=== PATIENT | female | born 1950 | race African-American/Black ===

== ENCOUNTER → 2016-09-18 | Outpatient (CLI) | payer MEDICARE ==
--- NOTE | 2016-09-18 13:01 | WOMENS IMAGING REPORT ---
EXAM DESCRIPTION: BILAT SCREENING MAMMO W/CAD COMPLETED DATE/TIME: 09/18/2016 8:27 am REASON FOR STUDY: ROUTINE SCREENING; Z12.31 Z12.31 ENCNTR SCREEN MAMMOGRAM FOR MALIGNANT NEOPLASM O F MORIS COMPARISON: Multiple since 2008 TECHNIQUE: Standard craniocaudal and mediolateral oblique views of each breast recorded using [employer] acquisition. LIMITATIONS: None. FINDINGS: Findings present which are benign by mammographic criteria. No suspicious masses, calcifi cations or architectural distortion. Pertinent benign findings: Stable bilateral breast parenchymal calcifications Read with the assistance of CAD. .[facility] - R2 Cenova Version 1.3 .[facility] - R2 Cenova Version 1.3 .[facility] - R2 Cenova Version 2.4 .[facility] [place] - R2 Cenova Version 2.4 .[facility] - R2 [employer] Version 9.2 Benign mammographic findings may include one or more of the following: Smooth masses, popcorn/rim/co arse calcifications, asymmetries, post-procedure changes, and lesions with long-standing stability. IMPRESSION: BENIGN MAMMOGRAPHIC FINDINGS. BIRADS 2 BREAST DENSITY: b. There are scattered areas of fibroglandular density. BIRAD: 2 BENIGN FINDING(S) RECOMMENDATION: ROUTINE SCREENING COMMENT: The patient has been notified of the results by letter per SA requirements. Additional no tification policies are in place for contacting patient with suspicious or incomplete findings. Quality ID #[id number]: The [employer] recommends an annual screening mammogram for women aged 40 years or over. This facility utilizes a reminder system to ensure that all patients receive reminder letters, and/or direct phone calls for appointments. This includes reminders for routine scr eening mammograms, diagnostic mammograms, or other Breast Imaging Interventions when appropriate. Th is patient will be placed in the appropriate reminder system. The [employer] (ACR) has developed recommendations for screening MRI of the breast s in certain patient populations, to be used in conjunction with mammography. Breast MRI surveillanc e may be appropriate for women with more than 20% lifetime risk of developing breast cancer as deter mined by genetic testing, significant family history of the disease, or history of mantle radiation f or Hodgkins Disease. ACR Practice Guidelines 2008. TECHNICAL DOCUMENTATION: FINDING NUMBER: (1) ASSESSMENT: (1) JOB ID: [id number] [employer]- All Rights Reserved
== END ==
LOC: WI 09:13
PROVIDERS: ATTEND Internal Medicine
DX: Z12.31 Encounter for screening mammogram for malignant neoplasm of breast (principal)
CPT/HCPCS: 77067; G0202

== ENCOUNTER → 2017-06-10 | Outpatient (CLI) | payer MEDICARE ==
--- NOTE | 2017-06-10 13:56 | RADIOLOGY REPORT (SQ) ---
EXAM DESCRIPTION: HIP LEFT AP/LATERAL COMPLETED DATE/TIME: 06/10/2017 12:19 pm REASON FOR STUDY: HIP PAIN, ACUTE, LEFT M25.552 PAIN IN LEFT HIP COMPARISON: None. NUMBER OF VIEWS: Two views. TECHNIQUE: AP pelvis and additional frog-leg view of the left hip. LIMITATIONS: None. FINDINGS: MINERALIZATION: Normal. LEFT HIP: No fracture or dislocation. No worrisome bone lesions. No significant joint space narrowi ng or bony spurring. RIGHT HIP: No fracture or dislocation. No worrisome bone lesions. No significant joint space narrow ing or bony spurring. PUBIS AND ISCHIUM: No fracture. PELVIS: No acute fracture. Prominent osteophytes along the right anterior superior iliac spine. SACRUM: No fracture or dislocation. No worrisome bone lesions. LOWER LUMBAR SPINE: Advanced bilateral facet arthropathy at L4-5 and L5-S1 SOFT TISSUES: Pessary in the vagina OTHER: No other significant finding. IMPRESSION: No acute fracture or malalignment. No high-grade joint space narrowing or bulky bony sp urring. TECHNICAL DOCUMENTATION: JOB ID: [id number] [employer]- All Rights Reserved Reading location - IP/workstation name: [email or web address]
== END ==
LOC: RAD 11:59
PROVIDERS: ATTEND Nurse Practitioner
DX: M25.552 Pain in left hip (principal)

== ENCOUNTER 2018-03-06 08:06 | Emergency (ER) | payer MEDICARE ==
--- NOTE | 2018-03-06 08:19 | ER Document Report ---
ED General - General Mode of Arrival: Ambulatory Information source: Patient, Relative TRAVEL OUTSIDE OF THE [place] 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 Patient is seen every Wednesday at wound care for this wound and was seen there today instead due to the holiday. Patient states that she woke up this morning she noticed that she had been bleeding overnight as her gown and bed were covered in blood. There is no active bleeding now. (LOLIS SCHWARZ) - Related Data Allergies/Adverse Reactions: clindamycin [Clindamycin] Allergy (Verified 03/06/18 08:08) Penicillins Allergy (Verified 03/06/18 08:08) Past Medical History - General Information source: Patient, [facility] Records - Social History Smoking Status: Never Smoker Cigarette use (# per day): No Frequency of alcohol use: None Drug Abuse: None Lives with: Family Family History: Reviewed & Not Pertinent - Past Medical History Cardiac Medical History: Reports: Hx Hypertension Endocrine Medical History: Reports: Hx Diabetes Mellitus Type 2 Malignancy Medical History: Reports: Hx Renal (Kidney) Cancer - Right. With metastasis to the lung and left axilla Past Surgical History: Reports: Hx Kidney (Renal Surgery) - right nephrectomy 01/10/14 - Immunizations Hx Diphtheria, Pertussis, Tetanus Vaccination: Yes <LOLIS SCHWARZ - Last Filed: 03/06/18 09:12> Review of Systems - Review of Systems Constitutional: No symptoms reported EENT: No symptoms reported Cardiovascular: No symptoms reported Respiratory: No symptoms reported Gastrointestinal: No symptoms reported Genitourinary: No symptoms reported Female Genitourinary: No symptoms reported Musculoskeletal: No symptoms reported Skin: See HPI, Other - tumor in left axilla bleeding Hematologic/Lymphatic: No symptoms reported Neurological/Psychological: No symptoms reported -: Yes All other systems reviewed and negative <LOLIS SCHWARZ - Last Filed: 03/06/18 09:12> Physical Exam <LOLIS SCHWARZ - Last Filed: 03/06/18 09:12> - Vital signs Vitals: Temp Pulse Resp BP Pulse Ox 98.5 F 101 H 18 148/75 H 96 03/06/18 08:10 03/06/18 08:10 03/06/18 08:10 03/06/18 08:10 03/06/18 08:10 - Notes Notes: Physical Exam: General: Alert, appears well. HEENT: Normocephalic. Atraumatic. PERRL. Extraocular movements intact. Oropharynx clear. Neck: Supple. Non-tender. Respiratory: No respiratory distress. Clear and equal breath sounds bilaterally. Cardiovascular: Regular rate and rhythm. Abdominal: Normal Inspection. Non-tender. No distension. Normal Bowel Sounds. Back: Non-tender. No deformity or step off. Extremities: Moves all four extremities. Upper extremities: Normal inspection. Normal ROM. Lower extremities: Normal inspection. No edema. Normal ROM. Neurological: Normal cognition. AAOx4. Normal speech. Psychological: Normal affect. Normal Mood. Skin: Fungated mass in the left axilla with foul-smelling odor. (LOLIS SCHWARZ) Course - Laboratory Result Diagrams: 03/06/18 08:45 03/06/18 08:45 <LOLIS SCHWARZ - Last Filed: 03/06/18 09:12> - Laboratory Result Diagrams: 03/06/18 08:45 03/06/18 08:45 <LYNNE SANTOS - Last Filed: 03/06/18 10:01> - Vital Signs Vital signs: Temp Pulse Resp BP Pulse Ox 98.5 F 101 H 18 148/75 H 96 03/06/18 08:10 03/06/18 08:10 03/06/18 08:10 03/06/18 08:10 03/06/18 08:10 - Laboratory Laboratory results interpreted by me: 03/06/18 03/06/18 08:45 08:45 Hgb 10.1 L Hct 32.2 L MCH 25.0 L MCHC 31.2 L RDW 22.5 H Est GFR (Non-Af Amer) 56 L Glucose 125 H Discharge <LOLIS SCHWARZ - Last Filed: 03/06/18 09:12> <LYNNE SANTOS - Last Filed: 03/06/18 10:01> - Discharge Clinical Impression: Bleeding left axillary cutaneous metastasis Anemia Qualifiers: Anemia type: iron deficiency Iron deficiency anemia type: unspecified iron d eficiency Qualified Code(s): D50.9 - Iron deficiency anemia, unspecified Condition: Stable Disposition: HOME, SELF-CARE Additional Instructions: Use 4 x 4 gauze to pack the wound and apply pressure with the Jeff wraps if the area starts to bleed again. Return to the emergency room if you have bleeding that you are unable to control at home. Follow-up with Dr. Stiles at the wound care clinic as scheduled. RETURN TO THE EMERGENCY ROOM IF ANY NEW OR WORSENING SYMPTOMS. Referrals: PRANEETH MAYERS CNA PCT [Primary Care Provider] - Follow up as needed Scribe Attestation: 03/06/18 08:47 I personally performed the services described in the documentation, reviewed and edited the documentation which was dictated to the scribe in my presence, and it accurately records my words and actions. (LYNNE SANTOS) Scribe Documentation - Scribe Written by Daniel:: Daniel Rodríguez, 03/06/2018 0838 acting as scribe for :: Nazia <LOLIS SCHWARZ - Last Filed: 03/06/18 09:12>
[2018-03-06 09:06] LABS: ABSOLUTE BASOPHILS # (AUTO) 0.1 10^3/uL (0.0-0.2); ABSOLUTE EOSINOPHILS # (AUTO) 0.2 10^3/uL (0.0-0.6); ABSOLUTE LYMPHOCYTES (AUTO) 1.3 10^3/uL (0.5-4.7); ABSOLUTE MONOCYTES (AUTO) 0.8 10^3/uL (0.1-1.4); ABSOLUTE NEUT (AUTO) 4.8 10^3/uL (1.7-8.2); BASOPHILS % (AUTO) 0.9 % (0-2); EOSINOPHILS % (AUTO) 2.1 % (0-6); HEMATOCRIT 32.2 % (36.0-47.0); HEMOGLOBIN 10.1 g/dL (12.0-15.5); LYMPHOCYTES % (AUTO) 18.1 % (13-45); MEAN CORPUSCULAR HGB CONC 31.2 g/dL (32.0-36.0); MEAN CORPUSCULAR VOLUME 80 fl (80-97); MONOCYTES % (AUTO) 11.6 % (3-13); PLATELET COUNT 275 10^3/uL (150-450); RED BLOOD COUNT 4.03 10^6/uL (3.72-5.28); RED CELL DISTRIBUTION WIDTH 22.5 % (11.5-14.0); SEGMENTED NEUTROPHILS % (AUTO) 67.3 % (42-78); TOTAL CELLS COUNTED % (AUTO) 100 %; WHITE BLOOD COUNT 7.2 10^3/uL (4.0-10.5)
[2018-03-06 09:27] LABS: ALANINE AMINOTRANSFERASE 15 U/L (9-52); ALBUMIN 3.7 g/dL (3.5-5.0); ALKALINE PHOSPHATASE 106 U/L (38-126); ANION GAP 9 (5-19); ASPARTATE AMINO TRANSFERASE 19 U/L (14-36); BILIRUBIN,DIRECT 0.3 mg/dL (0.0-0.4); BILIRUBIN,TOTAL 0.6 mg/dL (0.2-1.3); BLOOD UREA NITROGEN 18 mg/dL (7-20); CALCIUM 9.5 mg/dL (8.4-10.2); CARBON DIOXIDE 26 mmol/L (22-30); CHLORIDE 107 mmol/L (98-107); GLUCOSE 125 mg/dL (75-110); POTASSIUM 4.4 mmol/L (3.6-5.0); SODIUM 142.1 mmol/L (137-145); TOTAL PROTEIN 7.9 g/dL (6.3-8.2)
[2018-03-06 10:12] VITALS: BP 116/75
== END 2018-03-06 10:12 | disposition home or self-care (01) ==
LOC: ER 08:06
DX: C79.2 Secondary malignant neoplasm of skin (principal); D50.9 Iron deficiency anemia, unspecified; C78.00 Secondary malignant neoplasm of unspecified lung; I10 Essential (primary) hypertension; E11.9 Type 2 diabetes mellitus without complications; Z90.5 Acquired absence of kidney; Z88.3 Allergy status to other anti-infective agents; Z88.0 Allergy status to penicillin
CPT/HCPCS: 36415; 80053; 85025; 99283

== ENCOUNTER 2018-03-06 18:55 | Emergency (ER) | payer MEDICARE ==
[2018-03-06 19:34] LABS: HEMATOCRIT 30.8 % (36.0-47.0); HEMOGLOBIN 9.6 g/dL (12.0-15.5); MEAN CORPUSCULAR HGB CONC 31.3 g/dL (32.0-36.0); MEAN CORPUSCULAR VOLUME 80 fl (80-97); PLATELET COUNT 256 10^3/uL (150-450); RED BLOOD COUNT 3.85 10^6/uL (3.72-5.28); RED CELL DISTRIBUTION WIDTH 22.1 % (11.5-14.0); WHITE BLOOD COUNT 6.5 10^3/uL (4.0-10.5)
--- NOTE | 2018-03-06 19:38 | ER Document Report ---
ED General - General Chief Complaint: Other Stated Complaint: MASS UNDER LEFT ARM/BLEEDING Time Seen by Provider: 03/06/18 19:15 Notes: Patient is a 67-year-old female with a past medical history of metastatic kidney cancer with a known large mass in the left axilla who presents with some bleeding from the axilla that started just prior to arrival but has now stopped. The patient was seen in the emergency department earlier today, bleeding had been stopped at that time as well and she was advised to apply a ABD pad with an Jeff wrapping if the bleeding recurred which she did do today when the bleeding started again which was apparently successful in terminating the bleeding. She denies any pain to the area. No obvious trigger for the bleeding although the daughter at the bedside believes it is secondary to movement. Patient denies any lightheadedness or syncope. No fever or constitutional symptoms. She has not contacted her general physician regarding today's concerns. TRAVEL OUTSIDE OF THE [place] IN LAST 30 DAYS: No - Related Data Allergies/Adverse Reactions: clindamycin [Clindamycin] Allergy (Verified 03/06/18 08:08) Penicillins Allergy (Verified 03/06/18 08:08) Past Medical History - General Information source: Patient, Relative - Social History Smoking Status: Never Smoker Frequency of alcohol use: None Drug Abuse: None Lives with: Family Family History: Reviewed & Not Pertinent - Past Medical History Cardiac Medical History: Reports: Hx Hypertension Endocrine Medical History: Reports: Hx Diabetes Mellitus Type 2 Renal/ Medical History: Denies: Hx Peritoneal Dialysis Malignancy Medical History: Reports: Hx Lung Cancer, Hx Renal (Kidney) Cancer - Right. With metastasis to the lung and left axilla Past Surgical History: Reports: Hx Kidney (Renal Surgery) - right nephrectomy 01/10/14 - Immunizations Hx Diphtheria, Pertussis, Tetanus Vaccination: Yes Review of Systems - Review of Systems Notes: Constitutional: Negative for fever. HENT: Negative for sore throat. Eyes: Negative for visual changes. Cardiovascular: Negative for chest pain. Respiratory: Negative for shortness of breath. Gastrointestinal: Negative for abdominal pain, vomiting or diarrhea. Genitourinary: Negative for dysuria. Musculoskeletal: Negative for back pain. Skin: Positive for bleeding mass in the left axilla Neurological: Negative for headaches, weakness or numbness. 10 point ROS negative except as marked above and in HPI. Physical Exam - Vital signs Vitals: Temp Pulse Resp BP Pulse Ox 99.0 F 99 16 106/82 97 03/06/18 18:59 03/06/18 18:59 03/06/18 18:59 03/06/18 18:59 03/06/18 18:59 Interpretation: Normal Notes: PHYSICAL EXAMINATION: GENERAL: Well-appearing, well-nourished and in no acute distress. HEAD: Atraumatic, normocephalic. EYES: Pupils equal round and reactive to light, extraocular movements intact, sclera anicteric, conjunctiva are normal. ENT: nares patent, oropharynx clear without exudates. Moist mucous membranes. NECK: Normal range of motion, supple without lymphadenopathy LUNGS: Breath sounds clear to auscultation bilaterally and equal. No wheezes rales or rhonchi. HEART: Regular rate and rhythm without murmurs ABDOMEN: Soft, nontender, normoactive bowel sounds. No guarding, no rebound. No masses appreciated. EXTREMITIES: Normal range of motion, no pitting or edema. No cyanosis. NEUROLOGICAL: No focal neurological deficits. Moves all extremities spontaneously and on command. PSYCH: Normal mood, normal affect. SKIN: Warm, Dry, normal turgor, there is a very large mass in the left axilla with an open wound approximately 2 cm in length without any active bleeding Course - Re-evaluation Re-evalutation: 03/06/18 19:36 Patient presents with bleeding from a mass under her left axilla that started again prior to arrival. Family did apply an Jeff bandage and the bleeding has stopped. There is minimal to no bleeding on the ABD pad that is applied directly to the open wound of the tumor. There is no active bleeding at the time of my assessment. Repeat CBC without any significant change. I have expressed the family to understand her frustration regarding the ongoing recurrent bleeding to the mass although at this point there is not any additional therapies that I can think of to offer given the absence of ongoing bleeding and the minimal bleeding that did occur from the wound itself. I have advised him that tumors are very vascular structures, are very prone to rebleeding and that this may again recur. I have also given them topical thrombin gauze to take home and have advised that they keep the Jeff bandage with the pads on at all times hoping that direct pressure will prevent recurrent bleeding. At this time will discharge with return precautions and follow-up recommendations. Verbal discharge instructions given a the bedside and opportunity for questions given. Medication warnings reviewed. Patient is in agreement with this plan and has verbalized understanding of return precautions and the need for primary care follow-up in the next 24-72 hours. - Vital Signs Vital signs: Temp Pulse Resp BP Pulse Ox 99.0 F 99 21 H 107/77 97 03/06/18 18:59 03/06/18 18:59 03/06/18 20:01 03/06/18 20:01 03/06/18 20:01 - Laboratory Result Diagrams: 03/06/18 19:25 Laboratory results interpreted by me: 03/06/18 19:25 Hgb 9.6 L Hct 30.8 L MCH 25.0 L MCHC 31.3 L RDW 22.1 H Discharge - Discharge Clinical Impression: Mass of left axilla, Bleeding from wound Condition: Stable Disposition: HOME, SELF-CARE Additional Instructions: If the bleeding recurs, please apply direct pressure with the topical thrombin gauze with which you have been sent home for at least 15 minutes. If the bleeding does persist please return to the emergency department immediately. Your blood counts have not changed significantly from earlier today. Please return if you have any additional concerns including increased bleeding, fever of greater than 100.4F, pain to the area, or any other symptoms that are worrisome to you. Referrals: PRANEETH MAYERS NP [Primary Care Provider] - Follow up as needed
[2018-03-06 20:11] VITALS: BP 107/77
== END 2018-03-06 20:05 | disposition home or self-care (01) ==
LOC: ER 18:55
DX: R22.9 Localized swelling, mass and lump, unspecified (principal); R58 Hemorrhage, not elsewhere classified; I10 Essential (primary) hypertension; E11.9 Type 2 diabetes mellitus without complications; Z85.528 Personal history of other malignant neoplasm of kidney; Z85.118 Personal history of other malignant neoplasm of bronchus and lung; Z88.3 Allergy status to other anti-infective agents; Z88.0 Allergy status to penicillin
CPT/HCPCS: 36415; 85027; 99283

== ENCOUNTER 2018-03-12 06:13 | Emergency (ER) | payer MEDICARE ==
--- NOTE | 2018-03-12 07:51 | ER Document Report ---
ED General - General Chief Complaint: Skin Problem Stated Complaint: LEFT ARMPIT BLEEDING Time Seen by Provider: 03/12/18 06:40 Notes: 67-year-old female with a history of metastatic renal cell presents to the ER complaining of left armpit bleeding. Patient was seen here last week for the same. She has metastatic disease to the lymph nodes in her left axilla. It is open to the skin. Bleeding was stopped at that point and was good until this morning when the patient woke up and had soaked her gauze. The patient claims no chest pain or shortness of breath no headache lightheadedness or dizziness. No numbness no tingling. With the amount of blood on the gauze in the bed they brought the patient in for evaluation the patient is not actively bleeding at this time. The patient is being cared for by [facility] for radiation. TRAVEL OUTSIDE OF THE [place] IN LAST 30 DAYS: No - Related Data Allergies/Adverse Reactions: clindamycin [Clindamycin] Allergy (Verified 03/06/18 08:08) Penicillins Allergy (Verified 03/06/18 08:08) Past Medical History - Social History Smoking Status: Never Smoker Chew tobacco use (# tins/day): No Frequency of alcohol use: None Drug Abuse: None Family History: Reviewed & Not Pertinent Patient has suicidal ideation: No Patient has homicidal ideation: No - Past Medical History Cardiac Medical History: Reports: Hx Hypertension Endocrine Medical History: Reports: Hx Diabetes Mellitus Type 2 Renal/ Medical History: Denies: Hx Peritoneal Dialysis Malignancy Medical History: Reports: Hx Lung Cancer, Hx Renal (Kidney) Cancer - Right. With metastasis to the lung and left axilla Past Surgical History: Reports: Hx Kidney (Renal Surgery) - right nephrectomy 01/10/14 - Immunizations Hx Diphtheria, Pertussis, Tetanus Vaccination: Yes Review of Systems - Review of Systems Constitutional: denies: Chills, Fever Cardiovascular: denies: Chest pain Respiratory: denies: Short of breath Gastrointestinal: denies: Nausea, Vomiting Hematologic/Lymphatic: Blood clots, Enlarged lymph nodes Neurological/Psychological: denies: Weakness, Headaches -: Yes All other systems reviewed and negative Physical Exam - Vital signs Vitals: Temp Pulse Resp BP Pulse Ox 98.7 F 100 16 120/74 98 03/12/18 06:16 03/12/18 06:16 03/12/18 06:16 03/12/18 06:16 03/12/18 06:16 - Notes Notes: GENERAL_APPEARANCE: well_nourished, alert, cooperative, no_acute_distress, no_obvious_discomfort. VITALS: reviewed, see vital signs table. HEAD: no_swelling\tenderness on the head. EYES: conjunctiva_clear. NOSE: no_nasal_discharge. MOUTH: (-)decreased moisture. THROAT: no_throat_inflammation, no_airway_obstruction. no_lymphadenopathy NECK: supple, no_neck_tenderness, (-)thyromegaly. BACK: no_back_tenderness. CHEST_WALL: no_chest_tenderness. Port noted LUNGS: no_wheezing, no_rales, no_rhonchi, (-)accessory muscle use, good air exchange bilateral. HEART: normal_rate, normal_rhythm, normal_S1, normal_S2, (-)S3, (-)S4, no_murmur, no_rub. ABDOMEN: soft, no_abd_tenderness, (-)guarding, (-)rebound, no_organomegaly, no_abd_masses. EXTREMITIES: The left axilla has a lot of enlarged nodes and masses. 1 of the masses has a golf ball size hole that has a blood clot and that is not actively bleeding. SKIN: warm, dry, good_color, no_rash. MENTAL_STATUS: speech_clear, oriented_X_3, normal_affect, responds_appro priately to questions. Course - Re-evaluation Re-evalutation: 03/12/18 07:50 67-year-old female with history of metastatic cancer presents with a bleeding wound due to metastatic spread of renal cell cancer to the left axilla. This open wound is not new. It has stopped bleeding here and not actively bleeding. She is currently getting radiation therapy. We will recheck the patient's hemoglobin and monitor her. She usually has an Jeff wrap on this. This has bled before. 03/12/18 12:30 The patient is getting blood. Her hemoglobin came back at 8.2 that is 1.5 g compared to last visit. Likely this will equilibrate rule lower. Since this was due to active bleeding I will transfuse the patient. We have redressed the wound there is no longer any active bleeding. The patient will need to speak with her oncologist for further care. Since this is metastatic disease to the lymph nodes I do not know if any surgical debulking procedure would have any benefit. This may likely leave worse open wounds with bleeding potential. We will continue with the dressing and have them follow-up with her oncologist. - Vital Signs Vital signs: Temp Pulse Resp BP Pulse Ox 98.4 F 79 23 H 109/76 98 03/12/18 11:58 03/12/18 11:58 03/12/18 11:58 03/12/18 11:58 03/12/18 11:58 - Laboratory Result Diagrams: 03/12/18 07:38 03/12/18 07:38 Laboratory results interpreted by me: 03/12/18 03/12/18 03/12/18 07:38 07:38 07:38 RBC 3.28 L Hgb 8.2 L Hct 26.2 L MCH 25.1 L MCHC 31.4 L RDW 22.1 H PT 15.6 H Chloride 109 H Crossmatch 03/12/18 07:38 RBC Hgb Hct MCH MCHC RDW PT Chloride Crossmatch See Detail Discharge - Discharge Clinical Impression: Hemorrhage Anemia Qualifiers: Anemia type: other cause Condition: Good Disposition: HOME, SELF-CARE Instructions: Dressing Instructions for Open Wounds ([facility]) Additional Instructions: If any additional bleeding placed direct pressure and return to the ER. Otherwise follow-up with your oncologist to come up with a long-term plan to deal with this chronic bleeding Referrals: PRANEETH MAYERS NP [Primary Care Provider] - Follow up as needed
[2018-03-12 08:08] LABS: ABSOLUTE EOSINOPHILS # (AUTO) 0.1 10^3/uL (0.0-0.6); ABSOLUTE LYMPHOCYTES (AUTO) 1.2 10^3/uL (0.5-4.7); ABSOLUTE MONOCYTES (AUTO) 0.8 10^3/uL (0.1-1.4); ABSOLUTE NEUT (AUTO) 4.7 10^3/uL (1.7-8.2); BASOPHILS % (AUTO) 0.7 % (0-2); HEMATOCRIT 26.2 % (36.0-47.0); HEMOGLOBIN 8.2 g/dL (12.0-15.5); MEAN CORPUSCULAR HEMOGLOBIN 25.1 pg (27.0-33.4); MEAN CORPUSCULAR HGB CONC 31.4 g/dL (32.0-36.0); MEAN CORPUSCULAR VOLUME 80 fl (80-97); MONOCYTES % (AUTO) 11.7 % (3-13); PLATELET COUNT 236 10^3/uL (150-450); RED BLOOD COUNT 3.28 10^6/uL (3.72-5.28); RED CELL DISTRIBUTION WIDTH 22.1 % (11.5-14.0); SEGMENTED NEUTROPHILS % (AUTO) 68.6 % (42-78); TOTAL CELLS COUNTED % (AUTO) 100 %; WHITE BLOOD COUNT 6.8 10^3/uL (4.0-10.5)
[2018-03-12 08:10] LABS: INTERNATIONAL RATION (INR) 1.18; PROTHROMBIN TIME 15.6 SEC (11.4-15.4)
[2018-03-12 08:19] LABS: ANION GAP 8 (5-19); BLOOD UREA NITROGEN 14 mg/dL (7-20); CALCIUM 8.9 mg/dL (8.4-10.2); CARBON DIOXIDE 25 mmol/L (22-30); CHLORIDE 109 mmol/L (98-107); GLUCOSE 109 mg/dL (75-110); POTASSIUM 4.2 mmol/L (3.6-5.0)
[2018-03-12] MEDS ORDERED: NORMAL SALINE 250 ML IV PRN (09:04)
[2018-03-12 18:10] VITALS: BP 133/83
== END 2018-03-12 18:38 | disposition home or self-care (01) ==
LOC: ER 06:13
DX: R58 Hemorrhage, not elsewhere classified (principal); D64.9 Anemia, unspecified; C64.9 Malignant neoplasm of unspecified kidney, except renal pelvis; C77.3 Secondary and unspecified malignant neoplasm of axilla and upper limb lymph nodes; I10 Essential (primary) hypertension; E11.9 Type 2 diabetes mellitus without complications
CPT/HCPCS: 36591; 99284; 86900; 86901; 36415; 36430; 86850; 85025; 85610; 80048; 86920; P9016

== ENCOUNTER 2019-12-06 05:22 | Inpatient (IN) | payer MEDICARE ==
[2019-12-06] MEDS ORDERED: RINGERS LACTATED IV ONE (06:46)
[2019-12-06] MEDS ORDERED: LEVOFLOXACIN 750 MG/D5W RTU 750 MG/150 ML RTUPB IV ONE (06:46)
[2019-12-06 07:02] LABS: ABSOLUTE LYMPHOCYTES (AUTO) 0.9 10^3/uL (0.5-4.7); ABSOLUTE MONOCYTES (AUTO) 0.2 10^3/uL (0.1-1.4); ABSOLUTE NEUT (AUTO) 4.4 10^3/uL (1.7-8.2); BASOPHILS % (AUTO) 0.4 % (0-2); HEMATOCRIT 33.7 % (36.0-47.0); HEMOGLOBIN 11.4 g/dL (12.0-15.5); LYMPHOCYTES % (AUTO) 16.3 % (13-45); MEAN CORPUSCULAR HEMOGLOBIN 31.5 pg (27.0-33.4); MEAN CORPUSCULAR HGB CONC 33.7 g/dL (32.0-36.0); MEAN CORPUSCULAR VOLUME 93 fl (80-97); MONOCYTES % (AUTO) 2.9 % (3-13); PLATELET COUNT 107 10^3/uL (150-450); RED BLOOD COUNT 3.61 10^6/uL (3.72-5.28); SEGMENTED NEUTROPHILS % (AUTO) 80.4 % (42-78); TOTAL CELLS COUNTED % (AUTO) 100 %; WHITE BLOOD COUNT 5.4 10^3/uL (4.0-10.5)
[2019-12-06 07:09] LABS: ALBUMIN 3.4 g/dL (3.5-5.0); ALKALINE PHOSPHATASE 92 U/L (38-126); ANION GAP 5 (5-19); ASPARTATE AMINO TRANSFERASE 44 U/L (14-36); BILIRUBIN,DIRECT 0.4 mg/dL (0.0-0.4); BILIRUBIN,TOTAL 0.7 mg/dL (0.2-1.3); BLOOD UREA NITROGEN 16 mg/dL (7-20); CARBON DIOXIDE 30 mmol/L (22-30); CHLORIDE 107 mmol/L (98-107); GLUCOSE 130 mg/dL (75-110); POTASSIUM 4.3 mmol/L (3.6-5.0); TOTAL PROTEIN 6.4 g/dL (6.3-8.2)
[2019-12-06 07:16] LABS: INTERNATIONAL RATION (INR) 1.05; PROTHROMBIN TIME 13.9 SEC (11.4-15.4)
[2019-12-06 07:18] LABS: APPEARANCE,URINE SLIGHTLY-CLOUDY; BILIRUBIN,URINE NEGATIVE (NEGATIVE); COLOR,URINE YELLOW; GLUCOSE, URINE NEGATIVE (NEGATIVE); KETONES,URINE NEGATIVE (NEGATIVE); PROTEIN,URINE NEGATIVE (NEGATIVE); URINE SPECIFIC GRAVITY 1.017
--- NOTE | 2019-12-06 07:33 | RADIOLOGY REPORT (SQ) ---
CHEST X-RAY 1 VIEW on 12/06/2019 at 7:14 AM CLINICAL INDICATION: Positive COVID 19, fever, shortness of breath COMPARISON: None FINDINGS: Right IJ Port-A-Cath tip is in the right atrium. There is mild elevation of the right hemidiaphragm. There are left greater than right lower lung opacities consistent with atelectasis and/or pneumonia and based upon the patient's history may represent COVID 19 pneumonia. Lungs are otherwise clear. Borderline cardiomegaly is noted. IMPRESSION: Bilateral lower lung opacities consistent with atelectasis and/or pneumonia and may represent a COVID 19 pneumonia.
--- NOTE | 2019-12-06 07:43 | ER Document Report ---
ED General - General Chief Complaint: Shortness Of Breath Stated Complaint: RESPIRATORY DISTRESS Time Seen by Provider: 12/06/19 06:12 Primary Care Provider: PRANEETH MAYERS NP [Primary Care Provider] - Follow up as needed Information source: Patient TRAVEL OUTSIDE OF THE [place] IN LAST 30 DAYS: No - HPI Notes: Patient complains of fever and shortness of breath. She states she had a positive COVID test 1 week ago. She states that her had a positive Covid test approximately 2 weeks ago. Patient states she does have a diagnosis of kidney cancer and is currently on immunotherapy. She denies any chemotherapy or radiation. She states she does have some heaviness of the her chest. It is mild to moderate. It is worse with exertion and better with rest. No significant radiation of this heaviness. She is also had a dry cough. She has had some generalized body aches and weakness. No diarrhea or vomiting. No rashes. - Related Data Allergies/Adverse Reactions: clindamycin [Clindamycin] Allergy (Verified 03/06/18 08:08) Penicillins Allergy (Verified 03/06/18 08:08) Past Medical History - General Information source: Patient - Social History Smoking Status: Never Smoker Frequency of alcohol use: None Drug Abuse: None Family History: Reviewed & Not Pertinent Patient has homicidal ideation: No - Past Medical History Cardiac Medical History: Reports: Hx Hypertension Endocrine Medical History: Reports: Hx Diabetes Mellitus Type 2 Renal/ Medical History: Denies: Hx Peritoneal Dialysis Malignancy Medical History: Reports: Hx Lung Cancer, Hx Renal (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 denies: Palpitations Respiratory: Cough, Short of breath -: Yes All other systems reviewed and negative Physical Exam - Vital signs Vitals: Resp BP Pulse Ox 20 127/78 H 100 12/06/19 05:35 12/06/19 05:35 12/06/19 05:35 Interpretation: Tachycardic, Febrile - General General appearance: Appears well, Alert In distress: None - HEENT Head: Normocephalic, Atraumatic Eyes: Normal Nasal: Normal Mouth/Lips: Normal - Respiratory Respiratory status: No respiratory distress Breath sounds: Decreased air movement - Cardiovascular Rhythm: Tachycardia Notes: no JVD - Abdominal Inspection: Normal Distension: No distension - Back Back: Normal. No: Deformity/step-off - Extremities General upper extremity: Normal inspection, Normal color, Normal ROM General lower extremity: Normal inspection, Normal color, Normal ROM - Neurological Neuro grossly intact: Yes Cognition: Normal Orientation: AAOx4 [place] Coma Scale Eye Opening: Spontaneous [place] Coma Scale Verbal: Oriented [place] Coma Scale Motor: Obeys Commands Daniel Coma Scale Total: 15 Speech: Normal Motor strength normal: LUE, RUE, LLE, RLE - Psychological Associated symptoms: Normal affect, Normal mood - Skin Skin Moisture: Dry Skin Color: Normal Course - Re-evaluation Re-evalutation: 12/06/19 07:42 Patient presents with fever and some shortness of breath. Oxygen saturation is 92% on room air. She has a known positive diagnosis of COVID disease. X-ray is consistent with a [place] pneumonia. Due to patient's history of cancer I have covered her with Levaquin until her clinical course can be further delineated. Patient's vital signs at this time are stable although mildly tachycardic. Fluid bolus has been ordered. The patient was evaluated during a global COVID-19 pandemic and that diagnosis was suspected/considered upon their initial presentation. Their evaluation, lidia atment and testing was consistent with current guidelines for patients who present with complaints or symptoms and may be related to COVID-19. 12/06/19 07:43 - Vital Signs Vital signs: Temp Pulse Resp BP Pulse Ox 102.1 F H 20 117/61 100 12/06/19 06:05 12/06/19 07:00 12/06/19 06:01 12/06/19 07:00 - Laboratory Result Diagrams: 12/06/19 06:48 12/06/19 06:48 Laboratory results interpreted by me: 12/06/19 12/06/19 12/06/19 05:47 06:48 06:48 RBC 3.61 L Hgb 11.4 L Hct 33.7 L RDW 15.0 H Plt Count 107 L [place] % (Auto) 2.9 L Seg Neutrophils % 80.4 H Est GFR (MDRD) Non-Af 55 L Glucose 130 H Calcium 8.0 L AST 44 H Albumin 3.4 L Urine Urobilinogen 4.0 H - Diagnostic Test Radiology reviewed: Image reviewed, Reports reviewed - EKG Interpretation by Me EKG shows normal: Sinus rhythm Rate: Normal - 95 Rhythm: NSR [place]/QRS: Left axis deviation Discharge - Discharge Clinical Impression: Pneumonia due to COVID-19 virus Condition: Serious Disposition: ADMITTED INPATIENT Admitting Provider: Juliana (Hospitalist) Unit Admitted: [facility] Referrals: PRANEETH MAYERS NP [Primary Care Provider] - Follow up as needed
[2019-12-06] MEDS ORDERED: ONDANSETRON HCL INJ/PF 4 MG/2 ML SDV IV PRN (08:31)
[2019-12-06 08:47] LABS: VENOUS BLOOD BASE EXCESS 2.1 mmol/L; VENOUS BLOOD PCO2 43.2 mmHg (35-63); VENOUS BLOOD PH 7.41 (7.30-7.42)
--- NOTE | 2019-12-06 08:49 | PDOC H&P ---
History of Present Illness Admission Date/PCP: 12/06/19 07:57 PRANEETH MAYERS NP Patient complains of: Came in with complaints of fever and shortness of breath for the last couple of days. History of Present Illness: CUCO CASIANO is a 69 year old female with history of hypertension, diabetes mellitus, lung cancer, right kidney cancer with right nephrectomy on i mmunosuppression, recently positive for COVID-19 at PCPs office 1 week ago came to the emergency room with complaints of fever and shortness of breath the last couple of days. Chest x-ray indicated of left lower lobe pneumonia. WBC count within normal limits pulse ox is on room air is 92% with 2 L of oxygen is 100%. Patient wants to be a DNR/DNI. Agreed to stay in the hospital for further zuri gemantwan. Past Medical History Cardiac Medical History: Reports: Hypertension Endocrine Medical History: Reports: Diabetes Mellitus Type 2 Malignancy Medical History: Reports: Lung Cancer, Renal (Kidney) Cancer - Right. With metastasis to the lung and left axilla Traumatic Medical History: Reports: None Hematology: Reports: None Infectious Medical History: Reports: None Past Surgical History Past Surgical History: Reports: Other - Right kidney removal Social History Smoking Status: Never Smoker Electronic Cigarette use?: No Hx Recreational Drug Use: No Hx Prescription Drug Abuse: No - Advance Directive Resuscitation Status: Do Not Resuscitate Family History Family History: Reviewed & Not Pertinent Parental Family History Reviewed: Yes - Family history of diabetes mellitus. Children Family History Reviewed: Yes Sibling(s) Family History Reviewed.: Yes Medication/Allergy Home Medications: Acetaminophen [Tylenol Extra Strength] 500 mg PO Q6H PRN 04/01/15 Amlodipine Besylate [Norvasc 5 mg Tablet] 5 mg PO DAILY 04/01/15 Atenolol [Tenormin 50 mg Tablet] 25 mg PO BID 04/01/15 Levothyroxine Sodium [Synthroid 0.088 mg Tablet] 1 tab PO DAILY 04/01/15 Metformin HCl [Glucophage 500 mg Tablet] 500 mg PO DAILY 04/01/15 Ondansetron [Zofran Odt 4 mg Tablet] 4 mg SL Q8H PRN 04/01/15 Pazopanib HCl [Votrient] 400 mg PO DAILY 04/01/15 Tramadol HCl 1 tab PO Q6H PRN 04/01/15 Tramadol HCl [Ultram 50 mg Tablet] 50 mg PO Q6HP PRN #20 tablet 04/01/15 Allergies/Adverse Reactions: clindamycin [Clindamycin] Allergy (Verified 03/06/18 08:08) Penicillins Allergy (Verified 03/06/18 08:08) Review of Systems Constitutional: PRESENT: fatigue, fever(s), weakness. ABSENT: headache(s), night sweats Eyes: ABSENT: visual disturbances Ears: ABSENT: hearing changes Nose, Mouth, and Throat: ABSENT: sore throat Respiratory: PRESENT: dyspnea. ABSENT: cough, hemoptysis Gastrointestinal: ABSENT: coffee ground emesis, constipation, diarrhea, dysphagia, heartburn Genitourinary: ABSENT: dysuria, hematuria Integumentary: ABSENT: rash, wounds Neurological: ABSENT: abnormal gait, abnormal speech, confusion, dizziness, focal weakness, syncope Psychiatric: ABSENT: anxiety, depression, homidical ideation, suicidal ideation Endocrine: ABSENT: cold intolerance, heat intolerance, polydipsia, polyuria Physical Exam Vital Signs: Temp Pulse Resp BP Pulse Ox 102.1 F H 25 H 113/81 100 12/06/19 06:05 12/06/19 08:01 12/06/19 08:01 12/06/19 08:01 Intake & Output 12/05/19 12/06/19 12/07/19 06:59 06:59 06:59 Intake Total 150 Balance 150 Weight 88.1 kg General appearance: PRESENT: no acute distress, well-developed Head exam: PRESENT: atraumatic Eye exam: PRESENT: PERRLA Ear exam: PRESENT: normal external ear exam Neck exam: ABSENT: carotid bruit, JVD, lymphadenopathy, thyromegaly Respiratory exam: PRESENT: decreased breath sounds Cardiovascular exam: PRESENT: RRR. ABSENT: diastolic murmur, rubs, systolic murmur Pulses: PRESENT: normal dorsalis pedis pul GI/Abdominal exam: PRESENT: normal bowel sounds, soft. ABSENT: distended, guarding, mass, organolmegaly, rebound, tenderness Rectal exam: PRESENT: deferred Extremities exam: PRESENT: full ROM. ABSENT: calf tenderness, clubbing, pedal edema Neurological exam: PRESENT: alert, awake, oriented to person, oriented to place, oriented to time, oriented to situation, CN II-XII grossly intact. ABSENT: motor sensory deficit Psychiatric exam: PRESENT: appropriate affect, normal mood. ABSENT: homicidal ideation, suicidal ideation Results Laboratory Results: 12/06/19 06:48 12/06/19 06:48 12/06/19 12/06/19 12/06/19 05:47 06:48 06:48 WBC 5.4 RBC 3.61 L Hgb 11.4 L Hct 33.7 L MCV 93 MCH 31.5 MCHC 33.7 RDW 15.0 H Plt Count 107 L Seg Neutrophils % 80.4 H Sodium 142.3 Potassium 4.3 Chloride 107 Carbon Dioxide 30 Anion Gap 5 BUN 16 Creatinine 1.00 Est GFR ( Amer) > 60 Glucose 130 H Lactic Acid Calcium 8.0 L Total Bilirubin 0.7 AST 44 H Alkaline Phosphatase 92 Total Protein 6.4 Albumin 3.4 L Urine Color YELLOW Urine Appearance SLIGHTLY-CLOUDY Urine pH 5.0 Ur Specific [place] 1.017 Urine Protein NEGATIVE Urine Glucose (UA) NEGATIVE Urine Ketones NEGATIVE Urine Blood NEGATIVE Urine RBC (Auto) 0 12/06/19 06:48 WBC RBC Hgb Hct MCV MCH MCHC RDW Plt Count Seg Neutrophils % Sodium Potassium Chloride Carbon Dioxide Anion Gap BUN Creatinine Est GFR ( Amer) Glucose Lactic Acid 0.9 Calcium Total Bilirubin AST Alkaline Phosphatase Total Protein Albumin Urine Color Urine Appearance Urine pH Ur Specific [place] Urine Protein Urine Glucose (UA) Urine Ketones Urine Blood Urine RBC (Auto) 12/06/19 06:48 Troponin I < 0.012 Impressions: Chest X-Ray 12/06/19 06:46 IMPRESSION: Bilateral lower lung opacities consistent with atelectasis and/or pneumonia and may represent a COVID 19 pneumonia. Assessment and Plan - Diagnosis (1) Pneumonia due to COVID-19 virus Is this a current diagnosis for this admission?: Yes Plan: 12/06/2019-patient is going to be admitted to [facility] in the COVID unit as inpatient. To continue to provide oxygen supplementations. Started on Zithromax 5 mg IV daily, dexamethasone 4 mg p.o. every 8 hours. CRP, ESR, d-dimer, LDH is requested. Ferritin levels are requested. GI prophylaxis DVT prophylaxis initiated. Patient was positive for COVID-19 1 week ago at PCPs office. (2) HTN (hypertension) Is this a current diagnosis for this admission?: No Plan: 12/06/2019-blood pressure today's 117/61. Patient has history of chronic essential hypertension to continue home medications at this time. (3) Diabetes Qualifiers: Diabetes mellitus type: type 2 Is this a current diagnosis for this admission?: No Plan: 12/06/2019-patient has history of type 2 diabetes mellitus on metformin at home. Plan is to hold metformin at this time started on insulin sliding scale before meals and at bedtime to check hemoglobin A1c. Diet exercise weight loss lifestyle modifications will be discussed with the patient. (4) Kidney carcinoma Qualifiers: Laterality: right Qualified Code(s): C64.1 - Malignant neoplasm of right kidney, except renal pelvis Is this a current diagnosis for this admission?: No Plan: 12/06/2019-patient has history of right-sided kidney cancer status post nephrectomy. On immunosuppression. (5) Obesity (BMI 30.0-34.9) Is this a current diagnosis for this admission?: No Plan: 12/06/2019-patient BMI is more than 34. Diet exercise weight loss lifestyle modifications discussed with the patient. - Time Anticipated Discharge Disposition: Home, Self Care Anticipated Discharge Timeframe: within 72 hours
[2019-12-06] MEDS ORDERED: DEXTROSE 50%-WATER 25 GM/50 ML DISP.SYRIN IV PRN ×2 (08:57)
[2019-12-06] MEDS ORDERED: DEXTROSE 40% GEL 15 GM TUBE PO PRN ×2 (08:57)
[2019-12-06] MEDS ORDERED: GLUCAGON,HUMAN RECOMB 1 MG INJ IM PRN (08:57)
[2019-12-06 09:05] LABS: C-REACTIVE PROTEIN 69.6 mg/L (<10.0); URIC ACID 5.1 mg/dL (2.5-7.5)
[2019-12-06] MEDS ORDERED: AZITHROMYCIN INJ 500 MG VIAL IV SCH (10:00)
[2019-12-06] MEDS: DOCUSATE SODIUM 100 MG/10 ML UDC PO SCH ×2 (10:40→17:21)
[2019-12-06] MEDS: LEVOFLOXACIN 500 MG/D5W RTU 500 MG/100 ML RTUPB IV SCH (10:43)
[2019-12-06] MEDS: ENOXAPARIN SODIUM INJ 40 MG/0.4 ML DISP.SYRIN SUBCUT SCH (10:44)
[2019-12-06] MEDS ORDERED: REMDESIVIR (EUA) 200 MG in NORMAL SALINE 250 ML IV ONE (11:00)
[2019-12-06] MEDS ORDERED: (PENDING PHARMACY ID) (Oxycodone Hcl/Acetaminophen [Percocet 10-325 Mg Tablet] 1 EACH) PO PRN (12:11)
[2019-12-06] MEDS: INSULIN REG, HUMAN 100 UNIT/ML 3 ML VIAL (PYX) SUBCUT SCH ×3 (12:13→21:52)
[2019-12-06] MEDS: ZINC SULFATE 220 MG CAPSULE PO SCH (12:13)
[2019-12-06] MEDS ORDERED: OXYCODONE-ACETAMINOPHEN 5-325 MG TABLET PO PRN (12:44)
[2019-12-06] MEDS ORDERED: OXYCODONE HCL IR 5 MG TABLET PO PRN (12:45)
--- NOTE | 2019-12-06 14:43 | EKG REPORT ---
SEVERITY:- BORDERLINE ECG - SINUS RHYTHM BORDERLINE LEFT AXIS DEVIATION BORDERLINE T WAVE ABNORMALITIES : Confirmed by: Julia Vega MD 06-Dec-2019 14:42:34
[2019-12-06] MEDS: FENTANYL 25 MCG/HR PATCH.TD72 TD SCH (15:57)
[2019-12-06] MEDS: DEXAMETHASONE 4 MG TABLET PO SCH ×2 (15:57→21:04)
[2019-12-06] MEDS: PANTOPRAZOLE SODIUM 40 MG TABLET.DR PO SCH (17:21)
[2019-12-06] MEDS: NORMAL SALINE 1000 ML 1,000 ML IV PRN (20:23)
[2019-12-06] MEDS: LORAZEPAM INJ 2 MG/1 ML VIAL IV PRN (21:04)
[2019-12-06] MEDS: ACETAMINOPHEN 325 MG TABLET PO PRN (21:04)
[2019-12-07] MEDS: PANTOPRAZOLE SODIUM 40 MG TABLET.DR PO SCH ×2 (05:21→17:17)
[2019-12-07] MEDS: DEXAMETHASONE 4 MG TABLET PO SCH ×3 (05:21→22:19)
[2019-12-07 05:50] LABS: ABSOLUTE MONOCYTES (AUTO) 0.3 10^3/uL (0.1-1.4); ABSOLUTE NEUT (AUTO) 3.5 10^3/uL (1.7-8.2); BASOPHILS % (AUTO) 0.3 % (0-2); HEMATOCRIT 34.5 % (36.0-47.0); HEMOGLOBIN 11.5 g/dL (12.0-15.5); LYMPHOCYTES % (AUTO) 21.1 % (13-45); MEAN CORPUSCULAR HEMOGLOBIN 31.2 pg (27.0-33.4); MEAN CORPUSCULAR HGB CONC 33.4 g/dL (32.0-36.0); MEAN CORPUSCULAR VOLUME 94 fl (80-97); MONOCYTES % (AUTO) 5.4 % (3-13); PLATELET COUNT 128 10^3/uL (150-450); RED BLOOD COUNT 3.68 10^6/uL (3.72-5.28); RED CELL DISTRIBUTION WIDTH 15.3 % (11.5-14.0); SEGMENTED NEUTROPHILS % (AUTO) 73.2 % (42-78); TOTAL CELLS COUNTED % (AUTO) 100 %; WHITE BLOOD COUNT 4.8 10^3/uL (4.0-10.5)
[2019-12-07 06:12] LABS: ALBUMIN 3.4 g/dL (3.5-5.0); ALKALINE PHOSPHATASE 82 U/L (38-126); ANION GAP 9 (5-19); ASPARTATE AMINO TRANSFERASE 50 U/L (14-36); BILIRUBIN,DIRECT 0.4 mg/dL (0.0-0.4); BILIRUBIN,TOTAL 0.9 mg/dL (0.2-1.3); BLOOD UREA NITROGEN 16 mg/dL (7-20); CALCIUM 8.5 mg/dL (8.4-10.2); CARBON DIOXIDE 27 mmol/L (22-30); CHLORIDE 108 mmol/L (98-107); CHOLESTEROL 128.08 mg/dL (0-200); GLUCOSE 178 mg/dL (75-110); POTASSIUM 4.2 mmol/L (3.6-5.0); TOTAL PROTEIN 6.3 g/dL (6.3-8.2); TRIGLYCERIDES 66 mg/dL (<150)
[2019-12-07 06:28] LABS: DIRECT LDL 47 mg/dL (<100)
[2019-12-07] MEDS: DOCUSATE SODIUM 100 MG CAPSULE PO SCH ×2 (09:06→17:17)
[2019-12-07] MEDS: ZINC SULFATE 220 MG CAPSULE PO SCH (09:06)
[2019-12-07] MEDS: SERTRALINE HCL 50 MG TABLET PO SCH (09:06)
[2019-12-07] MEDS: LEVOTHYROXINE SODIUM 0.088 MG TABLET PO SCH (09:06)
[2019-12-07] MEDS: INSULIN REG, HUMAN 100 UNIT/ML 3 ML VIAL (PYX) SUBCUT SCH ×4 (09:06→22:18)
[2019-12-07] MEDS: LEVOFLOXACIN 500 MG/D5W RTU 500 MG/100 ML RTUPB IV SCH (09:07)
[2019-12-07] MEDS: ENOXAPARIN SODIUM INJ 40 MG/0.4 ML DISP.SYRIN SUBCUT SCH (09:16)
--- NOTE | 2019-12-07 10:32 | PDOC PROGRESS REPORT ---
Subjective Progress Note for:: 12/07/19 Subjective:: 69 year old female with history of hypertension, diabetes mellitus, lung cancer, right kidney cancer with right nephrectomy on immunosuppression, recently positive for COVID-19 at PCPs office 1 week ago came to the emergency room with complaints of fever and shortness of breath the last couple of days. Chest x- ray indicated of left lower lobe pneumonia. WBC count within normal limits pulse ox is on room air is 92% with 2 L of oxygen is 100%. Patient wants to be a DNR/DNI. Agreed to stay in the hospital for further management. 12/07/2019-patient is doing much better. No acute events the last 24. COVID-19 test was done this morning. Alert awake communicating well. Not in distress. Reason For Visit: PNEUMONIA DUE TO COVID19 VIRUS Physical Exam Vital Signs: Temp Pulse Resp BP Pulse Ox 98.3 F 80 18 135/80 H 97 12/07/19 08:36 12/07/19 08:21 12/07/19 08:21 12/07/19 08:21 12/07/19 08:21 Intake & Output 12/06/19 12/07/19 12/08/19 06:59 06:59 06:59 Intake Total 1965 Balance 1965 Weight 88.1 kg 84.2 kg General appearance: PRESENT: no acute distress, well-developed Head exam: PRESENT: atraumatic Eye exam: PRESENT: PERRLA Mouth exam: PRESENT: moist, tongue midline Teeth exam: PRESENT: poor dentation Neck exam: ABSENT: carotid bruit, JVD, lymphadenopathy, thyromegaly Respiratory exam: PRESENT: decreased breath sounds Cardiovascular exam: PRESENT: RRR. ABSENT: diastolic murmur, rubs, systolic murmur GI/Abdominal exam: PRESENT: normal bowel sounds, soft. ABSENT: distended, guarding, mass, organolmegaly, rebound, tenderness Rectal exam: PRESENT: deferred Extremities exam: PRESENT: full ROM. ABSENT: calf tenderness, clubbing, pedal edema Neurological exam: PRESENT: alert, awake, oriented to person, oriented to place, oriented to time, oriented to situation, CN II-XII grossly intact. ABSENT: motor sensory deficit Psychiatric exam: PRESENT: appropriate affect, normal mood. ABSENT: homicidal ideation, suicidal ideation Results Laboratory Results: 12/07/19 05:25 12/07/19 05:25 12/06/19 12/06/19 12/07/19 11:45 16:12 05:25 WBC 4.8 RBC 3.68 L Hgb 11.5 L Hct 34.5 L MCV 94 MCH 31.2 MCHC 33.4 RDW 15.3 H Plt Count 128 L Seg Neutrophils % 73.2 Sodium Potassium Chloride Carbon Dioxide Anion Gap BUN Creatinine Est GFR ( Amer) Glucose Lactic Acid 0.7 0.8 Calcium Magnesium Total Bilirubin AST Alkaline Phosphatase Total Protein Albumin Triglycerides Cholesterol LDL Cholesterol Direct VLDL Cholesterol HDL Cholesterol TSH 12/07/19 12/07/19 05:25 05:25 WBC RBC Hgb Hct MCV MCH MCHC RDW Plt Count Seg Neutrophils % Sodium 143.5 Potassium 4.2 Chloride 108 H Carbon Dioxide 27 Anion Gap 9 BUN 16 Creatinine 0.92 Est GFR ( Amer) > 60 Glucose 178 H Lactic Acid Calcium 8.5 Magnesium 1.9 Total Bilirubin 0.9 AST 50 H Alkaline Phosphatase 82 Total Protein 6.3 Albumin 3.4 L Triglycerides 66 Cholesterol 128.08 LDL Cholesterol Direct 47 VLDL Cholesterol 13.0 HDL Cholesterol 63 TSH 0.18 L 12/06/19 12/06/19 12/06/19 06:48 06:48 16:12 Creatine Kinase 199 H 194 H Troponin I < 0.012 NT-Pro-B Natriuret Pep 12/06/19 12/07/19 20:20 05:25 Creatine Kinase 168 H Troponin I NT-Pro-B Natriuret Pep 253 H Impressions: Chest X-Ray 12/06/19 06:46 IMPRESSION: Bilateral lower lung opacities consistent with atelectasis and/or pneumonia and may represent a COVID 19 pneumonia. Assessment and Plan - Diagnosis (1) Pneumonia due to COVID-19 virus Is this a current diagnosis for this admission?: Yes Plan: 12/06/2019-patient is going to be admitted to [facility] in the COVID unit as inpatient. To continue to provide oxygen supplementations. Started on Zithromax 5 mg IV daily, dexamethasone 4 mg p.o. every 8 hours. CRP, ESR, d- dimer, LDH is requested. Ferritin levels are requested. GI prophylaxis DVT prophylaxis initiated. Patient was positive for COVID-19 1 week ago at PCPs office. 12/07/2019-patient is presently on levofloxacin, azithromycin. Recently positive for COVID-19. Receiving remedies severe. ESR slightly elevated, d-dimer is slightly elevated, elevated ferritin levels. Pulse ox is 97% on 2 L. Comfor table in the bed communicating well. In my opinion there is no need for convulsant plasma at this time. (2) HTN (hypertension) Is this a current diagnosis for this admission?: No Plan: 12/06/2019-blood pressure today's 117/61. Patient has history of chronic essential hypertension to continue home medications at this time. 12/07/2019-blood pressure today is 130/82. Stable. (3) Diabetes Qualifiers: Diabetes mellitus type: type 2 Is this a current diagnosis for this admission?: No Plan: 12/06/2019-patient has history of type 2 diabetes mellitus on metformin at home. Plan is to hold metformin at this time started on insulin sliding scale before meals and at bedtime to check hemoglobin A1c. Diet exercise weight loss lifestyle modifications will be discussed with the patient. (4) Kidney carcinoma Qualifiers: Laterality: right Qualified Code(s): C64.1 - Malignant neoplasm of right kidney, except renal pelvis Is this a current diagnosis for this admission?: No Plan: 12/06/2019-patient has history of right-sided kidney cancer status post nephrectomy. On immunosuppression. 12/07/19-immunosuppressants on hold at this time. (5) Obesity (BMI 30.0-34.9) Is this a current diagnosis for this admission?: No - Time Anticipated Discharge Disposition: Home, Self Care Anticipated Discharge Timeframe: within 48 hours
[2019-12-07] MEDS: AZITHROMYCIN 500 MG in DEXTROSE 5%-WATER 250 ML IV SCH (10:42)
[2019-12-07] MEDS: REMDESIVIR (EUA) 100 MG in NORMAL SALINE 250 ML IV SCH (11:46)
[2019-12-07] MEDS: NORMAL SALINE 1000 ML 1,000 ML IV PRN (20:00)
[2019-12-08] MEDS: LORAZEPAM INJ 2 MG/1 ML VIAL IV PRN ×2 (00:48→19:59)
[2019-12-08] MEDS: PANTOPRAZOLE SODIUM 40 MG TABLET.DR PO SCH ×2 (05:12→18:46)
[2019-12-08] MEDS: DEXAMETHASONE 4 MG TABLET PO SCH ×3 (05:12→22:56)
[2019-12-08] MEDS ORDERED: METOPROLOL TARTRATE PF/INJ 5 MG/5 ML SDV IV ONE (06:18)
[2019-12-08] MEDS ORDERED: METOPROLOL TARTRATE PF/INJ 5 MG/5 ML SDV IV PRN (09:01)
--- NOTE | 2019-12-08 09:01 | PDOC PROGRESS REPORT ---
Subjective Progress Note for:: 12/08/19 Subjective:: 69 year old female with history of hypertension, diabetes mellitus, lung cancer, right kidney cancer with right nephrectomy on immunosuppression, recently positive for COVID-19 at PCPs office 1 week ago came to the emergency room with complaints of fever and shortness of breath the last couple of days. Chest x- ray indicated of left lower lobe pneumonia. WBC count within normal limits pulse ox is on room air is 92% with 2 L of oxygen is 100%. Patient wants to be a DNR/DNI. Agreed to stay in the hospital for further management. 12/07/2019-patient is doing much better. No acute events the last 24. COVID-19 test was done this morning. Alert awake communicating well. Not in distress. 12/08/2019-no acute events in the last 24 hours. Afebrile. Patient was positive for COVID-19 as an outpatient repeat test is pending. Patient became tachycardic last night heart rate went up to 170. Patient was given IV metoprolol as needed. Heart rate at this time is 120. Patient is on remdesivir and dexamethasone. Urine culture is positive for group B streptococcus. Cultures are negative. And is to discontinue IV fluids from today. Reason For Visit: PNEUMONIA DUE TO COVID19 VIRUS Physical Exam Vital Signs: Temp Pulse Resp BP Pulse Ox 97.6 F 71 20 105/78 97 12/08/19 04:00 12/08/19 04:00 12/08/19 04:00 12/08/19 04:00 12/08/19 04:00 Intake & Output 12/07/19 12/08/19 12/09/19 06:59 06:59 06:59 Intake Total 1964 2369 Balance 1964 2369 Weight 84.2 kg 83.7 kg General appearance: PRESENT: no acute distress, obese Head exam: PRESENT: atraumatic Eye exam: PRESENT: PERRLA Ear exam: PRESENT: normal external ear exam Mouth exam: PRESENT: neck supple Teeth exam: PRESENT: poor dentation Neck exam: ABSENT: carotid bruit, JVD, lymphadenopathy, thyromegaly Respiratory exam: PRESENT: decreased breath sounds Cardiovascular exam: PRESENT: RRR. ABSENT: diastolic murmur, rubs, systolic murmur GI/Abdominal exam: PRESENT: normal bowel sounds, soft. ABSENT: distended, guard ing, mass, organolmegaly, rebound, tenderness Rectal exam: PRESENT: deferred Extremities exam: PRESENT: full ROM. ABSENT: calf tenderness, clubbing, pedal edema Neurological exam: PRESENT: alert, awake, oriented to person, oriented to place, oriented to time, oriented to situation, CN II-XII grossly intact. ABSENT: motor sensory deficit Psychiatric exam: PRESENT: appropriate affect, normal mood. ABSENT: homicidal ideation, suicidal ideation Results Laboratory Results: 12/07/19 05:25 12/07/19 05:25 12/06/19 12/06/19 12/06/19 06:48 06:48 16:12 Creatine Kinase 199 H 194 H Troponin I < 0.012 NT-Pro-B Natriuret Pep 12/06/19 12/07/19 20:20 05:25 Creatine Kinase 168 H Troponin I NT-Pro-B Natriuret Pep 253 H Impressions: Chest X-Ray 12/06/19 06:46 IMPRESSION: Bilateral lower lung opacities consistent with atelectasis and/or pneumonia and may represent a COVID 19 pneumonia. Assessment and Plan - Diagnosis (1) Pneumonia due to COVID-19 virus Is this a current diagnosis for this admission?: Yes Plan: 12/06/2019-patient is going to be admitted to [facility] in the COVID unit as inpatient. To continue to provide oxygen supplementations. Started on Zithromax 5 mg IV daily, dexamethasone 4 mg p.o. every 8 hours. CRP, ESR, d- dimer, LDH is requested. Ferritin levels are requested. GI prophylaxis DVT prophylaxis initiated. Patient was positive for COVID-19 1 week ago at PCPs office. 12/07/2019-patient is presently on levofloxacin, azithromycin. Recently positive for COVID-19. Receiving remedies severe. ESR slightly elevated, d-dimer is slightly elevated, elevated ferritin levels. Pulse ox is 97% on 2 L. Comfortable in the bed communicating well. In my opinion there is no need for convulsant plasma at this time. 12/08/2019-patient has history of COVID-19 positive recently. Admitted with pneumonia. Blood cultures are negative. Patient is on levofloxacin and azithromycin. Patient is also receiving dexamethasone, remdisivir (2) HTN (hypertension) Is this a current diagnosis for this admission?: No Plan: 12/06/2019-blood pressure today's 117/61. Patient has history of chronic esse ntial hypertension to continue home medications at this time. 12/07/2019-blood pressure today is 130/82. Stable. 12/08/2019-blood pressure today is 10/70. Patient is tachycardic. Started on Coreg 3.125 mg p.o. twice daily and to continue metoprolol 5 mg IV every 6 as needed for heart rate more than 120. (3) Diabetes Qualifiers: Diabetes mellitus type: type 2 Is this a current diagnosis for this admission?: No Plan: 12/06/2019-patient has history of type 2 diabetes mellitus on metformin at home. Plan is to hold metformin at this time started on insulin sliding scale before meals and at bedtime to check hemoglobin A1c. Diet exercise weight loss lifestyle modifications will be discussed with the patient. 12/08/2019-blood sugar this morning is 176. On dexamethasone. Plan is to continue blood sugar monitoring AC and at bedtime. Hemoglobin A1c 6.1. (4) Kidney carcinoma Qualifiers: Laterality: right Qualified Code(s): C64.1 - Malignant neoplasm of right kidney, except renal pelvis Is this a current diagnosis for this admission?: No Plan: 12/06/2019-patient has history of right-sided kidney cancer status post nephrectomy. On immunosuppression. 12/07/19-immunosuppressants on hold at this time. (5) Obesity (BMI 30.0-34.9) Is this a current diagnosis for this admission?: No Plan: 12/06/2019-patient BMI is more than 34. Diet exercise weight loss lifestyle modifications discussed with the patient. - Time Anticipated Discharge Disposition: Home, Self Care Anticipated Discharge Timeframe: within 48 hours
[2019-12-08] MEDS: INSULIN REG, HUMAN 100 UNIT/ML 3 ML VIAL (PYX) SUBCUT SCH ×4 (09:38→22:56)
[2019-12-08] MEDS ORDERED: CARVEDILOL 3.125 MG TABLET PO SCH ×2 (10:00→22:00)
[2019-12-08] MEDS: SERTRALINE HCL 50 MG TABLET PO SCH (10:08)
[2019-12-08] MEDS: ZINC SULFATE 220 MG CAPSULE PO SCH (10:08)
[2019-12-08] MEDS: LEVOTHYROXINE SODIUM 0.088 MG TABLET PO SCH (10:08)
[2019-12-08] MEDS: ENOXAPARIN SODIUM INJ 40 MG/0.4 ML DISP.SYRIN SUBCUT SCH (10:09)
[2019-12-08] MEDS: DOCUSATE SODIUM 100 MG CAPSULE PO SCH ×2 (10:09→18:46)
[2019-12-08] MEDS: LEVOFLOXACIN 500 MG/D5W RTU 500 MG/100 ML RTUPB IV SCH (10:09)
[2019-12-08 10:51] LABS: ALKALINE PHOSPHATASE 81 U/L (38-126); ANION GAP 8 (5-19); ASPARTATE AMINO TRANSFERASE 39 U/L (14-36); BILIRUBIN,DIRECT 0.4 mg/dL (0.0-0.4); BILIRUBIN,TOTAL 0.8 mg/dL (0.2-1.3); BLOOD UREA NITROGEN 20 mg/dL (7-20); CALCIUM 8.3 mg/dL (8.4-10.2); CARBON DIOXIDE 25 mmol/L (22-30); CHLORIDE 111 mmol/L (98-107); GLUCOSE 219 mg/dL (75-110); POTASSIUM 4.4 mmol/L (3.6-5.0); TOTAL PROTEIN 6.1 g/dL (6.3-8.2)
[2019-12-08 11:01] LABS: HEMATOCRIT 38.2 % (36.0-47.0); HEMOGLOBIN 12.5 g/dL (12.0-15.5); MEAN CORPUSCULAR HEMOGLOBIN 30.9 pg (27.0-33.4); MEAN CORPUSCULAR HGB CONC 32.8 g/dL (32.0-36.0); MEAN CORPUSCULAR VOLUME 94 fl (80-97); PLATELET COUNT 172 10^3/uL (150-450); RED BLOOD COUNT 4.06 10^6/uL (3.72-5.28); RED CELL DISTRIBUTION WIDTH 15.4 % (11.5-14.0); WHITE BLOOD COUNT 6.2 10^3/uL (4.0-10.5)
[2019-12-08 11:03] LABS: ABSOLUTE LYMPHOCYTES# (MANUAL) 0.9 10^3/uL (0.5-4.7); ABSOLUTE MONOCYTES # (MANUAL) 0.4 10^3/uL (0.1-1.4); BASOPHILS % (MANUAL) 0 % (0-2); EOSINOPHILS % (MANUAL) 0 % (0-6); LYMPHOCYTES % (MANUAL) 14 % (13-45); MONOCYTES % (MANUAL) 6 % (3-13); NUCLEATED RED BLOOD CELLS 1 /100 WBC (0); SEGMENTED NEUTROPHILS % (MAN) 80 % (42-78); TOTAL CELLS COUNTED 100
[2019-12-08 11:04] LABS: ANISOCYTOSIS SLIGHT; PLATELET COMMENT ADEQUATE; POIKILOCYTOSIS SLIGHT; SCHISTOCYTES SLIGHT
[2019-12-08] MEDS: AZITHROMYCIN 500 MG in DEXTROSE 5%-WATER 250 ML IV SCH (11:36)
--- NOTE | 2019-12-08 11:51 | RADIOLOGY REPORT (SQ) ---
EXAM DESCRIPTION: CHEST SINGLE VIEW IMAGES COMPLETED DATE/TIME: 12/08/2019 10:30 am REASON FOR STUDY: dyspnea COMPARISON: None. NUMBER OF VIEWS: One view. TECHNIQUE: Single frontal radiographic image of the chest acquired. LIMITATIONS: None. FINDINGS: LUNGS AND PLEURA: Improved aeration with residual airspace disease in the left lower lobe. MEDIASTINUM AND HEART: Stable heart size and mediastinal structures. SUPPORT DEVICES: Appropriate location without change. BONY STRUCTURES: No acute findings. HARDWARE: None. OTHER: No other significant finding. IMPRESSION: Improving pneumonia. Reading location - IP/workstation name: [email or web address]
[2019-12-08] MEDS: REMDESIVIR (EUA) 100 MG in NORMAL SALINE 250 ML IV SCH (12:52)
[2019-12-08] MEDS: ONDANSETRON HCL INJ/PF 4 MG/2 ML SDV IV PRN (12:52)
--- NOTE | 2019-12-08 21:27 | EKG REPORT ---
SEVERITY:- ABNORMAL ECG - ATRIAL FIBRILLATION, V-RATE 87-176 BORDERLINE LEFT AXIS DEVIATION BORDERLINE T ABNORMALITIES, DIFFUSE LEADS : Confirmed by: Julia Vega MD 08-Dec-2019 21:26:38
[2019-12-09] MEDS: PANTOPRAZOLE SODIUM 40 MG TABLET.DR PO SCH ×2 (05:17→16:58)
[2019-12-09] MEDS: DEXAMETHASONE 4 MG TABLET PO SCH ×3 (05:17→21:52)
[2019-12-09] MEDS: ACETAMINOPHEN 325 MG TABLET PO PRN (05:26)
[2019-12-09] MEDS ORDERED: DILTIAZEM HCL/D5W 125 MG/125 ML RTUINJ IV PRN (07:27)
[2019-12-09] MEDS: INSULIN REG, HUMAN 100 UNIT/ML 3 ML VIAL (PYX) SUBCUT SCH ×4 (08:09→21:52)
[2019-12-09] MEDS ORDERED: DIGOXIN INJ 0.5 MG/2 ML AMPULE IV ONE (08:39)
[2019-12-09] MEDS ORDERED: NORMAL SALINE 250 ML IV PRN ×2 (08:46)
--- NOTE | 2019-12-09 09:10 | PDOC PROGRESS REPORT ---
Subjective Progress Note for:: 12/09/19 Subjective:: 69 year old female with history of hypertension, diabetes mellitus, lung cancer, right kidney cancer with right nephrectomy on immunosuppression, recently positive for COVID-19 at PCPs office 1 week ago came to the emergency room with complaints of fever and shortness of breath the last couple of days. Chest x- ray indicated of left lower lobe pneumonia. WBC count within normal limits pulse ox is on room air is 92% with 2 L of oxygen is 100%. Patient wants to be a DNR/DNI. Agreed to stay in the hospital for further management. 12/07/2019-patient is doing much better. No acute events the last 24. COVID-19 test was done this morning. Alert awake communicating well. Not in distress. 12/08/2019-no acute events in the last 24 hours. Afebrile. Patient was positive for COVID-19 as an outpatient repeat test is pending. Patient became tachycardic last night heart rate went up to 170. Patient was given IV metoprolol as needed. Heart rate at this time is 120. Patient is on remdesivir and dexamethasone. Urine culture is positive for group B streptococcus. Cultures are negative. And is to discontinue IV fluids from today. 12/09/19-patient is in A. fib. Heart rate is around 150. Systolic blood pressure is 88. To give her 1 dose of digoxin and a started on IV fluids normal saline at 75 cc/h. Pulse ox is 91% on 5 L. To start her on convulsant plasma. Patient is receiving dexamethasone and remidisivir. Reason For Visit: PNEUMONIA DUE TO COVID19 VIRUS Physical Exam Vital Signs: Temp Pulse Resp BP Pulse Ox 98.1 F 106 H 18 90/71 L 90 L 12/09/19 08:06 12/09/19 08:06 12/09/19 08:06 12/09/19 08:06 12/09/19 08:06 Intake & Output 12/08/19 12/09/19 12/10/19 06:59 06:59 06:59 Intake Total 2370 1890 Balance 2370 1890 Weight 83.7 kg 82.2 kg General appearance: PRESENT: no acute distress, obese Head exam: PRESENT: atraumatic Eye exam: PRESENT: PERRLA Ear exam: PRESENT: normal external ear exam Mouth exam: PRESENT: neck supple Neck exam: ABSENT: carotid bruit, JVD, lymphadenopathy, thyromegaly Respiratory exam: PRESENT: decreased breath sounds Cardiovascular exam: PRESENT: tachycardia GI/Abdominal exam: PRESENT: normal bowel sounds, soft. ABSENT: distended, guarding, mass, organolmegaly, rebound, tenderness Rectal exam: PRESENT: deferred Extremities exam: PRESENT: full ROM. ABSENT: calf tenderness, clubbing, pedal edema Neurological exam: PRESENT: alert, awake, oriented to person, oriented to place, oriented to time, oriented to situation, CN II-XII grossly intact. ABSENT: motor sensory deficit Psychiatric exam: PRESENT: appropriate affect, normal mood. ABSENT: homicidal ideation, suicidal ideation Results Laboratory Results: 12/08/19 09:40 12/08/19 09:40 12/08/19 12/08/19 09:40 09:40 WBC 6.2 RBC 4.06 Hgb 12.5 Hct 38.2 MCV 94 MCH 30.9 MCHC 32.8 RDW 15.4 H Plt Count 172 Seg Neutrophils % Not Reportable Sodium 144.2 Potassium 4.4 Chloride 111 H Carbon Dioxide 25 Anion Gap 8 BUN 20 Creatinine 1.05 Est GFR ( Amer) > 60 Glucose 219 H Calcium 8.3 L Magnesium 2.1 Total Bilirubin 0.8 AST 39 H Alkaline Phosphatase 81 Total Protein 6.1 L Albumin 3.0 L 12/06/19 12/06/19 12/06/19 06:48 06:48 16:12 Creatine Kinase 199 H 194 H Troponin I < 0.012 NT-Pro-B Natriuret Pep 12/06/19 12/07/19 20:20 05:25 Creatine Kinase 168 H Troponin I NT-Pro-B Natriuret Pep 253 H Impressions: Chest X-Ray 12/08/19 00:00 IMPRESSION: Improving pneumonia. Assessment and Plan - Diagnosis (1) Pneumonia due to COVID-19 virus Is this a current diagnosis for this admission?: Yes Plan: 12/06/2019-patient is going to be admitted to [facility] [place] in the COVID unit as inpatient. To continue to provide oxygen supplementations. Started on Zithromax 5 mg IV daily, dexamethasone 4 mg p.o. every 8 hours. CRP, ESR, d- dimer, LDH is requested. Ferritin levels are requested. GI prophylaxis DVT prophylaxis initiated. Patient was positive for COVID-19 1 week ago at PCPs office. 12/07/2019-patient is presently on levofloxacin, azithromycin. Recently positive for COVID-19. Receiving remedies severe. ESR slightly elevated, d-dimer is slightly elevated, elevated ferritin levels. Pulse ox is 97% on 2 L. Comfortable in the bed communicating well. In my opinion there is no need for convulsant plasma at this time. 12/08/2019-patient has history of COVID-19 positive recently. Admitted with pneumonia. Blood cultures are negative. Patient is on levofloxacin and azithromycin. Patient is also receiving dexamethasone, remdisivir 12/08-h/o covid positive on remidisivir, dexa to start on convalsant plasma...blood cultures neg.. (2) HTN (hypertension) Is this a current diagnosis for this admission?: No Plan: 12/06/2019-blood pressure today's 117/61. Patient has history of chronic essential hypertension to continue home medications at this time. 12/07/2019-blood pressure today is 130/82. Stable. 12/08/2019-blood pressure today is 100/70. Patient is tachycardic. Started on Coreg 3.125 mg p.o. twice daily and to continue metoprolol 5 mg IV every 6 as needed for heart rate more than 120. 12/08- bp is 88/60 to start on ivf 75 c/hr to watch for fluid over load.. (3) Diabetes Qualifiers: Diabetes mellitus type: type 2 Is this a current diagnosis for this admission?: No Plan: 12/06/2019-patient has history of type 2 diabetes mellitus on metformin at home. Plan is to hold metformin at this time started on insulin sliding scale before meals and at bedtime to check hemoglobin A1c. Diet exercise weight loss lifestyle modifications will be discussed with the patient. 12/08/2019-blood sugar this morning is 176. On dexamethasone. Plan is to continue blood sugar monitoring AC and at bedtime. Hemoglobin A1c 6.1. 12/08-blood sugar is 136 today. Stable. Plan is to continue the present management at this time. (4) Kidney carcinoma Qualifiers: Laterality: right Qualified Code(s): C64.1 - Malignant neoplasm of right kidney, except renal pelvis Is this a current diagnosis for this admission?: No (5) Obesity (BMI 30.0-34.9) Is this a current diagnosis for this admission?: No - Time Anticipated Discharge Disposition: Home, Self Care Anticipated Discharge Timeframe: within 72 hours
[2019-12-09] MEDS: ZINC SULFATE 220 MG CAPSULE PO SCH (09:17)
[2019-12-09] MEDS: LEVOTHYROXINE SODIUM 0.088 MG TABLET PO SCH (09:17)
[2019-12-09] MEDS: ENOXAPARIN SODIUM INJ 80 MG/0.8 ML DISP.SYRIN SUBCUT SCH ×2 (09:17→21:52)
[2019-12-09] MEDS: DOCUSATE SODIUM 100 MG CAPSULE PO SCH ×2 (09:17→17:00)
[2019-12-09] MEDS: SERTRALINE HCL 50 MG TABLET PO SCH (09:17)
[2019-12-09] MEDS: NORMAL SALINE 1000 ML 1,000 ML IV PRN ×2 (09:18→21:52)
[2019-12-09] MEDS: LEVOFLOXACIN 500 MG/D5W RTU 500 MG/100 ML RTUPB IV SCH (09:18)
[2019-12-09] MEDS: REMDESIVIR (EUA) 100 MG in NORMAL SALINE 250 ML IV SCH (11:03)
[2019-12-09] MEDS: AZITHROMYCIN 500 MG in DEXTROSE 5%-WATER 250 ML IV SCH ×2 (12:15→12:16)
[2019-12-09] MEDS: FENTANYL 25 MCG/HR PATCH.TD72 TD SCH (12:17)
--- NOTE | 2019-12-09 21:48 | EKG REPORT ---
SEVERITY:- ABNORMAL ECG - SINUS RHYTHM LEFT AXIS DEVIATION NONSPECIFIC T ABNORMALITIES, ANT-LAT LEADS : Confirmed by: Julia Vega MD 09-Dec-2019 21:47:54
[2019-12-09] MEDS: LORAZEPAM INJ 2 MG/1 ML VIAL IV PRN (21:52)
[2019-12-10] MEDS: PANTOPRAZOLE SODIUM 40 MG TABLET.DR PO SCH ×2 (06:06→18:01)
[2019-12-10] MEDS: DEXAMETHASONE 4 MG TABLET PO SCH ×3 (06:06→21:25)
[2019-12-10] MEDS: INSULIN REG, HUMAN 100 UNIT/ML 3 ML VIAL (PYX) SUBCUT SCH ×4 (07:52→21:25)
[2019-12-10 08:09] LABS: HEMATOCRIT 34.7 % (36.0-47.0); HEMOGLOBIN 11.4 g/dL (12.0-15.5); MEAN CORPUSCULAR HEMOGLOBIN 30.7 pg (27.0-33.4); MEAN CORPUSCULAR VOLUME 93 fl (80-97); PLATELET COUNT 195 10^3/uL (150-450); RED BLOOD COUNT 3.73 10^6/uL (3.72-5.28); RED CELL DISTRIBUTION WIDTH 14.9 % (11.5-14.0); WHITE BLOOD COUNT 7.8 10^3/uL (4.0-10.5)
[2019-12-10 08:18] LABS: ALBUMIN 2.8 g/dL (3.5-5.0); ALKALINE PHOSPHATASE 80 U/L (38-126); ANION GAP 6 (5-19); ASPARTATE AMINO TRANSFERASE 32 U/L (14-36); BILIRUBIN,DIRECT 0.4 mg/dL (0.0-0.4); BILIRUBIN,TOTAL 0.7 mg/dL (0.2-1.3); BLOOD UREA NITROGEN 17 mg/dL (7-20); CARBON DIOXIDE 26 mmol/L (22-30); CHLORIDE 112 mmol/L (98-107); GLUCOSE 180 mg/dL (75-110); POTASSIUM 4.1 mmol/L (3.6-5.0); TOTAL PROTEIN 5.7 g/dL (6.3-8.2)
--- NOTE | 2019-12-10 08:31 | PDOC PROGRESS REPORT ---
Subjective Progress Note for:: 12/10/19 Subjective:: 69 year old female with history of hypertension, diabetes mellitus, lung cancer, right kidney cancer with right nephrectomy on immunosuppression, recently positive for COVID-19 at PCPs office 1 week ago came to the emergency room with complaints of fever and shortness of breath the last couple of days. Chest x- ray indicated of left lower lobe pneumonia. WBC count within normal limits pulse ox is on room air is 92% with 2 L of oxygen is 100%. Patient wants to be a DNR/DNI. Agreed to stay in the hospital for further management. 12/07/2019-patient is doing much better. No acute events the last 24. COVID-19 test was done this morning. Alert awake communicating well. Not in distress. 12/08/2019-no acute events in the last 24 hours. Afebrile. Patient was positive for COVID-19 as an outpatient repeat test is pending. Patient became tachycardic last night heart rate went up to 170. Patient was given IV metoprolol as needed. Heart rate at this time is 120. Patient is on remdesivir and dexamethasone. Urine culture is positive for group B streptococcus. Cultures are negative. And is to discontinue IV fluids from today. 12/09/19-patient is in A. fib. Heart rate is around 150. Systolic blood pressure is 88. To give her 1 dose of digoxin and a started on IV fluids normal saline at 75 cc/h. Pulse ox is 91% on 5 L. To start her on convulsant plasma. Patient is receiving dexamethasone and remidisivir. 12/10/2019-patient looks anxious and mildly tachypneic. On examination lower extremities slightly edematous. Blood pressures are stable. To hold IV fluids at this time and give Lasix 20 mg IV 1 dose and to repeat the chest x-ray. As for family member request patient was started on lorazepam 1 mg p.o. twice daily. Plan is to repeat the labs tomorrow. To continue dexamethasone, remedesvir, convulsant plasma at this time. Reason For Visit: PNEUMONIA DUE TO COVID19 VIRUS Physical Exam Vital Signs: Temp Pulse Resp BP Pulse Ox 97.3 F 68 20 132/85 H 90 L 12/09/19 23:25 12/10/19 02:00 12/09/19 23:25 12/09/19 23:25 12/09/19 23:25 Intake & Output 12/09/19 12/10/19 12/11/19 06:59 06:59 06:59 Intake Total 1889 1874 788 Balance 1889 1874 788 Weight 82.2 kg 82.2 kg General appearance: PRESENT: no acute distress, obese Head exam: PRESENT: atraumatic Eye exam: PRESENT: PERRLA Mouth exam: PRESENT: moist, tongue midline Teeth exam: PRESENT: poor dentation Neck exam: ABSENT: carotid bruit, JVD, lymphadenopathy, thyromegaly Respiratory exam: PRESENT: decreased breath sounds, tachypnea Pulses: PRESENT: normal dorsalis pedis pul GI/Abdominal exam: PRESENT: normal bowel sounds, soft. ABSENT: distended, guarding, mass, organolmegaly, rebound, tenderness Rectal exam: PRESENT: deferred Extremities exam: PRESENT: full ROM. ABSENT: calf tenderness, clubbing, pedal edema Neurological exam: PRESENT: alert, awake, oriented to person, oriented to place, oriented to time, oriented to situation, CN II-XII grossly intact. ABSENT: motor sensory deficit Psychiatric exam: PRESENT: anxious Results Laboratory Results: 12/10/19 07:30 12/09/19 12/10/19 12/10/19 10:40 07:30 07:30 Seg Neutrophils % Not Reportable Sodium 144.4 Potassium 4.1 Chloride 112 H Carbon Dioxide 26 Anion Gap 6 BUN 17 Creatinine 0.88 Est GFR ( Amer) > 60 Glucose 180 H Calcium 8.0 L Magnesium 2.0 Total Bilirubin 0.7 AST 32 Alkaline Phosphatase 80 Total Protein 5.7 L Albumin 2.8 L Blood Type A POSITIVE 12/06/19 12/06/19 12/06/19 06:48 06:48 16:12 Creatine Kinase 199 H 194 H Troponin I < 0.012 NT-Pro-B Natriuret Pep 12/06/19 12/07/19 20:20 05:25 Creatine Kinase 168 H Troponin I NT-Pro-B Natriuret Pep 253 H Impressions: Chest X-Ray 12/08/19 00:00 IMPRESSION: Improving pneumonia. Assessment and Plan - Diagnosis (1) Pneumonia due to COVID-19 virus Is this a current diagnosis for this admission?: Yes Plan: 12/06/2019-patient is going to be admitted to [facility] in the COVID unit as inpatient. To continue to provide oxygen supplementations. Started on Zithromax 5 mg IV daily, dexamethasone 4 mg p.o. every 8 hours. CRP, ESR, d- dimer, LDH is requested. Ferritin levels are requested. GI prophylaxis DVT prophylaxis initiated. Patient was positive for COVID-19 1 week ago at PCPs office. 12/07/2019-patient is presently on levofloxacin, azithromycin. Recently positive for COVID-19. Receiving remedies severe. ESR slightly elevated, d-dimer is slightly elevated, elevated ferritin levels. Pulse ox is 97% on 2 L. Comfortable in the bed communicating well. In my opinion there is no need for convulsant plasma at this time. 12/08/2019-patient has history of COVID-19 positive recently. Admitted with pneumonia. Blood cultures are negative. Patient is on levofloxacin and azithromycin. Patient is also receiving dexamethasone, remdisivir 12/08-h/o covid positive on remidisivir, dexa to start on convalsant plasma...blood cultures neg.. 12/10/2019-pulse ox is 92% on 6 L. Receiving dexamethasone, remdesvir, convulsant plasma. Blood cultures are negative. Repeat COVID-19 last week positive. (2) HTN (hypertension) Is this a current diagnosis for this admission?: No Plan: 12/06/2019-blood pressure today's 117/61. Patient has history of chronic essential hypertension to continue home medications at this time. 12/07/2019-blood pressure today is 130/82. Stable. 12/08/2019-blood pressure today is 100/70. Patient is tachycardic. Started on Coreg 3.125 mg p.o. twice daily and to continue metoprolol 5 mg IV every 6 as needed for heart rate more than 120. 12/08- bp is 88/60 to start on ivf 75 c/hr to watch for fluid over load.. 12/10/2019-blood pressure is 132/85. Plan is to stop the IV fluids give Lasix 20 mg IV 1 dose do the follow-up chest x-ray. (3) Diabetes Qualifiers: Diabetes mellitus type: type 2 Is this a current diagnosis for this admission?: No Plan: 12/06/2019-patient has history of type 2 diabetes mellitus on metformin at home. Plan is to hold metformin at this time started on insulin sliding scale before meals and at bedtime to check hemoglobin A1c. Diet exercise weight loss lifestyle modifications will be discussed with the patient. 12/08/2019-blood sugar this morning is 176. On dexamethasone. Plan is to continue blood sugar monitoring AC and at bedtime. Hemoglobin A1c 6.1. 12/08-blood sugar is 136 today. Stable. Plan is to continue the present management at this time. 12/10/2019-latest blood sugar is 176. Plan is to continue insulin sliding scale before meals and at bedtime. (4) Kidney carcinoma Qualifiers: Laterality: right Qualified Code(s): C64.1 - Malignant neoplasm of right kidney, except renal pelvis Is this a current diagnosis for this admission?: No Plan: 12/06/2019-patient has history of right-sided kidney cancer status post nephrectomy. On immunosuppression. 12/07/19-immunosuppressants on hold at this time. (5) Obesity (BMI 30.0-34.9) Is this a current diagnosis for this admission?: No Plan: 12/06/2019-patient BMI is more than 34. Diet exercise weight loss lifestyle modifications discussed with the patient. - Time Anticipated Discharge Disposition: Home, Self Care Anticipated Discharge Timeframe: within 48 hours
[2019-12-10 08:38] LABS: ABSOLUTE LYMPHOCYTES# (MANUAL) 0.6 10^3/uL (0.5-4.7); ABSOLUTE MONOCYTES # (MANUAL) 0.5 10^3/uL (0.1-1.4); BAND NEUTROPHILS % (MANUAL) 2 % (3-5); BASOPHILS % (MANUAL) 0 % (0-2); EOSINOPHILS % (MANUAL) 0 % (0-6); LYMPHOCYTES % (MANUAL) 8 % (13-45); METAMYELOCYTES % (MANUAL) 2 % (0-1); MONOCYTES % (MANUAL) 7 % (3-13); NUCLEATED RED BLOOD CELLS 1 /100 WBC (0); SEGMENTED NEUTROPHILS % (MAN) 81 % (42-78); TOTAL CELLS COUNTED 100
[2019-12-10 08:39] LABS: ANISOCYTOSIS SLIGHT; PLATELET COMMENT ADEQUATE; PLATELET GIANT PRESENT; PLATELET LARGE PRESENT; TOXIC VACUOLATION PRESENT
[2019-12-10] MEDS ORDERED: FUROSEMIDE ORAL SOLN 40 MG/5 ML UDCUP PO ONE (09:00)
[2019-12-10] MEDS ORDERED: FUROSEMIDE INJ/PF 20 MG/2 ML SDV IV ONE (09:00)
--- NOTE | 2019-12-10 09:15 | RADIOLOGY REPORT (SQ) ---
EXAM DESCRIPTION: CHEST SINGLE VIEW IMAGES COMPLETED DATE/TIME: 12/10/2019 9:07 am REASON FOR STUDY: dyspnea COMPARISON: Chest films 12/08/2019, 12/06/2019 EXAM PARAMETERS: NUMBER OF VIEWS: One view. TECHNIQUE: Single frontal radiographic view of the chest acquired. RADIATION DOSE: NA LIMITATIONS: None. FINDINGS: LUNGS AND PLEURA: Minimal stable left basilar scarring or atelectasis. No fluffy alveolar infiltrates worrisome for pulmonary edema or pneumonia. No pleural effusion. No pneumothorax. MEDIASTINUM AND HILAR STRUCTURES: No masses. Contour normal. HEART AND VASCULAR STRUCTURES: Stable mild cardiomegaly BONES: No acute findings. HARDWARE: Unchanged right-sided permanent central line tip superior vena cava OTHER: No other significant finding. IMPRESSION: Stable left basilar atelectasis or scarring. No acute findings. TECHNICAL DOCUMENTATION: JOB ID: [id number] 2010 [employer]- All Rights Reserved Reading location - IP/workstation name: [id number]
[2019-12-10] MEDS: SERTRALINE HCL 50 MG TABLET PO SCH (09:45)
[2019-12-10] MEDS: ALPRAZOLAM 0.5 MG TABLET PO SCH ×2 (09:45→21:25)
[2019-12-10] MEDS: LEVOTHYROXINE SODIUM 0.088 MG TABLET PO SCH (09:45)
[2019-12-10] MEDS: ZINC SULFATE 220 MG CAPSULE PO SCH (09:45)
[2019-12-10] MEDS: LEVOFLOXACIN 500 MG/D5W RTU 500 MG/100 ML RTUPB IV SCH (09:45)
[2019-12-10] MEDS: ENOXAPARIN SODIUM INJ 80 MG/0.8 ML DISP.SYRIN SUBCUT SCH ×2 (09:45→21:26)
[2019-12-10] MEDS: DOCUSATE SODIUM 100 MG CAPSULE PO SCH ×2 (09:45→18:01)
[2019-12-10] MEDS: REMDESIVIR (EUA) 100 MG in NORMAL SALINE 250 ML IV SCH (10:52)
[2019-12-10] MEDS: AZITHROMYCIN 500 MG in DEXTROSE 5%-WATER 250 ML IV SCH (13:40)
--- NOTE | 2019-12-10 18:11 | RADIOLOGY REPORT (SQ) ---
EXAM DESCRIPTION: CTA CHEST IMAGES COMPLETED DATE/TIME: 12/10/2019 5:35 pm REASON FOR STUDY: worsening shortness of breath COMPARISON: None. TECHNIQUE: CT scan of the chest performed using helical scanning technique with dynamic intravenous contrast injection. Images reviewed with lung, soft tissue and bone windows. Reconstructed coronal and sagittal MPR images reviewed. Additional 3 dimensional post-processing performed to develop Maximal Intensity Projection images (MN P). All images stored on PACS. All CT scanners at this facility use dose modulation, iterative reconstruction, and/or weight based d osing when appropriate to reduce radiation dose to as low as reasonably achievable (ALARA). [facility]: Dose Right [facility]: CareDose [facility]: Dose Right [facility]: Teradose 4D [facility]: Purveyour CONTRAST TYPE AND DOSE: contrast/concentration: Isovue 350.00 mmol/ml; Total Contrast Delivered: 61. 0 ml; Total Saline Delivered: 80.0 ml Contrast bolus adequate for pulmonary arteries and aorta. RENAL FUNCTION: BUN 17 creatinine 0.88. RADIATION DOSE: CT Rad equipment meets quality standard of care and radiation dose reduction techniq ues were employed. CTDIvol: 9.9 - 15.7 mGy. DLP: 480 mGy-cm. . LIMITATIONS: None. FINDINGS: LUNGS AND PLEURA: Diffuse ground-glass opacities throughout both lungs. Small pleural eff usions. AORTA AND GREAT VESSELS: No aneurysm. Contrast bolus not optimized for the aorta. HEART: Mild cardiomegaly. No pericardial effusion. No significant coronary artery calcifications. PULMONARY ARTERIES: No emboli visualized in the main pulmonary arteries or the segmental branches. HILAR AND MEDIASTINAL STRUCTURES: No identified masses or abnormal nodes. HARDWARE: None in the chest. UPPER ABDOMEN: Gallstones. Limited exam. THYROID AND OTHER SOFT TISSUES: No masses. No adenopathy. BONES: No acute or significant finding. 3D MIPS: Confirm above findings. OTHER: No other significant finding. IMPRESSION: 1. NORMAL CTA OF THE CHEST. NO PULMONARY EMBOLI. 2. MILD CARDIOMEGALY AND SMALL PLEURAL EFFUSIONS. DIFFUSE GROUND-GLASS OPACITIES THROUGHOUT BOTH MEJIA GS WHICH MAY BE DUE TO PULMONARY EDEMA, PNEUMONITIS, OR PNEUMONIA/ VIRAL INFECTION. COMMENT: Quality ID # [id number]: Final reports with documentation of one or more dose reduction techniques (e.g., Automated exposure control, adjustment of the mA and/or kV according to patient size, use of iterative reconstruction technique) TECHNICAL DOCUMENTATION: JOB ID: [id number] 2010 [employer]- All Rights Reserved Reading location - IP/workstation name: [email or web address]
[2019-12-11] MEDS: PANTOPRAZOLE SODIUM 40 MG TABLET.DR PO SCH ×2 (05:26→17:37)
[2019-12-11] MEDS: DEXAMETHASONE 4 MG TABLET PO SCH ×3 (05:26→21:50)
[2019-12-11 06:56] LABS: HEMATOCRIT 36.9 % (36.0-47.0); HEMOGLOBIN 12.4 g/dL (12.0-15.5); MEAN CORPUSCULAR HGB CONC 33.6 g/dL (32.0-36.0); MEAN CORPUSCULAR VOLUME 92 fl (80-97); PLATELET COUNT 210 10^3/uL (150-450); RED CELL DISTRIBUTION WIDTH 15.3 % (11.5-14.0); WHITE BLOOD COUNT 9.3 10^3/uL (4.0-10.5)
[2019-12-11 07:21] LABS: ALKALINE PHOSPHATASE 87 U/L (38-126); ANION GAP 9 (5-19); ASPARTATE AMINO TRANSFERASE 27 U/L (14-36); BILIRUBIN,DIRECT 0.3 mg/dL (0.0-0.4); BILIRUBIN,TOTAL 0.8 mg/dL (0.2-1.3); BLOOD UREA NITROGEN 20 mg/dL (7-20); CALCIUM 8.4 mg/dL (8.4-10.2); CARBON DIOXIDE 26 mmol/L (22-30); CHLORIDE 107 mmol/L (98-107); GLUCOSE 189 mg/dL (75-110); TOTAL PROTEIN 5.9 g/dL (6.3-8.2)
[2019-12-11 07:27] LABS: ABSOLUTE LYMPHOCYTES# (MANUAL) 0.6 10^3/uL (0.5-4.7); ABSOLUTE MONOCYTES # (MANUAL) 0.7 10^3/uL (0.1-1.4); BAND NEUTROPHILS % (MANUAL) 1 % (3-5); BASOPHILS % (MANUAL) 0 % (0-2); EOSINOPHILS % (MANUAL) 0 % (0-6); LYMPHOCYTES % (MANUAL) 6 % (13-45); MONOCYTES % (MANUAL) 8 % (3-13); NUCLEATED RED BLOOD CELLS 1 /100 WBC (0); SEGMENTED NEUTROPHILS % (MAN) 85 % (42-78); TOTAL CELLS COUNTED 100
[2019-12-11 07:28] LABS: ANISOCYTOSIS SLIGHT; BURR CELLS 2+; PLATELET COMMENT ADEQUATE; PLATELET LARGE PRESENT; POIKILOCYTOSIS 2+; TARGET CELLS SLIGHT
[2019-12-11] MEDS: INSULIN REG, HUMAN 100 UNIT/ML 3 ML VIAL (PYX) SUBCUT SCH ×4 (07:50→21:53)
[2019-12-11] MEDS: ZINC SULFATE 220 MG CAPSULE PO SCH (09:25)
[2019-12-11] MEDS: SERTRALINE HCL 50 MG TABLET PO SCH (09:25)
[2019-12-11] MEDS: ENOXAPARIN SODIUM INJ 80 MG/0.8 ML DISP.SYRIN SUBCUT SCH (09:25)
[2019-12-11] MEDS: DOCUSATE SODIUM 100 MG CAPSULE PO SCH ×2 (09:25→17:37)
[2019-12-11] MEDS: LEVOTHYROXINE SODIUM 0.088 MG TABLET PO SCH (09:25)
[2019-12-11] MEDS: ALPRAZOLAM 0.5 MG TABLET PO SCH ×2 (09:25→21:50)
[2019-12-11 12:02] LABS: APPEARANCE,URINE SLIGHTLY-CLOUDY; BILIRUBIN,URINE NEGATIVE (NEGATIVE); COLOR,URINE YELLOW; GLUCOSE, URINE NEGATIVE (NEGATIVE); KETONES,URINE NEGATIVE (NEGATIVE); LEUKOCYTE ESTERASE,URINE TRACE (NEGATIVE); NITRITE,URINE NEGATIVE (NEGATIVE); PROTEIN,URINE NEGATIVE (NEGATIVE); URINE SPECIFIC GRAVITY 1.023
[2019-12-11] MEDS ORDERED: FUROSEMIDE INJ/PF 40 MG/4 ML SDV IV ONE (13:15)
--- NOTE | 2019-12-11 13:17 | PDOC PROGRESS REPORT ---
Subjective Progress Note for:: 12/11/19 Subjective:: Patient had an episode earlier today when she became short of breath and hypoxic. She was initially on a Ventimask staying. However she got better and was able to be placed on Oxymizer. On my encounter she is mildly short of breath but denies any chest pains. She denies fever or chills. She states she has not been having much of any cough. States she feels comfortable. She was seen while she was on Oxymizer at 8 L. Reason For Visit: PNEUMONIA DUE TO COVID19 VIRUS Physical Exam Vital Signs: Temp Pulse Resp BP Pulse Ox 97.5 F 84 18 114/73 92 12/11/19 07:33 12/11/19 09:24 12/11/19 09:24 12/11/19 07:33 12/11/19 09:24 Intake & Output 12/10/19 12/11/19 12/12/19 06:59 06:59 06:59 Intake Total 1875 1844 Output Total 600 Balance 1875 1244 Weight 82.2 kg 78.4 kg General appearance: PRESENT: no acute distress, cooperative Neck exam: ABSENT: JVD Respiratory exam: PRESENT: rales, symmetrical, tachypnea, unlabored. ABSENT: accessory muscle use, retraction, stridor, wheezes Cardiovascular exam: PRESENT: RRR, +S1, +S2. ABSENT: tachycardia GI/Abdominal exam: PRESENT: soft. ABSENT: rebound, rigid, tenderness Neurological exam: PRESENT: alert, awake Psychiatric exam: ABSENT: agitated, anxious Focused psych exam: ABSENT: pressured speech Skin exam: ABSENT: jaundice Results Laboratory Results: 12/11/19 06:13 12/11/19 06:13 12/11/19 12/11/19 12/11/19 06:13 06:13 11:13 WBC 9.3 RBC 4.00 Hgb 12.4 Hct 36.9 MCV 92 MCH 31.0 MCHC 33.6 RDW 15.3 H Plt Count 210 Seg Neutrophils % Not Reportable Sodium 141.8 Potassium 4.0 Chloride 107 Carbon Dioxide 26 Anion Gap 9 BUN 20 Creatinine 0.93 Est GFR ( Amer) > 60 Glucose 189 H Calcium 8.4 Magnesium 2.0 Total Bilirubin 0.8 AST 27 Alkaline Phosphatase 87 Total Protein 5.9 L Albumin 3.0 L Urine Color YELLOW Urine Appearance SLIGHTLY-CLOUDY Urine pH 6.0 Ur Specific [place] 1.023 Urine Protein NEGATIVE Urine Glucose (UA) NEGATIVE Urine Ketones NEGATIVE Urine Blood NEGATIVE Urine Nitrite NEGATIVE Ur Leukocyte Esterase TRACE H Urine WBC (Auto) 1 12/06/19 11:45 Blood Blood Culture - Final NO GROWTH IN 5 DAYS 12/06/19 06:48 Blood Blood Culture - Final NO GROWTH IN 5 DAYS 12/06/19 12/06/19 12/06/19 06:48 06:48 16:12 Creatine Kinase 199 H 194 H Troponin I < 0.012 NT-Pro-B Natriuret Pep 12/06/19 12/07/19 20:20 05:25 Creatine Kinase 168 H Troponin I NT-Pro-B Natriuret Pep 253 H Impressions: Chest X-Ray 12/10/19 00:00 IMPRESSION: Stable left basilar atelectasis or scarring. No acute findings. Chest/Abdomen CTA 12/10/19 00:00 IMPRESSION: 1. NORMAL CTA OF THE CHEST. NO PULMONARY EMBOLI. 2. MILD CARDIOMEGALY AND SMALL PLEURAL EFFUSIONS. DIFFUSE GROUND-GLASS OPACITIES THROUGHOUT BOTH LUNGS WHICH MAY BE DUE TO PULMONARY EDEMA, PNEUMONITIS, OR PNEUMONIA/ VIRAL INFECTION. Assessment and Plan - Diagnosis (1) Acute hypoxemic respiratory failure due to COVID-19 Is this a current diagnosis for this admission?: Yes Plan: Requiring Oxymizer at about 8 L today. We will continue to monitor oxygen lev el. Received Covalascent plasma on 12/09/2019 Completed 5 days of Remdesivir Also did receive Levaquin for several days initially. Will discontinue azithromycin today day3. We will also try some IV Lasix. CT of the chest done yesterday did not show any PE but does show findings of groundglass diffusely compatible with COVID pneumonia. Continue IV dexamethasone Discussed plan with patient's daughter today Elroy. (2) Pneumonia due to COVID-19 virus Is this a current diagnosis for this admission?: Yes Plan: Plan as noted above (3) Paroxysmal atrial fibrillation with rapid ventricular response Is this a current diagnosis for this admission?: Yes Plan: Patient with daughter Elroy informs me that patient did have history of A. fib from before and was on atenolol before but was discontinued about a year ago. Seems to have been acutely precipitated in light of acute illness. Currently in sinus rhythm today. I will place patient on Lopressor 50 mg twice a day. CHADsVASC score is 4 so I will continue anticoagulation but change from therapeutic Lovenox to Eliquis. (4) Diabetes Qualifiers: Diabetes mellitus type: type 2 Is this a current diagnosis for this admission?: No Plan: 12/06/2019-patient has history of type 2 diabetes mellitus on metformin at home. Continue to hold metformin. Blood sugars are currently adequate on sliding scale insulin. Continue Accu- Cheks. (5) Kidney carcinoma Qualifiers: Laterality: right Qualified Code(s): C64.1 - Malignant neoplasm of right kidney, except renal pelvis Is this a current diagnosis for this admission?: No Plan: patient has history of right-sided kidney cancer status post nephrectomy. We will continue home regimen of fentanyl (6) Obesity (BMI 30.0-34.9) Is this a current diagnosis for this admission?: No - Time Time Spent with patient: 15-24 minutes Anticipated Discharge Disposition: Home, Self Care Anticipated Discharge Timeframe: undetermined
[2019-12-11] MEDS: METOPROLOL TARTRATE 50 MG TABLET PO SCH ×2 (13:33→21:50)
[2019-12-11] MEDS: AZITHROMYCIN 500 MG in DEXTROSE 5%-WATER 250 ML IV SCH (13:34)
[2019-12-11] MEDS: APIXABAN 5 MG TABLET PO SCH (21:50)
[2019-12-12] MEDS: DEXAMETHASONE 4 MG TABLET PO SCH (06:59)
[2019-12-12] MEDS: PANTOPRAZOLE SODIUM 40 MG TABLET.DR PO SCH ×2 (06:59→16:47)
[2019-12-12] MEDS: INSULIN REG, HUMAN 100 UNIT/ML 3 ML VIAL (PYX) SUBCUT SCH ×4 (08:07→22:03)
[2019-12-12] MEDS ORDERED: DEXAMETHASONE 4 MG TABLET PO SCH (10:00)
[2019-12-12] MEDS: SERTRALINE HCL 50 MG TABLET PO SCH (10:19)
[2019-12-12] MEDS: LEVOTHYROXINE SODIUM 0.088 MG TABLET PO SCH (10:19)
[2019-12-12] MEDS: APIXABAN 5 MG TABLET PO SCH ×2 (10:19→22:03)
[2019-12-12] MEDS: METOPROLOL TARTRATE 50 MG TABLET PO SCH ×2 (10:20→22:02)
[2019-12-12] MEDS: ZINC SULFATE 220 MG CAPSULE PO SCH (10:21)
[2019-12-12] MEDS: DOCUSATE SODIUM 100 MG CAPSULE PO SCH ×2 (10:21→17:02)
[2019-12-12] MEDS: ALPRAZOLAM 0.5 MG TABLET PO SCH (10:26)
[2019-12-12] MEDS ORDERED: OXYCODONE HCL IR 5 MG TABLET PO PRN (10:56)
[2019-12-12] MEDS ORDERED: OXYCODONE-ACETAMINOPHEN 5-325 MG TABLET PO PRN (10:56)
[2019-12-12] MEDS ORDERED: METFORMIN HCL 500 MG TABLET PO SCH (11:00)
--- NOTE | 2019-12-12 11:01 | PDOC PROGRESS REPORT ---
Subjective Progress Note for:: 12/12/19 Subjective:: Patient states that her breathing feels okay. She is comfortable but she is still quite hypoxic. She denies any chest pains. She has not had any fevers. She did have a bowel movement yesterday and this morning. She denies any nausea or vomiting. She is eating about 25-50% of her meals only. I did order for some dietary supplementation with Ensure. Reason For Visit: PNEUMONIA DUE TO COVID19 VIRUS Physical Exam Vital Signs: Temp Pulse Resp BP Pulse Ox 97.5 F 80 22 H 94/59 L 92 12/12/19 07:57 12/12/19 07:57 12/12/19 08:00 12/12/19 07:57 12/12/19 08:00 Intake & Output 12/11/19 12/12/19 12/13/19 06:59 06:59 06:59 Intake Total 1844 510 Output Total 600 400 Balance 1244 110 Weight 78.4 kg 78.4 kg General appearance: PRESENT: no acute distress, cooperative Neck exam: ABSENT: JVD Respiratory exam: PRESENT: rales - fine rales, symmetrical, unlabored. ABSENT: tachypnea, wheezes Cardiovascular exam: PRESENT: RRR, +S1, +S2. ABSENT: tachycardia GI/Abdominal exam: PRESENT: soft. ABSENT: rebound, rigid, tenderness Extremities exam: ABSENT: calf tenderness Neurological exam: PRESENT: alert, awake, oriented to person, oriented to place Psychiatric exam: ABSENT: agitated, anxious Focused psych exam: ABSENT: pressured speech Skin exam: ABSENT: intact Results Laboratory Results: 12/11/19 06:13 12/11/19 06:13 12/11/19 11:13 Urine Color YELLOW Urine Appearance SLIGHTLY-CLOUDY Urine pH 6.0 Ur Specific Howe 1.023 Urine Protein NEGATIVE Urine Glucose (UA) NEGATIVE Urine Ketones NEGATIVE Urine Blood NEGATIVE Urine Nitrite NEGATIVE Ur Leukocyte Esterase TRACE H Urine WBC (Auto) 1 12/06/19 11:45 Blood Blood Culture - Final NO GROWTH IN 5 DAYS 12/06/19 06:48 Blood Blood Culture - Final NO GROWTH IN 5 DAYS 12/06/19 12/06/19 12/06/19 06:48 06:48 16:12 Creatine Kinase 199 H 194 H Troponin I < 0.012 NT-Pro-B Natriuret Pep 12/06/19 12/07/19 20:20 05:25 Creatine Kinase 168 H Troponin I NT-Pro-B Natriuret Pep 253 H Impressions: Chest X-Ray 12/10/19 00:00 IMPRESSION: Stable left basilar atelectasis or scarring. No acute findings. Chest/Abdomen CTA 12/10/19 00:00 IMPRESSION: 1. NORMAL CTA OF THE CHEST. NO PULMONARY EMBOLI. 2. MILD CARDIOMEGALY AND SMALL PLEURAL EFFUSIONS. DIFFUSE GROUND-GLASS OPACITIES THROUGHOUT BOTH LUNGS WHICH MAY BE DUE TO PULMONARY EDEMA, PNEUMONITIS, OR PNEUMONIA/ VIRAL INFECTION. Assessment and Plan - Diagnosis (1) Acute hypoxemic respiratory failure due to COVID-19 Is this a current diagnosis for this admission?: Yes Plan: Received Covalascent plasma on 12/09/2019 Completed 5 days of Remdesivir Also did receive Levaquin for several days and 3 days of azithromycin earlier in admission. CT of the chest done yesterday did not show any PE but does show findings of groundglass diffusely compatible with COVID pneumonia. Trials of IV Lasix have not seemed to help at this point Continue IV dexamethasone PT, dietary supplementation Oxygenation actually a little worse today as patient is now on HFNC at 40L 50%. Looks comfortable. We will check an ABG today. (2) Pneumonia due to COVID-19 virus Is this a current diagnosis for this admission?: Yes Plan: Plan as noted above (3) Paroxysmal atrial fibrillation with rapid ventricular response Is this a current diagnosis for this admission?: Yes Plan: Patient's daughter Elroy informs me that patient did have history of A. fib from before and was on atenolol before but was discontinued about a year ago. Seems to have been acutely precipitated in light of acute illness. Currently in sinus rhythm today. Lopressor 50 mg twice a day. CHADsVASC score is 4 - Eliquis. (4) Diabetes Qualifiers: Diabetes mellitus type: type 2 Is this a current diagnosis for this admission?: No Plan: 12/06/2019-patient has history of type 2 diabetes mellitus on metformin at home. Continue sliding-scale insulin. Resume metformin tomorrow (5) Kidney carcinoma Qualifiers: Laterality: right Qualified Code(s): C64.1 - Malignant neoplasm of right kidney, except renal pelvis Is this a current diagnosis for this admission?: No Plan: patient has history of right-sided kidney cancer status post nephrectomy. We will continue home regimen of fentany and oxycodone. Monitor vital signs and blood pressure. (6) Obesity (BMI 30.0-34.9) Is this a current diagnosis for this admission?: No - Time Time Spent with patient: 15-24 minutes Anticipated Discharge Disposition: Home with Home Health Anticipated Discharge Timeframe: Undetermined
[2019-12-12 12:46] LABS: ARTERIAL BLOOD BASE EXCESS 2.8 mmol/L; ARTERIAL BLOOD H2CO3 1.11 mmol/L (1.05-1.35); ARTERIAL BLOOD HCO3 26.3 mmol/L (20-24); ARTERIAL BLOOD O2 SATURATION 93.9 % (94-98); ARTERIAL BLOOD PCO2 36.9 mmHg (35-45); ARTERIAL BLOOD PH 7.47 (7.35-7.45); ARTERIAL BLOOD PO2 64.5 mmHg (80-100); ARTERIAL BLOOD TOTAL CO2 27.4 mmol/L (21-25)
[2019-12-12 12:53] LABS: ARTERIAL BLOOD FIO2 50%
[2019-12-12] MEDS: FENTANYL 25 MCG/HR PATCH.TD72 TD SCH (13:14)
[2019-12-12] MEDS ORDERED: NORMAL SALINE 1000 ML 500 ML IV ONE (15:16)
[2019-12-13] MEDS: PANTOPRAZOLE SODIUM 40 MG TABLET.DR PO SCH ×2 (05:30→17:19)
[2019-12-13 06:18] LABS: ANION GAP 8 (5-19); BLOOD UREA NITROGEN 26 mg/dL (7-20); CALCIUM 8.7 mg/dL (8.4-10.2); CARBON DIOXIDE 28 mmol/L (22-30); CHLORIDE 107 mmol/L (98-107); GLUCOSE 115 mg/dL (75-110); POTASSIUM 4.5 mmol/L (3.6-5.0)
[2019-12-13] MEDS: INSULIN REG, HUMAN 100 UNIT/ML 3 ML VIAL (PYX) SUBCUT SCH ×4 (08:09→22:11)
[2019-12-13] MEDS: METOPROLOL TARTRATE 50 MG TABLET PO SCH ×2 (09:05→22:11)
[2019-12-13] MEDS: LEVOTHYROXINE SODIUM 0.088 MG TABLET PO SCH (09:06)
[2019-12-13] MEDS: METFORMIN HCL 500 MG TABLET PO SCH (09:06)
[2019-12-13] MEDS: DOCUSATE SODIUM 100 MG CAPSULE PO SCH ×2 (09:06→17:18)
[2019-12-13] MEDS: ZINC SULFATE 220 MG CAPSULE PO SCH (09:06)
[2019-12-13] MEDS: APIXABAN 5 MG TABLET PO SCH ×2 (09:06→22:11)
[2019-12-13] MEDS: SERTRALINE HCL 50 MG TABLET PO SCH (09:07)
[2019-12-13] MEDS: DEXAMETHASONE SOD PHOS INJ 10 MG/1 ML VIAL IV SCH (09:07)
--- NOTE | 2019-12-13 10:05 | PDOC PROGRESS REPORT ---
Subjective Progress Note for:: 12/13/19 Subjective:: Patient still requiring high flow. She feels comfortable. She has mild shortness of breath. She is drinking the Ensure supplements and trying to keep up with her meals. She did do okay with physical therapy. She was able to sit at side of her bed to eat her meal today. Denies any chest pain. Reason For Visit: PNEUMONIA DUE TO COVID19 VIRUS Physical Exam Vital Signs: Temp Pulse Resp BP Pulse Ox 97.5 F 73 22 H 99/64 L 94 12/13/19 03:59 12/13/19 07:11 12/13/19 08:00 12/13/19 07:11 12/13/19 08:00 Intake & Output 12/12/19 12/13/19 12/14/19 06:59 06:59 06:59 Intake Total 510 500 Output Total 400 800 Balance 110 -300 Weight 78.4 kg 77.2 kg General appearance: PRESENT: no acute distress, cooperative Neck exam: ABSENT: JVD Respiratory exam: PRESENT: clear to auscultation donte, symmetrical, unlabored. ABSENT: tachypnea, wheezes Cardiovascular exam: PRESENT: RRR, +S1, +S2. ABSENT: tachycardia GI/Abdominal exam: PRESENT: soft. ABSENT: distended, firm, guarding, rebound, rigid, tenderness Extremities exam: PRESENT: pedal edema Neurological exam: PRESENT: alert, awake Psychiatric exam: ABSENT: agitated, anxious Focused psych exam: ABSENT: pressured speech Skin exam: ABSENT: jaundice Results Laboratory Results: 12/11/19 06:13 12/13/19 04:54 12/12/19 12/13/19 12:28 04:54 Carbonic Acid 1.11 HCO3/H2CO3 Ratio 23:1 ABG pH 7.47 H ABG pCO2 36.9 ABG pO2 64.5 L ABG HCO3 26.3 H ABG O2 Saturation 93.9 L ABG Base Excess 2.8 FiO2 50% Sodium 142.5 Potassium 4.5 Chloride 107 Carbon Dioxide 28 Anion Gap 8 BUN 26 H Creatinine 0.95 Est GFR ( Amer) > 60 Glucose 115 H Calcium 8.7 12/06/19 12/06/19 12/06/19 06:48 06:48 16:12 Creatine Kinase 199 H 194 H Troponin I < 0.012 NT-Pro-B Natriuret Pep 12/06/19 12/07/19 20:20 05:25 Creatine Kinase 168 H Troponin I NT-Pro-B Natriuret Pep 253 H Impressions: Chest X-Ray 12/10/19 00:00 IMPRESSION: Stable left basilar atelectasis or scarring. No acute findings. Chest/Abdomen CTA 12/10/19 00:00 IMPRESSION: 1. NORMAL CTA OF THE CHEST. NO PULMONARY EMBOLI. 2. MILD CARDIOMEGALY AND SMALL PLEURAL EFFUSIONS. DIFFUSE GROUND-GLASS OPACITIES THROUGHOUT BOTH LUNGS WHICH MAY BE DUE TO PULMONARY EDEMA, PNEUMONITIS, OR PNEUMONIA/ VIRAL INFECTION. Assessment and Plan - Diagnosis (1) Acute hypoxemic respiratory failure due to COVID-19 Is this a current diagnosis for this admission?: Yes Plan: Received Covalascent plasma on 12/09/2019 Completed 5 days of Remdesivir Also did receive Levaquin for several days and 3 days of azithromycin earlier in admission. CTA chest did not show any PE but does show findings of groundglass diffusely compatible with COVID pneumonia. Trials of IV Lasix did not help Continue IV dexamethasone PT, diet supplementation with Ensure, Incentive spirometer ABG yesterday showing paO2/fio2 of 128 HFNC at 40L, FiO2 weaned to 45%. Will try to wean further as tolerated. Looks comfortable. (2) Pneumonia due to COVID-19 virus Is this a current diagnosis for this admission?: Yes Plan: Plan as noted above (3) Paroxysmal atrial fibrillation with rapid ventricular response Is this a current diagnosis for this admission?: Yes Plan: Patient's daughter Elroy informs me that patient did have history of A. fib from before and was on atenolol before but was discontinued about a year ago. Seems to have been acutely precipitated in light of acute illness. Currently in sinus rhythm today. Lopressor 50 mg twice a day. CHADsVASC score is 4 - Eliquis. (4) Diabetes Qualifiers: Diabetes mellitus type: type 2 Is this a current diagnosis for this admission?: No Plan: Resume Metformin Continue sliding-scale insulin and accuchecks. (5) Kidney carcinoma Qualifiers: Laterality: right Qualified Code(s): C64.1 - Malignant neoplasm of right kidney, except renal pelvis Is this a current diagnosis for this admission?: No Plan: patient has history of right-sided kidney cancer status post nephrectomy. We will continue home regimen of fentany and oxycodone. Monitor vital signs and blood pressure. (6) Obesity (BMI 30.0-34.9) Is this a current diagnosis for this admission?: No - Time Time Spent with patient: Less than 15 minutes Anticipated Discharge Disposition: Home with Home Health Anticipated Discharge Timeframe: undetermined
[2019-12-13] MEDS: ONDANSETRON HCL INJ/PF 4 MG/2 ML SDV IV PRN (11:36)
[2019-12-13] MEDS ORDERED: DEXAMETHASONE SOD PHOSPHATE INJ 4 MG/1 ML VIAL IV ONE (18:00)
[2019-12-14] MEDS: ACETAMINOPHEN 325 MG TABLET PO PRN (01:49)
[2019-12-14] MEDS: PANTOPRAZOLE SODIUM 40 MG TABLET.DR PO SCH ×2 (05:15→17:30)
[2019-12-14] MEDS ORDERED: INFLUENZA QUAD (6MOS+) 2020-21 VAC 0.5 ML SYR IM ONE (08:00)
[2019-12-14] MEDS: INSULIN REG, HUMAN 100 UNIT/ML 3 ML VIAL (PYX) SUBCUT SCH ×4 (08:33→22:10)
[2019-12-14] MEDS: METFORMIN HCL 500 MG TABLET PO SCH (08:39)
[2019-12-14] MEDS: LEVOTHYROXINE SODIUM 0.088 MG TABLET PO SCH (09:16)
[2019-12-14] MEDS: DOCUSATE SODIUM 100 MG CAPSULE PO SCH ×2 (09:16→17:30)
[2019-12-14] MEDS: ZINC SULFATE 220 MG CAPSULE PO SCH (09:16)
[2019-12-14] MEDS: APIXABAN 5 MG TABLET PO SCH ×2 (09:16→21:15)
[2019-12-14] MEDS: SERTRALINE HCL 50 MG TABLET PO SCH (09:16)
[2019-12-14] MEDS: METOPROLOL TARTRATE 50 MG TABLET PO SCH ×2 (09:16→21:15)
[2019-12-14] MEDS: DEXAMETHASONE SOD PHOS INJ 10 MG/1 ML VIAL IV SCH (09:17)
[2019-12-14] MEDS: ONDANSETRON HCL INJ/PF 4 MG/2 ML SDV IV PRN ×2 (12:18→18:18)
--- NOTE | 2019-12-14 13:20 | PDOC PROGRESS REPORT ---
Subjective Progress Note for:: 12/14/19 Subjective:: Patient still requiring high flow oxygen. She is on 40% FiO2 and still get very dyspneic mild exertion. She otherwise denies any new symptoms Reason For Visit: PNEUMONIA DUE TO COVID19 VIRUS Physical Exam Vital Signs: Temp Pulse Resp BP Pulse Ox 98.3 F 69 16 100/65 84 L 12/14/19 11:23 12/14/19 11:23 12/14/19 09:35 12/14/19 11:23 12/14/19 11:23 Intake & Output 12/13/19 12/14/19 12/15/19 06:59 06:59 06:59 Intake Total 500 Output Total 800 400 Balance -300 -400 Weight 77.2 kg 75.8 kg General appearance: PRESENT: no acute distress Head exam: PRESENT: atraumatic, normocephalic Eye exam: PRESENT: conjunctiva pink, EOMI, PERRLA. ABSENT: scleral icterus Mouth exam: PRESENT: moist, tongue midline Neck exam: ABSENT: carotid bruit, JVD, lymphadenopathy, thyromegaly Respiratory exam: PRESENT: rhonchi. ABSENT: rales, wheezes Cardiovascular exam: PRESENT: RRR, +S1, +S2. ABSENT: diastolic murmur, rubs, systolic murmur Pulses: PRESENT: normal dorsalis pedis pul Vascular exam: PRESENT: normal capillary refill GI/Abdominal exam: PRESENT: normal bowel sounds, soft. ABSENT: distended, guarding, mass, organolmegaly, rebound, tenderness Rectal exam: PRESENT: deferred Extremities exam: PRESENT: full ROM. ABSENT: calf tenderness, clubbing, pedal edema Neurological exam: PRESENT: alert, awake, oriented to person, oriented to place, oriented to time, oriented to situation, CN II-XII grossly intact. ABSENT: motor sensory deficit Psychiatric exam: PRESENT: appropriate affect, normal mood. ABSENT: homicidal ideation, suicidal ideation Skin exam: PRESENT: dry, intact, warm. ABSENT: cyanosis, rash Results Laboratory Results: 12/11/19 06:13 12/13/19 04:54 12/06/19 12/06/19 12/06/19 06:48 06:48 16:12 Creatine Kinase 199 H 194 H Troponin I < 0.012 NT-Pro-B Natriuret Pep 12/06/19 12/07/19 20:20 05:25 Creatine Kinase 168 H Troponin I NT-Pro-B Natriuret Pep 253 H Impressions: Chest X-Ray 12/10/19 00:00 IMPRESSION: Stable left basilar atelectasis or scarring. No acute findings. Chest/Abdomen CTA 12/10/19 00:00 IMPRESSION: 1. NORMAL CTA OF THE CHEST. NO PULMONARY EMBOLI. 2. MILD CARDIOMEGALY AND SMALL PLEURAL EFFUSIONS. DIFFUSE GROUND-GLASS OPACITIES THROUGHOUT BOTH LUNGS WHICH MAY BE DUE TO PULMONARY EDEMA, PNEUMONITIS, OR PNEUMONIA/ VIRAL INFECTION. Assessment and Plan - Diagnosis (1) Acute hypoxemic respiratory failure due to COVID-19 Is this a current diagnosis for this admission?: Yes Plan: Received Covalascent plasma on 12/09/2019 Completed 5 days of Remdesivir Also did receive Levaquin for several days and 3 days of azithromycin earlier in admission. CTA chest did not show any PE but does show findings of groundglass diffusely compatible with COVID pneumonia. Trials of IV Lasix did not help Continue IV dexamethasone PT, diet supplementation with Ensure, Incentive spirometer ABG yesterday showing paO2/fio2 of 128 HFNC at 40L, FiO2 weaned to 45%. Will try to wean further as tolerated. Looks comfortable. 12/13 Above note Will continue to support with Oxygen (2) Diabetes Qualifiers: Diabetes mellitus type: type 2 Is this a current diagnosis for this admission?: No Plan: Continue Metformin Continue sliding-scale insulin and accuchecks. (3) HTN (hypertension) Is this a current diagnosis for this admission?: No Plan: 12/06/2019-blood pressure today's 117/61. Patient has history of chronic ess ential hypertension to continue home medications at this time. 12/07/2019-blood pressure today is 130/82. Stable. 12/08/2019-blood pressure today is 100/70. Patient is tachycardic. Started on Coreg 3.125 mg p.o. twice daily and to continue metoprolol 5 mg IV every 6 as needed for heart rate more than 120. 12/08- bp is 88/60 to start on ivf 75 c/hr to watch for fluid over load.. 12/10/2019-blood pressure is 132/85. Plan is to stop the IV fluids give Lasix 20 mg IV 1 dose do the follow-up chest x-ray. 12/13 continue to monitor and adjust meds (4) Kidney carcinoma Qualifiers: Laterality: right Qualified Code(s): C64.1 - Malignant neoplasm of right kidney, except renal pelvis Is this a current diagnosis for this admission?: No Plan: patient has history of right-sided kidney cancer status post nephrectomy. Continue home regimen of fentany and oxycodone. Monitor vital signs and blood pressure. (5) Paroxysmal atrial fibrillation with rapid ventricular response Is this a current diagnosis for this admission?: Yes Plan: Patient's daughter Elroy informs me that patient did have history of A. fib from before and was on atenolol before but was discontinued about a year ago. Seems to have been acutely precipitated in light of acute illness. Currently in sinus rhythm today. Lopressor 50 mg twice a day. CHADsVASC score is 4 - Eliquis. 12/13 Continue current management (6) Pneumonia due to COVID-19 virus Is this a current diagnosis for this admission?: Yes Plan: Plan as noted above. - Time Time Spent with patient: 15-24 minutes Anticipated Discharge Disposition: Home, Self Care Anticipated Discharge Timeframe: within 72 hours
[2019-12-14] MEDS ORDERED: LORAZEPAM INJ 2 MG/1 ML VIAL IV PRN (23:11)
[2019-12-15] MEDS: PANTOPRAZOLE SODIUM 40 MG TABLET.DR PO SCH ×2 (05:24→16:38)
[2019-12-15] MEDS: INSULIN REG, HUMAN 100 UNIT/ML 3 ML VIAL (PYX) SUBCUT SCH ×4 (07:46→21:29)
[2019-12-15] MEDS: METFORMIN HCL 500 MG TABLET PO SCH (08:59)
[2019-12-15] MEDS: DEXAMETHASONE SOD PHOS INJ 10 MG/1 ML VIAL IV SCH (09:43)
[2019-12-15] MEDS: SERTRALINE HCL 50 MG TABLET PO SCH (09:44)
[2019-12-15] MEDS: APIXABAN 5 MG TABLET PO SCH ×2 (09:44→21:31)
[2019-12-15] MEDS: LEVOTHYROXINE SODIUM 0.088 MG TABLET PO SCH (09:44)
[2019-12-15] MEDS: ZINC SULFATE 220 MG CAPSULE PO SCH (09:44)
[2019-12-15] MEDS: METOPROLOL TARTRATE 50 MG TABLET PO SCH ×2 (09:44→21:31)
[2019-12-15] MEDS: DOCUSATE SODIUM 100 MG CAPSULE PO SCH ×2 (09:44→18:37)
--- NOTE | 2019-12-15 12:04 | PDOC PROGRESS REPORT ---
Subjective Progress Note for:: 12/15/19 Subjective:: Patient still requiring high flow oxygen. She is on 40% FiO2 and still get very dyspneic mild exertion. She otherwise denies any new symptoms 12/14 patient is still on high flow oxygen. In fact the increased oxygen slightly during the night although she remains relatively stable. We will attempt to wean her down again today Reason For Visit: PNEUMONIA DUE TO COVID19 VIRUS Physical Exam Vital Signs: Temp Pulse Resp BP Pulse Ox 98.0 F 79 18 102/63 93 12/15/19 07:32 12/15/19 07:32 12/15/19 07:32 12/15/19 07:32 12/15/19 07:32 Intake & Output 12/14/19 12/15/19 12/16/19 06:59 06:59 06:59 Intake Total 340 Output Total 400 300 Balance -400 40 Weight 75.8 kg 72.2 kg General appearance: PRESENT: no acute distress Head exam: PRESENT: atraumatic Respiratory exam: PRESENT: rhonchi, unlabored Cardiovascular exam: PRESENT: RRR, +S1, +S2 GI/Abdominal exam: PRESENT: normal bowel sounds, soft Rectal exam: PRESENT: deferred Extremities exam: PRESENT: full ROM. ABSENT: tenderness Musculoskeletal exam: PRESENT: ambulatory Neurological exam: PRESENT: alert, awake, oriented to situation, CN II-XII bk ssly intact Results Laboratory Results: 12/11/19 06:13 12/13/19 04:54 12/06/19 12/06/19 12/06/19 06:48 06:48 16:12 Creatine Kinase 199 H 194 H Troponin I < 0.012 NT-Pro-B Natriuret Pep 12/06/19 12/07/19 20:20 05:25 Creatine Kinase 168 H Troponin I NT-Pro-B Natriuret Pep 253 H Impressions: Chest X-Ray 12/10/19 00:00 IMPRESSION: Stable left basilar atelectasis or scarring. No acute findings. Chest/Abdomen CTA 12/10/19 00:00 IMPRESSION: 1. NORMAL CTA OF THE CHEST. NO PULMONARY EMBOLI. 2. MILD CARDIOMEGALY AND SMALL PLEURAL EFFUSIONS. DIFFUSE GROUND-GLASS OPACITIES THROUGHOUT BOTH LUNGS WHICH MAY BE DUE TO PULMONARY EDEMA, PNEUMONITIS, OR PNEUMONIA/ VIRAL INFECTION. Assessment and Plan - Diagnosis (1) Acute hypoxemic respiratory failure due to COVID-19 Is this a current diagnosis for this admission?: Yes Plan: Received Covalascent plasma on 12/09/2019 Completed 5 days of Remdesivir Also did receive Levaquin for several days and 3 days of azithromycin earlier in admission. CTA chest did not show any PE but does show findings of groundglass diffusely compatible with COVID pneumonia. Trials of IV Lasix did not help Continue IV dexamethasone PT, diet supplementation with Ensure, Incentive spirometer ABG yesterday showing paO2/fio2 of 128 HFNC at 40L, FiO2 weaned to 45%. Will try to wean further as tolerated. Looks comfortable. 12/13 Above note Will continue to support with Oxygen 12/14 Will wean off oxygen as indicated if she can tolerate it (2) Diabetes Qualifiers: Diabetes mellitus type: type 2 Is this a current diagnosis for this admission?: No Plan: Continue Metformin Continue sliding-scale insulin and accuchecks. (3) HTN (hypertension) Is this a current diagnosis for this admission?: No Plan: 12/06/2019-blood pressure today's 117/61. Patient has history of chronic essential hypertension to continue home medications at this time. 12/07/2019-blood pressure today is 130/82. Stable. 12/08/2019-blood pressure today is 100/70. Patient is tachycardic. Started on Coreg 3.125 mg p.o. twice daily and to continue metoprolol 5 mg IV every 6 as needed for heart rate more than 120. 12/08- bp is 88/60 to start on ivf 75 c/hr to watch for fluid over load.. 12/10/2019-blood pressure is 132/85. Plan is to stop the IV fluids give Lasix 20 mg IV 1 dose do the follow-up chest x-ray. 12/13 continue to monitor and adjust meds 12/14 stable (4) Kidney carcinoma Qualifiers: Laterality: right Qualified Code(s): C64.1 - Malignant neoplasm of right kidney, except renal pelvis Is this a current diagnosis for this admission?: No (5) Paroxysmal atrial fibrillation with rapid ventricular response Is this a current diagnosis for this admission?: Yes (6) Pneumonia due to COVID-19 virus Is this a current diagnosis for this admission?: Yes - Time Time Spent with patient: 15-24 minutes Medications reviewed and adjusted accordingly: Yes Anticipated Discharge Disposition: Home with Home Health Anticipated Discharge Timeframe: within 72 hours
[2019-12-16] MEDS: PANTOPRAZOLE SODIUM 40 MG TABLET.DR PO SCH ×2 (05:28→17:59)
[2019-12-16] MEDS: INSULIN REG, HUMAN 100 UNIT/ML 3 ML VIAL (PYX) SUBCUT SCH ×4 (07:55→21:23)
[2019-12-16] MEDS: METFORMIN HCL 500 MG TABLET PO SCH (08:00)
[2019-12-16] MEDS: ZINC SULFATE 220 MG CAPSULE PO SCH (09:35)
[2019-12-16] MEDS: DEXAMETHASONE SOD PHOS INJ 10 MG/1 ML VIAL IV SCH (09:35)
[2019-12-16] MEDS: LEVOTHYROXINE SODIUM 0.088 MG TABLET PO SCH (09:35)
[2019-12-16] MEDS: SERTRALINE HCL 50 MG TABLET PO SCH (09:35)
[2019-12-16] MEDS: APIXABAN 5 MG TABLET PO SCH ×2 (09:35→21:21)
[2019-12-16] MEDS: METOPROLOL TARTRATE 50 MG TABLET PO SCH ×2 (09:35→21:20)
[2019-12-16] MEDS: DOCUSATE SODIUM 100 MG CAPSULE PO SCH ×2 (09:36→17:59)
--- NOTE | 2019-12-16 12:56 | PDOC PROGRESS REPORT ---
Subjective Progress Note for:: 12/16/19 Subjective:: Patient still requiring high flow oxygen. She is on 40% FiO2 and still get very dyspneic mild exertion. She otherwise denies any new symptoms 12/14 patient is still on high flow oxygen. In fact the increased oxygen slightly during the night although she remains relatively stable. We will attempt to wean her down again today 12/15 patient was still pretty dyspneic. She was on 70% oxygen this morning mildly going to try and wean off Reason For Visit: PNEUMONIA DUE TO COVID19 VIRUS Physical Exam Vital Signs: Temp Pulse Resp BP Pulse Ox 98.0 F 76 18 107/66 97 12/16/19 11:20 12/16/19 11:20 12/16/19 11:20 12/16/19 11:20 12/16/19 12:00 Intake & Output 12/15/19 12/16/19 12/17/19 06:59 06:59 06:59 Intake Total 340 280 260 Output Total 300 Balance 40 280 260 Weight 72.2 kg 75.1 kg General appearance: PRESENT: no acute distress, well-developed, well-nourished Head exam: PRESENT: atraumatic, normocephalic Ear exam: PRESENT: normal external ear exam Respiratory exam: PRESENT: decreased breath sounds, unlabored - at rest Cardiovascular exam: PRESENT: RRR, +S1, +S2 Rectal exam: PRESENT: deferred Musculoskeletal exam: PRESENT: ambulatory Psychiatric exam: PRESENT: appropriate affect Results Laboratory Results: 12/11/19 06:13 12/13/19 04:54 12/06/19 12/06/19 12/06/19 06:48 06:48 16:12 Creatine Kinase 199 H 194 H Troponin I < 0.012 NT-Pro-B Natriuret Pep 12/06/19 12/07/19 20:20 05:25 Creatine Kinase 168 H Troponin I NT-Pro-B Natriuret Pep 253 H Impressions: Chest X-Ray 12/10/19 00:00 IMPRESSION: Stable left basilar atelectasis or scarring. No acute findings. Chest/Abdomen CTA 12/10/19 00:00 IMPRESSION: 1. NORMAL CTA OF THE CHEST. NO PULMONARY EMBOLI. 2. MILD CARDIOMEGALY AND SMALL PLEURAL EFFUSIONS. DIFFUSE GROUND-GLASS OPACITIES THROUGHOUT BOTH LUNGS WHICH MAY BE DUE TO PULMONARY EDEMA, PNEUMONITIS, OR PNEUMONIA/ VIRAL INFECTION. Assessment and Plan - Diagnosis (1) Acute hypoxemic respiratory failure due to COVID-19 Is this a current diagnosis for this admission?: Yes Plan: Received Covalascent plasma on 12/09/2019 Completed 5 days of Remdesivir Also did receive Levaquin for several days and 3 days of azithromycin earlier in admission. CTA chest did not show any PE but does show findings of groundglass diffusely compatible with COVID pneumonia. Trials of IV Lasix did not help Continue IV dexamethasone PT, diet supplementation with Ensure, Incentive spirometer ABG yesterday showing paO2/fio2 of 128 HFNC at 40L, FiO2 weaned to 45%. Will try to wean further as tolerated. Looks comfortable. 12/13 Above note Will continue to support with Oxygen 12/14 Will wean off oxygen as indicated if she can tolerate it 12/15 Will continue to wean off oxygen as tolerated (2) Diabetes Qualifiers: Diabetes mellitus type: type 2 Is this a current diagnosis for this admission?: No Plan: Continue Metformin Continue sliding-scale insulin and accuchecks. (3) HTN (hypertension) Is this a current diagnosis for this admission?: No Plan: 12/06/2019-blood pressure today's 117/61. Patient has history of chronic essential hypertension to continue home medications at this time. 12/07/2019-blood pressure today is 130/82. Stable. 12/08/2019-blood pressure today is 100/70. Patient is tachycardic. Started on Coreg 3.125 mg p.o. twice daily and to continue metoprolol 5 mg IV every 6 as n eeded for heart rate more than 120. 12/08- bp is 88/60 to start on ivf 75 c/hr to watch for fluid over load.. 12/10/2019-blood pressure is 132/85. Plan is to stop the IV fluids give Lasix 20 mg IV 1 dose do the follow-up chest x-ray. 12/13 continue to monitor and adjust meds 12/14 stable 12/15 Continue to monitor (4) Kidney carcinoma Qualifiers: Laterality: right Qualified Code(s): C64.1 - Malignant neoplasm of right kidney, except renal pelvis Is this a current diagnosis for this admission?: No Plan: patient has history of right-sided kidney cancer status post nephrectomy. Continue home regimen of fentany and oxycodone. Monitor vital signs and blood pressure. (5) Paroxysmal atrial fibrillation with rapid ventricular response Is this a current diagnosis for this admission?: Yes Plan: Patient's daughter Elroy informs me that patient did have history of A. fib from before and was on atenolol before but was discontinued about a year ago. Seems to have been acutely precipitated in light of acute illness. Currently in sinus rhythm today. Lopressor 50 mg twice a day. CHADsVASC score is 4 - Eliquis. 12/13 Continue current management 12/15 stable (6) Pneumonia due to COVID-19 virus Is this a current diagnosis for this admission?: Yes Plan: Plan as noted above. 12/15 continues to require a high level of oxygen supplementation is also still on dexamethasone. I think we will continue with these are not her oxygen is improved - Time Time Spent with patient: 15-24 minutes Anticipated Discharge Disposition: Home, Self Care Anticipated Discharge Timeframe: within 72 hours
[2019-12-16] MEDS: BENZOCAINE/MENTHOL SORE THROAT LOZENGE BUCCAL PRN (14:35)
[2019-12-16] MEDS: GUAIFENESIN SYRP 200 MG/10 ML UDC PO PRN (14:35)
[2019-12-16] MEDS: LIDOCAINE 5% (700 MG) TRANSDERMAL ADH..PATCH TP SCH (14:45)
[2019-12-16] MEDS: ONDANSETRON HCL INJ/PF 4 MG/2 ML SDV IV PRN (21:36)
[2019-12-17] MEDS: PANTOPRAZOLE SODIUM 40 MG TABLET.DR PO SCH ×2 (05:38→17:21)
[2019-12-17 06:08] LABS: ABSOLUTE BASOPHILS # (AUTO) 0.1 10^3/uL (0.0-0.2); ABSOLUTE EOSINOPHILS # (AUTO) 0.1 10^3/uL (0.0-0.6); ABSOLUTE LYMPHOCYTES (AUTO) 0.7 10^3/uL (0.5-4.7); ABSOLUTE MONOCYTES (AUTO) 0.7 10^3/uL (0.1-1.4); ABSOLUTE NEUT (AUTO) 8.1 10^3/uL (1.7-8.2); BASOPHILS % (AUTO) 0.6 % (0-2); EOSINOPHILS % (AUTO) 1.1 % (0-6); HEMATOCRIT 39.8 % (36.0-47.0); HEMOGLOBIN 13.2 g/dL (12.0-15.5); LYMPHOCYTES % (AUTO) 7.2 % (13-45); MEAN CORPUSCULAR HEMOGLOBIN 30.9 pg (27.0-33.4); MEAN CORPUSCULAR HGB CONC 33.1 g/dL (32.0-36.0); MEAN CORPUSCULAR VOLUME 93 fl (80-97); PLATELET COUNT 220 10^3/uL (150-450); RED BLOOD COUNT 4.26 10^6/uL (3.72-5.28); RED CELL DISTRIBUTION WIDTH 15.2 % (11.5-14.0); SEGMENTED NEUTROPHILS % (AUTO) 84.1 % (42-78); TOTAL CELLS COUNTED % (AUTO) 100 %; WHITE BLOOD COUNT 9.6 10^3/uL (4.0-10.5)
[2019-12-17 06:27] LABS: ANION GAP 7 (5-19); BLOOD UREA NITROGEN 24 mg/dL (7-20); CALCIUM 8.7 mg/dL (8.4-10.2); CARBON DIOXIDE 26 mmol/L (22-30); CHLORIDE 106 mmol/L (98-107); GLUCOSE 127 mg/dL (75-110); POTASSIUM 4.5 mmol/L (3.6-5.0)
[2019-12-17] MEDS: METFORMIN HCL 500 MG TABLET PO SCH (08:11)
[2019-12-17] MEDS: INSULIN REG, HUMAN 100 UNIT/ML 3 ML VIAL (PYX) SUBCUT SCH ×4 (08:15→21:44)
[2019-12-17] MEDS: ONDANSETRON HCL INJ/PF 4 MG/2 ML SDV IV PRN ×2 (08:19→12:00)
[2019-12-17] MEDS: DEXAMETHASONE SOD PHOS INJ 10 MG/1 ML VIAL IV SCH (09:29)
[2019-12-17] MEDS: LEVOTHYROXINE SODIUM 0.088 MG TABLET PO SCH (09:30)
[2019-12-17] MEDS: ZINC SULFATE 220 MG CAPSULE PO SCH (09:30)
[2019-12-17] MEDS: METOPROLOL TARTRATE 50 MG TABLET PO SCH ×2 (09:32→21:45)
[2019-12-17] MEDS: APIXABAN 5 MG TABLET PO SCH ×2 (09:33→21:46)
[2019-12-17] MEDS: LIDOCAINE 5% (700 MG) TRANSDERMAL ADH..PATCH TP SCH (09:34)
[2019-12-17] MEDS: DOCUSATE SODIUM 100 MG CAPSULE PO SCH ×3 (09:34→17:21)
[2019-12-17] MEDS: SERTRALINE HCL 50 MG TABLET PO SCH (09:34)
[2019-12-17] MEDS: ACETAMINOPHEN 325 MG TABLET PO PRN (11:15)
--- NOTE | 2019-12-17 11:59 | PDOC PROGRESS REPORT ---
Subjective Progress Note for:: 12/17/19 Subjective:: Patient still requiring high flow oxygen. She is on 40% FiO2 and still get very dyspneic mild exertion. She otherwise denies any new symptoms 12/14 patient is still on high flow oxygen. In fact the increased oxygen slightly during the night although she remains relatively stable. We will attempt to wean her down again today 12/15 patient was still pretty dyspneic. She was on 70% oxygen this morning mildly going to try and wean off 12/16 no change in her condition. Patient remains dyspneic with exertion and she continues to require high flow oxygen. Follow-up chest x-ray has been ordered for today Reason For Visit: PNEUMONIA DUE TO COVID19 VIRUS Physical Exam Vital Signs: Temp Pulse Resp BP Pulse Ox 98.2 F 82 22 H 103/65 89 L 12/17/19 08:21 12/17/19 08:21 12/17/19 08:15 12/17/19 08:21 12/17/19 08:21 Intake & Output 12/16/19 12/17/19 12/18/19 06:59 06:59 06:59 Intake Total 280 510 Output Total 650 Balance 280 -140 Weight 75.1 kg 78.6 kg General appearance: PRESENT: no acute distress, well-developed, well-nourished Head exam: PRESENT: atraumatic, normocephalic Eye exam: PRESENT: conjunctiva pink, EOMI, PERRLA. ABSENT: scleral icterus Ear exam: PRESENT: normal external ear exam Mouth exam: PRESENT: moist, tongue midline Neck exam: ABSENT: carotid bruit, JVD, lymphadenopathy, thyromegaly Respiratory exam: PRESENT: decreased breath sounds, tachypnea. ABSENT: rales, rhonchi, wheezes Cardiovascular exam: PRESENT: RRR, +S1, +S2. ABSENT: diastolic murmur, rubs, systolic murmur Pulses: PRESENT: normal dorsalis pedis pul Vascular exam: PRESENT: normal capillary refill GI/Abdominal exam: PRESENT: normal bowel sounds, soft. ABSENT: distended, guarding, mass, organolmegaly, rebound, tenderness Rectal exam: PRESENT: deferred Extremities exam: PRESENT: full ROM. ABSENT: calf tenderness, clubbing, pedal edema Neurological exam: PRESENT: alert, awake, oriented to person, oriented to place, oriented to time, oriented to situation, CN II-XII grossly intact. ABSENT: motor sensory deficit Psychiatric exam: PRESENT: appropriate affect, normal mood. ABSENT: homicidal ideation, suicidal ideation Skin exam: PRESENT: dry, intact, warm. ABSENT: cyanosis, rash Results Laboratory Results: 12/17/19 05:45 12/17/19 05:45 12/17/19 12/17/19 05:45 05:45 WBC 9.6 RBC 4.26 Hgb 13.2 Hct 39.8 MCV 93 MCH 30.9 MCHC 33.1 RDW 15.2 H Plt Count 220 Seg Neutrophils % 84.1 H Sodium 138.8 Potassium 4.5 Chloride 106 Carbon Dioxide 26 Anion Gap 7 BUN 24 H Creatinine 1.02 Est GFR ( Amer) > 60 Glucose 127 H Calcium 8.7 12/06/19 12/06/19 12/06/19 06:48 06:48 16:12 Creatine Kinase 199 H 194 H Troponin I < 0.012 NT-Pro-B Natriuret Pep 12/06/19 12/07/19 20:20 05:25 Creatine Kinase 168 H Troponin I NT-Pro-B Natriuret Pep 253 H Impressions: Chest X-Ray 12/10/19 00:00 IMPRESSION: Stable left basilar atelectasis or scarring. No acute findings. Chest/Abdomen CTA 12/10/19 00:00 IMPRESSION: 1. NORMAL CTA OF THE CHEST. NO PULMONARY EMBOLI. 2. MILD CARDIOMEGALY AND SMALL PLEURAL EFFUSIONS. DIFFUSE GROUND-GLASS OPACITIES THROUGHOUT BOTH LUNGS WHICH MAY BE DUE TO PULMONARY EDEMA, PNEUMONITIS, OR PNEUMONIA/ VIRAL INFECTION. Assessment and Plan - Diagnosis (1) Acute hypoxemic respiratory failure due to COVID-19 Is this a current diagnosis for this admission?: Yes Plan: Received Covalascent plasma on 12/09/2019 Completed 5 days of Remdesivir Also did receive Levaquin for several days and 3 days of azithromycin earlier in admission. CTA chest did not show any PE but does show findings of groundglass diffusely compatible with COVID pneumonia. Trials of IV Lasix did not help Continue IV dexamethasone PT, diet supplementation with Ensure, Incentive spirometer ABG yesterday showing paO2/fio2 of 128 HFNC at 40L, FiO2 weaned to 45%. Will try to wean further as tolerated. Looks comfortable. 10/1 Above note Will continue to support with Oxygen 10/2 Will wean off oxygen as indicated if she can tolerate it 12/15 Will continue to wean off oxygen as tolerated 12/16 continue to wean off oxygen as tolerated (2) Diabetes Qualifiers: Diabetes mellitus type: type 2 Is this a current diagnosis for this admission?: No Plan: Continue Metformin Continue sliding-scale insulin and accuchecks. (3) HTN (hypertension) Is this a current diagnosis for this admission?: No Plan: 12/06/2019-blood pressure today's 117/61. Patient has history of chronic essential hypertension to continue home medications at this time. 12/07/2019-blood pressure today is 130/82. Stable. 12/08/2019-blood pressure today is 100/70. Patient is tachycardic. Started on Coreg 3.125 mg p.o. twice daily and to continue metoprolol 5 mg IV every 6 as needed for heart rate more than 120. 12/08- bp is 88/60 to start on ivf 75 c/hr to watch for fluid over load.. 12/10/2019-blood pressure is 132/85. Plan is to stop the IV fluids give Lasix 20 mg IV 1 dose do the follow-up chest x-ray. 12/13 continue to monitor and adjust meds 12/14 stable 12/15 Continue to monitor 12/16 continue current management (4) Kidney carcinoma Qualifiers: Laterality: right Qualified Code(s): C64.1 - Malignant neoplasm of right kidney, except renal pelvis Is this a current diagnosis for this admission?: No Plan: patient has history of right-sided kidney cancer status post nephrectomy. Continue home regimen of fentanyl and oxycodone. Monitor vital signs and blood pressure. (5) Paroxysmal atrial fibrillation with rapid ventricular response Is this a current diagnosis for this admission?: Yes Plan: Patient's daughter Elroy informs me that patient did have history of A. fib from before and was on atenolol before but was discontinued about a year ago. Seems to have been acutely precipitated in light of acute illness. Currently in sinus rhythm today. Lopressor 50 mg twice a day. CHADsVASC score is 4 - Eliquis. 12/13 Continue current management 12/15 stable 12/16 Controlled (6) Pneumonia due to COVID-19 virus Is this a current diagnosis for this admission?: Yes Plan: Plan as noted above. 12/15 continues to require a high level of oxygen supplementation is also still on dexamethasone. I think we will continue with these are not her oxygen is improved 12/16 patient has had a prolonged recovery. She is still requiring very high flow oxygen. We will follow-up on chest x-ray today. Lab work otherwise seems pretty good - Time Time Spent with patient: 15-24 minutes Medications reviewed and adjusted accordingly: Yes Anticipated Discharge Disposition: Home with Home Health Anticipated Discharge Timeframe: within 72 hours
--- NOTE | 2019-12-17 13:55 | RADIOLOGY REPORT (SQ) ---
EXAM DESCRIPTION: CHEST SINGLE VIEW IMAGES COMPLETED DATE/TIME: 12/17/2019 1:35 pm REASON FOR STUDY: persistent hypoxemia, Pneumonitis COMPARISON: 12/10/2019 FINDINGS: One-view chest AP portable upright. Patchy mixed airspace and interstitial changes once again noted with slight shifting and possible pro gression and peripheral opacities in the left upper lung field and right lateral lower lung field. No pneumothorax. Stable cardiomediastinal silhouette. Right port in place as before. TECHNICAL DOCUMENTATION: JOB ID: [id number] Reading location - IP/workstation name: [email or web address]
[2019-12-18] MEDS: PANTOPRAZOLE SODIUM 40 MG TABLET.DR PO SCH ×2 (05:16→18:13)
[2019-12-18] MEDS: METFORMIN HCL 500 MG TABLET PO SCH (08:38)
[2019-12-18] MEDS: INSULIN REG, HUMAN 100 UNIT/ML 3 ML VIAL (PYX) SUBCUT SCH ×4 (08:38→22:26)
[2019-12-18] MEDS: LIDOCAINE 5% (700 MG) TRANSDERMAL ADH..PATCH TP SCH (10:22)
[2019-12-18] MEDS: DEXAMETHASONE SOD PHOS INJ 10 MG/1 ML VIAL IV SCH (11:13)
[2019-12-18] MEDS: ZINC SULFATE 220 MG CAPSULE PO SCH (11:13)
[2019-12-18] MEDS: METOPROLOL TARTRATE 50 MG TABLET PO SCH ×2 (11:13→22:27)
[2019-12-18] MEDS: DOCUSATE SODIUM 100 MG CAPSULE PO SCH ×2 (11:13→18:12)
[2019-12-18] MEDS: LEVOTHYROXINE SODIUM 0.088 MG TABLET PO SCH (11:13)
[2019-12-18] MEDS: APIXABAN 5 MG TABLET PO SCH ×2 (11:13→22:27)
[2019-12-18] MEDS: SERTRALINE HCL 50 MG TABLET PO SCH (11:13)
--- NOTE | 2019-12-18 14:29 | PDOC PROGRESS REPORT ---
Subjective Progress Note for:: 12/18/19 Subjective:: Patient still requiring high flow oxygen. She is on 40% FiO2 and still get very dyspneic mild exertion. She otherwise denies any new symptoms 12/14 patient is still on high flow oxygen. In fact the increased oxygen slightly during the night although she remains relatively stable. We will attempt to wean her down again today 12/15 patient was still pretty dyspneic. She was on 70% oxygen this morning mildly going to try and wean off 12/16 no change in her condition. Patient remains dyspneic with exertion and she continues to require high flow oxygen. Follow-up chest x-ray has been ordered for today 12/16 patient's condition remains precarious. Her breathing is still pretty tenuous. Attempts to wean down oxygen so far have failed. She is back to 60% FiO2 today. I had an extensive discussion with the daughter on December 16. She was concerned about her mom missing her immunotherapy and was inquiring about transfer to [place] I believe. I did explain to patient that at this time she is not a candidate for any immunotherapy now she is stable enough for the transfer as she is on very high flow oxygen. I explained that at this time we have normal options for treatment except oxygen support and time and will have to give the patient time to heal. She understands mother is pretty sick and prognosis is very guarded. It may be worthwhile to consider discussion of patient's CODE STATUS with the daughter as she is currently listed as a full code Reason For Visit: PNEUMONIA DUE TO COVID19 VIRUS Physical Exam Vital Signs: Temp Pulse Resp BP Pulse Ox 98.2 F 94 24 H 104/70 90 L 12/18/19 08:30 12/18/19 08:30 12/18/19 08:30 12/18/19 08:30 12/18/19 08:30 Intake & Output 12/17/19 12/18/19 12/19/19 06:59 06:59 06:59 Intake Total 510 856 Output Total 650 650 Balance -140 206 Weight 78.6 kg 77.6 kg General appearance: PRESENT: mild distress, well-nourished Head exam: PRESENT: normocephalic Eye exam: PRESENT: conjunctiva pink, PERRLA. ABSENT: scleral icterus Mouth exam: PRESENT: tongue midline Neck exam: ABSENT: carotid bruit, JVD, lymphadenopathy, thyromegaly Respiratory exam: PRESENT: decreased breath sounds, tachypnea. ABSENT: rales, rhonchi, wheezes Cardiovascular exam: PRESENT: RRR. ABSENT: diastolic murmur, rubs, systolic murmur GI/Abdominal exam: PRESENT: normal bowel sounds, soft. ABSENT: distended, guarding, mass, organolmegaly, rebound, tenderness Rectal exam: PRESENT: deferred Extremities exam: PRESENT: full ROM. ABSENT: calf tenderness, clubbing, pedal edema Neurological exam: PRESENT: alert, awake, oriented to person, oriented to place, oriented to time, oriented to situation. ABSENT: motor sensory deficit Psychiatric exam: PRESENT: appropriate affect. ABSENT: homicidal ideation, suicidal ideation Skin exam: PRESENT: dry, intact, warm. ABSENT: cyanosis, rash Results Laboratory Results: 12/17/19 05:45 12/17/19 05:45 12/06/19 12/06/19 12/06/19 06:48 06:48 16:12 Creatine Kinase 199 H 194 H Troponin I < 0.012 NT-Pro-B Natriuret Pep 12/06/19 12/07/19 20:20 05:25 Creatine Kinase 168 H Troponin I NT-Pro-B Natriuret Pep 253 H Impressions: Chest/Abdomen CTA 12/10/19 00:00 IMPRESSION: 1. NORMAL CTA OF THE CHEST. NO PULMONARY EMBOLI. 2. MILD CARDIOMEGALY AND SMALL PLEURAL EFFUSIONS. DIFFUSE GROUND-GLASS OPACITIES THROUGHOUT BOTH LUNGS WHICH MAY BE DUE TO PULMONARY EDEMA, PNEUMONITIS, OR PNEUMONIA/ VIRAL INFECTION. Assessment and Plan - Diagnosis (1) Acute hypoxemic respiratory failure due to COVID-19 Is this a current diagnosis for this admission?: Yes Plan: Received Covalascent plasma on 12/09/2019 Completed 5 days of Remdesivir Also did receive Levaquin for several days and 3 days of azithromycin earlier in admission. CTA chest did not show any PE but does show findings of groundglass diffusely compatible with COVID pneumonia. Trials of IV Lasix did not help Continue IV dexamethasone PT, diet supplementation with Ensure, Incentive spirometer ABG yesterday showing paO2/fio2 of 128 HFNC at 40L, FiO2 weaned to 45%. Will try to wean further as tolerated. Looks comfortable. 12/13 Above note Will continue to support with Oxygen 10/2 Will wean off oxygen as indicated if she can tolerate it 12/15 Will continue to wean off oxygen as tolerated 12/16 continue to wean off oxygen as tolerated 12/17 patient condition remains poor (2) Diabetes Qualifiers: Diabetes mellitus type: type 2 Is this a current diagnosis for this admission?: No (3) HTN (hypertension) Is this a current diagnosis for this admission?: No (4) Kidney carcinoma Qualifiers: Laterality: right Qualified Code(s): C64.1 - Malignant neoplasm of right kidney, except renal pelvis Is this a current diagnosis for this admission?: No Plan: patient has history of right-sided kidney cancer status post nephrectomy. Continue home regimen of fentanyl and oxycodone. Monitor vital signs and blood pressure. All treatment for this at this time is on hold obviously due to patient's acute illness (5) Paroxysmal atrial fibrillation with rapid ventricular response Is this a current diagnosis for this admission?: Yes Plan: Patient's daughter Elroy informs me that patient did have history of A. fib from before and was on atenolol before but was discontinued about a year ago. Seems to have been acutely precipitated in light of acute illness. Currently in sinus rhythm today. Lopressor 50 mg twice a day. CHADsVASC score is 4 - Eliquis. 12/13 Continue current management 12/15 stable 12/16 Controlled (6) Pneumonia due to COVID-19 virus Is this a current diagnosis for this admission?: Yes Plan: Plan as noted above. 12/15 continues to require a high level of oxygen supplementation is also still on dexamethasone. I think we will continue with these are not her oxygen is improved 12/16 patient has had a prolonged recovery. She is still requiring very high flow oxygen. We will follow-up on chest x-ray today. Lab work otherwise seems pretty good 12/17 patient's condition remains. Precarious - Plan Summary Summary: COVID-19 pneumonitis with hypoxemic respiratory failure which is pretty serious. Patient has been treated with erythematous severe as well as convalescent plasma. She is still on steroids which have opted to continue at this time although unclear how much help this is. Chest x-ray from December reveals patchy mixed airspace and interstitial changes with possible progression and peripheral opacities in the left upper lung field - Time Time Spent with patient: 15-24 minutes Medications reviewed and adjusted accordingly: Yes Anticipated Discharge Disposition: [facility] Anticipated Discharge Timeframe: TBD
[2019-12-18] MEDS: ONDANSETRON HCL INJ/PF 4 MG/2 ML SDV IV PRN (14:41)
[2019-12-18] MEDS: PHARMACY COMMUNICATION ORDER MC SCH (23:23)
[2019-12-19] MEDS: PANTOPRAZOLE SODIUM 40 MG TABLET.DR PO SCH ×2 (05:35→17:06)
[2019-12-19] MEDS: INSULIN REG, HUMAN 100 UNIT/ML 3 ML VIAL (PYX) SUBCUT SCH ×4 (08:25→21:27)
[2019-12-19] MEDS: METFORMIN HCL 500 MG TABLET PO SCH (08:26)
[2019-12-19] MEDS: METOPROLOL TARTRATE 50 MG TABLET PO SCH ×2 (09:52→21:24)
[2019-12-19] MEDS: LEVOTHYROXINE SODIUM 0.088 MG TABLET PO SCH (09:52)
[2019-12-19] MEDS: APIXABAN 5 MG TABLET PO SCH ×2 (09:52→21:24)
[2019-12-19] MEDS: ZINC SULFATE 220 MG CAPSULE PO SCH (09:52)
[2019-12-19] MEDS: SERTRALINE HCL 50 MG TABLET PO SCH (09:52)
[2019-12-19] MEDS: DOCUSATE SODIUM 100 MG CAPSULE PO SCH ×2 (09:52→17:06)
[2019-12-19] MEDS: DEXAMETHASONE SOD PHOS INJ 10 MG/1 ML VIAL IV SCH (09:52)
[2019-12-19] MEDS: LIDOCAINE 5% (700 MG) TRANSDERMAL ADH..PATCH TP SCH (09:53)
--- NOTE | 2019-12-19 18:35 | PDOC PROGRESS REPORT ---
Subjective Progress Note for:: 12/19/19 Subjective:: Patient was seen on afternoon rounds. She was found resting in bed on high flow nasal cannula at 60% FiO2 and 40 L/min. She requested assistance to get up to the bedside commode. She required minimal assistance to maintain oxygen saturations while doing so though with increased work of breathing and mild tachypnea. Upon return to bed, she recovered quickly. She reports continued fatigue and dyspnea but otherwise is feeling well. She is frustrated that she continues to require oxygen. She specifically denies fever, chills, chest pain, palpitations, abdominal pain, vomiting, diarrhea. She does report nausea and decreased appetite. She has no questions or concerns at this time. No concerns per nursing. Towards the end of our conversation, I attempted to decrease her FiO2 from 60% to 55% with a near immediate desaturation from low 90s to low 80s; patient required several minutes to recover upon return of FiO2 to 60%. Reason For Visit: PNEUMONIA DUE TO COVID19 VIRUS Physical Exam Vital Signs: Temp Pulse Resp BP Pulse Ox 97.9 F 86 22 H 92/57 L 90 L 12/19/19 16:11 12/19/19 16:11 12/19/19 16:11 12/19/19 16:11 12/19/19 16:11 Intake & Output 12/18/19 12/19/19 12/20/19 06:59 06:59 06:59 Intake Total 856 118 Output Total 650 250 Balance 206 -132 Weight 77.6 kg 77.6 kg General appearance: PRESENT: cooperative, mild distress, obese, well-developed, well-nourished Head exam: PRESENT: atraumatic, normocephalic Eye exam: PRESENT: conjunctiva pink, EOMI, PERRLA. ABSENT: scleral icterus Mouth exam: PRESENT: moist, tongue midline Respiratory exam: PRESENT: clear to auscultation donte, decreased breath sounds - throughout, symmetrical, tachypnea, other - HFNC. ABSENT: rales, rhonchi, wheezes Cardiovascular exam: PRESENT: RRR. ABSENT: diastolic murmur, rubs, systolic murmur Pulses: PRESENT: normal dorsalis pedis pul Vascular exam: PRESENT: normal capillary refill GI/Abdominal exam: PRESENT: normal bowel sounds, soft. ABSENT: distended, guarding, mass, organolmegaly, rebound, tenderness Rectal exam: PRESENT: deferred Extremities exam: PRESENT: full ROM. ABSENT: calf tenderness, clubbing, pedal edema Musculoskeletal exam: PRESENT: ambulatory Neurological exam: PRESENT: alert, awake, oriented to person, oriented to place, oriented to time, oriented to situation, CN II-XII grossly intact. ABSENT: motor sensory deficit Psychiatric exam: PRESENT: appropriate affect, normal mood. ABSENT: homicidal ideation, suicidal ideation Skin exam: PRESENT: dry, intact, warm. ABSENT: cyanosis, rash Results Laboratory Results: 12/17/19 05:45 12/17/19 05:45 12/06/19 12/06/19 12/06/19 06:48 06:48 16:12 Creatine Kinase 199 H 194 H Troponin I < 0.012 NT-Pro-B Natriuret Pep 12/06/19 12/07/19 20:20 05:25 Creatine Kinase 168 H Troponin I NT-Pro-B Natriuret Pep 253 H Impressions: Chest/Abdomen CTA 12/10/19 00:00 IMPRESSION: 1. NORMAL CTA OF THE CHEST. NO PULMONARY EMBOLI. 2. MILD CARDIOMEGALY AND SMALL PLEURAL EFFUSIONS. DIFFUSE GROUND-GLASS OPACITIES THROUGHOUT BOTH LUNGS WHICH MAY BE DUE TO PULMONARY EDEMA, PNEUMONITIS, OR PNEUMONIA/ VIRAL INFECTION. Assessment and Plan - Diagnosis (1) Acute hypoxemic respiratory failure due to COVID-19 Is this a current diagnosis for this admission?: Yes Plan: Guarded prognosis regarding continued need for respiratory support. Currently requiring high flow nasal cannula at 60% FiO2 and 40 L/min. Received Covalascent plasma on 12/09/2019 Completed 5 days of Remdesivir Also did receive Levaquin for several days and 3 days of azithromycin earlier in admission. CTA chest did not show any PE but does show findings of groundglass diffusely compatible with COVID pneumonia. Trials of IV Lasix did not help Will recheck d. dimer, CRP, Ferritin, LDH with AM lab work. Continue supplemental oxygen as needed to maintain saturations greater than 89%. As needed nebulizer treatments. Continues on Eliquis. Continue IV dexamethasone Continue zinc; have added vitamin C, vitamin D, melatonin. Robitussin as needed. Encourage pulmonary toilet with incentive spirometer, flutter valve, early ambulation. Physical therapy consulted. Discharge planning consulted; may need to begin investigating whether an LTAC might be available for pulmonary rehabilitation. (2) Diabetes Qualifiers: Diabetes mellitus type: type 2 Is this a current diagnosis for this admission?: No Plan: A1c 6.2%. Continue Metformin Continue sliding-scale insulin and accuchecks. Hypoglycemia protocol. Consistent carb diet. (3) HTN (hypertension) Is this a current diagnosis for this admission?: No Plan: Mild hypotension today. Overall well controlled. Continue metoprolol 50 mg twice daily. (4) Obesity (BMI 30.0-34.9) Is this a current diagnosis for this admission?: No Plan: BMI 30.3 Diet exercise weight loss lifestyle modifications previously discussed with the patient. Consistent carb diet. (5) Kidney carcinoma Qualifiers: Laterality: right Qualified Code(s): C64.1 - Malignant neoplasm of right kidney, except renal pelvis Is this a current diagnosis for this admission?: No Plan: Patient has history of right-sided kidney cancer status post nephrectomy. Continue home regimen of fentanyl and oxycodone All treatment for this at this time is on hold due to patient's acute illness. (6) Pneumonia due to COVID-19 virus Is this a current diagnosis for this admission?: Yes Plan: Plan as noted above. - Time Time Spent with patient: 25-34 minutes Medications reviewed and adjusted accordingly: Yes Anticipated Discharge Disposition: LTAC vs SNF; needs pulm rehab Anticipated Discharge Timeframe: undetermined
[2019-12-19] MEDS: MELATONIN 3 MG TABLET PO SCH (21:24)
[2019-12-19] MEDS: PHARMACY COMMUNICATION ORDER MC SCH (22:59)
[2019-12-20 04:23] LABS: HEMATOCRIT 37.9 % (36.0-47.0); HEMOGLOBIN 12.6 g/dL (12.0-15.5); MEAN CORPUSCULAR HEMOGLOBIN 30.9 pg (27.0-33.4); MEAN CORPUSCULAR HGB CONC 33.2 g/dL (32.0-36.0); MEAN CORPUSCULAR VOLUME 93 fl (80-97); PLATELET COUNT 208 10^3/uL (150-450); RED BLOOD COUNT 4.07 10^6/uL (3.72-5.28); WHITE BLOOD COUNT 7.3 10^3/uL (4.0-10.5)
[2019-12-20 05:34] LABS: ANION GAP 6 (5-19); BLOOD UREA NITROGEN 22 mg/dL (7-20); C-REACTIVE PROTEIN 80.1 mg/L (<10.0); CALCIUM 8.7 mg/dL (8.4-10.2); CARBON DIOXIDE 27 mmol/L (22-30); CHLORIDE 108 mmol/L (98-107); GLUCOSE 137 mg/dL (75-110); POTASSIUM 4.3 mmol/L (3.6-5.0)
[2019-12-20] MEDS: PANTOPRAZOLE SODIUM 40 MG TABLET.DR PO SCH ×2 (05:51→17:29)
[2019-12-20] MEDS: INSULIN REG, HUMAN 100 UNIT/ML 3 ML VIAL (PYX) SUBCUT SCH ×4 (08:32→22:48)
[2019-12-20] MEDS: METFORMIN HCL 500 MG TABLET PO SCH (08:46)
[2019-12-20] MEDS: DEXAMETHASONE SOD PHOS INJ 10 MG/1 ML VIAL IV SCH (10:50)
[2019-12-20] MEDS: METOPROLOL TARTRATE 50 MG TABLET PO SCH ×2 (10:51→22:47)
[2019-12-20] MEDS: DOCUSATE SODIUM 100 MG CAPSULE PO SCH ×2 (10:51→17:29)
[2019-12-20] MEDS: LIDOCAINE 5% (700 MG) TRANSDERMAL ADH..PATCH TP SCH (10:51)
[2019-12-20] MEDS: ZINC SULFATE 220 MG CAPSULE PO SCH (10:51)
[2019-12-20] MEDS: LEVOTHYROXINE SODIUM 0.088 MG TABLET PO SCH (10:51)
[2019-12-20] MEDS: SERTRALINE HCL 50 MG TABLET PO SCH (10:51)
[2019-12-20] MEDS: APIXABAN 5 MG TABLET PO SCH ×2 (10:51→22:47)
[2019-12-20] MEDS: CHOLECALCIFEROL (D3) 400 UNIT TABLET PO SCH (10:51)
[2019-12-20] MEDS: ASCORBIC ACID 500 MG TABLET PO SCH ×2 (10:52→17:29)
--- NOTE | 2019-12-20 18:07 | PDOC PROGRESS REPORT ---
Subjective Progress Note for:: 12/20/19 Subjective:: Patient was seen on afternoon rounds. She was found resting in bed on high flow nasal cannula at 60% FiO2 and 40 L/min. She reports continued fatigue and mild dyspnea but otherwise is feeling well. She appears more fatigued today than yesterday. However, patient notes that she worked with physical therapy today and thinks she is "just worn out," but comments that she is proud of how independent she was and enjoyed "moving about." Does continue to have an occasional, non productive cough, with associated mild pleuritic pain. She specifically denies fever, chills, chest pain, palpitations, abdominal pain, vomiting, diarrhea. Nausea is slightly improved; continued poor appetite. She has no new questions or concerns at this time. No concerns per nursing. Oxygen weaning again attempted today. Gradually decreased from 60% FiO2 at 40 lpm to 45% at 35 lpm. Continued to maintain oxygen saturations of 90-93% while at rest. She was left at new settings and nursing informed so that they could continue to monitor closely. Reason For Visit: PNEUMONIA DUE TO COVID19 VIRUS Physical Exam Vital Signs: Temp Pulse Resp BP Pulse Ox 97.5 F 78 20 100/69 86 L 12/20/19 16:16 12/20/19 16:16 12/20/19 16:16 12/20/19 16:16 12/20/19 16:16 Intake & Output 12/19/19 12/20/19 12/21/19 06:59 06:59 06:59 Intake Total 118 Output Total 250 350 400 Balance -132 -350 -400 Weight 77.6 kg 78.4 kg General appearance: PRESENT: no acute distress, cooperative, obese, well- developed, well-nourished, other - fatigued; ill appearing Head exam: PRESENT: atraumatic, normocephalic Eye exam: PRESENT: conjunctiva pink, EOMI, PERRLA. ABSENT: scleral icterus Mouth exam: PRESENT: moist, tongue midline Respiratory exam: PRESENT: clear to auscultation donte, symmetrical, unlabored, other - HFNC. ABSENT: rales, rhonchi, wheezes Cardiovascular exam: PRESENT: RRR. ABSENT: diastolic murmur, rubs, systolic murmur Vascular exam: PRESENT: normal capillary refill Extremities exam: PRESENT: full ROM. ABSENT: calf tenderness, clubbing, pedal edema Musculoskeletal exam: PRESENT: ambulatory Neurological exam: PRESENT: alert, awake, oriented to person, oriented to place, oriented to time, oriented to situation, CN II-XII grossly intact. ABSENT: motor sensory deficit Psychiatric exam: PRESENT: appropriate affect, normal mood. ABSENT: homicidal ideation, suicidal ideation Skin exam: PRESENT: dry, intact, warm. ABSENT: cyanosis, rash Results Laboratory Results: 12/20/19 04:00 12/20/19 04:00 12/20/19 12/20/19 04:00 04:00 WBC 7.3 RBC 4.07 Hgb 12.6 Hct 37.9 MCV 93 MCH 30.9 MCHC 33.2 RDW 15.0 H Plt Count 208 Sodium 140.5 Potassium 4.3 Chloride 108 H Carbon Dioxide 27 Anion Gap 6 BUN 22 H Creatinine 0.89 Est GFR ( Amer) > 60 Glucose 137 H Calcium 8.7 Ferritin 469.00 H C-Reactive Protein 80.1 H 12/06/19 12/06/19 12/06/19 06:48 06:48 16:12 Creatine Kinase 199 H 194 H Troponin I < 0.012 NT-Pro-B Natriuret Pep 12/06/19 12/07/19 20:20 05:25 Creatine Kinase 168 H Troponin I NT-Pro-B Natriuret Pep 253 H Impressions: Chest/Abdomen CTA 12/10/19 00:00 IMPRESSION: 1. NORMAL CTA OF THE CHEST. NO PULMONARY EMBOLI. 2. MILD CARDIOMEGALY AND SMALL PLEURAL EFFUSIONS. DIFFUSE GROUND-GLASS OPACITIES THROUGHOUT BOTH LUNGS WHICH MAY BE DUE TO PULMONARY EDEMA, PNEUMONITIS, OR PNEUMONIA/ VIRAL INFECTION. Assessment and Plan - Diagnosis (1) Acute hypoxemic respiratory failure due to COVID-19 Is this a current diagnosis for this admission?: Yes Plan: Guarded prognosis regarding continued need for respiratory support. Currently requiring high flow nasal cannula at 45% FiO2 and 35 L/min. Received Covalascent plasma on 12/09/2019 Completed 5 days of Remdesivir Also did receive Levaquin for several days and 3 days of azithromycin earlier in admission. CTA chest did not show any PE but does show findings of groundglass diffusely compatible with COVID pneumonia. Trials of IV Lasix did not help Recheck d. dimer and CRP are slightly elevated. Ferritin is esentially unchanged. Continue supplemental oxygen as needed to maintain saturations greater than 89%. As needed nebulizer treatments. Continues on Eliquis. Continue IV dexamethasone Continue zinc; have added vitamin C, vitamin D, melatonin. Robitussin as needed. Encourage pulmonary toilet with incentive spirometer, flutter valve, early ambulation. Physical therapy consulted. Discharge planning consulted; may need to begin investigating whether an LTAC might be available for pulmonary rehabilitation. (2) Diabetes Qualifiers: Diabetes mellitus type: type 2 Is this a current diagnosis for this admission?: No Plan: A1c 6.2%. Continue Metformin Continue sliding-scale insulin and accuchecks. Hypoglycemia protocol. Consistent carb diet. (3) HTN (hypertension) Is this a current diagnosis for this admission?: No Plan: Mild hypotension today. Overall well controlled. Continue metoprolol 50 mg twice daily. (4) Obesity (BMI 30.0-34.9) Is this a current diagnosis for this admission?: No Plan: BMI 30.6 Diet exercise weight loss lifestyle modifications previously discussed with the patient. Consistent carb diet. (5) Kidney carcinoma Qualifiers: Laterality: right Qualified Code(s): C64.1 - Malignant neoplasm of right kidney, except renal pelvis Is this a current diagnosis for this admission?: No Plan: Patient has history of right-sided kidney cancer status post nephrectomy. Continue home regimen of fentanyl and oxycodone All treatment for this at this time is on hold due to patient's acute illness. (6) Pneumonia due to COVID-19 virus Is this a current diagnosis for this admission?: Yes Plan: Plan as noted above. - Time Time Spent with patient: 35 or more minutes Medications reviewed and adjusted accordingly: Yes Anticipated Discharge Disposition: LTAC depending upon continued oxygen requirements. Anticipated Discharge Timeframe: undetermined; stable for d/c to LTAC once bed available.
[2019-12-20] MEDS: MELATONIN 3 MG TABLET PO SCH (22:48)
[2019-12-20] MEDS: PHARMACY COMMUNICATION ORDER MC SCH (22:49)
[2019-12-21] MEDS: ONDANSETRON HCL INJ/PF 4 MG/2 ML SDV IV PRN (04:22)
[2019-12-21] MEDS: PANTOPRAZOLE SODIUM 40 MG TABLET.DR PO SCH ×2 (05:31→17:13)
[2019-12-21] MEDS: INSULIN REG, HUMAN 100 UNIT/ML 3 ML VIAL (PYX) SUBCUT SCH ×4 (08:22→23:13)
[2019-12-21] MEDS: METFORMIN HCL 500 MG TABLET PO SCH (08:37)
[2019-12-21] MEDS: DEXAMETHASONE SOD PHOS INJ 10 MG/1 ML VIAL IV SCH (11:38)
[2019-12-21] MEDS: ZINC SULFATE 220 MG CAPSULE PO SCH (11:41)
[2019-12-21] MEDS: ASCORBIC ACID 500 MG TABLET PO SCH ×2 (11:41→17:13)
[2019-12-21] MEDS: SERTRALINE HCL 50 MG TABLET PO SCH (11:41)
[2019-12-21] MEDS: DOCUSATE SODIUM 100 MG CAPSULE PO SCH ×2 (11:41→17:15)
[2019-12-21] MEDS: LEVOTHYROXINE SODIUM 0.088 MG TABLET PO SCH (11:41)
[2019-12-21] MEDS: METOPROLOL TARTRATE 50 MG TABLET PO SCH ×2 (11:42→22:55)
[2019-12-21] MEDS: APIXABAN 5 MG TABLET PO SCH ×2 (11:42→22:55)
[2019-12-21] MEDS: CHOLECALCIFEROL (D3) 400 UNIT TABLET PO SCH (11:42)
[2019-12-21] MEDS: LIDOCAINE 5% (700 MG) TRANSDERMAL ADH..PATCH TP SCH (12:44)
--- NOTE | 2019-12-21 17:30 | PDOC PROGRESS REPORT ---
Subjective Progress Note for:: 12/21/19 Subjective:: Patient was seen on afternoon rounds. She was found resting in bed on high flow nasal cannula at 45% FiO2 and 35 L/min. She reports she is feeling well today; has been moving about in the room independently. Talks about the [employer] debate last night; very engaged and laughing. Overall much improved appearance. She denies fever, chills, chest pain, palpitations, abdominal pain, vomiting, diarrhea. Nausea is slightly improved; continued poor appetite. Did eat 100% of breakfast. She has no new questions or concerns at this time. Hopeful to go home soon. No concerns per nursing. Oxygen weaning again attempted today. Gradually decreased from 45% FiO2 at 35 lpm to 40% at 30 lpm. Continued to maintain oxygen saturations of 90-93% while at rest. She was left at new settings and nursing informed so that they could continue to monitor closely. Reason For Visit: PNEUMONIA DUE TO COVID19 VIRUS Physical Exam Vital Signs: Temp Pulse Resp BP Pulse Ox 97.4 F 82 20 107/77 94 12/21/19 11:27 12/21/19 14:00 12/21/19 16:16 12/21/19 11:27 12/21/19 16:16 Intake & Output 12/20/19 12/21/19 12/22/19 06:59 06:59 06:59 Output Total 350 850 Balance -350 -850 Weight 78.4 kg 77.5 kg General appearance: PRESENT: no acute distress, cooperative, well-developed, well-nourished Head exam: PRESENT: atraumatic, normocephalic Eye exam: PRESENT: conjunctiva pink, EOMI, PERRLA. ABSENT: scleral icterus Mouth exam: PRESENT: moist, tongue midline Respiratory exam: PRESENT: clear to auscultation donte, symmetrical, unlabored, other - HFNC. ABSENT: rales, rhonchi, wheezes Cardiovascular exam: PRESENT: RRR. ABSENT: diastolic murmur, rubs, systolic murmur Vascular exam: PRESENT: normal capillary refill Extremities exam: PRESENT: full ROM. ABSENT: calf tenderness, clubbing, pedal edema Musculoskeletal exam: PRESENT: ambulatory Neurological exam: PRESENT: alert, awake, oriented to person, oriented to place, oriented to time, oriented to situation, CN II-XII grossly intact. ABSENT: mo tor sensory deficit Psychiatric exam: PRESENT: appropriate affect, normal mood. ABSENT: homicidal ideation, suicidal ideation Skin exam: PRESENT: dry, intact, warm. ABSENT: cyanosis, rash Results Laboratory Results: 12/20/19 04:00 12/20/19 04:00 12/06/19 12/06/19 12/06/19 06:48 06:48 16:12 Creatine Kinase 199 H 194 H Troponin I < 0.012 NT-Pro-B Natriuret Pep 12/06/19 12/07/19 20:20 05:25 Creatine Kinase 168 H Troponin I NT-Pro-B Natriuret Pep 253 H Impressions: Chest/Abdomen CTA 12/10/19 00:00 IMPRESSION: 1. NORMAL CTA OF THE CHEST. NO PULMONARY EMBOLI. 2. MILD CARDIOMEGALY AND SMALL PLEURAL EFFUSIONS. DIFFUSE GROUND-GLASS OPACIT IES THROUGHOUT BOTH LUNGS WHICH MAY BE DUE TO PULMONARY EDEMA, PNEUMONITIS, OR PNEUMONIA/ VIRAL INFECTION. Assessment and Plan - Diagnosis (1) Acute hypoxemic respiratory failure due to COVID-19 Is this a current diagnosis for this admission?: Yes Plan: Cautious optimism; patient is tolerating gradual weaning of oxygen. Currently requiring HFNC at 40% FiO2 and 30 L/min. Received Covalascent plasma on 12/09/2019 Completed 5 days of Remdesivir Also did receive Levaquin for several days and 3 days of azithromycin earlier in admission. CTA chest did not show any PE but does show findings of groundglass diffusely compatible with COVID pneumonia. Trials of IV Lasix did not help Recheck d. dimer and CRP are slightly elevated. Ferritin is esentially unchanged. Continue supplemental oxygen as needed to maintain saturations greater than 89%. As needed nebulizer treatments. Continues on Eliquis. Continue IV dexamethasone; will transition to po prednisone Continue zinc; have added vitamin C, vitamin D, melatonin. Robitussin as needed. Encourage pulmonary toilet with incentive spirometer, flutter valve, early ambulation. Physical therapy consulted. Discharge planning consulted; now anticipating d/c home with home oxygen (2) Diabetes Qualifiers: Diabetes mellitus type: type 2 Is this a current diagnosis for this admission?: No Plan: A1c 6.2%. Continue Metformin Continue sliding-scale insulin and accuchecks. Hypoglycemia protocol. Consistent carb diet. (3) HTN (hypertension) Is this a current diagnosis for this admission?: No Plan: Mild hypotension today. Overall well controlled. Continue metoprolol 50 mg twice daily. (4) Obesity (BMI 30.0-34.9) Is this a current diagnosis for this admission?: No Plan: BMI 30.6 Diet exercise weight loss lifestyle modifications previously discussed with the patient. Consistent carb diet. (5) Kidney carcinoma Qualifiers: Laterality: right Qualified Code(s): C64.1 - Malignant neoplasm of right kidney, except renal pelvis Is this a current diagnosis for this admission?: No Plan: Patient has history of right-sided kidney cancer status post nephrectomy. Continue home regimen of fentanyl and oxycodone All treatment for this at this time is on hold due to patient's acute illness. (6) Pneumonia due to COVID-19 virus Is this a current diagnosis for this admission?: Yes Plan: Plan as noted above. - Time Time Spent with patient: 25-34 minutes Medications reviewed and adjusted accordingly: Yes Anticipated Discharge Disposition: Home with Home Health Anticipated Discharge Timeframe: w/in 4-5 days pending O2 needs
[2019-12-21] MEDS: MELATONIN 3 MG TABLET PO SCH (22:55)
[2019-12-21] MEDS: PHARMACY COMMUNICATION ORDER MC SCH (23:09)
[2019-12-22] MEDS: ONDANSETRON HCL INJ/PF 4 MG/2 ML SDV IV PRN (05:25)
[2019-12-22] MEDS: PANTOPRAZOLE SODIUM 40 MG TABLET.DR PO SCH ×2 (05:25→17:14)
[2019-12-22] MEDS: INSULIN REG, HUMAN 100 UNIT/ML 3 ML VIAL (PYX) SUBCUT SCH ×4 (08:38→22:05)
[2019-12-22] MEDS: METFORMIN HCL 500 MG TABLET PO SCH (08:41)
[2019-12-22] MEDS: APIXABAN 5 MG TABLET PO SCH ×2 (09:48→22:03)
[2019-12-22] MEDS: ASCORBIC ACID 500 MG TABLET PO SCH ×2 (09:48→17:14)
[2019-12-22] MEDS: DOCUSATE SODIUM 100 MG CAPSULE PO SCH ×2 (09:48→17:21)
[2019-12-22] MEDS: LIDOCAINE 5% (700 MG) TRANSDERMAL ADH..PATCH TP SCH (09:48)
[2019-12-22] MEDS: METOPROLOL TARTRATE 50 MG TABLET PO SCH ×2 (09:49→22:03)
[2019-12-22] MEDS: ZINC SULFATE 220 MG CAPSULE PO SCH (09:49)
[2019-12-22] MEDS: PREDNISONE 20 MG TABLET PO SCH (09:49)
[2019-12-22] MEDS: CHOLECALCIFEROL (D3) 400 UNIT TABLET PO SCH (09:49)
[2019-12-22] MEDS: SERTRALINE HCL 50 MG TABLET PO SCH (09:49)
[2019-12-22] MEDS: LEVOTHYROXINE SODIUM 0.088 MG TABLET PO SCH (09:50)
[2019-12-22 10:50] LABS: AMORPHOUS SEDIMENT,URINE 1+ /HPF; APPEARANCE,URINE TURBID; BILIRUBIN,URINE NEGATIVE (NEGATIVE); COLOR,URINE YELLOW; GLUCOSE, URINE NEGATIVE (NEGATIVE); KETONES,URINE NEGATIVE (NEGATIVE); LEUKOCYTE ESTERASE,URINE NEGATIVE (NEGATIVE); NITRITE,URINE NEGATIVE (NEGATIVE); PROTEIN,URINE NEGATIVE (NEGATIVE); URINE SPECIFIC GRAVITY 1.028
[2019-12-22] MEDS ORDERED: MAG HYDROX/AL HYDROX/SIMETH SUSP 30 ML UDCUP PO PRN (13:40)
--- NOTE | 2019-12-22 13:56 | PDOC PROGRESS REPORT ---
Subjective Progress Note for:: 12/22/19 Subjective:: Patient was seen on afternoon rounds. She was found resting in bed on high flow nasal cannula at 40% FiO2 and 30 L/min. She reports she is feeling well today; has been moving about in the room independently. Reports some fatigue and heartburn earlier this morning. Currently no complaints. She denies fever, chills, chest pain, palpitations, abdominal pain, vomiting, diarrhea. Nausea is slightly improved; continued poor appetite. Did eat 100% of breakfast. She has no new questions or concerns at this time. Hopeful to go home soon. No concerns per nursing. Oxygen weaning again attempted today. Transitioned to oxymizer at 10lpm. Continued to maintain oxygen saturations of 90-96% while at rest. She was left at new settings and nursing informed so that they could continue to monitor closely. Reason For Visit: PNEUMONIA DUE TO COVID19 VIRUS Physical Exam Vital Signs: Temp Pulse Resp BP Pulse Ox 97.5 F 97 24 H 112/89 H 90 L 12/22/19 12:01 12/22/19 12:01 12/22/19 12:01 12/22/19 12:01 12/22/19 13:10 Intake & Output 12/21/19 12/22/19 12/23/19 06:59 06:59 06:59 Intake Total 380 Output Total 850 0 Balance -850 380 Weight 77.5 kg 77.5 kg General appearance: PRESENT: no acute distress, cooperative, well-developed, well-nourished, other - Fatigued Head exam: PRESENT: atraumatic, normocephalic Eye exam: PRESENT: conjunctiva pink, EOMI, PERRLA. ABSENT: scleral icterus Mouth exam: PRESENT: moist, tongue midline Respiratory exam: PRESENT: clear to auscultation donte, symmetrical, unlabored, other - Supplemental oxygen by Oxymizer. ABSENT: rales, rhonchi, wheezes Cardiovascular exam: PRESENT: RRR, +S1, +S2. ABSENT: diastolic murmur, rubs, systolic murmur Vascular exam: PRESENT: normal capillary refill Extremities exam: PRESENT: full ROM. ABSENT: calf tenderness, clubbing, pedal edema Musculoskeletal exam: PRESENT: ambulatory Neurological exam: PRESENT: alert, awake, oriented to person, oriented to place, oriented to time, oriented to situation, CN II-XII grossly intact. ABSENT: motor sensory deficit Psychiatric exam: PRESENT: appropriate affect, normal mood. ABSENT: homicidal ideation, suicidal ideation Skin exam: PRESENT: dry, intact, warm. ABSENT: cyanosis, rash Results Laboratory Results: 12/20/19 04:00 12/20/19 04:00 12/22/19 07:57 Urine Color YELLOW Urine Appearance TURBID Urine pH 5.0 Ur Specific [place] 1.028 Urine Protein NEGATIVE Urine Glucose (UA) NEGATIVE Urine Ketones NEGATIVE Urine Blood NEGATIVE Urine Nitrite NEGATIVE Ur Leukocyte Esterase NEGATIVE Urine RBC (Auto) 7 12/06/19 12/06/19 12/06/19 06:48 06:48 16:12 Creatine Kinase 199 H 194 H Troponin I < 0.012 NT-Pro-B Natriuret Pep 12/06/19 12/07/19 20:20 05:25 Creatine Kinase 168 H Troponin I NT-Pro-B Natriuret Pep 253 H Impressions: Chest/Abdomen CTA 12/10/19 00:00 IMPRESSION: 1. NORMAL CTA OF THE CHEST. NO PULMONARY EMBOLI. 2. MILD CARDIOMEGALY AND SMALL PLEURAL EFFUSIONS. DIFFUSE GROUND-GLASS OPACITIES THROUGHOUT BOTH LUNGS WHICH MAY BE DUE TO PULMONARY EDEMA, PNEUMONITIS, OR PNEUMONIA/ VIRAL INFECTION. Assessment and Plan - Diagnosis (1) Acute hypoxemic respiratory failure due to COVID-19 Is this a current diagnosis for this admission?: Yes Plan: Cautious optimism; patient is tolerating gradual weaning of oxygen. Transition to Oxymizer at 10 L/min today. Received Covalascent plasma on 12/09/2019 Completed 5 days of Remdesivir Also did receive Levaquin for several days and 3 days of azithromycin earlier in admission. CTA chest did not show any PE but does show findings of groundglass diffusely compatible with COVID pneumonia. Trials of IV Lasix did not help Recheck d. dimer and CRP are slightly elevated. Ferritin is esentially unchanged. Continue supplemental oxygen as needed to maintain saturations greater than 89%. As needed nebulizer treatments. Continues on Eliquis. Have transitioned to po prednisone Continue zinc; have added vitamin C, vitamin D, melatonin. Robitussin as needed. Encourage pulmonary toilet with incentive spirometer, flutter valve, early ambulation. Physical therapy consulted. Discharge planning consulted; now anticipating d/c home with home oxygen (2) Diabetes Qualifiers: Diabetes mellitus type: type 2 Is this a current diagnosis for this admission?: No Plan: A1c 6.2%. Continue Metformin Continue sliding-scale insulin and accuchecks. Hypoglycemia protocol. Consistent carb diet. (3) HTN (hypertension) Is this a current diagnosis for this admission?: No Plan: Mild hypotension today. Overall well controlled. Continue metoprolol 50 mg twice daily. (4) Obesity (BMI 30.0-34.9) Is this a current diagnosis for this admission?: No Plan: BMI 30.3 Diet exercise weight loss lifestyle modifications previously discussed with the patient. Consistent carb diet. (5) Kidney carcinoma Qualifiers: Laterality: right Qualified Code(s): C64.1 - Malignant neoplasm of right kidney, except renal pelvis Is this a current diagnosis for this admission?: No Plan: Patient has history of right-sided kidney cancer status post nephrectomy. Continue home regimen of fentanyl and oxycodone All treatment for this at this time is on hold due to patient's acute illness. (6) Pneumonia due to COVID-19 virus Is this a current diagnosis for this admission?: Yes Plan: Plan as noted above. - Plan Summary Summary: Discussed w/ discharge planning. Oxymizer is not covered by insurance. Self pay costs likely reasonable (~$50) in addition to standard O2 costs. Have asked nursing to continue weaning O2; ideally would not need more than 6lpm and tolerate ambulating in the room on this oxygen level prior to discharge. - Time Time Spent with patient: 35 or more minutes Medications reviewed and adjusted accordingly: Yes Anticipated Discharge Disposition: Home with Home Health Anticipated Discharge Timeframe: within 72 hours - pending oxygen needs
[2019-12-22] MEDS: MELATONIN 3 MG TABLET PO SCH (22:03)
[2019-12-22] MEDS: PHARMACY COMMUNICATION ORDER MC SCH (22:05)
[2019-12-23] MEDS: PANTOPRAZOLE SODIUM 40 MG TABLET.DR PO SCH ×2 (05:28→17:21)
[2019-12-23] MEDS: INSULIN REG, HUMAN 100 UNIT/ML 3 ML VIAL (PYX) SUBCUT SCH ×5 (08:36→21:25)
[2019-12-23] MEDS: APIXABAN 5 MG TABLET PO SCH ×2 (09:22→21:15)
[2019-12-23] MEDS: LEVOTHYROXINE SODIUM 0.088 MG TABLET PO SCH (09:22)
[2019-12-23] MEDS: PREDNISONE 20 MG TABLET PO SCH (09:22)
[2019-12-23] MEDS: CHOLECALCIFEROL (D3) 400 UNIT TABLET PO SCH (09:22)
[2019-12-23] MEDS: METFORMIN HCL 500 MG TABLET PO SCH (09:22)
[2019-12-23] MEDS: METOPROLOL TARTRATE 50 MG TABLET PO SCH ×2 (09:22→21:16)
[2019-12-23] MEDS: ASCORBIC ACID 500 MG TABLET PO SCH ×2 (09:22→17:21)
[2019-12-23] MEDS: SERTRALINE HCL 50 MG TABLET PO SCH (09:22)
[2019-12-23] MEDS: ZINC SULFATE 220 MG CAPSULE PO SCH (09:22)
[2019-12-23] MEDS: DOCUSATE SODIUM 100 MG CAPSULE PO SCH ×2 (09:31→17:15)
[2019-12-23] MEDS: LIDOCAINE 5% (700 MG) TRANSDERMAL ADH..PATCH TP SCH (09:31)
--- NOTE | 2019-12-23 16:50 | PDOC PROGRESS REPORT ---
Subjective Progress Note for:: 12/23/19 Subjective:: Patient was seen on afternoon rounds. She was found resting in bed on oxymizer at 10 lpm; maintainins SpO2 in the mid 90s. She reports she is feeling well today, though fatigued. Currently no complaints. She denies fever, chills, chest pain, palpitations, abdominal pain, nausea vomiting, diarrhea. Appetite is slightly improved. She has no new questions or concerns at this time. Hopeful to go home soon. No concerns per nursing. Reason For Visit: PNEUMONIA DUE TO COVID19 VIRUS Physical Exam Vital Signs: Temp Pulse Resp BP Pulse Ox 97.8 F 84 18 113/65 93 12/23/19 15:28 12/23/19 15:28 12/23/19 15:28 12/23/19 15:28 12/23/19 15:28 Intake & Output 12/22/19 12/23/19 12/24/19 06:59 06:59 06:59 Intake Total 380 380 Output Total 0 100 2 Balance 380 -100 378 Weight 77.5 kg 77 kg General appearance: PRESENT: no acute distress, cooperative, well-developed, well-nourished - overweight, other - fatigued Head exam: PRESENT: atraumatic, normocephalic Eye exam: PRESENT: conjunctiva pink, EOMI, PERRLA. ABSENT: scleral icterus Mouth exam: PRESENT: moist, tongue midline Respiratory exam: PRESENT: crackles - bibasilar, symmetrical, unlabored, other - oxymizer. ABSENT: rales, rhonchi, wheezes Cardiovascular exam: PRESENT: RRR. ABSENT: diastolic murmur, rubs, systolic murmur Vascular exam: PRESENT: normal capillary refill Extremities exam: PRESENT: full ROM, +1 edema - soft, nonpitting, BLE. ABSENT: calf tenderness, clubbing, pedal edema Neurological exam: PRESENT: alert, awake, oriented to person, oriented to place, oriented to time, oriented to situation, CN II-XII grossly intact. ABSENT: motor sensory deficit Psychiatric exam: PRESENT: appropriate affect, normal mood. ABSENT: homicidal ideation, suicidal ideation Skin exam: PRESENT: dry, intact, warm. ABSENT: cyanosis, rash Results Laboratory Results: 12/20/19 04:00 12/20/19 04:00 12/06/19 12/06/19 12/06/19 06:48 06:48 16:12 Creatine Kinase 199 H 194 H Troponin I < 0.012 NT-Pro-B Natriuret Pep 12/06/19 12/07/19 20:20 05:25 Creatine Kinase 168 H Troponin I NT-Pro-B Natriuret Pep 253 H Impressions: Chest/Abdomen CTA 12/10/19 00:00 IMPRESSION: 1. NORMAL CTA OF THE CHEST. NO PULMONARY EMBOLI. 2. MILD CARDIOMEGALY AND SMALL PLEURAL EFFUSIONS. DIFFUSE GROUND-GLASS OPAC ITIES THROUGHOUT BOTH LUNGS WHICH MAY BE DUE TO PULMONARY EDEMA, PNEUMONITIS, OR PNEUMONIA/ VIRAL INFECTION. Assessment and Plan - Diagnosis (1) Acute hypoxemic respiratory failure due to COVID-19 Is this a current diagnosis for this admission?: Yes Plan: Cautious optimism; patient is tolerating gradual weaning of oxygen. Now on Oxymizer at 10 L/min. Received Covalascent plasma on 12/09/2019 Completed 5 days of Remdesivir Also did receive Levaquin for several days and 3 days of azithromycin earlier in admission. CTA chest did not show any PE but does show findings of groundglass diffusely compatible with COVID pneumonia. Trials of IV Lasix did not help Recheck d. dimer and CRP are slightly elevated. Ferritin is essentially unchanged. Continue supplemental oxygen as needed to maintain saturations greater than 89%. As needed nebulizer treatments. Continues on Eliquis. Have transitioned to po prednisone Continue zinc; have added vitamin C, vitamin D, melatonin. Robitussin as needed. Encourage pulmonary toilet with incentive spirometer, flutter valve, early ambulation. Physical therapy consulted. Discharge planning consulted; now anticipating d/c home with home oxygen (2) Diabetes Qualifiers: Diabetes mellitus type: type 2 Is this a current diagnosis for this admission?: No Plan: A1c 6.2%. Continue Metformin Continue sliding-scale insulin and accuchecks. Hypoglycemia protocol. Consistent carb diet. (3) HTN (hypertension) Is this a current diagnosis for this admission?: No Plan: Mild hypotension today. Overall well controlled. Continue metoprolol 50 mg twice daily. (4) Obesity (BMI 30.0-34.9) Is this a current diagnosis for this admission?: No Plan: BMI 30.1 Diet exercise weight loss lifestyle modifications previously discussed with the patient. Consistent carb diet. (5) Kidney carcinoma Qualifiers: Laterality: right Qualified Code(s): C64.1 - Malignant neoplasm of right kidney, except renal pelvis Is this a current diagnosis for this admission?: No Plan: Patient has history of right-sided kidney cancer status post nephrectomy. Continue home regimen of fentanyl and oxycodone All treatment for this at this time is on hold due to patient's acute illness. (6) Pneumonia due to COVID-19 virus Is this a current diagnosis for this admission?: Yes Plan: Plan as noted above. - Plan Summary Summary: Discussed w/ discharge planning. Oxymizer is not covered by insurance. Self pay costs likely reasonable (~$50) in addition to standard O2 costs. Have asked nursing to continue weaning O2; ideally would not need more than 6lpm and tolerate ambulating in the room on this oxygen level prior to discharge. - Time Time Spent with patient: 25-34 minutes Medications reviewed and adjusted accordingly: Yes Anticipated Discharge Disposition: Home with Home Health Anticipated Discharge Timeframe: ~3-4 days pending oxygen needs
[2019-12-23] MEDS: PHARMACY COMMUNICATION ORDER MC SCH (21:09)
[2019-12-23] MEDS: ACETAMINOPHEN 325 MG TABLET PO PRN (21:14)
[2019-12-23] MEDS: BENZOCAINE/MENTHOL SORE THROAT LOZENGE BUCCAL PRN (21:15)
[2019-12-23] MEDS: MELATONIN 3 MG TABLET PO SCH (21:15)
[2019-12-23] MEDS: GUAIFENESIN SYRP 200 MG/10 ML UDC PO PRN (21:15)
[2019-12-24] MEDS: PANTOPRAZOLE SODIUM 40 MG TABLET.DR PO SCH ×2 (05:22→17:58)
[2019-12-24] MEDS ORDERED: FUROSEMIDE INJ/PF 20 MG/2 ML SDV IV ONE (07:50)
[2019-12-24] MEDS: INSULIN REG, HUMAN 100 UNIT/ML 3 ML VIAL (PYX) SUBCUT SCH ×5 (08:10→22:14)
[2019-12-24] MEDS: METFORMIN HCL 500 MG TABLET PO SCH (08:18)
[2019-12-24] MEDS: ASCORBIC ACID 500 MG TABLET PO SCH ×2 (11:03→17:58)
[2019-12-24] MEDS: APIXABAN 5 MG TABLET PO SCH ×2 (11:03→21:32)
[2019-12-24] MEDS: CHOLECALCIFEROL (D3) 400 UNIT TABLET PO SCH (11:03)
[2019-12-24] MEDS: SERTRALINE HCL 50 MG TABLET PO SCH (11:03)
[2019-12-24] MEDS: ZINC SULFATE 220 MG CAPSULE PO SCH (11:04)
[2019-12-24] MEDS: PREDNISONE 20 MG TABLET PO SCH (11:04)
[2019-12-24] MEDS: LEVOTHYROXINE SODIUM 0.088 MG TABLET PO SCH (11:04)
[2019-12-24] MEDS: METOPROLOL TARTRATE 50 MG TABLET PO SCH ×2 (11:04→21:32)
[2019-12-24] MEDS: DOCUSATE SODIUM 100 MG CAPSULE PO SCH ×2 (11:09→17:59)
[2019-12-24] MEDS: LIDOCAINE 5% (700 MG) TRANSDERMAL ADH..PATCH TP SCH (11:12)
[2019-12-24] MEDS: FENTANYL 12 MCG/HR PATCH.TD72 TD SCH (13:27)
--- NOTE | 2019-12-24 14:04 | RADIOLOGY REPORT (SQ) ---
EXAM DESCRIPTION: CHEST SINGLE VIEW IMAGES COMPLETED DATE/TIME: 12/24/2019 1:38 pm REASON FOR STUDY: dyspnea, rhonchi COMPARISON: 12/17/2019 TECHNIQUE: Single frontal radiographic view of the chest acquired. NUMBER OF VIEWS: One view. LIMITATIONS: None. FINDINGS: LUNGS AND PLEURA: No pneumothorax. Increasing left basilar consolidation. Similar inters titial prominence. Small bilateral pleural effusions. MEDIASTINUM AND HILAR STRUCTURES: Stable. HEART AND VASCULAR STRUCTURES: Stable. BONES: No acute findings. HARDWARE: Right chest port. OTHER: No other significant finding. IMPRESSION: Increasing left basilar consolidation. Similar interstitial prominence. Small bilater al pleural effusions. TECHNICAL DOCUMENTATION: JOB ID: [id number] [id number] 2010 [email or web address]- All Rights Reserved Reading location - IP/workstation name: [email or web address]
[2019-12-24 16:04] LABS: HEMATOCRIT 40.1 % (36.0-47.0); HEMOGLOBIN 13.7 g/dL (12.0-15.5); MEAN CORPUSCULAR HEMOGLOBIN 31.2 pg (27.0-33.4); MEAN CORPUSCULAR HGB CONC 34.1 g/dL (32.0-36.0); MEAN CORPUSCULAR VOLUME 92 fl (80-97); PLATELET COUNT 183 10^3/uL (150-450); RED BLOOD COUNT 4.38 10^6/uL (3.72-5.28); WHITE BLOOD COUNT 10.1 10^3/uL (4.0-10.5)
[2019-12-24 16:17] LABS: ANION GAP 11 (5-19); BLOOD UREA NITROGEN 21 mg/dL (7-20); CALCIUM 8.9 mg/dL (8.4-10.2); CARBON DIOXIDE 26 mmol/L (22-30); CHLORIDE 104 mmol/L (98-107); GLUCOSE 169 mg/dL (75-110); POTASSIUM 4.6 mmol/L (3.6-5.0)
--- NOTE | 2019-12-24 16:35 | PDOC PROGRESS REPORT ---
Subjective Progress Note for:: 12/24/19 Subjective:: Patient was seen on afternoon rounds. She was found resting in bed on oxymizer at 8 lpm; maintainins SpO2 in the mid 90s. Turned down to 7lpm and continued to maintain SpO2 in the low 90s. She reports she is feeling well today, though fatigued. Occasional nonproduc tive cough. Reports chronic back pain r/t malignancy; requests pain medications. It appears that her routine pain medications have 'fallen off.' She is assured we have resumed her Duragesic patch and prn oxycodone. She denies fever, chills, chest pain, palpitations, abdominal pain, nausea vomiting, diarrhea. Appetite is slightly improved. She has no new questions or concerns at this time. Hopeful to go home soon. No concerns per nursing. Reason For Visit: PNEUMONIA DUE TO COVID19 VIRUS Physical Exam Vital Signs: Temp Pulse Resp BP Pulse Ox 97.3 F 126 H 24 H 109/80 93 12/24/19 11:31 12/24/19 11:31 12/24/19 11:31 12/24/19 11:31 12/24/19 11:31 Intake & Output 12/23/19 12/24/19 12/25/19 06:59 06:59 06:59 Intake Total 900 240 Output Total 100 2 Balance -100 898 240 Weight 77 kg 76.2 kg 76.2 kg General appearance: PRESENT: no acute distress, cooperative, well-developed, well-nourished - overweight Head exam: PRESENT: atraumatic, normocephalic Eye exam: PRESENT: conjunctiva pink, EOMI, PERRLA. ABSENT: scleral icterus Mouth exam: PRESENT: moist, tongue midline Respiratory exam: PRESENT: clear to auscultation donte, rhonchi - bibasilar, symmetrical, unlabored, other - oxymizer. ABSENT: rales, wheezes Cardiovascular exam: PRESENT: RRR, tachycardia - HR 90-120. ABSENT: diastolic murmur, rubs, systolic murmur Pulses: PRESENT: normal dorsalis pedis pul Vascular exam: PRESENT: normal capillary refill Extremities exam: PRESENT: full ROM, +1 edema - soft, nonpitting, BLE. ABSENT: calf tenderness, clubbing, pedal edema Musculoskeletal exam: PRESENT: ambulatory Neurological exam: PRESENT: alert, awake, oriented to person, oriented to place, oriented to time, oriented to situation, CN II-XII grossly intact. ABSENT: motor sensory deficit Psychiatric exam: PRESENT: appropriate affect, normal mood. ABSENT: homicidal ideation, suicidal ideation Skin exam: PRESENT: dry, intact, warm. ABSENT: cyanosis, rash Results Laboratory Results: 12/24/19 15:30 12/24/19 15:30 12/24/19 12/24/19 15:30 15:30 WBC 10.1 RBC 4.38 Hgb 13.7 Hct 40.1 MCV 92 MCH 31.2 MCHC 34.1 RDW 15.0 H Plt Count 183 Sodium 140.5 Potassium 4.6 Chloride 104 Carbon Dioxide 26 Anion Gap 11 BUN 21 H Creatinine 1.04 Est GFR ( Amer) > 60 Glucose 169 H Calcium 8.9 12/06/19 12/06/19 12/06/19 06:48 06:48 16:12 Creatine Kinase 199 H 194 H Troponin I < 0.012 NT-Pro-B Natriuret Pep 12/06/19 12/07/19 12/23/19 20:20 05:25 17:29 Creatine Kinase 168 H Troponin I NT-Pro-B Natriuret Pep 253 H 388 H Impressions: Chest/Abdomen CTA 12/10/19 00:00 IMPRESSION: 1. NORMAL CTA OF THE CHEST. NO PULMONARY EMBOLI. 2. MILD CARDIOMEGALY AND SMALL PLEURAL EFFUSIONS. DIFFUSE GROUND-GLASS OPACITIES THROUGHOUT BOTH LUNGS WHICH MAY BE DUE TO PULMONARY EDEMA, PNEUMONITIS, OR PNEUMONIA/ VIRAL INFECTION. Chest X-Ray 12/24/19 00:00 IMPRESSION: Increasing left basilar consolidation. Similar interstitial prominence. Small bilateral pleural effusions. Assessment and Plan - Diagnosis (1) Acute hypoxemic respiratory failure due to COVID-19 Is this a current diagnosis for this admission?: Yes Plan: Cautious optimism; patient is tolerating gradual weaning of oxygen. Now on Oxymizer at 10 L/min. Received Covalascent plasma on 12/09/2019 Completed 5 days of Remdesivir Levaquin for several days and 3 days of azithromycin earlier in admission. CTA chest did not show any PE but does show findings of groundglass diffusely compatible with COVID pneumonia. CXR today shows slight increased LLL opacity Recheck d. dimer and CRP are slightly elevated. Ferritin is essentially unchanged. Continue supplemental oxygen as needed to maintain saturations greater than 89%. As needed nebulizer treatments. Start Mucomyst neb twice daily. Continues on Eliquis. Have transitioned to po prednisone Continue zinc; have added vitamin C, vitamin D, melatonin. Robitussin as needed. Encourage pulmonary toilet with incentive spirometer, flutter valve, early ambulation. Physical therapy consulted. Discharge planning consulted; now anticipating d/c home with home oxygen (2) Diabetes Qualifiers: Diabetes mellitus type: type 2 Is this a current diagnosis for this admission?: No Plan: A1c 6.2%. Continue Metformin Continue sliding-scale insulin and accuchecks. Hypoglycemia protocol. Consistent carb diet. (3) HTN (hypertension) Is this a current diagnosis for this admission?: No Plan: Mild hypotension today. Overall well controlled. Continue metoprolol 50 mg twice daily. (4) Obesity (BMI 30.0-34.9) Is this a current diagnosis for this admission?: No Plan: BMI 29.8 ~14 kg weight loss this admission Diet exercise weight loss lifestyle modifications previously discussed with the patient. Consistent carb diet. (5) Kidney carcinoma Qualifiers: Laterality: right Qualified Code(s): C64.1 - Malignant neoplasm of right kidney, except renal pelvis Is this a current diagnosis for this admission?: No Plan: Patient has history of right-sided kidney cancer status post nephrectomy. Continue home regimen of fentanyl and oxycodone All treatment for this at this time is on hold due to patient's acute illness. (6) Pneumonia due to COVID-19 virus Is this a current diagnosis for this admission?: Yes Plan: Plan as noted above. - Plan Summary Summary: Discussed w/ discharge planning. Oxymizer is not covered by insurance. Self pay costs likely reasonable (~$50) in addition to standard O2 costs. Have asked nursing to continue weaning O2; ideally would not need more than 6lpm and tolerate ambulating in the room on this oxygen level prior to discharge. - Time Time Spent with patient: 25-34 minutes Medications reviewed and adjusted accordingly: Yes Anticipated Discharge Disposition: Home with Home Health Anticipated Discharge Timeframe: ~3-4 days pending oxygen needs
[2019-12-24] MEDS: IPRATROPIUM/ALBUTEROL 0.5-2.5 MG/3 ML AMPUL NEB PRN (20:36)
[2019-12-24] MEDS: ACETYLCYSTEINE 20% SOLN 800 MG/4 ML VIAL.NEB NEB SCH (20:37)
[2019-12-24] MEDS: OXYCODONE-ACETAMINOPHEN 5-325 MG TABLET PO PRN (21:31)
[2019-12-24] MEDS: MELATONIN 3 MG TABLET PO SCH (21:31)
[2019-12-24] MEDS: PHARMACY COMMUNICATION ORDER MC SCH (21:33)
[2019-12-25] MEDS: PANTOPRAZOLE SODIUM 40 MG TABLET.DR PO SCH ×2 (05:36→16:02)
[2019-12-25] MEDS: DICYCLOMINE HCL 20 MG TABLET PO PRN (05:39)
[2019-12-25] MEDS: ACETYLCYSTEINE 20% SOLN 800 MG/4 ML VIAL.NEB NEB SCH ×2 (07:46→20:10)
[2019-12-25] MEDS: IPRATROPIUM/ALBUTEROL 0.5-2.5 MG/3 ML AMPUL NEB PRN ×2 (07:46→20:09)
[2019-12-25] MEDS: INSULIN REG, HUMAN 100 UNIT/ML 3 ML VIAL (PYX) SUBCUT SCH ×4 (07:54→22:20)
[2019-12-25] MEDS: METFORMIN HCL 500 MG TABLET PO SCH (08:10)
[2019-12-25] MEDS: METOPROLOL TARTRATE 50 MG TABLET PO SCH ×2 (09:34→22:13)
[2019-12-25] MEDS: APIXABAN 5 MG TABLET PO SCH ×2 (09:34→22:12)
[2019-12-25] MEDS: CHOLECALCIFEROL (D3) 400 UNIT TABLET PO SCH (09:35)
[2019-12-25] MEDS: LEVOTHYROXINE SODIUM 0.088 MG TABLET PO SCH (09:35)
[2019-12-25] MEDS: PREDNISONE 20 MG TABLET PO SCH (09:35)
[2019-12-25] MEDS: LIDOCAINE 5% (700 MG) TRANSDERMAL ADH..PATCH TP SCH (09:35)
[2019-12-25] MEDS: ASCORBIC ACID 500 MG TABLET PO SCH ×2 (09:35→18:12)
[2019-12-25] MEDS: ZINC SULFATE 220 MG CAPSULE PO SCH (09:35)
[2019-12-25] MEDS: SERTRALINE HCL 50 MG TABLET PO SCH (09:35)
[2019-12-25] MEDS: DOCUSATE SODIUM 100 MG CAPSULE PO SCH ×2 (09:45→18:13)
--- NOTE | 2019-12-25 10:39 | RADIOLOGY REPORT (SQ) ---
EXAM DESCRIPTION: CT CHEST WITH IMAGES COMPLETED DATE/TIME: 12/25/2019 9:59 am REASON FOR STUDY: worsening dyspnea/hypoxia; +Covid, metastatinc CA COMPARISON: 12/10/2019 TECHNIQUE: CT scan of the chest performed using helical scanning technique with dynamic intravenous contrast injection. Images reviewed with lung, soft tissue and bone windows. Reconstructed coronal and sagittal MPR and MIP images reviewed. All images stored on PACS. All CT scanners at this facility use dose modulation, iterative reconstruction, and/or weight based d osing when appropriate to reduce radiation dose to as low as reasonably achievable (ALARA). [facility]: Dose Right [facility]: CareDose [facility]: Dose Right [facility]: Teradose 4D [facility]: Armasight CONTRAST TYPE AND DOSE: contrast/concentration: Isovue 350.00 mmol/ml; Total Contrast Delivered: 80. 0 ml; Total Saline Delivered: 53.4 ml RENAL FUNCTION: GFR > 60. RADIATION DOSE: CT Rad equipment meets quality standard of care and radiation dose reduction techniq ues were employed. CTDIvol: 14.7 mGy. DLP: 509 mGy-cm. . LIMITATIONS: Motion. FINDINGS: LUNGS AND PLEURA: Diffuse ground-glass attenuation with more confluent consolidation in th e lower lobes. No evidence of cavitation. No effusions. HILAR AND MEDIASTINAL STRUCTURES: Pneumomediastinum. HEART AND VASCULAR STRUCTURES: No aneurysm or dissection. No central pulmonary emboli. No pericardi al effusion. HARDWARE: None in the chest. UPPER ABDOMEN: Hiatal hernia. Cholelithiasis. Limited exam. THYROID AND OTHER SOFT TISSUES: No masses. No adenopathy. BONES: Right-sided port tip in the cavoatrial junction. OTHER: No other significant finding. IMPRESSION: 1. Pneumomediastinum. 2. Bilateral pneumonia. COMMENT: The findings were sent to the Radiology Results Communication [facility] at 10:32 on 0 to be communicated to a licensed caregiver. TECHNICAL DOCUMENTATION: JOB ID: [id number] Quality ID # [id number]: Final reports with documentation of one or more dose reduction techniques (e.g., Au tomated exposure control, adjustment of the mA and/or kV according to patient size, use of iterative reconstruction technique) 2010 [employer]- All Rights Reserved Reading location - IP/workstation name: [email or web address]
[2019-12-25] MEDS: OXYCODONE-ACETAMINOPHEN 5-325 MG TABLET PO PRN ×2 (10:44→22:12)
[2019-12-25] MEDS ORDERED: NORMAL SALINE 1000 ML 1,000 ML IV PRN (13:50)
[2019-12-25] MEDS ORDERED: VANCOMYCIN HCL 0 MG in DEXTROSE 5%-WATER 250 ML IV NR (14:00)
--- NOTE | 2019-12-25 14:09 | PDOC PROGRESS REPORT ---
Subjective Progress Note for:: 12/25/19 Subjective:: Patient was seen on morning rounds. She was found resting in bed on oxymizer at 10 lpm; unfortunately, patient became tachypneic with decreased SPO2 requiring increase of oxygen to 10 L/min overnight. She reports she is feeling well today, though fatigued. Occasional nonproductive cough; does confirm some sputum production yesterday morning but none since. Discussed CT findings and recommendations to start antibiotics. All questions answered. She denies fever, chills, chest pain, palpitations, abdominal pain, nausea vomiting, diarrhea. Appetite is improved; now eating 25-75% of meals. She has no other questions or concerns at this time. Discussed plan of care w/ nursing. Reason For Visit: PNEUMONIA DUE TO COVID19 VIRUS Physical Exam Vital Signs: Temp Pulse Resp BP Pulse Ox 97.5 F 81 19 90/60 L 94 12/25/19 12:00 12/25/19 12:00 12/25/19 12:00 12/25/19 13:06 12/25/19 12:00 Intake & Output 12/24/19 12/25/19 12/26/19 06:59 06:59 06:59 Intake Total 900 1100 Output Total 2 210 Balance 898 890 Weight 76.2 kg 76 kg General appearance: PRESENT: no acute distress, cooperative, well-developed, well-nourished - overweight Head exam: PRESENT: atraumatic, normocephalic Eye exam: PRESENT: conjunctiva pink, EOMI, PERRLA. ABSENT: scleral icterus Mouth exam: PRESENT: moist, tongue midline Respiratory exam: PRESENT: rhonchi - bibasilar; improved, symmetrical, unlabored, wheezes - RLL, other - supplemental oxygen by oxymizer. ABSENT: rales Cardiovascular exam: PRESENT: RRR. ABSENT: diastolic murmur, rubs, systolic murmur Pulses: PRESENT: normal dorsalis pedis pul Vascular exam: PRESENT: normal capillary refill Extremities exam: PRESENT: full ROM. ABSENT: calf tenderness, clubbing, pedal edema, +1 edema Neurological exam: PRESENT: alert, awake, oriented to person, oriented to place, oriented to time, oriented to situation, CN II-XII grossly intact. ABSENT: motor sensory deficit Psychiatric exam: PRESENT: appropriate affect, normal mood. ABSENT: homicidal ideation, suicidal ideation Skin exam: PRESENT: dry, intact, warm. ABSENT: cyanosis, rash Results Laboratory Results: 12/24/19 15:30 12/24/19 15:30 12/24/19 12/24/19 15:30 15:30 WBC 10.1 RBC 4.38 Hgb 13.7 Hct 40.1 MCV 92 MCH 31.2 MCHC 34.1 RDW 15.0 H Plt Count 183 Sodium 140.5 Potassium 4.6 Chloride 104 Carbon Dioxide 26 Anion Gap 11 BUN 21 H Creatinine 1.04 Est GFR ( Amer) > 60 Glucose 169 H Calcium 8.9 12/06/19 12/06/19 12/06/19 06:48 06:48 16:12 Creatine Kinase 199 H 194 H Troponin I < 0.012 NT-Pro-B Natriuret Pep 12/06/19 12/07/19 12/23/19 20:20 05:25 17:29 Creatine Kinase 168 H Troponin I NT-Pro-B Natriuret Pep 253 H 388 H Impressions: Chest/Abdomen CTA 12/10/19 00:00 IMPRESSION: 1. NORMAL CTA OF THE CHEST. NO PULMONARY EMBOLI. 2. MILD CARDIOMEGALY AND SMALL PLEURAL EFFUSIONS. DIFFUSE GROUND-GLASS OPACITIES THROUGHOUT BOTH LUNGS WHICH MAY BE DUE TO PULMONARY EDEMA, PNEUMONITIS, OR PNEUMONIA/ VIRAL INFECTION. Chest X-Ray 12/24/19 00:00 IMPRESSION: Increasing left basilar consolidation. Similar interstitial prominence. Small bilateral pleural effusions. Chest CT 12/25/19 00:00 IMPRESSION: 1. Pneumomediastinum. 2. Bilateral pneumonia. Assessment and Plan - Diagnosis (1) Healthcare-associated pneumonia Is this a current diagnosis for this admission?: Yes Plan: Patient with increased tachypnea, tachycardia, dyspnea, and mild hypotension with increased oxygen needs. Currently convalescing from COVID-[address] chest with contrast today revealed pneumomediastinum and worsening bibasilar opacities. WBCs are normal, though with overall upward trend (10.1). Patient remains afebrile. Discussed with Dr. Cherry. After discussion with Dr. Almanza, pulmonology, it was recommended that the patient be treated with broad-spectrum antibiotics for a healthcare associated/opportunistic bacterial superimposed on viral infection. Repeat blood cultures pending. Sputum cultures pending. Patient is empirically placed on IV vancomycin and cefepime. Respiratory support as below. (2) Pneumomediastinum Is this a current diagnosis for this admission?: Yes Plan: CT chest today showed pneumomediastinum. Patient was on high flow nasal cannula on high liters per minute for several days earlier this admission. Discussed with Dr. Barbour and Dr. Cherry. We will monitor closely for evidence of pneumothorax. Repeat chest x-ray in the morning. (3) Acute hypoxemic respiratory failure due to COVID-19 Is this a current diagnosis for this admission?: Yes Plan: Slightly worsened respiratory status; now on Oxymizer at 10 L/min. Received Covalascent plasma on 12/09/2019 Completed 5 days of Remdesivir Levaquin for several days and 3 days of azithromycin earlier in admission. CTA chest did not show any PE but does show findings of groundglass diffusely compatible with COVID pneumonia. CXR shows slight increased LLL opacity CT shows increased bibasilar opacities. Recheck d. dimer and CRP are slightly elevated. Ferritin is essentially unchanged. Continue supplemental oxygen as needed to maintain saturations greater than 89%. As needed nebulizer treatments. Start Mucomyst neb twice daily. Continues on Eliquis. Have transitioned to po prednisone Continue zinc; have added vitamin C, vitamin D, melatonin. Robitussin as needed. Encourage pulmonary toilet with incentive spirometer, flutter valve, early ambulation. Physical therapy consulted. Discharge planning consulted; now anticipating d/c home with home oxygen (4) Diabetes Qualifiers: Diabetes mellitus type: type 2 Is this a current diagnosis for this admission?: No Plan: A1c 6.2%. Continue Metformin Continue sliding-scale insulin and accuchecks. Hypoglycemia protocol. Consistent carb diet. (5) HTN (hypertension) Is this a current diagnosis for this admission?: No Plan: Continued hypotension today. Overall well controlled. Decrease metoprolol to 25 mg twice daily. (6) Obesity (BMI 30.0-34.9) Is this a current diagnosis for this admission?: No Plan: BMI 29.7 ~14 kg weight loss this admission Diet exercise weight loss lifestyle modifications previously discussed with the patient. Consistent carb diet. (7) Kidney carcinoma Qualifiers: Laterality: right Qualified Code(s): C64.1 - Malignant neoplasm of right kidney, except renal pelvis Is this a current diagnosis for this admission?: No Plan: Patient has history of right-sided kidney cancer status post nephrectomy. Continue home regimen of fentanyl and oxycodone All treatment for this at this time is on hold due to patient's acute illness. (8) Paroxysmal atrial fibrillation with rapid ventricular response Is this a current diagnosis for this admission?: Yes Plan: Patient's daughter Elroy informs me that patient did have history of A. fib from before and was on atenolol before but was discontinued about a year ago. Seems to have been acutely precipitated in light of acute illness. Currently in sinus rhythm today. Lopressor 25 mg twice a day. CHADsVASC score is 4 - Eliquis. (9) Pneumonia due to COVID-19 virus Is this a current diagnosis for this admission?: Yes Plan: Plan as noted above. (10) Hypotension Is this a current diagnosis for this admission?: Yes Plan: Possibly related to development of healthcare associated pneumonia and pneumomediastinum. Decrease metoprolol from 50 to 25 mg twice daily. 1 L normal saline today. Manual blood pressures only. - Time Time Spent with patient: 35 or more minutes Medications reviewed and adjusted accordingly: Yes Anticipated Discharge Disposition: Home with Home Health Anticipated Discharge Timeframe: >72 hrs
[2019-12-25] MEDS: VANCOMYCIN HCL 1,000 MG in DEXTROSE 5%-WATER 250 ML IV SCH (15:56)
[2019-12-25] MEDS: CEFEPIME 1 GM/D5W RTU 1 GM/50 ML RTUPB IV SCH (22:11)
[2019-12-25] MEDS: MELATONIN 3 MG TABLET PO SCH (22:12)
[2019-12-25] MEDS: PHARMACY COMMUNICATION ORDER MC SCH (22:20)
[2019-12-26] MEDS: PANTOPRAZOLE SODIUM 40 MG TABLET.DR PO SCH ×2 (05:13→17:19)
[2019-12-26 05:44] LABS: ABSOLUTE BASOPHILS # (AUTO) 0.1 10^3/uL (0.0-0.2); ABSOLUTE EOSINOPHILS # (AUTO) 0.5 10^3/uL (0.0-0.6); ABSOLUTE LYMPHOCYTES (AUTO) 1.2 10^3/uL (0.5-4.7); ABSOLUTE MONOCYTES (AUTO) 0.9 10^3/uL (0.1-1.4); ABSOLUTE NEUT (AUTO) 9.5 10^3/uL (1.7-8.2); BASOPHILS % (AUTO) 0.4 % (0-2); HEMATOCRIT 36.7 % (36.0-47.0); HEMOGLOBIN 12.2 g/dL (12.0-15.5); LYMPHOCYTES % (AUTO) 9.9 % (13-45); MEAN CORPUSCULAR HEMOGLOBIN 30.8 pg (27.0-33.4); MEAN CORPUSCULAR HGB CONC 33.1 g/dL (32.0-36.0); MEAN CORPUSCULAR VOLUME 93 fl (80-97); MONOCYTES % (AUTO) 7.3 % (3-13); PLATELET COUNT 165 10^3/uL (150-450); RED BLOOD COUNT 3.96 10^6/uL (3.72-5.28); SEGMENTED NEUTROPHILS % (AUTO) 78.4 % (42-78); TOTAL CELLS COUNTED % (AUTO) 100 %; WHITE BLOOD COUNT 12.1 10^3/uL (4.0-10.5)
[2019-12-26 06:00] LABS: ALKALINE PHOSPHATASE 96 U/L (38-126); ANION GAP 9 (5-19); ASPARTATE AMINO TRANSFERASE 51 U/L (14-36); BILIRUBIN,DIRECT 0.4 mg/dL (0.0-0.4); BILIRUBIN,TOTAL 0.8 mg/dL (0.2-1.3); BLOOD UREA NITROGEN 21 mg/dL (7-20); CALCIUM 8.7 mg/dL (8.4-10.2); CARBON DIOXIDE 25 mmol/L (22-30); CHLORIDE 107 mmol/L (98-107); GLUCOSE 123 mg/dL (75-110); POTASSIUM 3.8 mmol/L (3.6-5.0)
[2019-12-26] MEDS: ACETYLCYSTEINE 20% SOLN 800 MG/4 ML VIAL.NEB NEB SCH ×2 (08:20→20:15)
[2019-12-26] MEDS: IPRATROPIUM/ALBUTEROL 0.5-2.5 MG/3 ML AMPUL NEB PRN ×2 (08:21→20:15)
[2019-12-26] MEDS: INSULIN REG, HUMAN 100 UNIT/ML 3 ML VIAL (PYX) SUBCUT SCH ×4 (08:47→22:18)
[2019-12-26] MEDS: DOCUSATE SODIUM 100 MG CAPSULE PO SCH ×2 (09:33→17:16)
[2019-12-26] MEDS: METOPROLOL TARTRATE 50 MG TABLET PO SCH ×2 (09:37→22:17)
[2019-12-26] MEDS: ZINC SULFATE 220 MG CAPSULE PO SCH (09:37)
[2019-12-26] MEDS: APIXABAN 5 MG TABLET PO SCH ×2 (09:37→22:17)
[2019-12-26] MEDS: ASCORBIC ACID 500 MG TABLET PO SCH ×2 (09:37→17:19)
[2019-12-26] MEDS: METFORMIN HCL 500 MG TABLET PO SCH (09:37)
[2019-12-26] MEDS: PREDNISONE 20 MG TABLET PO SCH (09:37)
[2019-12-26] MEDS: CEFEPIME 1 GM/D5W RTU 1 GM/50 ML RTUPB IV SCH ×2 (09:37→22:16)
[2019-12-26] MEDS: LEVOTHYROXINE SODIUM 0.088 MG TABLET PO SCH (09:37)
[2019-12-26] MEDS: CHOLECALCIFEROL (D3) 400 UNIT TABLET PO SCH (09:37)
[2019-12-26] MEDS: SERTRALINE HCL 50 MG TABLET PO SCH (09:38)
[2019-12-26] MEDS: LIDOCAINE 5% (700 MG) TRANSDERMAL ADH..PATCH TP SCH (09:38)
--- NOTE | 2019-12-26 11:24 | RADIOLOGY REPORT (SQ) ---
EXAM DESCRIPTION: CHEST SINGLE VIEW IMAGES COMPLETED DATE/TIME: 12/26/2019 8:05 am REASON FOR STUDY: dyspnea, hypoxia, pneumomediastinum COMPARISON: 12/24/2019. CT chest 12/25/2019. EXAM PARAMETERS: NUMBER OF VIEWS: One view. TECHNIQUE: Single frontal radiographic view of the chest acquired. RADIATION DOSE: NA LIMITATIONS: None. FINDINGS: LUNGS AND PLEURA: Lungs are hyperinflated. Diffuse ill-defined patchy opacities have impr misael since prior. No focal confluent consolidation. Small left effusion. No definite pneumothorax. MEDIASTINUM AND HILAR STRUCTURES: Small amount of pneumomediastinum is noted with gas surrounding the inferior aspect of the heart. This is unchanged from prior. No mediastinal shift. HEART AND VASCULAR STRUCTURES: Moderate cardiomegaly. No pulmonary vascular congestion. BONES: No acute findings. HARDWARE: None in the chest. OTHER: No other significant finding. IMPRESSION: Improved aeration with persistent ill-defined patchy opacities in both lungs. Small pne umo mediastinum is stable from prior. TECHNICAL DOCUMENTATION: JOB ID: [id number] [employer]- All Rights Reserved Reading location - IP/workstation name: [email or web address]
[2019-12-26] MEDS: OXYCODONE-ACETAMINOPHEN 5-325 MG TABLET PO PRN ×2 (12:29→22:17)
[2019-12-26] MEDS: VANCOMYCIN HCL 1,000 MG in DEXTROSE 5%-WATER 250 ML IV SCH (13:06)
--- NOTE | 2019-12-26 13:40 | PDOC PROGRESS REPORT ---
Subjective Progress Note for:: 12/26/19 Subjective:: Patient is resting in bed watching TV. She is currently on an Oxymizer. She is slightly tachypneic. She reports a bowel movement earlier today with no complaints. Reason For Visit: PNEUMONIA DUE TO COVID19 VIRUS Healthcare associated pneumonia Pneumomediastinum Acute respiratory failure with hypoxia Physical Exam Vital Signs: Temp Pulse Resp BP Pulse Ox 97.7 F 88 21 H 114/68 91 L 12/26/19 11:28 12/26/19 11:28 12/26/19 11:28 12/26/19 11:28 12/26/19 11:28 Intake & Output 12/25/19 12/26/19 12/27/19 06:59 06:59 06:59 Intake Total 1100 1540 50 Output Total 210 Balance 890 1540 50 Weight 76 kg 77 kg General appearance: PRESENT: cooperative, mild distress, well-developed, well- nourished Head exam: PRESENT: atraumatic, normocephalic Eye exam: PRESENT: conjunctiva pink. ABSENT: scleral icterus Ear exam: PRESENT: normal external ear exam. ABSENT: bleeding, drainage Mouth exam: PRESENT: moist, tongue midline Neck exam: ABSENT: carotid bruit, lymphadenopathy, tracheostomy Respiratory exam: PRESENT: prolonged expiratory phas, rales - Bilateral lower lung villagomez, symmetrical, tachypnea, unlabored. ABSENT: rhonchi, wheezes Cardiovascular exam: PRESENT: +S1, +S2, tachycardia. ABSENT: bradycardia, diastolic murmur, irregular rhythm, systolic murmur GI/Abdominal exam: PRESENT: normal bowel sounds, soft. ABSENT: distended, guarding, tenderness Rectal exam: PRESENT: deferred Extremities exam: ABSENT: pedal edema Musculoskeletal exam: PRESENT: normal inspection. ABSENT: deformity, dislocation Neurological exam: PRESENT: alert, awake, oriented to person, oriented to place, oriented to time, oriented to situation, CN II-XII grossly intact. ABSENT: altered Psychiatric exam: PRESENT: appropriate affect. ABSENT: agitated, anxious Focused psych exam: ABSENT: delusional, paranoid, restlessness Skin exam: PRESENT: dry, normal color, warm. ABSENT: rash Results Laboratory Results: 12/26/19 05:20 12/26/19 05:20 12/26/19 12/26/19 05:20 05:20 WBC 12.1 H RBC 3.96 Hgb 12.2 Hct 36.7 MCV 93 MCH 30.8 MCHC 33.1 RDW 15.0 H Plt Count 165 Seg Neutrophils % 78.4 H Sodium 141.0 Potassium 3.8 Chloride 107 Carbon Dioxide 25 Anion Gap 9 BUN 21 H Creatinine 0.88 Est GFR ( Amer) > 60 Glucose 123 H Calcium 8.7 Total Bilirubin 0.8 AST 51 H Alkaline Phosphatase 96 Total Protein 6.0 L Albumin 3.0 L 12/06/19 12/06/19 12/06/19 06:48 06:48 16:12 Creatine Kinase 199 H 194 H Troponin I < 0.012 NT-Pro-B Natriuret Pep 12/06/19 12/07/19 12/23/19 20:20 05:25 17:29 Creatine Kinase 168 H Troponin I NT-Pro-B Natriuret Pep 253 H 388 H Impressions: Chest/Abdomen CTA 12/10/19 00:00 IMPRESSION: 1. NORMAL CTA OF THE CHEST. NO PULMONARY EMBOLI. 2. MILD CARDIOMEGALY AND SMALL PLEURAL EFFUSIONS. DIFFUSE GROUND-GLASS OPACITIES THROUGHOUT BOTH LUNGS WHICH MAY BE DUE TO PULMONARY EDEMA, PNEUMONITIS, OR PNEUMONIA/ VIRAL INFECTION. Chest CT 12/25/19 00:00 IMPRESSION: 1. Pneumomediastinum. 2. Bilateral pneumonia. Chest X-Ray 12/26/19 07:00 IMPRESSION: Improved aeration with persistent ill-defined patchy opacities in both lungs. Small pneumo mediastinum is stable from prior. Assessment and Plan - Diagnosis (1) Healthcare-associated pneumonia Is this a current diagnosis for this admission?: Yes Plan: Patient with increased tachypnea, tachycardia, dyspnea, and mild hypotension with increased oxygen needs. Currently convalescing from COVID-[address] chest with contrast today revealed pneumomediastinum and worsening bibasilar opacities. WBCs are normal, though with overall upward trend (10.1). Patient remains afebrile. Discussed with Dr. Cherry. After discussion with Dr. Almanza, pulmonology, it was recommended that the patient be treated with broad-spectrum antibiotics for a healthcare associated/opportunistic bacterial superimposed on viral infection. Repeat blood cultures pending. Sputum cultures pending. Patient is empirically placed on IV vancomycin and cefepime. Respiratory support as below. 12/26/2019-continue vancomycin and cefepime. Original Covid-19 pneumonia should be resolving. (2) Pneumonia due to COVID-19 virus Is this a current diagnosis for this admission?: Yes Plan: Plan as noted above. 12/26/2019-initial pneumonia was Covid-19. Patient subsequently experienced health care acquired pneumonia requiring broad-spectrum antibiotics. Complete antibiotics as ordered. (3) Acute hypoxemic respiratory failure due to COVID-19 Is this a current diagnosis for this admission?: Yes Plan: Slightly worsened respiratory status; now on Oxymizer at 10 L/min. Received Covalascent plasma on 12/09/2019 Completed 5 days of Remdesivir Levaquin for several days and 3 days of azithromycin earlier in admission. CTA chest did not show any PE but does show findings of groundglass diffusely compatible with COVID pneumonia. CXR shows slight increased LLL opacity CT shows increased bibasilar opacities. Recheck d. dimer and CRP are slightly elevated. Ferritin is essentially unchanged. Continue supplemental oxygen as needed to maintain saturations greater than 89%. As needed nebulizer treatments. Start Mucomyst neb twice daily. Continues on Eliquis. Have transitioned to po prednisone Continue zinc; have added vitamin C, vitamin D, melatonin. Robitussin as needed. Encourage pulmonary toilet with incentive spirometer, flutter valve, early ambulation. Physical therapy consulted. Discharge planning consulted; now anticipating d/c home with home oxygen 12/26/2019-still requiring Oxymizer with 11 L/min oxygen flow. Will try to keep oxygen saturations 90% or better. Goal will be to taper back off of oxygen therapy if possible. (4) Pneumomediastinum Is this a current diagnosis for this admission?: Yes Plan: CT chest today showed pneumomediastinum. Patient was on high flow nasal cannula on high liters per minute for several days earlier this admission. Discussed with Dr. Barbour and Dr. Cherry. We will monitor closely for evidence of pneumothorax. Repeat chest x-ray in the morning. 12/26/2019-repeat chest x-ray still shows a small pocket of air. We will continue to monitor. We will not obtain chest x-rays daily but rather every few days unless there is an acute clinical change. (5) Hyperglycemia due to type 2 diabetes mellitus Qualifiers: Diabetes mellitus assisted insulin use: without assisted use Qualified Code(s): E11.65 - Type 2 diabetes mellitus with hyperglycemia Is this a current diagnosis for this admission?: Yes Plan: [id number]/26/[id number] are variable. I will resume metformin at this time. Continue sliding scale coverage. Currently on prednisone therapy which will adversely affect glucose readings. (6) HTN (hypertension) Is this a current diagnosis for this admission?: Yes Plan: Continued hypotension today. Overall well controlled. Decrease metoprolol to 25 mg twice daily. 12/26/2019-medication changes as above. Hopefully this patient continues to recover blood pressure will respond. As noted above if heart rate is not adequately controlled we may need to implement digoxin therapy so as not to lower the blood pressure any further. (7) Obesity (BMI 30.0-34.9) Is this a current diagnosis for this admission?: No Plan: BMI 29.7 ~14 kg weight loss this admission Diet exercise weight loss lifestyle modifications previously discussed with the patient. Consistent carb diet. (8) Kidney carcinoma Qualifiers: Laterality: right Qualified Code(s): C64.1 - Malignant neoplasm of right kidney, except renal pelvis Is this a current diagnosis for this admission?: No Plan: Patient has history of right-sided kidney cancer status post nephrectomy. Continue home regimen of fentanyl and oxycodone All treatment for this at this time is on hold due to patient's acute illness. (9) Paroxysmal atrial fibrillation with rapid ventricular response Is this a current diagnosis for this admission?: Yes Plan: Patient's daughter Elroy informs me that patient did have history of A. fib from before and was on atenolol before but was discontinued about a year ago. Seems to have been acutely precipitated in light of acute illness. Currently in sinus rhythm today. Lopressor 25 mg twice a day. CHADsVASC score is 4 - Eliquis. 12/26/2019-continue metoprolol for now. If rate is not well controlled consider digoxin as blood pressure can limit treatment options. Continue anticoagulation. (10) Hypotension Qualifiers: Hypotension type: unspecified hypotension type Qualified Code(s): I95.9 - Hypotension, unspecified Is this a current diagnosis for this admission?: Yes Plan: Possibly related to development of healthcare associated pneumonia and pneumomediastinum. Decrease metoprolol from 50 to 25 mg twice daily. 1 L normal saline today. Manual blood pressures only. 12/26/2019-blood pressure still marginal. Continue metoprolol 25 mg twice daily. Continue to monitor on telemetry. - Time Time Spent with patient: 15-24 minutes Medications reviewed and adjusted accordingly: Yes Anticipated Discharge Disposition: Unknown Anticipated Discharge Timeframe: Unknown
[2019-12-26] MEDS: MELATONIN 3 MG TABLET PO SCH (22:18)
[2019-12-26] MEDS: PHARMACY COMMUNICATION ORDER MC SCH (22:18)
[2019-12-27] MEDS: PANTOPRAZOLE SODIUM 40 MG TABLET.DR PO SCH ×2 (05:04→17:24)
[2019-12-27] MEDS: ACETYLCYSTEINE 20% SOLN 800 MG/4 ML VIAL.NEB NEB SCH (07:44)
[2019-12-27] MEDS: IPRATROPIUM/ALBUTEROL 0.5-2.5 MG/3 ML AMPUL NEB PRN (07:44)
[2019-12-27] MEDS: INSULIN REG, HUMAN 100 UNIT/ML 3 ML VIAL (PYX) SUBCUT SCH ×4 (08:34→23:46)
[2019-12-27] MEDS: METFORMIN HCL 500 MG TABLET PO SCH ×2 (08:35→18:01)
[2019-12-27] MEDS: CHOLECALCIFEROL (D3) 400 UNIT TABLET PO SCH (09:18)
[2019-12-27] MEDS: APIXABAN 5 MG TABLET PO SCH ×2 (09:18→21:11)
[2019-12-27] MEDS: LEVOTHYROXINE SODIUM 0.088 MG TABLET PO SCH (09:18)
[2019-12-27] MEDS: SERTRALINE HCL 50 MG TABLET PO SCH (09:18)
[2019-12-27] MEDS: PREDNISONE 20 MG TABLET PO SCH (09:18)
[2019-12-27] MEDS: ASCORBIC ACID 500 MG TABLET PO SCH ×2 (09:18→17:24)
[2019-12-27] MEDS: DOCUSATE SODIUM 100 MG CAPSULE PO SCH ×2 (09:18→17:25)
[2019-12-27] MEDS: ZINC SULFATE 220 MG CAPSULE PO SCH (09:18)
[2019-12-27] MEDS: CEFEPIME 1 GM/D5W RTU 1 GM/50 ML RTUPB IV SCH ×2 (09:18→21:11)
[2019-12-27] MEDS: FENTANYL 12 MCG/HR PATCH.TD72 TD SCH (09:19)
[2019-12-27] MEDS: METOPROLOL TARTRATE 50 MG TABLET PO SCH ×2 (09:20→21:10)
[2019-12-27] MEDS: LIDOCAINE 5% (700 MG) TRANSDERMAL ADH..PATCH TP SCH (09:38)
--- NOTE | 2019-12-27 14:17 | PDOC PROGRESS REPORT ---
Subjective Progress Note for:: 12/27/19 Subjective:: Patient still on Oxymizer at 11 L/min. She thinks she might be feeling slightly better than yesterday. She does report a fluttery sensation in her chest. Reason For Visit: PNEUMONIA DUE TO COVID19 VIRUS Physical Exam Vital Signs: Temp Pulse Resp BP Pulse Ox 98.3 F 92 17 111/70 94 12/27/19 11:42 12/27/19 11:42 12/27/19 11:42 12/27/19 11:42 12/27/19 11:42 Intake & Output 12/26/19 12/27/19 12/28/19 06:59 06:59 06:59 Intake Total 1540 550 50 Output Total 225 Balance 1540 325 50 Weight 77 kg 77.6 kg General appearance: PRESENT: cooperative, mild distress, well-developed Head exam: PRESENT: atraumatic, normocephalic Ear exam: PRESENT: normal external ear exam. ABSENT: bleeding, drainage Mouth exam: PRESENT: moist, tongue midline Respiratory exam: PRESENT: prolonged expiratory phas, rales - Bilateral lower lung villagomez, symmetrical, unlabored. ABSENT: rhonchi, tachypnea, wheezes Cardiovascular exam: PRESENT: RRR, +S1, +S2, systolic murmur - 2/6. ABSENT: bradycardia, diastolic murmur, irregular rhythm, tachycardia GI/Abdominal exam: PRESENT: normal bowel sounds, soft. ABSENT: distended, guarding, tenderness Rectal exam: PRESENT: deferred Gentrourinary exam: ABSENT: indwelling catheter Extremities exam: PRESENT: pedal edema - Trace Neurological exam: PRESENT: alert, awake, oriented to person, oriented to place, oriented to time, oriented to situation, CN II-XII grossly intact. ABSENT: altered Psychiatric exam: PRESENT: appropriate affect. ABSENT: agitated, anxious Focused psych exam: ABSENT: delusional, paranoid, restlessness Skin exam: PRESENT: dry, normal color, warm. ABSENT: rash Results Laboratory Results: 12/26/19 05:20 12/26/19 05:20 12/06/19 12/06/19 12/06/19 06:48 06:48 16:12 Creatine Kinase 199 H 194 H Troponin I < 0.012 NT-Pro-B Natriuret Pep 12/06/19 12/07/19 12/23/19 20:20 05:25 17:29 Creatine Kinase 168 H Troponin I NT-Pro-B Natriuret Pep 253 H 388 H Impressions: Chest/Abdomen CTA 12/10/19 00:00 IMPRESSION: 1. NORMAL CTA OF THE CHEST. NO PULMONARY EMBOLI. 2. MILD CARDIOMEGALY AND SMALL PLEURAL EFFUSIONS. DIFFUSE GROUND-GLASS OPACITIES THROUGHOUT BOTH LUNGS WHICH MAY BE DUE TO PULMONARY EDEMA, PNEUMONITIS, OR PNEUMONIA/ VIRAL INFECTION. Chest CT 12/25/19 00:00 IMPRESSION: 1. Pneumomediastinum. 2. Bilateral pneumonia. Chest X-Ray 12/26/19 07:00 IMPRESSION: Improved aeration with persistent ill-defined patchy opacities in both lungs. Small pneumo mediastinum is stable from prior. Assessment and Plan - Diagnosis (1) Healthcare-associated pneumonia Is this a current diagnosis for this admission?: Yes Plan: Patient with increased tachypnea, tachycardia, dyspnea, and mild hypotension with increased oxygen needs. Currently convalescing from COVID-[address] chest with contrast today revealed pneumomediastinum and worsening bibasilar opacities. WBCs are normal, though with overall upward trend (10.1). Patient remains afebrile. Discussed with Dr. Cherry. After discussion with Dr. Almanza, pulmonology, it was recommended that the patient be treated with broad-spectrum antibiotics for a healthcare associated/opportunistic bacterial superimposed on viral infection. Repeat blood cultures pending. Sputum cultures pending. Patient is empirically placed on IV vancomycin and cefepime. Respiratory support as below. 12/26/2019-continue vancomycin and cefepime. Original Covid-19 pneumonia should be resolving. 12/27/2019-still with high oxygen requirements. Situation of healthcare acquired pneumonia complicating cover pneumonia makes anticipated resolution difficult to ascertain. She still requires 11 L/min oxygen with Oxymizer. It is possible that she may need more aggressive therapy than a half-way facility considering all of her comorbidities. IV antibiotics are scheduled through January 01, 2020 (2) Pneumonia due to COVID-19 virus Is this a current diagnosis for this admission?: Yes Plan: Plan as noted above. 12/26/2019-initial pneumonia was Covid-19. Patient subsequently experienced health care acquired pneumonia requiring broad-spectrum antibiotics. Complete antibiotics as ordered. 12/27/2019-patient completed therapy for Covid-19 pneumonia previously. Treating suspected healthcare acquired pneumonia as above. (3) Acute hypoxemic respiratory failure due to COVID-19 Is this a current diagnosis for this admission?: Yes Plan: Slightly worsened respiratory status; now on Oxymizer at 10 L/min. Received Covalascent plasma on 12/09/2019 Completed 5 days of Remdesivir Levaquin for several days and 3 days of azithromycin earlier in admission. CTA chest did not show any PE but does show findings of groundglass diffusely compatible with COVID pneumonia. CXR shows slight increased LLL opacity CT shows increased bibasilar opacities. Recheck d. dimer and CRP are slightly elevated. Ferritin is essentially unchanged. Continue supplemental oxygen as needed to maintain saturations greater than 89%. As needed nebulizer treatments. Start Mucomyst neb twice daily. Continues on Eliquis. Have transitioned to po prednisone Continue zinc; have added vitamin C, vitamin D, melatonin. Robitussin as needed. Encourage pulmonary toilet with incentive spirometer, flutter valve, early ambulation. Physical therapy consulted. Discharge planning consulted; now anticipating d/c home with home oxygen 12/26/2019-still requiring Oxymizer with 11 L/min oxygen flow. Will try to keep oxygen saturations 90% or better. Goal will be to taper back off of oxygen th erapy if possible. 12/27/2019-we have not been able to decrease her oxygen requirements. Still exhibits increased work of breathing. Bilateral rales at bases. Am going to DC her Mucomyst. I will institute scheduled nebulizer treatments including albuterol, ipratropium and budesonide. She does have as needed duo nebs available as well. I reviewed the use of a flutter valve and incentive roshan meter with the patient. I showed her how to use the index marker to assess her progress. I encouraged her to use it at least 3-4 times a day. I have resumed the patient's furosemide. This has been on hold temporarily. (4) Pneumomediastinum Is this a current diagnosis for this admission?: Yes Plan: CT chest today showed pneumomediastinum. Patient was on high flow nasal cannula on high liters per minute for several days earlier this admission. Discussed with Dr. Barbour and Dr. Cherry. We will monitor closely for evidence of pneumothorax. Repeat chest x-ray in the morning. 12/26/2019-repeat chest x-ray still shows a small pocket of air. We will continue to monitor. We will not obtain chest x-rays daily but rather every few days unless there is an acute clinical change. 12/27/2019-clinically stable at this time. We will repeat a chest x-ray on or Wednesday. Consider CT scan if the size of the pneumomediastinum is not improving. (5) Hyperglycemia due to type 2 diabetes mellitus Qualifiers: Diabetes mellitus halfway insulin use: without watermelon harvesting supervisor use Qualified Code(s): E11.65 - Type 2 diabetes mellitus with hyperglycemia Is this a current diagnosis for this admission?: Yes Plan: [id number] are variable. I will resume metformin at this time. Continue sliding scale coverage. Currently on prednisone therapy which will adversely affect glucose readings. 12/27/2019-I have increased the metformin to 500 mg twice daily. Continue Accu- Cheks and sliding scale. (6) HTN (hypertension) Qualifiers: Hypertension type: essential hypertension Qualified Code(s): I10 - Essential (primary) hypertension Is this a current diagnosis for this admission?: Yes Plan: Continued hypotension today. Overall well controlled. Decrease metoprolol to 25 mg twice daily. 12/26/2019-medication changes as above. Hopefully this patient continues to recover blood pressure will respond. As noted above if heart rate is not adequately controlled we may need to implement digoxin therapy so as not to lower the blood pressure any further. 12/27/2019-blood pressures are holding steady even with the addition of metoprolol. Pulse rate is improved slightly. Reassess tomorrow consider increasing the metoprolol slightly while monitoring the patient on telemetry and monitoring vital signs. (7) Obesity (BMI 30.0-34.9) Is this a current diagnosis for this admission?: No Plan: BMI 29.7 ~14 kg weight loss this admission Diet exercise weight loss lifestyle modifications previously discussed with the patient. Consistent carb diet. 12/27/2019-continue consistent carbohydrate diet. Current weight seems to be holding steady. (8) Kidney carcinoma Qualifiers: Laterality: right Qualified Code(s): C64.1 - Malignant neoplasm of right kidney, except renal pelvis Is this a current diagnosis for this admission?: No Plan: Patient has history of right-sided kidney cancer status post nephrectomy. Continue home regimen of fentanyl and oxycodone All treatment for this at this time is on hold due to patient's acute illness. (9) Paroxysmal atrial fibrillation with rapid ventricular response Is this a current diagnosis for this admission?: Yes Plan: Patient's daughter Elroy informs me that patient did have history of A. fib from before and was on atenolol before but was discontinued about a year ago. Seems to have been acutely precipitated in light of acute illness. Currently in sinus rhythm today. Lopressor 25 mg twice a day. CHADsVASC score is 4 - Eliquis. 12/26/2019-continue metoprolol for now. If rate is not well controlled consider digoxin as blood pressure can limit treatment options. Continue anticoagulation. (10) Hypotension Qualifiers: Hypotension type: unspecified hypotension type Qualified Code(s): I95.9 - Hypotension, unspecified Is this a current diagnosis for this admission?: Yes Plan: Possibly related to development of healthcare associated pneumonia and pneumomediastinum. Decrease metoprolol from 50 to 25 mg twice daily. 1 L normal saline today. Manual blood pressures only. 12/26/2019-blood pressure still marginal. Continue metoprolol 25 mg twice daily. Continue to monitor on telemetry. 12/27/2019-blood pressure slightly improved today. - Time Time Spent with patient: 15-24 minutes Medications reviewed and adjusted accordingly: Yes Anticipated Discharge Disposition: Unknown. To be determined based on response to treatment. Anticipated Discharge Timeframe: Unknown
[2019-12-27] MEDS: VANCOMYCIN HCL 1,000 MG in DEXTROSE 5%-WATER 250 ML IV SCH (15:24)
[2019-12-27] MEDS: OXYCODONE-ACETAMINOPHEN 5-325 MG TABLET PO PRN (17:24)
[2019-12-27] MEDS: BUDESONIDE NEB 0.5 MG/2 ML AMPUL NEB SCH (20:06)
[2019-12-27] MEDS: IPRATROPIUM/ALBUTEROL 0.5-2.5 MG/3 ML AMPUL NEB SCH (20:06)
[2019-12-27] MEDS: MELATONIN 3 MG TABLET PO SCH (21:26)
[2019-12-27] MEDS: PHARMACY COMMUNICATION ORDER MC SCH (21:27)
[2019-12-28] MEDS: DICYCLOMINE HCL 20 MG TABLET PO PRN (04:12)
[2019-12-28] MEDS: PANTOPRAZOLE SODIUM 40 MG TABLET.DR PO SCH ×2 (05:18→17:24)
[2019-12-28 06:08] LABS: HEMATOCRIT 33.7 % (36.0-47.0); HEMOGLOBIN 11.3 g/dL (12.0-15.5); MEAN CORPUSCULAR HEMOGLOBIN 31.2 pg (27.0-33.4); MEAN CORPUSCULAR HGB CONC 33.6 g/dL (32.0-36.0); MEAN CORPUSCULAR VOLUME 93 fl (80-97); PLATELET COUNT 142 10^3/uL (150-450); RED BLOOD COUNT 3.63 10^6/uL (3.72-5.28); RED CELL DISTRIBUTION WIDTH 15.1 % (11.5-14.0); WHITE BLOOD COUNT 9.3 10^3/uL (4.0-10.5)
[2019-12-28 06:18] LABS: ALBUMIN 2.7 g/dL (3.5-5.0); ALKALINE PHOSPHATASE 86 U/L (38-126); ANION GAP 7 (5-19); ASPARTATE AMINO TRANSFERASE 42 U/L (14-36); BILIRUBIN,DIRECT 0.4 mg/dL (0.0-0.4); BILIRUBIN,TOTAL 0.7 mg/dL (0.2-1.3); BLOOD UREA NITROGEN 16 mg/dL (7-20); CALCIUM 8.7 mg/dL (8.4-10.2); CARBON DIOXIDE 28 mmol/L (22-30); CHLORIDE 108 mmol/L (98-107); GLUCOSE 115 mg/dL (75-110); POTASSIUM 3.7 mmol/L (3.6-5.0); TOTAL PROTEIN 5.7 g/dL (6.3-8.2)
[2019-12-28 06:35] LABS: ABSOLUTE LYMPHOCYTES# (MANUAL) 0.7 10^3/uL (0.5-4.7); ABSOLUTE MONOCYTES # (MANUAL) 0.5 10^3/uL (0.1-1.4); BAND NEUTROPHILS % (MANUAL) 1 % (3-5); BASOPHILS % (MANUAL) 0 % (0-2); EOSINOPHILS % (MANUAL) 1 % (0-6); LYMPHOCYTES % (MANUAL) 8 % (13-45); MONOCYTES % (MANUAL) 5 % (3-13); SEGMENTED NEUTROPHILS % (MAN) 85 % (42-78); TOTAL CELLS COUNTED 100
[2019-12-28 06:36] LABS: ANISOCYTOSIS SLIGHT; PLATELET CLUMPS PRESENT; PLATELET COMMENT DECREASED; TOXIC GRANULATION SLIGHT; TOXIC VACUOLATION PRESENT
[2019-12-28] MEDS: BUDESONIDE NEB 0.5 MG/2 ML AMPUL NEB SCH ×2 (07:49→20:54)
[2019-12-28] MEDS: IPRATROPIUM/ALBUTEROL 0.5-2.5 MG/3 ML AMPUL NEB SCH ×2 (07:49→20:54)
[2019-12-28] MEDS: INSULIN REG, HUMAN 100 UNIT/ML 3 ML VIAL (PYX) SUBCUT SCH ×4 (08:58→21:51)
[2019-12-28] MEDS: APIXABAN 5 MG TABLET PO SCH ×2 (09:18→21:34)
[2019-12-28] MEDS: ZINC SULFATE 220 MG CAPSULE PO SCH (09:18)
[2019-12-28] MEDS: ASCORBIC ACID 500 MG TABLET PO SCH ×2 (09:19→17:25)
[2019-12-28] MEDS: CHOLECALCIFEROL (D3) 400 UNIT TABLET PO SCH (09:19)
[2019-12-28] MEDS: LEVOTHYROXINE SODIUM 0.088 MG TABLET PO SCH (09:19)
[2019-12-28] MEDS: PREDNISONE 20 MG TABLET PO SCH (09:20)
[2019-12-28] MEDS: METFORMIN HCL 500 MG TABLET PO SCH ×2 (09:20→17:24)
[2019-12-28] MEDS: SERTRALINE HCL 50 MG TABLET PO SCH (09:20)
[2019-12-28] MEDS: METOPROLOL TARTRATE 50 MG TABLET PO SCH ×2 (09:21→21:32)
[2019-12-28] MEDS: DOCUSATE SODIUM 100 MG CAPSULE PO SCH ×2 (09:28→17:30)
[2019-12-28] MEDS: CEFEPIME 1 GM/D5W RTU 1 GM/50 ML RTUPB IV SCH ×2 (09:30→21:31)
[2019-12-28] MEDS: LIDOCAINE 5% (700 MG) TRANSDERMAL ADH..PATCH TP SCH (09:30)
[2019-12-28] MEDS ORDERED: FUROSEMIDE 20 MG TABLET PO SCH (10:00)
--- NOTE | 2019-12-28 11:37 | PDOC PROGRESS REPORT ---
Subjective Progress Note for:: 12/28/19 Subjective:: Patient is resting comfortably. She does not feel strongly one way or the other if she is much better than yesterday however she is down to 9 L/min on the Oxymizer. She does admit to frustration due to her length of stay. Reason For Visit: PNEUMONIA DUE TO COVID19 VIRUS Physical Exam Vital Signs: Temp Pulse Resp BP Pulse Ox 98.2 F 97 18 102/63 96 12/28/19 04:05 12/28/19 07:49 12/28/19 07:49 12/28/19 07:45 12/28/19 07:49 Intake & Output 12/27/19 12/28/19 12/29/19 06:59 06:59 06:59 Intake Total 550 1084 Output Total 225 Balance 325 1084 Weight 77.6 kg 76.9 kg General appearance: PRESENT: no acute distress, cooperative, well-developed Head exam: PRESENT: atraumatic, normocephalic Eye exam: PRESENT: conjunctiva pink. ABSENT: scleral icterus Ear exam: PRESENT: normal external ear exam. ABSENT: bleeding, drainage Mouth exam: PRESENT: moist, tongue midline Neck exam: ABSENT: carotid bruit, JVD, lymphadenopathy Respiratory exam: PRESENT: rales - Bilateral slightly less on the left, symmetrical, unlabored, other - Decreased inspiratory phase. ABSENT: accessory muscle use, prolonged expiratory phas, rhonchi, tachypnea, wheezes Cardiovascular exam: PRESENT: RRR, +S1, +S2. ABSENT: bradycardia, diastolic murmur, irregular rhythm, systolic murmur, tachycardia Pulses: PRESENT: normal radial pulses, normal dorsalis pedis pul GI/Abdominal exam: PRESENT: normal bowel sounds, soft. ABSENT: distended, guarding, tenderness Rectal exam: PRESENT: deferred Gentrourinary exam: ABSENT: indwelling catheter Extremities exam: PRESENT: pedal edema - Trace Musculoskeletal exam: PRESENT: ambulatory, normal inspection. ABSENT: deformity, dislocation Neurological exam: PRESENT: alert, awake, oriented to person, oriented to place, oriented to time, oriented to situation, CN II-XII grossly intact. ABSENT: altered Psychiatric exam: PRESENT: depressed, flat affect. ABSENT: agitated, anxious Focused psych exam: ABSENT: delusional, paranoid, restlessness Skin exam: PRESENT: dry, normal color, warm. ABSENT: rash Results Laboratory Results: 12/28/19 05:15 12/28/19 05:15 12/28/19 12/28/19 05:15 05:15 WBC 9.3 RBC 3.63 L Hgb 11.3 L Hct 33.7 L MCV 93 MCH 31.2 MCHC 33.6 RDW 15.1 H Plt Count 142 L Seg Neutrophils % Not Reportable Sodium 142.6 Potassium 3.7 Chloride 108 H Carbon Dioxide 28 Anion Gap 7 BUN 16 Creatinine 0.83 Est GFR ( Amer) > 60 Glucose 115 H Calcium 8.7 Magnesium 1.9 Total Bilirubin 0.7 AST 42 H Alkaline Phosphatase 86 Total Protein 5.7 L Albumin 2.7 L 12/06/19 12/06/19 12/06/19 06:48 06:48 16:12 Creatine Kinase 199 H 194 H Troponin I < 0.012 NT-Pro-B Natriuret Pep 12/06/19 12/07/19 12/23/19 20:20 05:25 17:29 Creatine Kinase 168 H Troponin I NT-Pro-B Natriuret Pep 253 H 388 H Impressions: Chest/Abdomen CTA 12/10/19 00:00 IMPRESSION: 1. NORMAL CTA OF THE CHEST. NO PULMONARY EMBOLI. 2. MILD CARDIOMEGALY AND SMALL PLEURAL EFFUSIONS. DIFFUSE GROUND-GLASS OPACITIES THROUGHOUT BOTH LUNGS WHICH MAY BE DUE TO PULMONARY EDEMA, PNEUMONITIS, OR PNEUMONIA/ VIRAL INFECTION. Chest CT 12/25/19 00:00 IMPRESSION: 1. Pneumomediastinum. 2. Bilateral pneumonia. Chest X-Ray 12/26/19 07:00 IMPRESSION: Improved aeration with persistent ill-defined patchy opacities in both lungs. Small pneumo mediastinum is stable from prior. Assessment and Plan - Diagnosis (1) Healthcare-associated pneumonia Is this a current diagnosis for this admission?: Yes Plan: Patient with increased tachypnea, tachycardia, dyspnea, and mild hypotension with increased oxygen needs. Currently convalescing from COVID-[address] chest with contrast today revealed pneumomediastinum and worsening bibasilar opacities. WBCs are normal, though with overall upward trend (10.1). Patient remains afebrile. Discussed with Dr. Cherry. After discussion with Dr. Almanza, pulmonology, it was recommended that the patient be treated with broad-spectrum antibiotics for a healthcare associated/opportunistic bacterial superimposed on viral infection. Repeat blood cultures pending. Sputum cultures pending. Patient is empirically placed on IV vancomycin and cefepime. Respiratory support as below. 12/26/2019-continue vancomycin and cefepime. Original Covid-19 pneumonia should be resolving. 12/27/2019-still with high oxygen requirements. Situation of healthcare acquired pneumonia complicating cover pneumonia makes anticipated resolution difficult to ascertain. She still requires 11 L/min oxygen with Oxymizer. It is possible that she may need more aggressive therapy than a long-term facility considering all of her comorbidities. IV antibiotics are scheduled through January 01, 2020 12/28/2019-oxygen supplement is down to 9 L/min this morning. Continued use of the Oxymizer. Continue antibiotic therapy and supplements as ordered. (2) Pneumonia due to COVID-19 virus Is this a current diagnosis for this admission?: Yes Plan: Plan as noted above. 12/26/2019-initial pneumonia was Covid-19. Patient subsequently experienced health care acquired pneumonia requiring broad-spectrum antibiotics. Complete antibiotics as ordered. 12/27/2019-patient completed therapy for Covid-19 pneumonia previously. Treating suspected healthcare acquired pneumonia as above. 12/28/2019-difficult to ascertain how much of her current status is due to the healthcare acquired pneumonia versus the Covid-19 pneumonia. It is most likely a combination of sequential illness. We will continue to attempt to wean from high oxygen requirements. (3) Acute hypoxemic respiratory failure due to COVID-19 Is this a current diagnosis for this admission?: Yes Plan: Slightly worsened respiratory status; now on Oxymizer at 10 L/min. Received Covalascent plasma on 12/09/2019 Completed 5 days of Remdesivir Levaquin for several days and 3 days of azithromycin earlier in admission. CTA chest did not show any PE but does show findings of groundglass diffusely compatible with COVID pneumonia. CXR shows slight increased LLL opacity CT shows increased bibasilar opacities. Recheck d. dimer and CRP are slightly elevated. Ferritin is essentially unchanged. Continue supplemental oxygen as needed to maintain saturations greater than 89%. As needed nebulizer treatments. Start Mucomyst neb twice daily. Continues on Eliquis. Have transitioned to po prednisone Continue zinc; have added vitamin C, vitamin D, melatonin. Robitussin as needed. Encourage pulmonary toilet with incentive spirometer, flutter valve, early ambulation. Physical therapy consulted. Discharge planning consulted; now anticipating d/c home with home oxygen 12/26/2019-still requiring Oxymizer with 11 L/min oxygen flow. Will try to keep oxygen saturations 90% or better. Goal will be to taper back off of oxygen therapy if possible. 12/27/2019-we have not been able to decrease her oxygen requirements. Still exhibits increased work of breathing. Bilateral rales at bases. Am going to DC her Mucomyst. I will institute scheduled nebulizer treatments including albuterol, ipratropium and budesonide. She does have as needed duo nebs amador ilable as well. I reviewed the use of a flutter valve and incentive spirometer with the patient. I showed her how to use the index marker to assess her progress. I encouraged her to use it at least 3-4 times a day. I have resumed the patient's furosemide. This has been on hold temporarily. 12/28/2019-oxygen requirement at this time is only 9 L. This is down from 11 L. I will continue to monitor intake and output versus furosemide dosing. She did receive a dose of furosemide yesterday. It is difficult to know if this is solely responsible for her decreased oxygen need or if it is resolving pneumonia. Will monitor closely. (4) Pneumomediastinum Is this a current diagnosis for this admission?: Yes Plan: CT chest today showed pneumomediastinum. Patient was on high flow nasal cannula on high liters per minute for several days earlier this admission. Discussed with Dr. Barbour and Dr. Cherry. We will monitor closely for evidence of pneumothorax. Repeat chest x-ray in the morning. 12/26/2019-repeat chest x-ray still shows a small pocket of air. We will continue to monitor. We will not obtain chest x-rays daily but rather every few days unless there is an acute clinical change. 12/27/2019-clinically stable at this time. We will repeat a chest x-ray on or Wednesday. Consider CT scan if the size of the pneumomediastinum is not improving. 12/28/2019-continue to monitor by imaging. (5) Hyperglycemia due to type 2 diabetes mellitus Qualifiers: Diabetes mellitus assisted insulin use: without keno terminal operator use Qualified Code(s): E11.65 - Type 2 diabetes mellitus with hyperglycemia Is this a current diagnosis for this admission?: Yes Plan: [id number]/26/[id number] are variable. I will resume metformin at this time. Continue sliding scale coverage. Currently on prednisone therapy which will adversely affect glucose readings. 12/27/2019-I have increased the metformin to 500 mg twice daily. Continue Accu- Cheks and sliding scale. 12/28/2019-still with wide variations in Accu-Cheks. We will give the increased dose of metformin another day or 2 before making other adjustments. (6) HTN (hypertension) Qualifiers: Hypertension type: essential hypertension Qualified Code(s): I10 - Essential (primary) hypertension Is this a current diagnosis for this admission?: Yes Plan: Continued hypotension today. Overall well controlled. Decrease metoprolol to 25 mg twice daily. 12/26/2019-medication changes as above. Hopefully this patient continues to recover blood pressure will respond. As noted above if heart rate is not adequately controlled we may need to implement digoxin therapy so as not to lower the blood pressure any further. 12/27/2019-blood pressures are holding steady even with the addition of metoprolol. Pulse rate is improved slightly. Reassess tomorrow consider increasing the metoprolol slightly while monitoring the patient on telemetry and monitoring vital signs. 12/28/2019-tolerating addition of furosemide. No significant hypotensive episodes. Continue to monitor vital signs and adjust medications accordingly. (7) Obesity (BMI 30.0-34.9) Is this a current diagnosis for this admission?: No Plan: BMI 29.7 ~14 kg weight loss this admission Diet exercise weight loss lifestyle modifications previously discussed with the patient. Consistent carb diet. 12/27/2019-continue consistent carbohydrate diet. Current weight seems to be holding steady. 12/28/2019-initial admission weight was 88 kg. Most recent weight is 77 kg. Weight loss is due to her critical illness. We will continue to encourage good oral intake. (8) Kidney carcinoma Qualifiers: Laterality: right Qualified Code(s): C64.1 - Malignant neoplasm of right kidney, except renal pelvis Is this a current diagnosis for this admission?: No Plan: Patient has history of right-sided kidney cancer status post nephrectomy. Continue home regimen of fentanyl and oxycodone All treatment for this at this time is on hold due to patient's acute illness. (9) Paroxysmal atrial fibrillation with rapid ventricular response Is this a current diagnosis for this admission?: Yes Plan: Patient's daughter Elroy informs me that patient did have history of A. fib from before and was on atenolol before but was discontinued about a year ago. Seems to have been acutely precipitated in light of acute illness. Currently in sinus rhythm today. Lopressor 25 mg twice a day. CHADsVASC score is 4 - Eliquis. 12/26/2019-continue metoprolol for now. If rate is not well controlled consider digoxin as blood pressure can limit treatment options. Continue anticoagulation. 12/28/2019-rare episodes of pulse rate greater than 100. Typically less than 110. Continue current medication regimen. (10) Hypotension Qualifiers: Hypotension type: unspecified hypotension type Qualified Code(s): I95.9 - Hypotension, unspecified Is this a current diagnosis for this admission?: Yes Plan: Possibly related to development of healthcare associated pneumonia and pneumomediastinum. Decrease metoprolol from 50 to 25 mg twice daily. 1 L normal saline today. Manual blood pressures only. 12/26/2019-blood pressure still marginal. Continue metoprolol 25 mg twice daily. Continue to monitor on telemetry. 12/27/2019-blood pressure slightly improved today. 12/28/2019-blood pressure has been stable. Continue to monitor vital signs and adjust medications accordingly. - Plan Summary Summary: 12/28/2019 The patient still has high oxygen requirements. The combination of initial COVID-19 positive test (U07.1, COVID-19) with Acute Pneumonia (J12.89, Other viral pneumonia) (If respiratory failure or sepsis present, add as separate assessment) Complicated by healthcare acquired pneumonia has had a marked adverse effect on her recovery. Due to the prolonged nature and need for close monitoring of the nutrition bed respiratory status complicated by her atrial fibrillation and diabetes the patient may benefit from a long-term acute care setting. The benefits would be closer scrutiny by pulmonology and more focused therapy. - Time Time Spent with patient: 15-24 minutes Medications reviewed and adjusted accordingly: Yes Anticipated Discharge Disposition: Possible LTACH to maximize recovery Anticipated Discharge Timeframe: within 72 hours
[2019-12-28] MEDS: VANCOMYCIN HCL 1,000 MG in DEXTROSE 5%-WATER 250 ML IV SCH (14:23)
[2019-12-28] MEDS: FUROSEMIDE 20 MG TABLET PO SCH (17:25)
[2019-12-28] MEDS: OXYCODONE-ACETAMINOPHEN 5-325 MG TABLET PO PRN (17:39)
[2019-12-28] MEDS ORDERED: SODIUM CHLORIDE NASAL SPRAY 44 ML NASL PRN (19:34)
[2019-12-28] MEDS: MELATONIN 3 MG TABLET PO SCH (21:32)
[2019-12-28] MEDS: PHARMACY COMMUNICATION ORDER MC SCH (21:33)
[2019-12-28] MEDS: FLUTICASONE NASAL SPRAY 50 MCG/SPRY 120 SPRAY/16 GM NASL SCH (21:49)
[2019-12-29] MEDS: PANTOPRAZOLE SODIUM 40 MG TABLET.DR PO SCH ×2 (05:16→16:24)
[2019-12-29] MEDS: IPRATROPIUM/ALBUTEROL 0.5-2.5 MG/3 ML AMPUL NEB SCH ×2 (07:54→20:53)
[2019-12-29] MEDS: BUDESONIDE NEB 0.5 MG/2 ML AMPUL NEB SCH ×2 (07:54→20:53)
[2019-12-29] MEDS: INSULIN REG, HUMAN 100 UNIT/ML 3 ML VIAL (PYX) SUBCUT SCH ×4 (08:14→22:30)
[2019-12-29] MEDS ORDERED: PREDNISONE 20 MG TABLET PO SCH (10:00)
[2019-12-29] MEDS ORDERED: PREDNISONE 10 MG TABLET PO SCH (10:00)
[2019-12-29] MEDS: ASCORBIC ACID 500 MG TABLET PO SCH ×2 (10:12→17:23)
[2019-12-29] MEDS: ZINC SULFATE 220 MG CAPSULE PO SCH (10:12)
[2019-12-29] MEDS: SERTRALINE HCL 50 MG TABLET PO SCH (10:13)
[2019-12-29] MEDS: FUROSEMIDE 20 MG TABLET PO SCH ×2 (10:13→17:23)
[2019-12-29] MEDS: APIXABAN 5 MG TABLET PO SCH ×2 (10:13→21:19)
[2019-12-29] MEDS: CHOLECALCIFEROL (D3) 400 UNIT TABLET PO SCH (10:13)
[2019-12-29] MEDS: LEVOTHYROXINE SODIUM 0.088 MG TABLET PO SCH (10:13)
[2019-12-29] MEDS: METFORMIN HCL 500 MG TABLET PO SCH ×2 (10:13→17:22)
[2019-12-29] MEDS: METOPROLOL TARTRATE 50 MG TABLET PO SCH ×2 (10:15→21:19)
[2019-12-29] MEDS: CEFEPIME 1 GM/D5W RTU 1 GM/50 ML RTUPB IV SCH ×2 (10:25→21:19)
[2019-12-29] MEDS: LIDOCAINE 5% (700 MG) TRANSDERMAL ADH..PATCH TP SCH (10:41)
[2019-12-29] MEDS: DOCUSATE SODIUM 100 MG CAPSULE PO SCH ×2 (10:41→17:25)
[2019-12-29] MEDS: FLUTICASONE NASAL SPRAY 50 MCG/SPRY 120 SPRAY/16 GM NASL SCH ×2 (11:43→21:24)
--- NOTE | 2019-12-29 12:49 | PDOC PROGRESS REPORT ---
Subjective Progress Note for:: 12/29/19 Subjective:: The patient is resting in bed. She is on the Oxymizer still at 9 L. She states that she can get up and use the commode without getting excessively short of breath. She is not tachypneic at rest. Oxygen saturations have typically been greater than 90%. Reason For Visit: PNEUMONIA DUE TO COVID19 VIRUS Physical Exam Vital Signs: Temp Pulse Resp BP Pulse Ox 97.7 F 95 17 102/61 92 12/29/19 11:05 12/29/19 11:05 12/29/19 11:05 12/29/19 11:05 12/29/19 11:05 Intake & Output 12/28/19 12/29/19 12/30/19 06:59 06:59 06:59 Intake Total 1084 978 Output Total 1000 Balance 1084 -22 Weight 76.9 kg 76.9 kg General appearance: PRESENT: no acute distress, cooperative, well-developed Head exam: PRESENT: atraumatic, normocephalic Ear exam: PRESENT: normal external ear exam. ABSENT: bleeding, drainage Mouth exam: PRESENT: moist, tongue midline Neck exam: ABSENT: carotid bruit, JVD, lymphadenopathy, tracheostomy Respiratory exam: PRESENT: prolonged expiratory phas, rales - Fine Velcro rales at bilateral bases, symmetrical, unlabored. ABSENT: rhonchi, tachypnea, wheezes Cardiovascular exam: PRESENT: RRR, +S1, +S2. ABSENT: bradycardia, diastolic murmur, irregular rhythm, systolic murmur, tachycardia GI/Abdominal exam: PRESENT: normal bowel sounds, soft. ABSENT: distended, guarding, mass, tenderness Rectal exam: PRESENT: deferred Gentrourinary exam: ABSENT: indwelling catheter Extremities exam: PRESENT: pedal edema - Trace. ABSENT: calf tenderness Musculoskeletal exam: PRESENT: ambulatory, normal inspection. ABSENT: de formity, dislocation Neurological exam: PRESENT: alert, awake, oriented to person, oriented to place, oriented to time, oriented to situation, CN II-XII grossly intact. ABSENT: altered Psychiatric exam: PRESENT: appropriate affect. ABSENT: agitated, anxious Focused psych exam: ABSENT: delusional, paranoid, restlessness Skin exam: PRESENT: dry, normal color, warm. ABSENT: rash Results Laboratory Results: 12/28/19 05:15 12/28/19 05:15 12/06/19 12/06/19 12/06/19 06:48 06:48 16:12 Creatine Kinase 199 H 194 H Troponin I < 0.012 NT-Pro-B Natriuret Pep 12/06/19 12/07/19 12/23/19 20:20 05:25 17:29 Creatine Kinase 168 H Troponin I NT-Pro-B Natriuret Pep 253 H 388 H Impressions: Chest/Abdomen CTA 12/10/19 00:00 IMPRESSION: 1. NORMAL CTA OF THE CHEST. NO PULMONARY EMBOLI. 2. MILD CARDIOMEGALY AND SMALL PLEURAL EFFUSIONS. DIFFUSE GROUND-GLASS OPACITIES THROUGHOUT BOTH LUNGS WHICH MAY BE DUE TO PULMONARY EDEMA, PNEUMONITIS, OR PNEUMONIA/ VIRAL INFECTION. Chest CT 12/25/19 00:00 IMPRESSION: 1. Pneumomediastinum. 2. Bilateral pneumonia. Chest X-Ray 12/26/19 07:00 IMPRESSION: Improved aeration with persistent ill-defined patchy opacities in both lungs. Small pneumo mediastinum is stable from prior. Assessment and Plan - Diagnosis (1) Healthcare-associated pneumonia Is this a current diagnosis for this admission?: Yes Plan: Patient with increased tachypnea, tachycardia, dyspnea, and mild hypotension wi th increased oxygen needs. Currently convalescing from COVID-[address] chest with contrast today revealed pneumomediastinum and worsening bibasilar opacities. WBCs are normal, though with overall upward trend (10.1). Patient remains afebrile. Discussed with Dr. Cherry. After discussion with Dr. Almanza, pulmonology, it was recommended that the patient be treated with broad-spectrum antibiotics for a healthcare associated/opportunistic bacterial superimposed on viral infection. Repeat blood cultures pending. Sputum cultures pending. Patient is empirically placed on IV vancomycin and cefepime. Respiratory support as below. 12/26/2019-continue vancomycin and cefepime. Original Covid-19 pneumonia should be resolving. 12/27/2019-still with high oxygen requirements. Situation of healthcare acquired pneumonia complicating cover pneumonia makes anticipated resolution difficult to ascertain. She still requires 11 L/min oxygen with Oxymizer. It is possible that she may need more aggressive therapy than a custodial facility considering all of her comorbidities. IV antibiotics are scheduled through January 01, 2020 12/28/2019-oxygen supplement is down to 9 L/min this morning. Continued use of the Oxymizer. Continue antibiotic therapy and supplements as ordered. 12/29/2019- Antibiotics through 01/01/2020. Trial of nasal cannula. At 6 L patient was saturating in the mid 90s at rest. (2) Pneumonia due to COVID-19 virus Is this a current diagnosis for this admission?: Yes Plan: Plan as noted above. 12/26/2019-initial pneumonia was Covid-19. Patient subsequently experienced health care acquired pneumonia requiring broad-spectrum antibiotics. Complete antibiotics as ordered. 12/27/2019-patient completed therapy for Covid-19 pneumonia previously. Treating suspected healthcare acquired pneumonia as above. 12/28/2019-difficult to ascertain how much of her current status is due to the healthcare acquired pneumonia versus the Covid-19 pneumonia. It is most likely a combination of sequential illness. We will continue to attempt to wean from high oxygen requirements. 12/29/2019-completed dedicated therapy for Covid-19 pneumonia. Now on antibiotics for possible subsequent healthcare associated pneumonia. (3) Acute hypoxemic respiratory failure due to COVID-19 Is this a current diagnosis for this admission?: Yes Plan: Slightly worsened respiratory status; now on Oxymizer at 10 L/min. Received Covalascent plasma on 12/09/2019 Completed 5 days of Remdesivir Levaquin for several days and 3 days of azithromycin earlier in admission. CTA chest did not show any PE but does show findings of groundglass diffusely c ompatible with COVID pneumonia. CXR shows slight increased LLL opacity CT shows increased bibasilar opacities. Recheck d. dimer and CRP are slightly elevated. Ferritin is essentially unchanged. Continue supplemental oxygen as needed to maintain saturations greater than 89%. As needed nebulizer treatments. Start Mucomyst neb twice daily. Continues on Eliquis. Have transitioned to po prednisone Continue zinc; have added vitamin C, vitamin D, melatonin. Robitussin as needed. Encourage pulmonary toilet with incentive spirometer, flutter valve, early ambulation. Physical therapy consulted. Discharge planning consulted; now anticipating d/c home with home oxygen 12/26/2019-still requiring Oxymizer with 11 L/min oxygen flow. Will try to keep oxygen saturations 90% or better. Goal will be to taper back off of oxygen therapy if possible. 12/27/2019-we have not been able to decrease her oxygen requirements. Still exhibits increased work of breathing. Bilateral rales at bases. Am going to DC her Mucomyst. I will institute scheduled nebulizer treatments including albuterol, ipratropium and budesonide. She does have as needed duo nebs available as well. I reviewed the use of a flutter valve and incentive spirometer with the patient. I showed her how to use the index marker to assess her progress. I encouraged her to use it at least 3-4 times a day. I have resumed the patient's furosemide. This has been on hold temporarily. 12/28/2019-oxygen requirement at this time is only 9 L. This is down from 11 L. I will continue to monitor intake and output versus furosemide dosing. She did receive a dose of furosemide yesterday. It is difficult to know if this is solely responsible for her decreased oxygen need or if it is resolving pneumonia. Will monitor closely. 12/29/2019-attempting to decrease oxygen supplement. Trial of nasal cannula today. Respiratory therapy reported that patient was changed to 6 L nasal cannula and was in fact maintaining oxygen saturation in the mid 90s while at rest. We will continue to slowly wean her oxygen supplement. I have also ordered an echocardiogram to rule out any contributing heart failure component of her respiratory failure. (4) Pneumomediastinum Is this a current diagnosis for this admission?: Yes Plan: CT chest today showed pneumomediastinum. Patient was on high flow nasal cannula on high liters per minute for several days earlier this admission. Discussed with Dr. Barbour and Dr. Cherry. We will monitor closely for evidence of pneumothorax. Repeat chest x-ray in the morning. 12/26/2019-repeat chest x-ray still shows a small pocket of air. We will continue to monitor. We will not obtain chest x-rays daily but rather every few days unless there is an acute clinical change. 12/27/2019-clinically stable at this time. We will repeat a chest x-ray on or Wednesday. Consider CT scan if the size of the pneumomediastinum is not improving. 12/28/2019-continue to monitor by imaging. (5) Hyperglycemia due to type 2 diabetes mellitus Qualifiers: Diabetes mellitus terminal makeup operator insulin use: without snf use Qualified Code(s): E11.65 - Type 2 diabetes mellitus with hyperglycemia Is this a current diagnosis for this admission?: Yes Plan: 12/26/20194413-[id number] are variable. I will resume metformin at this time. Continue sliding scale coverage. Currently on prednisone therapy which will adversely affect glucose readings. 12/27/2019-I have increased the metformin to 500 mg twice daily. Continue Accu- Cheks and sliding scale. 12/28/2019-still with wide variations in Accu-Cheks. We will give the increased dose of metformin another day or 2 before making other adjustments. 12/29/20191879-[id number]-[id number] typically are higher in the afternoon. He did increase to metformin however it is most likely the morning steroid dose. I have decreased him to 10 mg and starting tomorrow I will complete the taper at 5 mg daily for 4 days. After the steroid treatment is completed I will monitor Accu-Cheks. I wo uld expect lower afternoon glucose levels. (6) HTN (hypertension) Qualifiers: Hypertension type: essential hypertension Qualified Code(s): I10 - Essential (primary) hypertension Is this a current diagnosis for this admission?: Yes Plan: Continued hypotension today. Overall well controlled. Decrease metoprolol to 25 mg twice daily. 12/26/2019-medication changes as above. Hopefully this patient continues to recover blood pressure will respond. As noted above if heart rate is not adequately controlled we may need to implement digoxin therapy so as not to lower the blood pressure any further. 12/27/2019-blood pressures are holding steady even with the addition of metoprolol. Pulse rate is improved slightly. Reassess tomorrow consider increasing the metoprolol slightly while monitoring the patient on telemetry and monitoring vital signs. 12/28/2019-tolerating addition of furosemide. No significant hypotensive episodes. Continue to monitor vital signs and adjust medications accordingly. 12/29/2019-blood pressures are still marginal with systolic pressures typically between 100 -110. This does not appear to have significant clinical impact. We will continue to monitor closely. (7) Obesity (BMI 30.0-34.9) Is this a current diagnosis for this admission?: No Plan: BMI 29.7 ~14 kg weight loss this admission Diet exercise weight loss lifestyle modifications previously discussed with the patient. Consistent carb diet. 12/27/2019-continue consistent carbohydrate diet. Current weight seems to be holding steady. 12/28/2019-initial admission weight was 88 kg. Most recent weight is 77 kg. Weight loss is due to her critical illness. We will continue to encourage good oral intake. (8) Kidney carcinoma Qualifiers: Laterality: right Qualified Code(s): C64.1 - Malignant neoplasm of right kidney, except renal pelvis Is this a current diagnosis for this admission?: No Plan: Patient has history of right-sided kidney cancer status post nephrectomy. Continue home regimen of fentanyl and oxycodone All treatment for this at this time is on hold due to patient's acute illness. (9) Paroxysmal atrial fibrillation with rapid ventricular response Is this a current diagnosis for this admission?: Yes Plan: Patient's daughter Elroy informs me that patient did have history of A. fib fro m before and was on atenolol before but was discontinued about a year ago. Seems to have been acutely precipitated in light of acute illness. Currently in sinus rhythm today. Lopressor 25 mg twice a day. CHADsVASC score is 4 - Eliquis. 12/26/2019-continue metoprolol for now. If rate is not well controlled consider digoxin as blood pressure can limit treatment options. Continue anticoagulation . 12/28/2019-rare episodes of pulse rate greater than 100. Typically less than 110. Continue current medication regimen. 12/29/2019-heart rate still in the 90s for the most part. Occasional pulse g reater than 100. Due to blood pressure may not be able to increase metoprolol. We will continue to monitor closely on telemetry. (10) Hypotension Qualifiers: Hypotension type: unspecified hypotension type Qualified Code(s): I95.9 - Hypotension, unspecified Is this a current diagnosis for this admission?: Yes Plan: Possibly related to development of healthcare associated pneumonia and pneumomediastinum. Decrease metoprolol from 50 to 25 mg twice daily. 1 L normal saline today. Manual blood pressures only. 12/26/2019-blood pressure still marginal. Continue metoprolol 25 mg twice daily. Continue to monitor on telemetry. 12/27/2019-blood pressure slightly improved today. 12/28/2019-blood pressure has been stable. Continue to monitor vital signs and adjust medications accordingly. 12/29/2019-as noted above occasional systolic pressure less than 100. It does not appear to be clinically affecting the patient at this time. Will monitor closely. - Plan Summary Summary: 12/28/2019 The patient still has high oxygen requirements. The combination of initial COVID-19 positive test (U07.1, COVID-19) with Acute Pneumonia (J12.89, Other viral pneumonia) (If respiratory failure or sepsis present, add as separate assessment) Complicated by healthcare acquired pneumonia has had a marked adverse effect on her recovery. Due to the prolonged nature and need for close monitoring of the nutrition bed respiratory status complicated by her atrial fibrillation and diabetes the patient may benefit from a long-term acute care setting. The benefits would be closer scrutiny by pulmonology and more focused therapy. - Time Time Spent with patient: 15-24 minutes Medications reviewed and adjusted accordingly: Yes Anticipated Discharge Disposition: Referring to long-term acute care hospitals Anticipated Discharge Timeframe: when bed available
[2019-12-29] MEDS: VANCOMYCIN HCL 1,000 MG in DEXTROSE 5%-WATER 250 ML IV SCH (13:49)
[2019-12-29 15:16] LABS: VANCOMYCIN,TROUGH 7.4 ug/mL (5.0-20.0)
[2019-12-29] MEDS: OXYCODONE-ACETAMINOPHEN 5-325 MG TABLET PO PRN (17:22)
[2019-12-29] MEDS: ONDANSETRON HCL INJ/PF 4 MG/2 ML SDV IV PRN (18:05)
[2019-12-29] MEDS: MELATONIN 3 MG TABLET PO SCH (21:19)
--- NOTE | 2019-12-29 22:05 | XCELERA REPORT ---
[address] [address] Transthoracic Echocardiogram Report Name: CUCO CASIANO Age: 69 yrs Gender: Female : 1950 Patient Status: Inpatient Patient Location: [address] [place] [address] Study Date: 12/29/2019 05:41 PM History: CHF Height: 63 in Weight: 169 lb BSA: 1.8 m2 Procedure: A complete two-dimensional transthoracic echocardiogram was performed (2D, M-mode, spectral and color flow Doppler). The study was technically difficult with many images being suboptimal in quality. Reason For Study: Patient with resp failure. Need to rule out CHF Previous Evaluation: No previous studies were available. History: CHF. Ordering Physician: BALDEMAR DONIS Performed By: Maria Guadalupe Whitt Interpretation Summary The study was technically difficult with many images being suboptimal in quality. Left ventricular systolic function is normal. The Ejection Fraction estimate is 55-60% The right ventricular systolic function is normal. There is no mitral regurgitation noted. There is no aortic valve stenosis Tricuspid regurgitation jet envelope not well defined to measure RV systolic pressure accurately. There is no pericardial effusion. MMode/2D Measurements & Calculations RVDd: 2.9 cm LVIDd: 4.7 cm FS: 25.3 % Ao root diam: 3.0 cm IVSd: 1.0 cm LVIDs: 3.5 cm EDV(Teich): 101.4 ml Ao root area: 7.0 cm2 LVPWd: 0.98 cm ESV(Teich): 50.7 ml LA dimension: 3.5 cm EF(Teich): 50.0 % Doppler Measurements & Calculations MV E max doreen: MV P1/2t max doreen: Ao V2 max: LV V1 max P.0 cm/sec 86.9 cm/sec 116.7 cm/sec 2.4 mmHg MV A max doreen: MV P1/2t: 41.1 msec Ao max PG: LV V1 max: 76.8 cm/sec MVA(P1/2t): 5.4 cm2 5.5 mmHg 77.8 cm/sec MV E/A: 0.47 MV dec slope: 619.2 cm/sec2 MV dec time: 0.13 sec PA V2 max: MV P1/2t-pr_phl: 72.3 cm/sec 41.1 msec PA max P.1 mmHg Left Ventricle The left ventricle is normal in size. There is mild concentric left ventricular hypertrophy. Left ventricular systolic function is normal. The Ejection Fraction estimate is 55-60%. Doppler measurements suggest impaired left ventricular relaxation, which is associated with grade I/IV or mild diastolic dysfunction. Wall motion cannot be accurately commented on, but no definite regional wall motion abnormalities noted. Right Ventricle The right ventricle is not well visualized secondary to technical limitations. The right ventricular systolic function is normal. Atria The right atrium is normal. The left atrial size is normal. Mitral Valve The mitral valve is grossly normal. There is no mitral valve stenosis. There is no mitral regurgitation noted. Aortic Valve The aortic valve is not well visualized secondary to technical limitations. There is no aortic valve stenosis. No aortic regurgitation is present. Tricuspid Valve The tricuspid valve is not well visualized, but is grossly normal. Tricuspid regurgitation jet envelope not well defined to measure RV systolic pressure accurately. There is a trace amount of tricuspid regurgitation. Pulmonic Valve The pulmonic valve is normal in structure and function. There is a trace amount of pulmonic regurgitation. Great Vessels The aortic root is normal size. The inferior vena cava appeared normal and decreased > 50% with respiration (RAP 5-10 mmHg). Effusions There is no pericardial effusion. : BALDEMAR DOINS Anil
[2019-12-29] MEDS: VANCOMYCIN HCL 750 MG in DEXTROSE 5%-WATER 250 ML IV SCH (22:30)
[2019-12-29] MEDS: PHARMACY COMMUNICATION ORDER MC SCH (23:29)
[2019-12-30] MEDS: PANTOPRAZOLE SODIUM 40 MG TABLET.DR PO SCH ×2 (06:55→17:26)
[2019-12-30] MEDS: IPRATROPIUM/ALBUTEROL 0.5-2.5 MG/3 ML AMPUL NEB SCH ×2 (08:09→21:00)
[2019-12-30] MEDS: BUDESONIDE NEB 0.5 MG/2 ML AMPUL NEB SCH ×2 (08:09→20:59)
[2019-12-30] MEDS: INSULIN REG, HUMAN 100 UNIT/ML 3 ML VIAL (PYX) SUBCUT SCH ×4 (08:41→23:02)
[2019-12-30] MEDS: FENTANYL 12 MCG/HR PATCH.TD72 TD SCH (09:49)
[2019-12-30] MEDS: CEFEPIME 1 GM/D5W RTU 1 GM/50 ML RTUPB IV SCH ×2 (09:50→21:30)
[2019-12-30] MEDS: CHOLECALCIFEROL (D3) 400 UNIT TABLET PO SCH (09:50)
[2019-12-30] MEDS: PREDNISONE 10 MG TABLET PO SCH (09:50)
[2019-12-30] MEDS: DOCUSATE SODIUM 100 MG CAPSULE PO SCH ×2 (09:51→17:26)
[2019-12-30] MEDS: METFORMIN HCL 500 MG TABLET PO SCH ×2 (09:51→17:26)
[2019-12-30] MEDS: APIXABAN 5 MG TABLET PO SCH ×2 (09:51→21:28)
[2019-12-30] MEDS: ZINC SULFATE 220 MG CAPSULE PO SCH (09:51)
[2019-12-30] MEDS: ASCORBIC ACID 500 MG TABLET PO SCH ×2 (09:51→17:26)
[2019-12-30] MEDS: SERTRALINE HCL 50 MG TABLET PO SCH (09:51)
[2019-12-30] MEDS: FUROSEMIDE 20 MG TABLET PO SCH (09:51)
[2019-12-30] MEDS: LEVOTHYROXINE SODIUM 0.088 MG TABLET PO SCH (09:51)
[2019-12-30] MEDS: METOPROLOL TARTRATE 50 MG TABLET PO SCH ×2 (09:51→21:28)
[2019-12-30] MEDS: LIDOCAINE 5% (700 MG) TRANSDERMAL ADH..PATCH TP SCH (09:52)
[2019-12-30] MEDS: FLUTICASONE NASAL SPRAY 50 MCG/SPRY 120 SPRAY/16 GM NASL SCH ×2 (09:53→21:29)
[2019-12-30] MEDS: VANCOMYCIN HCL 750 MG in DEXTROSE 5%-WATER 250 ML IV SCH ×2 (12:28→21:30)
--- NOTE | 2019-12-30 13:44 | PDOC PROGRESS REPORT ---
Subjective Progress Note for:: 12/30/19 Subjective:: The patient has been stable on nasal cannula for over 24 hours. She still experiences significant exertional dyspnea. Overall I consider this an improvement. Reason For Visit: PNEUMONIA DUE TO COVID19 VIRUS Physical Exam Vital Signs: Temp Pulse Resp BP Pulse Ox 98.6 F 102 H 20 104/67 91 L 12/30/19 12:01 12/30/19 12:01 12/30/19 12:01 12/30/19 12:01 12/30/19 12:01 Intake & Output 12/29/19 12/30/19 12/31/19 06:59 06:59 06:59 Intake Total 978 478 50 Output Total 1000 Balance -22 478 50 Weight 76.9 kg 75.4 kg General appearance: PRESENT: cooperative, mild distress, well-developed Head exam: PRESENT: atraumatic, normocephalic Neck exam: ABSENT: carotid bruit, JVD, lymphadenopathy Respiratory exam: PRESENT: prolonged expiratory phas, rales - Once again verifying Velcro rales at bases, symmetrical, tachypnea - Borderline, unlabored. ABSENT: wheezes Cardiovascular exam: PRESENT: RRR, +S1, +S2. ABSENT: diastolic murmur, irregular rhythm, systolic murmur, tachycardia GI/Abdominal exam: PRESENT: normal bowel sounds, soft. ABSENT: distended, guarding, tenderness Rectal exam: PRESENT: deferred Gentrourinary exam: ABSENT: indwelling catheter Extremities exam: PRESENT: pedal edema - Trace Musculoskeletal exam: PRESENT: ambulatory, normal inspection. ABSENT: deformity, dislocation Neurological exam: PRESENT: alert, awake, oriented to person, oriented to place, oriented to time, oriented to situation, CN II-XII grossly intact. ABSENT: altered Psychiatric exam: PRESENT: appropriate affect. ABSENT: agitated, anxious Focused psych exam: ABSENT: delusional, paranoid, restlessness Skin exam: PRESENT: dry, normal color, warm. ABSENT: rash Results Laboratory Results: 12/28/19 05:15 12/28/19 05:15 12/24/19 15:45 Blood Blood Culture - Final NO GROWTH IN 5 DAYS 12/24/19 15:30 Blood Blood Culture - Final NO GROWTH IN 5 DAYS 12/06/19 12/06/19 12/06/19 06:48 06:48 16:12 Creatine Kinase 199 H 194 H Troponin I < 0.012 NT-Pro-B Natriuret Pep 12/06/19 12/07/19 12/23/19 20:20 05:25 17:29 Creatine Kinase 168 H Troponin I NT-Pro-B Natriuret Pep 253 H 388 H Impressions: Chest/Abdomen CTA 12/10/19 00:00 IMPRESSION: 1. NORMAL CTA OF THE CHEST. NO PULMONARY EMBOLI. 2. MILD CARDIOMEGALY AND SMALL PLEURAL EFFUSIONS. DIFFUSE GROUND-GLASS OPACITIES THROUGHOUT BOTH LUNGS WHICH MAY BE DUE TO PULMONARY EDEMA, PNEUMONITIS, OR PNEUMONIA/ VIRAL INFECTION. Chest CT 12/25/19 00:00 IMPRESSION: 1. Pneumomediastinum. 2. Bilateral pneumonia. Chest X-Ray 12/26/19 07:00 IMPRESSION: Improved aeration with persistent ill-defined patchy opacities in both lungs. Small pneumo mediastinum is stable from prior. Assessment and Plan - Diagnosis (1) Healthcare-associated pneumonia Is this a current diagnosis for this admission?: Yes Plan: Patient with increased tachypnea, tachycardia, dyspnea, and mild hypotension with increased oxygen needs. Currently convalescing from COVID-[address] chest with contrast today revealed pneumomediastinum and worsening bibasilar opacities. WBCs are normal, though with overall upward trend (10.1). Patient remains afebrile. Discussed with Dr. Cherry. After discussion with Dr. Almanza, pulmonology, it was recommended that the patient be treated with broad-spectrum antibiotics for a healthcare associated/opportunistic bacterial superimposed on viral infection. Repeat blood cultures pending. Sputum cultures pending. Patient is empirically placed on IV vancomycin and cefepime. Respiratory support as below. 12/26/2019-continue vancomycin and cefepime. Original Covid-19 pneumonia should be resolving. 12/27/2019-still with high oxygen requirements. Situation of healthcare acquire d pneumonia complicating cover pneumonia makes anticipated resolution difficult to ascertain. She still requires 11 L/min oxygen with Oxymizer. It is possible that she may need more aggressive therapy than a detention facility considering all of her comorbidities. IV antibiotics are scheduled through January 01, 2020 12/28/2019-oxygen supplement is down to 9 L/min this morning. Continued use of the Oxymizer. Continue antibiotic therapy and supplements as ordered. 12/29/2019- Antibiotics through 01/01/2020. Trial of nasal cannula. At 6 L patient was saturating in the mid 90s at rest. 12/30/2019-remains on antibiotic therapy. Tolerating nasal cannula at 6 L/min. We will recheck white blood cell count tomorrow. (2) Pneumonia due to COVID-19 virus Is this a current diagnosis for this admission?: Yes Plan: Plan as noted above. 12/26/2019-initial pneumonia was Covid-19. Patient subsequently experienced he alth care acquired pneumonia requiring broad-spectrum antibiotics. Complete antibiotics as ordered. 12/27/2019-patient completed therapy for Covid-19 pneumonia previously. Treating suspected healthcare acquired pneumonia as above. 12/28/2019-difficult to ascertain how much of her current status is due to the healthcare acquired pneumonia versus the Covid-19 pneumonia. It is most likely a combination of sequential illness. We will continue to attempt to wean from high oxygen requirements. 12/29/2019-completed dedicated therapy for Covid-19 pneumonia. Now on antibiotics for possible subsequent healthcare associated pneumonia. 12/30/2019-difficult to know how much of her current pulmonary status is related to her recent Covid-19 pneumonia versus care acquired pneumonia. Continue current treatment regimen. (3) Acute hypoxemic respiratory failure due to COVID-19 Is this a current diagnosis for this admission?: Yes Plan: Slightly worsened respiratory status; now on Oxymizer at 10 L/min. Received Covalascent plasma on 12/09/2019 Completed 5 days of Remdesivir Levaquin for several days and 3 days of azithromycin earlier in admission. CTA chest did not show any PE but does show findings of groundglass diffusely compatible with COVID pneumonia. CXR shows slight increased LLL opacity CT shows increased bibasilar opacities. Recheck d. dimer and CRP are slightly elevated. Ferritin is essentially unchanged. Continue supplemental oxygen as needed to maintain saturations greater than 89%. As needed nebulizer treatments. Start Mucomyst neb twice daily. Continues on Eliquis. Have transitioned to po prednisone Continue zinc; have added vitamin C, vitamin D, melatonin. Robitussin as needed. Encourage pulmonary toilet with incentive spirometer, flutter valve, early ambulation. Physical therapy consulted. Discharge planning consulted; now anticipating d/c home with home oxygen 12/26/2019-still requiring Oxymizer with 11 L/min oxygen flow. Will try to keep oxygen saturations 90% or better. Goal will be to taper back off of oxygen therapy if possible. 12/27/2019-we have not been able to decrease her oxygen requirements. Still exhibits increased work of breathing. Bilateral rales at bases. Am going to DC her Mucomyst. I will institute scheduled nebulizer treatments including albuterol, ipratropium and budesonide. She does have as needed duo nebs available as well. I reviewed the use of a flutter valve and incentive spirometer with the patient. I showed her how to use the index marker to assess her progress. I encouraged her to use it at least 3-4 times a day. I have resumed the patient's furosemide. This has been on hold temporarily. 12/28/2019-oxygen requirement at this time is only 9 L. This is down from 11 L. I will continue to monitor intake and output versus furosemide dosing. She did receive a dose of furosemide yesterday. It is difficult to know if this is solely responsible for her decreased oxygen need or if it is resolving pneumonia. Will monitor closely. 12/29/2019-attempting to decrease oxygen supplement. Trial of nasal cannula today. Respiratory therapy reported that patient was changed to 6 L nasal cannula and was in fact maintaining oxygen saturation in the mid 90s while at rest. We will continue to slowly wean her oxygen supplement. I have also ordered an echocardiogram to rule out any contributing heart failure component of her respiratory failure. 12/30/2019-making progress. Now off of the Oxymizer and on 6 L nasal cannula. Prednisone still tapering. (4) Pneumomediastinum Is this a current diagnosis for this admission?: Yes Plan: CT chest today showed pneumomediastinum. Patient was on high flow nasal cannula on high liters per minute for several days earlier this admission. Discussed with Dr. Barbour and Dr. Cherry. We will monitor closely for evidence of pneumothorax. Repeat chest x-ray in the morning. 12/26/2019-repeat chest x-ray still shows a small pocket of air. We will continue to monitor. We will not obtain chest x-rays daily but rather every few days unless there is an acute clinical change. 12/27/2019-clinically stable at this time. We will repeat a chest x-ray on or Wednesday. Consider CT scan if the size of the pneumomediastinum is n ot improving. 12/28/2019-continue to monitor by imaging. (5) Hyperglycemia due to type 2 diabetes mellitus Qualifiers: Diabetes mellitus terminal worker insulin use: without chcf use Qualified Code(s): E11.65 - Type 2 diabetes mellitus with hyperglycemia Is this a current diagnosis for this admission?: Yes Plan: 12/26/[id number]-[id number] are variable. I will resume metformin at this time. Continue sliding scale coverage. Currently on prednisone therapy which will adversely affect glucose readings. 12/27/2019-I have increased the metformin to 500 mg twice daily. Continue Accu- Cheks and sliding scale. 12/28/2019-still with wide variations in Accu-Cheks. We will give the increased dose of metformin another day or 2 before making other adjustments. 12/29/[id number]-[id number] typically are higher in the afternoon. He did increase to metformin however it is most likely the morning steroid dose. I have decreased him to 10 mg and starting tomorrow I will complete the taper at 5 mg daily for 4 days. After the steroid treatment is completed I will monitor Accu-Cheks. I would expect lower afternoon glucose levels. 12/30/2019-still with afternoon Accu-Cheks that is the highest during the course of the day. The prednisone dose has been decreased and the lunchtime Accu-Cheks seems to be a bit better. Will evaluate after prednisone therapy is completed before making further adjustments in medications. (6) HTN (hypertension) Qualifiers: Hypertension type: essential hypertension Qualified Code(s): I10 - Essential (primary) hypertension Is this a current diagnosis for this admission?: Yes Plan: Continued hypotension today. Overall well controlled. Decrease metoprolol to 25 mg twice daily. 12/26/2019-medication changes as above. Hopefully this patient continues to recover blood pressure will respond. As noted above if heart rate is not adequately controlled we may need to implement digoxin therapy so as not to lower the blood pressure any further. 12/27/2019-blood pressures are holding steady even with the addition of me toprolol. Pulse rate is improved slightly. Reassess tomorrow consider increasing the metoprolol slightly while monitoring the patient on telemetry and monitoring vital signs. 12/28/2019-tolerating addition of furosemide. No significant hypotensive episodes. Continue to monitor vital signs and adjust medications accordingly. 12/29/2019-blood pressures are still marginal with systolic pressures typically between 100 -110. This does not appear to have significant clinical impact. We will continue to monitor closely. 12/30/2019-we will decrease furosemide to once daily. This should help blood pressure somewhat. (7) Obesity (BMI 30.0-34.9) Is this a current diagnosis for this admission?: No Plan: BMI 29.7 ~14 kg weight loss this admission Diet exercise weight loss lifestyle modifications previously discussed with the patient. Consistent carb diet. 12/27/2019-continue consistent carbohydrate diet. Current weight seems to be holding steady. 12/28/2019-initial admission weight was 88 kg. Most recent weight is 77 kg. Weight loss is due to her critical illness. We will continue to encourage good oral intake. (8) Kidney carcinoma Qualifiers: Laterality: right Qualified Code(s): C64.1 - Malignant neoplasm of right kidney, except renal pelvis Is this a current diagnosis for this admission?: No Plan: Patient has history of right-sided kidney cancer status post nephrectomy. Continue home regimen of fentanyl and oxycodone All treatment for this at this time is on hold due to patient's acute illness. (9) Paroxysmal atrial fibrillation with rapid ventricular response Is this a current diagnosis for this admission?: Yes Plan: Patient's daughter Elroy informs me that patient did have history of A. fib from before and was on atenolol before but was discontinued about a year ago. Seems to have been acutely precipitated in light of acute illness. Currently in sinus rhythm today. Lopressor 25 mg twice a day. CHADsVASC score is 4 - Eliquis. 12/26/2019-continue metoprolol for now. If rate is not well controlled consider digoxin as blood pressure can limit treatment options. Continue anticoagulation. 12/28/2019-rare episodes of pulse rate greater than 100. Typically less than 110. Continue current medication regimen. 12/29/2019-heart rate still in the 90s for the most part. Occasional pulse greater than 100. Due to blood pressure may not be able to increase metoprolol. We will continue to monitor closely on telemetry. 12/30/2019-still borderline tachycardia. Based on blood pressures from d ecreasing of furosemide I will likely increase the metoprolol. (10) Hypotension Qualifiers: Hypotension type: unspecified hypotension type Qualified Code(s): I95.9 - Hypotension, unspecified Is this a current diagnosis for this admission?: Yes Plan: Possibly related to development of healthcare associated pneumonia and pneumomediastinum. Decrease metoprolol from 50 to 25 mg twice daily. 1 L normal saline today. Manual blood pressures only. 12/26/2019-blood pressure still marginal. Continue metoprolol 25 mg twice daily. Continue to monitor on telemetry. 12/27/2019-blood pressure slightly improved today. 12/28/2019-blood pressure has been stable. Continue to monitor vital signs and adjust medications accordingly. 12/29/2019-as noted above occasional systolic pressure less than 100. It does not appear to be clinically affecting the patient at this time. Will monitor closely. (11) Chronic diastolic heart failure Is this a current diagnosis for this admission?: Yes Plan: 12/30/2019-echocardiogram revealed grade 1/4 diastolic dysfunction within normal ejection fraction. Continue furosemide therapy. No other changes to the medication regimen at this point. - Plan Summary Summary: 12/28/2019 The patient still has high oxygen requirements. The combination of initial COVID-19 positive test (U07.1, COVID-19) with Acute Pneumonia (J12.89, Other viral pneumonia) (If respiratory failure or sepsis present, add as separate assessment) Complicated by healthcare acquired pneumonia has had a marked adverse effect on her recovery. Due to the prolonged nature and need for close monitoring of the nutrition bed respiratory status complicated by her atrial fibrillation and diabetes the patient may benefit from a long-term acute care setting. The benefits would be closer scrutiny by pulmonology and more focused therapy. - Time Time Spent with patient: 15-24 minutes Medications reviewed and adjusted accordingly: Yes Anticipated Discharge Disposition: LTACH Anticipated Discharge Timeframe: when bed available
[2019-12-30] MEDS: OXYCODONE-ACETAMINOPHEN 5-325 MG TABLET PO PRN (17:36)
[2019-12-30] MEDS: MELATONIN 3 MG TABLET PO SCH (21:28)
[2019-12-30] MEDS: PHARMACY COMMUNICATION ORDER MC SCH (21:30)
[2019-12-30] MEDS: ACETAMINOPHEN 325 MG TABLET PO PRN (21:31)
[2019-12-31] MEDS: PANTOPRAZOLE SODIUM 40 MG TABLET.DR PO SCH ×2 (05:09→17:40)
[2019-12-31] MEDS: ONDANSETRON HCL INJ/PF 4 MG/2 ML SDV IV PRN (06:12)
[2019-12-31 06:43] LABS: HEMATOCRIT 35.2 % (36.0-47.0); HEMOGLOBIN 11.9 g/dL (12.0-15.5); MEAN CORPUSCULAR HGB CONC 33.7 g/dL (32.0-36.0); MEAN CORPUSCULAR VOLUME 92 fl (80-97); PLATELET COUNT 182 10^3/uL (150-450); RED BLOOD COUNT 3.83 10^6/uL (3.72-5.28); RED CELL DISTRIBUTION WIDTH 15.2 % (11.5-14.0); WHITE BLOOD COUNT 7.9 10^3/uL (4.0-10.5)
[2019-12-31 07:16] LABS: ALKALINE PHOSPHATASE 97 U/L (38-126); ANION GAP 8 (5-19); ASPARTATE AMINO TRANSFERASE 59 U/L (14-36); BILIRUBIN,DIRECT 0.5 mg/dL (0.0-0.4); BILIRUBIN,TOTAL 0.8 mg/dL (0.2-1.3); BLOOD UREA NITROGEN 22 mg/dL (7-20); CALCIUM 8.9 mg/dL (8.4-10.2); CARBON DIOXIDE 31 mmol/L (22-30); CHLORIDE 100 mmol/L (98-107); GLUCOSE 119 mg/dL (75-110); POTASSIUM 3.5 mmol/L (3.6-5.0); TOTAL PROTEIN 5.9 g/dL (6.3-8.2)
[2019-12-31 07:47] LABS: ABSOLUTE MONOCYTES # (MANUAL) 0.5 10^3/uL (0.1-1.4); BAND NEUTROPHILS % (MANUAL) 1 % (3-5); BASOPHILS % (MANUAL) 0 % (0-2); EOSINOPHILS % (MANUAL) 4 % (0-6); LYMPHOCYTES % (MANUAL) 13 % (13-45); MONOCYTES % (MANUAL) 6 % (3-13); SEGMENTED NEUTROPHILS % (MAN) 76 % (42-78); TOTAL CELLS COUNTED 100
[2019-12-31 07:48] LABS: ANISOCYTOSIS SLIGHT; PLATELET COMMENT ADEQUATE; PLATELET LARGE PRESENT
[2019-12-31] MEDS: IPRATROPIUM/ALBUTEROL 0.5-2.5 MG/3 ML AMPUL NEB SCH ×2 (08:02→21:01)
[2019-12-31] MEDS: BUDESONIDE NEB 0.5 MG/2 ML AMPUL NEB SCH ×2 (08:03→21:01)
[2019-12-31] MEDS: INSULIN REG, HUMAN 100 UNIT/ML 3 ML VIAL (PYX) SUBCUT SCH ×4 (08:44→22:46)
[2019-12-31] MEDS: APIXABAN 5 MG TABLET PO SCH ×2 (09:45→21:07)
[2019-12-31] MEDS: METOPROLOL TARTRATE 50 MG TABLET PO SCH ×2 (09:45→21:07)
[2019-12-31] MEDS: ASCORBIC ACID 500 MG TABLET PO SCH ×2 (09:45→17:40)
[2019-12-31] MEDS: ZINC SULFATE 220 MG CAPSULE PO SCH (09:45)
[2019-12-31] MEDS: METFORMIN HCL 500 MG TABLET PO SCH ×2 (09:45→17:40)
[2019-12-31] MEDS: FLUTICASONE NASAL SPRAY 50 MCG/SPRY 120 SPRAY/16 GM NASL SCH ×2 (09:46→21:08)
[2019-12-31] MEDS: CEFEPIME 1 GM/D5W RTU 1 GM/50 ML RTUPB IV SCH ×2 (09:46→21:07)
[2019-12-31] MEDS: DOCUSATE SODIUM 100 MG CAPSULE PO SCH ×3 (09:46→17:48)
[2019-12-31] MEDS: LEVOTHYROXINE SODIUM 0.088 MG TABLET PO SCH (09:46)
[2019-12-31] MEDS: CHOLECALCIFEROL (D3) 400 UNIT TABLET PO SCH (09:46)
[2019-12-31] MEDS: PREDNISONE 10 MG TABLET PO SCH (09:46)
[2019-12-31] MEDS: LIDOCAINE 5% (700 MG) TRANSDERMAL ADH..PATCH TP SCH (09:46)
[2019-12-31] MEDS: SERTRALINE HCL 50 MG TABLET PO SCH (09:46)
[2019-12-31] MEDS: FUROSEMIDE 20 MG TABLET PO SCH (09:46)
[2019-12-31] MEDS: VANCOMYCIN HCL 750 MG in DEXTROSE 5%-WATER 250 ML IV SCH ×2 (10:29→22:45)
[2019-12-31] MEDS ORDERED: POTASSIUM CHLORIDE 10 MEQ TABLET.ER PO ONE (14:47)
--- NOTE | 2019-12-31 14:52 | PDOC PROGRESS REPORT ---
Subjective Progress Note for:: 12/31/19 Subjective:: Patient is sitting up in the chair. She is eating lunch. She is watching the game on TV. Nursing reports that she is down to 4 L nasal cannula and it appears that she ambulated to the bathroom and back to the chair without significant desaturation. Reason For Visit: PNEUMONIA DUE TO COVID19 VIRUS Physical Exam Vital Signs: Temp Pulse Resp BP Pulse Ox 98.5 F 108 H 20 101/78 91 L 12/31/19 12:01 12/31/19 14:00 12/31/19 12:01 12/31/19 12:01 12/31/19 12:01 Intake & Output 12/30/19 12/31/19 01/01/20 06:59 06:59 06:59 Intake Total 478 1100 300 Output Total 850 Balance 478 250 300 Weight 75.4 kg 74.5 kg General appearance: PRESENT: cooperative, mild distress, well-developed Respiratory exam: PRESENT: clear to auscultation donte, symmetrical, unlabored. ABSENT: rales, rhonchi, tachypnea, wheezes Cardiovascular exam: PRESENT: RRR, +S1, +S2. ABSENT: bradycardia, diastolic murmur, irregular rhythm, systolic murmur, tachycardia GI/Abdominal exam: PRESENT: normal bowel sounds, soft. ABSENT: distended, guarding, tenderness Rectal exam: PRESENT: deferred Gentrourinary exam: ABSENT: indwelling catheter Extremities exam: ABSENT: pedal edema Musculoskeletal exam: PRESENT: ambulatory, normal inspection. ABSENT: deformity, dislocation Neurological exam: PRESENT: alert, awake, oriented to person, oriented to place, oriented to time, oriented to situation, CN II-XII grossly intact. ABSENT: altered Psychiatric exam: PRESENT: flat affect. ABSENT: agitated, anxious Focused psych exam: ABSENT: delusional, paranoid, restlessness Skin exam: PRESENT: dry, normal color, warm. ABSENT: rash Results Laboratory Results: 12/31/19 05:45 12/31/19 05:45 12/31/19 12/31/19 05:45 05:45 WBC 7.9 RBC 3.83 Hgb 11.9 L Hct 35.2 L MCV 92 MCH 31.0 MCHC 33.7 RDW 15.2 H Plt Count 182 Seg Neutrophils % Not Reportable Sodium 138.6 Potassium 3.5 L Chloride 100 Carbon Dioxide 31 H Anion Gap 8 BUN 22 H Creatinine 1.11 Est GFR ( Amer) 59 L Glucose 119 H Calcium 8.9 Magnesium 1.6 Total Bilirubin 0.8 AST 59 H Alkaline Phosphatase 97 Total Protein 5.9 L Albumin 3.0 L 12/06/19 12/06/19 12/06/19 06:48 06:48 16:12 Creatine Kinase 199 H 194 H Troponin I < 0.012 NT-Pro-B Natriuret Pep 12/06/19 12/07/19 12/23/19 20:20 05:25 17:29 Creatine Kinase 168 H Troponin I NT-Pro-B Natriuret Pep 253 H 388 H Impressions: Chest/Abdomen CTA 12/10/19 00:00 IMPRESSION: 1. NORMAL CTA OF THE CHEST. NO PULMONARY EMBOLI. 2. MILD CARDIOMEGALY AND SMALL PLEURAL EFFUSIONS. DIFFUSE GROUND-GLASS OPACITIES THROUGHOUT BOTH LUNGS WHICH MAY BE DUE TO PULMONARY EDEMA, PNEUMONITIS, OR PNEUMONIA/ VIRAL INFECTION. Chest CT 12/25/19 00:00 IMPRESSION: 1. Pneumomediastinum. 2. Bilateral pneumonia. Chest X-Ray 12/26/19 07:00 IMPRESSION: Improved aeration with persistent ill-defined patchy opacities in both lungs. Small pneumo mediastinum is stable from prior. Assessment and Plan - Diagnosis (1) Healthcare-associated pneumonia Is this a current diagnosis for this admission?: Yes Plan: Patient with increased tachypnea, tachycardia, dyspnea, and mild hypotension with increased oxygen needs. Currently convalescing from COVID-[address] chest with contrast today revealed pneumomediastinum and worsening bibasilar opacities. WBCs are normal, though with overall upward trend (10.1). Patient remains afebrile. Discussed with Dr. Cherry. After discussion with Dr. Almanza, pulmonology, it was recommended that the patient be treated with broad-spectrum antibiotics for a healthcare associated/opportunistic bacterial superimposed on viral infection. Repeat blood cultures pending. Sputum cultures pending. Patient is empirically placed on IV vancomycin and cefepime. Respiratory support as below. 12/26/2019-continue vancomycin and cefepime. Original Covid-19 pneumonia should be resolving. 12/27/2019-still with high oxygen requirements. Situation of healthcare acquired pneumonia complicating cover pneumonia makes anticipated resolution difficult to ascertain. She still requires 11 L/min oxygen with Oxymizer. It is possible that she may need more aggressive therapy than a [facility] facility considering all of her comorbidities. IV antibiotics are scheduled through January 01, 2020 12/28/2019-oxygen supplement is down to 9 L/min this morning. Continued use of the Oxymizer. Continue antibiotic therapy and supplements as ordered. 12/29/2019- Antibiotics through 01/01/2020. Trial of nasal cannula. At 6 L patient was saturating in the mid 90s at rest. 12/30/2019-remains on antibiotic therapy. Tolerating nasal cannula at 6 L/min. We will recheck white blood cell count tomorrow. 12/31/2019-antibiotic therapy completed tomorrow. (2) Pneumonia due to COVID-19 virus Is this a current diagnosis for this admission?: Yes Plan: Plan as noted above. 12/26/2019-initial pneumonia was Covid-19. Patient subsequently experienced health care acquired pneumonia requiring broad-spectrum antibiotics. Complete antibiotics as ordered. 12/27/2019-patient completed therapy for Covid-19 pneumonia previously. Treating suspected healthcare acquired pneumonia as above. 12/28/2019-difficult to ascertain how much of her current status is due to the healthcare acquired pneumonia versus the Covid-19 pneumonia. It is most likely a combination of sequential illness. We will continue to attempt to wean from high oxygen requirements. 12/29/2019-completed dedicated therapy for Covid-19 pneumonia. Now on antibiotics for possible subsequent healthcare associated pneumonia. 12/30/2019-difficult to know how much of her current pulmonary status is related to her recent Covid-19 pneumonia versus care acquired pneumonia. Continue current treatment regimen. 12/31/2019-bilateral basal rales still present despite improvement. Possible for inflammatory changes to being more chronic if not permanent. Will monitor closely. (3) Acute hypoxemic respiratory failure due to COVID-19 Is this a current diagnosis for this admission?: Yes Plan: Slightly worsened respiratory status; now on Oxymizer at 10 L/min. Received Covalascent plasma on 12/09/2019 Completed 5 days of Remdesivir Levaquin for several days and 3 days of azithromycin earlier in admission. CTA chest did not show any PE but does show findings of groundglass diffusely compatible with COVID pneumonia. CXR shows slight increased LLL opacity CT shows increased bibasilar opacities. Recheck d. dimer and CRP are slightly elevated. Ferritin is essentially unchanged. Continue supplemental oxygen as needed to maintain saturations greater than 89%. As needed nebulizer treatments. Start Mucomyst neb twice daily. Continues on Eliquis. Have transitioned to po prednisone Continue zinc; have added vitamin C, vitamin D, melatonin. Robitussin as needed. Encourage pulmonary toilet with incentive spirometer, flutter valve, early ambulation. Physical therapy consulted. Discharge planning consulted; now anticipating d/c home with home oxygen 12/26/2019-still requiring Oxymizer with 11 L/min oxygen flow. Will try to keep oxygen saturations 90% or better. Goal will be to taper back off of oxygen therapy if possible. 12/27/2019-we have not been able to decrease her oxygen requirements. Still exhibits increased work of breathing. Bilateral rales at bases. Am going to DC her Mucomyst. I will institute scheduled nebulizer treatments including albuterol, ipratropium and budesonide. She does have as needed duo nebs available as well. I reviewed the use of a flutter valve and incentive spirometer with the patient. I showed her how to use the index marker to assess her progress. I encouraged her to use it at least 3-4 times a day. I have resumed the patient's furosemide. This has been on hold temporarily. 12/28/2019-oxygen requirement at this time is only 9 L. This is down from 11 L. I will continue to monitor intake and output versus furosemide dosing. She did receive a dose of furosemide yesterday. It is difficult to know if this is solely responsible for her decreased oxygen need or if it is resolving pneumonia. Will monitor closely. 12/29/2019-attempting to decrease oxygen supplement. Trial of nasal cannula today. Respiratory therapy reported that patient was changed to 6 L nasal cannula and was in fact maintaining oxygen saturation in the mid 90s while at rest. We will continue to slowly wean her oxygen supplement. I have also ordered an echocardiogram to rule out any contributing heart failure component of her respiratory failure. 12/30/2019-making progress. Now off of the Oxymizer and on 6 L nasal cannula. Prednisone still tapering. 12/31/2019-currently at 4 L nasal cannula with acceptable oxygen saturation. (4) Pneumomediastinum Is this a current diagnosis for this admission?: Yes Plan: CT chest today showed pneumomediastinum. Patient was on high flow nasal cannula on high liters per minute for several days earlier this admission. Discussed with Dr. Barbour and Dr. Cherry. We will monitor closely for evidence of pneumothorax. Repeat chest x-ray in the morning. 12/26/2019-repeat chest x-ray still shows a small pocket of air. We will continue to monitor. We will not obtain chest x-rays daily but rather every few days unless there is an acute clinical change. 12/27/2019-clinically stable at this time. We will repeat a chest x-ray on or Wednesday. Consider CT scan if the size of the pneumomediastinum is not improving. 12/28/2019-continue to monitor by imaging. 12/31/2019-consider repeat chest x-ray tomorrow. (5) Hyperglycemia due to type 2 diabetes mellitus Qualifiers: Diabetes mellitus [facility] insulin use: without [facility] use Qualified Code(s): E11.65 - Type 2 diabetes mellitus with hyperglycemia Is this a current diagnosis for this admission?: Yes Plan: 12/26/20194864-[id number] are variable. I will resume metformin at this time. Continue sliding scale coverage. Currently on prednisone therapy which will adversely affect glucose readings. 12/27/2019-I have increased the metformin to 500 mg twice daily. Continue Accu-Cheks and sliding scale. 12/28/2019-still with wide variations in Accu-Cheks. We will give the increased dose of metformin another day or 2 before making other adjustments. 12/29/[id number]-[id number] typically are higher in the afternoon. He did increase to metformin however it is most likely the morning steroid dose. I have decreased him to 10 mg and starting tomorrow I will complete the taper at 5 mg daily for 4 days. After the steroid treatment is completed I will monitor Accu-Cheks. I would expect lower afternoon glucose levels. 12/30/2019-still with afternoon Accu-Cheks that is the highest during the course of the day. The prednisone dose has been decreased and the lunchtime Accu-Cheks seems to be a bit better. Will evaluate after prednisone therapy is completed before making further adjustments in medications. 12/31/2019-afternoon glucose readings are slowly improving. No change in treatment regimen at this time. (6) HTN (hypertension) Qualifiers: Hypertension type: essential hypertension Qualified Code(s): I10 - Essential (primary) hypertension Is this a current diagnosis for this admission?: Yes Plan: Continued hypotension today. Overall well controlled. Decrease metoprolol to 25 mg twice daily. 12/26/2019-medication changes as above. Hopefully this patient continues to recover blood pressure will respond. As noted above if heart rate is not adequately controlled we may need to implement digoxin therapy so as not to lower the blood pressure any further. 12/27/2019-blood pressures are holding steady even with the addition of metoprol ol. Pulse rate is improved slightly. Reassess tomorrow consider increasing the metoprolol slightly while monitoring the patient on telemetry and monitoring vital signs. 12/28/2019-tolerating addition of furosemide. No significant hypotensive episodes. Continue to monitor vital signs and adjust medications accordingly. 12/29/2019-blood pressures are still marginal with systolic pressures typically between 100 -110. This does not appear to have significant clinical impact. We will continue to monitor closely. 12/30/2019-we will decrease furosemide to once daily. This should help blood pressure somewhat. 12/31/2019-no significant change from medication change. Continue to monitor closely and adjust medications accordingly. (7) Obesity (BMI 30.0-34.9) Is this a current diagnosis for this admission?: No Plan: BMI 29.7 ~14 kg weight loss this admission Diet exercise weight loss lifestyle modifications previously discussed with the patient. Consistent carb diet. 12/27/2019-continue consistent carbohydrate diet. Current weight seems to be holding steady. 12/28/2019-initial admission weight was 88 kg. Most recent weight is 77 kg. Weight loss is due to her critical illness. We will continue to encourage good oral intake. (8) Kidney carcinoma Qualifiers: Laterality: right Qualified Code(s): C64.1 - Malignant neoplasm of right kidney, except renal pelvis Is this a current diagnosis for this admission?: No Plan: Patient has history of right-sided kidney cancer status post nephrectomy. Continue home regimen of fentanyl and oxycodone All treatment for this at this time is on hold due to patient's acute illness. (9) Paroxysmal atrial fibrillation with rapid ventricular response Is this a current diagnosis for this admission?: Yes Plan: Patient's daughter Elroy informs me that patient did have history of A. fib from before and was on atenolol before but was discontinued about a year ago. Seems to have been acutely precipitated in light of acute illness. Currently in sinus rhythm today. Lopressor 25 mg twice a day. CHADsVASC score is 4 - Eliquis. 12/26/2019-continue metoprolol for now. If rate is not well controlled consider digoxin as blood pressure can limit treatment options. Continue anti coagulation. 12/28/2019-rare episodes of pulse rate greater than 100. Typically less than 110. Continue current medication regimen. 12/29/2019-heart rate still in the 90s for the most part. Occasional pulse greater than 100. Due to blood pressure may not be able to increase metoprolol. We will continue to monitor closely on telemetry. 12/30/2019-still borderline tachycardia. Based on blood pressures from decreasing of furosemide I will likely increase the metoprolol. 12/31/2019-continue to monitor on telemetry. No medications yet today. (10) Hypotension Qualifiers: Hypotension type: unspecified hypotension type Qualified Code(s): I95.9 - Hypotension, unspecified Is this a current diagnosis for this admission?: Yes Plan: Possibly related to development of healthcare associated pneumonia and pneumomediastinum. Decrease metoprolol from 50 to 25 mg twice daily. 1 L normal saline today. Manual blood pressures only. 12/26/2019-blood pressure still marginal. Continue metoprolol 25 mg twice daily. Continue to monitor on telemetry. 12/27/2019-blood pressure slightly improved today. 12/28/2019-blood pressure has been stable. Continue to monitor vital signs and adjust medications accordingly. 12/29/2019-as noted above occasional systolic pressure less than 100. It does not appear to be clinically affecting the patient at this time. Will monitor cl osely. (11) Chronic diastolic heart failure Is this a current diagnosis for this admission?: Yes Plan: 12/30/2019-echocardiogram revealed grade 1/4 diastolic dysfunction within normal ejection fraction. Continue furosemide therapy. No other changes to the medication regimen at this point. (12) Hypokalemia Is this a current diagnosis for this admission?: Yes Plan: 12/31/2019-potassium is just below the lower limit normal. We will add oral supplement. Possibly due to the increased dose of Lasix. We will continue to monitor and adjust dose based on serum potassium levels. - Plan Summary Summary: 12/28/2019 The patient still has high oxygen requirements. The combination of initial COVID-19 positive test (U07.1, COVID-19) with Acute Pneumonia (J12.89, Other viral pneumonia) (If respiratory failure or sepsis present, add as separate assessment) Complicated by healthcare acquired pneumonia has had a marked adverse effect on her recovery. Due to the prolonged nature and need for close monitoring of the nutrition bed respiratory status complicated by her atrial fibrillation and diabetes the patient may benefit from a long-term acute care setting. The benefits would be closer scrutiny by pulmonology and more focused therapy. - Time Time Spent with patient: 15-24 minutes Medications reviewed and adjusted accordingly: Yes Anticipated Discharge Disposition: [facility] facility versus LTAC Anticipated Discharge Timeframe: Unknown
[2019-12-31] MEDS: OXYCODONE-ACETAMINOPHEN 5-325 MG TABLET PO PRN (17:48)
[2019-12-31] MEDS: MELATONIN 3 MG TABLET PO SCH (21:07)
[2019-12-31] MEDS: PHARMACY COMMUNICATION ORDER MC SCH (21:11)
[2019-12-31 23:17] LABS: VANCOMYCIN,TROUGH 26.3 ug/mL (5.0-20.0)
[2020-01-01] MEDS: PANTOPRAZOLE SODIUM 40 MG TABLET.DR PO SCH ×2 (05:50→17:21)
[2020-01-01] MEDS: INSULIN REG, HUMAN 100 UNIT/ML 3 ML VIAL (PYX) SUBCUT SCH ×4 (08:28→22:50)
[2020-01-01] MEDS: IPRATROPIUM/ALBUTEROL 0.5-2.5 MG/3 ML AMPUL NEB SCH ×2 (08:50→19:55)
[2020-01-01] MEDS: BUDESONIDE NEB 0.5 MG/2 ML AMPUL NEB SCH ×2 (08:50→19:55)
[2020-01-01] MEDS ORDERED: POTASSIUM CHLORIDE 10 MEQ TABLET.ER PO SCH (10:00)
[2020-01-01] MEDS: METFORMIN HCL 500 MG TABLET PO SCH ×2 (10:32→17:21)
[2020-01-01] MEDS: METOPROLOL TARTRATE 50 MG TABLET PO SCH (10:32)
[2020-01-01] MEDS: SERTRALINE HCL 50 MG TABLET PO SCH (10:32)
[2020-01-01] MEDS: ASCORBIC ACID 500 MG TABLET PO SCH ×2 (10:33→17:21)
[2020-01-01] MEDS: APIXABAN 5 MG TABLET PO SCH ×2 (10:33→22:52)
[2020-01-01] MEDS: CHOLECALCIFEROL (D3) 400 UNIT TABLET PO SCH (10:33)
[2020-01-01] MEDS: ZINC SULFATE 220 MG CAPSULE PO SCH (10:33)
[2020-01-01] MEDS: LEVOTHYROXINE SODIUM 0.088 MG TABLET PO SCH (10:33)
[2020-01-01] MEDS: DOCUSATE SODIUM 100 MG CAPSULE PO SCH ×2 (10:33→17:21)
[2020-01-01] MEDS: FUROSEMIDE 20 MG TABLET PO SCH (10:33)
[2020-01-01] MEDS: PREDNISONE 10 MG TABLET PO SCH (10:33)
[2020-01-01] MEDS: CEFEPIME 1 GM/D5W RTU 1 GM/50 ML RTUPB IV SCH (10:33)
[2020-01-01] MEDS: LIDOCAINE 5% (700 MG) TRANSDERMAL ADH..PATCH TP SCH (10:33)
[2020-01-01] MEDS: FLUTICASONE NASAL SPRAY 50 MCG/SPRY 120 SPRAY/16 GM NASL SCH ×2 (10:34→22:53)
[2020-01-01] MEDS ORDERED: POTASSIUM CHLORIDE 10 MEQ TABLET.ER PO ONE (14:15)
--- NOTE | 2020-01-01 14:42 | PDOC PROGRESS REPORT ---
Subjective Progress Note for:: 01/01/20 Subjective:: Patient still slightly tachypneic but able to tolerate 4 L nasal cannula. With physical therapy she dropped her saturation slightly but recovered quickly. Reason For Visit: PNEUMONIA DUE TO COVID19 VIRUS Physical Exam Vital Signs: Temp Pulse Resp BP Pulse Ox 97.6 F 105 H 29 H 114/72 90 L 01/01/20 11:38 01/01/20 11:38 01/01/20 11:38 01/01/20 11:38 01/01/20 11:38 Intake & Output 12/31/19 01/01/20 01/02/20 06:59 06:59 06:59 Intake Total 1100 1380 Output Total 850 940 Balance 250 440 Weight 74.5 kg 72.5 kg General appearance: PRESENT: cooperative, mild distress, well-developed Head exam: PRESENT: atraumatic, normocephalic Respiratory exam: PRESENT: rales - Bilateral, symmetrical, tachypnea. ABSENT: rhonchi, wheezes Cardiovascular exam: PRESENT: RRR, +S1, +S2. ABSENT: bradycardia, diastolic murmur, irregular rhythm, systolic murmur, tachycardia GI/Abdominal exam: PRESENT: normal bowel sounds, soft. ABSENT: distended, guarding, tenderness Rectal exam: PRESENT: deferred Gentrourinary exam: ABSENT: indwelling catheter Extremities exam: ABSENT: pedal edema Musculoskeletal exam: PRESENT: ambulatory, normal inspection. ABSENT: deformity, dislocation Neurological exam: PRESENT: alert, awake, oriented to person, oriented to place, oriented to time, oriented to situation, CN II-XII grossly intact Psychiatric exam: PRESENT: appropriate affect. ABSENT: agitated, anxious Focused psych exam: ABSENT: delusional, paranoid, restlessness Results Laboratory Results: 12/31/19 05:45 12/31/19 05:45 12/06/19 12/06/19 12/06/19 06:48 06:48 16:12 Creatine Kinase 199 H 194 H Troponin I < 0.012 NT-Pro-B Natriuret Pep 12/06/19 12/07/19 12/23/19 20:20 05:25 17:29 Creatine Kinase 168 H Troponin I NT-Pro-B Natriuret Pep 253 H 388 H Impressions: Chest/Abdomen CTA 12/10/19 00:00 IMPRESSION: 1. NORMAL CTA OF THE CHEST. NO PULMONARY EMBOLI. 2. MILD CARDIOMEGALY AND SMALL PLEURAL EFFUSIONS. DIFFUSE GROUND-GLASS OPACI TIES THROUGHOUT BOTH LUNGS WHICH MAY BE DUE TO PULMONARY EDEMA, PNEUMONITIS, OR PNEUMONIA/ VIRAL INFECTION. Chest CT 12/25/19 00:00 IMPRESSION: 1. Pneumomediastinum. 2. Bilateral pneumonia. Chest X-Ray 12/26/19 07:00 IMPRESSION: Improved aeration with persistent ill-defined patchy opacities in both lungs. Small pneumo mediastinum is stable from prior. Assessment and Plan - Diagnosis (1) Healthcare-associated pneumonia Is this a current diagnosis for this admission?: Yes Plan: Patient with increased tachypnea, tachycardia, dyspnea, and mild hypotension with increased oxygen needs. Currently convalescing from COVID-[address] chest with contrast today revealed pneumomediastinum and worsening bibasilar opacities. WBCs are normal, though with overall upward trend (10.1). Patient remains afebrile. Discussed with Dr. Cherry. After discussion with Dr. Almanza, pulmonology, it was recommended that the patient be treated with broad-spectrum antibiotics for a healthcare associated/opportunistic bacterial superimposed on viral infection. Repeat blood cultures pending. Sputum cultures pending. Patient is empirically placed on IV vancomycin and cefepime. Respiratory support as below. 12/26/2019-continue vancomycin and cefepime. Original Covid-19 pneumonia should be resolving. 12/27/2019-still with high oxygen requirements. Situation of healthcare acquired pneumonia complicating cover pneumonia makes anticipated resolution difficult to ascertain. She still requires 11 L/min oxygen with Oxymizer. It is possible that she may need more aggressive therapy than a senior care facility considering all of her comorbidities. IV antibiotics are scheduled through January 01, 2020 12/28/2019-oxygen supplement is down to 9 L/min this morning. Continued use of the Oxymizer. Continue antibiotic therapy and supplements as ordered. 12/29/2019- Antibiotics through 01/01/2020. Trial of nasal cannula. At 6 L patient was saturating in the mid 90s at rest. 12/30/2019-remains on antibiotic therapy. Tolerating nasal cannula at 6 L/min. We will recheck white blood cell count tomorrow. 12/31/2019-antibiotic therapy completed tomorrow. 01/01/2020-antibiotic end of treatment is today. (2) Pneumonia due to COVID-19 virus Is this a current diagnosis for this admission?: Yes Plan: Plan as noted above. 12/26/2019-initial pneumonia was Covid-19. Patient subsequently experienced health care acquired pneumonia requiring broad-spectrum antibiotics. Complete antibiotics as ordered. 12/27/2019-patient completed therapy for Covid-19 pneumonia previously. Treating suspected healthcare acquired pneumonia as above. 12/28/2019-difficult to ascertain how much of her current status is due to the healthcare acquired pneumonia versus the Covid-19 pneumonia. It is most likely a combination of sequential illness. We will continue to attempt to wean from high oxygen requirements. 12/29/2019-completed dedicated therapy for Covid-19 pneumonia. Now on antibiotics for possible subsequent healthcare associated pneumonia. 12/30/2019-difficult to know how much of her current pulmonary status is related to her recent Covid-19 pneumonia versus care acquired pneumonia. Continue current treatment regimen. 12/31/2019-bilateral basal rales still present despite improvement. Possible for inflammatory changes to being more chronic if not permanent. Will monitor closely. (3) Acute hypoxemic respiratory failure due to COVID-19 Is this a current diagnosis for this admission?: Yes Plan: Slightly worsened respiratory status; now on Oxymizer at 10 L/min. Received Covalascent plasma on 12/09/2019 Completed 5 days of Remdesivir Levaquin for several days and 3 days of azithromycin earlier in admission. CTA chest did not show any PE but does show findings of groundglass diffusely compatible with COVID pneumonia. CXR shows slight increased LLL opacity CT shows increased bibasilar opacities. Recheck d. dimer and CRP are slightly elevated. Ferritin is essentially u nchanged. Continue supplemental oxygen as needed to maintain saturations greater than 89%. As needed nebulizer treatments. Start Mucomyst neb twice daily. Continues on Eliquis. Have transitioned to po prednisone Continue zinc; have added vitamin C, vitamin D, melatonin. Robitussin as needed. Encourage pulmonary toilet with incentive spirometer, flutter valve, early ambulation. Physical therapy consulted. Discharge planning consulted; now anticipating d/c home with home oxygen 12/26/2019-still requiring Oxymizer with 11 L/min oxygen flow. Will try to keep oxygen saturations 90% or better. Goal will be to taper back off of oxygen therapy if possible. 12/27/2019-we have not been able to decrease her oxygen requirements. Still exhibits increased work of breathing. Bilateral rales at bases. Am going to DC her Mucomyst. I will institute scheduled nebulizer treatments including albute rol, ipratropium and budesonide. She does have as needed duo nebs available as well. I reviewed the use of a flutter valve and incentive spirometer with the patient. I showed her how to use the index marker to assess her progress. I encouraged her to use it at least 3-4 times a day. I have resumed the patient's furosemide. This has been on hold temporarily. 12/28/2019-oxygen requirement at this time is only 9 L. This is down from 11 L. I will continue to monitor intake and output versus furosemide dosing. She did receive a dose of furosemide yesterday. It is difficult to know if this is solely responsible for her decreased oxygen need or if it is resolving pneumonia. Will monitor closely. 12/29/2019-attempting to decrease oxygen supplement. Trial of nasal cannula today. Respiratory therapy reported that patient was changed to 6 L nasal cannula and was in fact maintaining oxygen saturation in the mid 90s while at rest. We will continue to slowly wean her oxygen supplement. I have also ordered an echocardiogram to rule out any contributing heart failure component of her respiratory failure. 12/30/2019-making progress. Now off of the Oxymizer and on 6 L nasal cannula. Prednisone still tapering. 12/31/2019-currently at 4 L nasal cannula with acceptable oxygen saturation. 01/01/2020-remaining at 4 L nasal cannula. Desaturates somewhat with physical therapy but recovers quite quickly. She should be able to continue to taper towards room air. She is amenable to short-term rehab as well. They did retest her and she is still Covid positive but she clearly is making strides with her recovery. This will affect where she can be placed for short-term rehab. (4) Pneumomediastinum Is this a current diagnosis for this admission?: Yes Plan: CT chest today showed pneumomediastinum. Patient was on high flow nasal cannula on high liters per minute for several days earlier this admission. Discussed with Dr. Barbour and Dr. Cherry. We will monitor closely for evidence of pneumothorax. Repeat chest x-ray in the morning. 12/26/2019-repeat chest x-ray still shows a small pocket of air. We will continue to monitor. We will not obtain chest x-rays daily but rather every few days unless there is an acute clinical change. 12/27/2019-clinically stable at this time. We will repeat a chest x-ray on or Wednesday. Consider CT scan if the size of the pneumomediastinum is not improving. 12/28/2019-continue to monitor by imaging. 12/31/2019-consider repeat chest x-ray tomorrow. (5) Hyperglycemia due to type 2 diabetes mellitus Qualifiers: Diabetes mellitus terminologist insulin use: without fdc use Qualified Code(s): E11.65 - Type 2 diabetes mellitus with hyperglycemia Is this a current diagnosis for this admission?: Yes Plan: 12/26/[id number]-[id number]-[id number] are variable. I will resume metformin at this time. Continue sliding scale coverage. Currently on prednisone therapy which will adversely affect glucose readings. 12/27/2019-I have increased the metformin to 500 mg twice daily. Continue Accu- Cheks and sliding scale. 12/28/2019-still with wide variations in Accu-Cheks. We will give the increased dose of metformin another day or 2 before making other adjustments. 12/29/[id number]-Lmlu-Cgxit typically are higher in the afternoon. He did increase to metformin however it is most likely the morning steroid dose. I have decreased him to 10 mg and starting tomorrow I will complete the taper at 5 mg daily for 4 days. After the steroid treatment is completed I will monitor Accu-Cheks. I would expect lower afternoon glucose levels. 12/30/2019-still with afternoon Accu-Cheks that is the highest during the course of the day. The prednisone dose has been decreased and the lunchtime Accu-Cheks seems to be a bit better. Will evaluate after prednisone therapy is completed before making further adjustments in medications. 12/31/2019-afternoon glucose readings are slowly improving. No change in treatment regimen at this time. 01/01/2020-acceptable control at this time. Now that steroid therapy is complete she should have more consistent Accu-Cheks. (6) HTN (hypertension) Qualifiers: Hypertension type: essential hypertension Qualified Code(s): I10 - Essential (primary) hypertension Is this a current diagnosis for this admission?: Yes Plan: Continued hypotension today. Overall well controlled. Decrease metoprolol to 25 mg twice daily. 12/26/2019-medication changes as above. Hopefully this patient continues to recover blood pressure will respond. As noted above if heart rate is not adequately controlled we may need to implement digoxin therapy so as not to lower the blood pressure any further. 12/27/2019-blood pressures are holding steady even with the addition of metoprolol. Pulse rate is improved slightly. Reassess tomorrow consider increasing the metoprolol slightly while monitoring the patient on telemetry and monitoring vital signs. 12/28/2019-tolerating addition of furosemide. No significant hypotensive episodes. Continue to monitor vital signs and adjust medications accordingly. 12/29/2019-blood pressures are still marginal with systolic pressures typically between 100 -110. This does not appear to have significant clinical impact. We will continue to monitor closely. 12/30/2019-we will decrease furosemide to once daily. This should help blood pressure somewhat. 12/31/2019-no significant change from medication change. Continue to monitor closely and adjust medications accordingly. 01/01/2020-continue current medications. Systolic pressure is typically 100-115 over the last day or 2. (7) Obesity (BMI 30.0-34.9) Is this a current diagnosis for this admission?: Yes Plan: BMI 29.7 ~14 kg weight loss this admission Diet exercise weight loss lifestyle modifications previously discussed with the patient. Consistent carb diet. 12/27/2019-continue consistent carbohydrate diet. Current weight seems to be holding steady. 12/28/2019-initial admission weight was 88 kg. Most recent weight is 77 kg. Weight loss is due to her critical illness. We will continue to encourage good oral intake. (8) Kidney carcinoma Qualifiers: Laterality: right Qualified Code(s): C64.1 - Malignant neoplasm of right kidney, except renal pelvis Is this a current diagnosis for this admission?: Yes Plan: Patient has history of right-sided kidney cancer status post nephrectomy. Continue home regimen of fentanyl and oxycodone All treatment for this at this time is on hold due to patient's acute illness. (9) Paroxysmal atrial fibrillation with rapid ventricular response Is this a current diagnosis for this admission?: Yes Plan: Patient's daughter Elroy informs me that patient did have history of A. fib from before and was on atenolol before but was discontinued about a year ago. Seems to have been acutely precipitated in light of acute illness. Currently in sinus rhythm today. Lopressor 25 mg twice a day. CHADsVASC score is 4 - Eliquis. 12/26/2019-continue metoprolol for now. If rate is not well controlled consider digoxin as blood pressure can limit treatment options. Continue anticoagulation. 12/28/2019-rare episodes of pulse rate greater than 100. Typically less than 110. Continue current medication regimen. 12/29/2019-heart rate still in the 90s for the most part. Occasional pulse greater than 100. Due to blood pressure may not be able to increase metoprolol. We will continue to monitor closely on telemetry. 12/30/2019-still borderline tachycardia. Based on blood pressures from decreasi ng of furosemide I will likely increase the metoprolol. 12/31/2019-continue to monitor on telemetry. No medications yet today. 01/01/2020-heart rate still borderline upper limit normal. Will increase metoprolol slightly and monitor response. (10) Hypotension Qualifiers: Hypotension type: unspecified hypotension type Qualified Code(s): I95.9 - Hypotension, unspecified Is this a current diagnosis for this admission?: Yes Plan: Possibly related to development of healthcare associated pneumonia and pneumomediastinum. Decrease metoprolol from 50 to 25 mg twice daily. 1 L normal saline today. Manual blood pressures only. 12/26/2019-blood pressure still marginal. Continue metoprolol 25 mg twice daily. Continue to monitor on telemetry. 12/27/2019-blood pressure slightly improved today. 12/28/2019-blood pressure has been stable. Continue to monitor vital signs and adjust medications accordingly. 12/29/2019-as noted above occasional systolic pressure less than 100. It does not appear to be clinically affecting the patient at this time. Will monitor closely. (11) Chronic diastolic heart failure Is this a current diagnosis for this admission?: Yes Plan: 12/30/2019-echocardiogram revealed grade 1/4 diastolic dysfunction within normal ejection fraction. Continue furosemide therapy. No other changes to the medication regimen at this point. (12) Hypokalemia Is this a current diagnosis for this admission?: Yes Plan: 12/31/2019-potassium is just below the lower limit normal. We will add oral supplement. Possibly due to the increased dose of Lasix. We will continue to monitor and adjust dose based on serum potassium levels. 01/01/2020-we will increase potassium to 20 mEq twice daily and check laboratory studies tomorrow - Plan Summary Summary: 12/28/2019 The patient still has high oxygen requirements. The combination of initial COVID-19 positive test (U07.1, COVID-19) with Acute Pneumonia (J12.89, Other viral pneumonia) (If respiratory failure or sepsis present, add as separate assessment) Complicated by healthcare acquired pneumonia has had a marked adverse effect on her recovery. Due to the prolonged nature and need for close monitoring of the nutrition bed respiratory status complicated by her atrial fibrillation and diabetes the patient may benefit from a long-term acute care setting. The benefits would be closer scrutiny by pulmonology and more focused therapy. 01/01/2020 The patient has been making progress. She is down to 4 L nasal cannula. She is appropriate for short-term rehab. I did talk to her daughter, who is a nurse, who is in agreement that short-term rehab would be best. - Time Time Spent with patient: 15-24 minutes Medications reviewed and adjusted accordingly: Yes Anticipated Discharge Disposition: Group Home Facility Anticipated Discharge Timeframe: when bed available
[2020-01-01] MEDS: OXYCODONE-ACETAMINOPHEN 5-325 MG TABLET PO PRN (17:21)
[2020-01-01] MEDS: POTASSIUM CHLORIDE 10 MEQ TABLET.ER PO SCH (17:21)
[2020-01-01] MEDS: IPRATROPIUM/ALBUTEROL 0.5-2.5 MG/3 ML AMPUL NEB PRN (19:55)
[2020-01-01] MEDS: MELATONIN 3 MG TABLET PO SCH (22:52)
[2020-01-02] MEDS: PANTOPRAZOLE SODIUM 40 MG TABLET.DR PO SCH ×2 (05:11→18:35)
[2020-01-02] MEDS: PHARMACY COMMUNICATION ORDER MC SCH ×2 (05:11→22:02)
[2020-01-02 05:36] LABS: ANION GAP 9 (5-19); BLOOD UREA NITROGEN 32 mg/dL (7-20); CALCIUM 9.3 mg/dL (8.4-10.2); CARBON DIOXIDE 31 mmol/L (22-30); CHLORIDE 101 mmol/L (98-107); GLUCOSE 136 mg/dL (75-110); POTASSIUM 4.1 mmol/L (3.6-5.0)
[2020-01-02] MEDS: BUDESONIDE NEB 0.5 MG/2 ML AMPUL NEB SCH ×2 (09:15→20:06)
[2020-01-02] MEDS: IPRATROPIUM/ALBUTEROL 0.5-2.5 MG/3 ML AMPUL NEB SCH ×2 (09:15→20:06)
[2020-01-02] MEDS: INSULIN REG, HUMAN 100 UNIT/ML 3 ML VIAL (PYX) SUBCUT SCH ×4 (10:35→21:54)
[2020-01-02] MEDS: ASCORBIC ACID 500 MG TABLET PO SCH ×2 (10:44→18:36)
[2020-01-02] MEDS: LEVOTHYROXINE SODIUM 0.088 MG TABLET PO SCH (10:44)
[2020-01-02] MEDS: CHOLECALCIFEROL (D3) 400 UNIT TABLET PO SCH (10:44)
[2020-01-02] MEDS: METFORMIN HCL 500 MG TABLET PO SCH ×2 (10:44→18:36)
[2020-01-02] MEDS: LIDOCAINE 5% (700 MG) TRANSDERMAL ADH..PATCH TP SCH (10:44)
[2020-01-02] MEDS: SERTRALINE HCL 50 MG TABLET PO SCH (10:44)
[2020-01-02] MEDS: METOPROLOL TARTRATE 50 MG TABLET PO SCH ×2 (10:44→22:00)
[2020-01-02] MEDS: DOCUSATE SODIUM 100 MG CAPSULE PO SCH ×2 (10:44→18:36)
[2020-01-02] MEDS: FLUTICASONE NASAL SPRAY 50 MCG/SPRY 120 SPRAY/16 GM NASL SCH ×2 (10:45→22:02)
[2020-01-02] MEDS: FUROSEMIDE 20 MG TABLET PO SCH (10:45)
[2020-01-02] MEDS: POTASSIUM CHLORIDE 10 MEQ TABLET.ER PO SCH ×2 (10:45→18:35)
[2020-01-02] MEDS: APIXABAN 5 MG TABLET PO SCH ×2 (10:45→22:02)
[2020-01-02] MEDS: ZINC SULFATE 220 MG CAPSULE PO SCH (10:45)
--- NOTE | 2020-01-02 18:58 | PDOC PROGRESS REPORT ---
Subjective Progress Note for:: 01/02/20 Subjective:: She is still having oxygen desaturations with minimal movement, but has been weaned off of O2 at rest. Reason For Visit: PNEUMONIA DUE TO COVID19 VIRUS Physical Exam Vital Signs: Temp Pulse Resp BP Pulse Ox 97.5 F 97 20 107/68 97 01/02/20 13:18 01/02/20 14:00 01/02/20 13:18 01/02/20 13:18 01/02/20 13:18 Intake & Output 01/01/20 01/02/20 01/03/20 06:59 06:59 06:59 Intake Total 1380 1098 680 Output Total 940 800 Balance 440 298 680 Weight 72.5 kg 72.7 kg General appearance: PRESENT: no acute distress, cooperative Eye exam: ABSENT: scleral icterus Mouth exam: PRESENT: moist Throat exam: ABSENT: post pharyngeal erythema Neck exam: ABSENT: JVD Respiratory exam: PRESENT: clear to auscultation donte, unlabored Cardiovascular exam: PRESENT: tachycardia GI/Abdominal exam: PRESENT: normal bowel sounds, soft. ABSENT: tenderness Extremities exam: PRESENT: pedal edema Neurological exam: PRESENT: alert, awake Psychiatric exam: PRESENT: appropriate affect Skin exam: ABSENT: jaundice Results Laboratory Results: 12/31/19 05:45 01/02/20 04:31 01/02/20 04:31 Sodium 141.3 Potassium 4.1 Chloride 101 Carbon Dioxide 31 H Anion Gap 9 BUN 32 H Creatinine 1.64 H Est GFR ( Amer) 37 L Glucose 136 H Calcium 9.3 12/06/19 12/06/19 12/06/19 06:48 06:48 16:12 Creatine Kinase 199 H 194 H Troponin I < 0.012 NT-Pro-B Natriuret Pep 12/06/19 12/07/19 12/23/19 20:20 05:25 17:29 Creatine Kinase 168 H Troponin I NT-Pro-B Natriuret Pep 253 H 388 H Impressions: Chest/Abdomen CTA 12/10/19 00:00 IMPRESSION: 1. NORMAL CTA OF THE CHEST. NO PULMONARY EMBOLI. 2. MILD CARDIOMEGALY AND SMALL PLEURAL EFFUSIONS. DIFFUSE GROUND-GLASS OPACITIES THROUGHOUT BOTH LUNGS WHICH MAY BE DUE TO PULMONARY EDEMA, PNEUMONITIS, OR PNEUMONIA/ VIRAL INFECTION. Chest CT 12/25/19 00:00 IMPRESSION: 1. Pneumomediastinum. 2. Bilateral pneumonia. Chest X-Ray 12/26/19 07:00 IMPRESSION: Improved aeration with persistent ill-defined patchy opacities in both lungs. Small pneumo mediastinum is stable from prior. Assessment and Plan - Diagnosis (1) Pneumonia due to COVID-19 virus Is this a current diagnosis for this admission?: Yes (2) Acute hypoxemic respiratory failure due to COVID-19 Is this a current diagnosis for this admission?: Yes (3) Healthcare-associated pneumonia Is this a current diagnosis for this admission?: Yes (4) Chronic diastolic heart failure Is this a current diagnosis for this admission?: Yes (5) Hyperglycemia due to type 2 diabetes mellitus Qualifiers: Diabetes mellitus long-term insulin use: without long-term use Qualified Code(s): E11.65 - Type 2 diabetes mellitus with hyperglycemia Is this a current diagnosis for this admission?: Yes (6) Hypokalemia Is this a current diagnosis for this admission?: Yes (7) Hypotension Qualifiers: Hypotension type: unspecified hypotension type Qualified Code(s): I95.9 - Hypotension, unspecified Is this a current diagnosis for this admission?: Yes (8) Paroxysmal atrial fibrillation with rapid ventricular response Is this a current diagnosis for this admission?: Yes (9) Pneumomediastinum Is this a current diagnosis for this admission?: Yes (10) LUIS (acute kidney injury) Is this a current diagnosis for this admission?: Yes (11) Hypovolemia Is this a current diagnosis for this admission?: Yes - Plan Summary Summary: COVID-19 Pneumonia: diagnosed on 12/07/2019 and now completely resolved. She is now >14 days out from initial diagnosis and no longer infectious. She is safe for discharge to SNF. She does not need a negative test for COVID. Healthcare-associated pneumonia: completed empiric treatment with vancomycin and cefepime on 01/01/2020. Acute hypoxemic respiratory failure: due to above diagnoses. She is now saturating well on room air at rest, but does have desaturations with exertion. Hyperglycemia due pre-diabetes: hyperglycemia due to steroid usage during this hospitalization. HbA1c 6.2%. Based HbA1c, she does not need insulin therapy. Malignant neoplasm of right kidney: status post nephrectomy. Continue home regimen of fentanyl and oxycodone. All treatment for this at this time is on hold due to patient's acute illness. Paroxysmal atrial fibrillation with rapid ventricular response: CHADsVASC score is 4. Continue metoprolol and Eliquis. Relative Hypotension: in the s/o mild tachycardia and LUIS, likely due to hypovolemia. Will treat with IVF. LUIS: due to hypovolemia. Treat with IVF. Repeat BMP in AM. Chronic diastolic heart failure: TTE revealed mild, grade 1 diastolic dysfunction within normal ejection fraction. Generalized Weakness: due to prolonged hospitalization. PT/OT have recommended d ischarge to SNF and patient is amenable. Discharge planning following. - Time Time Spent with patient: 35 or more minutes Anticipated Discharge Disposition: [facility] Anticipated Discharge Timeframe: within 24 hours
[2020-01-02] MEDS: MELATONIN 3 MG TABLET PO SCH (22:01)
[2020-01-02] MEDS: NORMAL SALINE 1000 ML 1,000 ML IV PRN (22:04)
[2020-01-03] MEDS: PANTOPRAZOLE SODIUM 40 MG TABLET.DR PO SCH ×2 (05:24→16:13)
[2020-01-03 06:24] LABS: ANION GAP 6 (5-19); BLOOD UREA NITROGEN 31 mg/dL (7-20); CALCIUM 8.8 mg/dL (8.4-10.2); CARBON DIOXIDE 31 mmol/L (22-30); CHLORIDE 105 mmol/L (98-107); GLUCOSE 120 mg/dL (75-110); POTASSIUM 4.4 mmol/L (3.6-5.0)
[2020-01-03] MEDS: NORMAL SALINE 1000 ML 1,000 ML IV PRN (08:15)
[2020-01-03] MEDS: INSULIN REG, HUMAN 100 UNIT/ML 3 ML VIAL (PYX) SUBCUT SCH ×2 (08:19→12:34)
[2020-01-03] MEDS: IPRATROPIUM/ALBUTEROL 0.5-2.5 MG/3 ML AMPUL NEB SCH ×2 (09:07→20:07)
[2020-01-03] MEDS: BUDESONIDE NEB 0.5 MG/2 ML AMPUL NEB SCH ×2 (09:07→20:07)
--- NOTE | 2020-01-03 09:52 | RADIOLOGY REPORT (SQ) ---
EXAM DESCRIPTION: CHEST SINGLE VIEW IMAGES COMPLETED DATE/TIME: 01/03/2020 9:18 am REASON FOR STUDY: oxygen desaturations, ?CHF COMPARISON: AP view of the chest from 12/26/2019. EXAM PARAMETERS: NUMBER OF VIEWS: One view. TECHNIQUE: An AP view of the chest was obtained. RADIATION DOSE: NA LIMITATIONS: None. FINDINGS: LUNGS AND PLEURA: Patchy bilateral basilar predominant opacities that have increased since 12/26/2019. The costophrenic sulci are blunted. There is no pneumothorax. MEDIASTINUM AND HILAR STRUCTURES: Stable mediastinal and hilar contours. HEART AND VASCULAR STRUCTURES: Stable enlarged cardiac silhouette. The pulmonary vasculature is rayne stinct. BONES: No acute findings. HARDWARE: Surgical clips that project below the jennifer in within the left axilla and right IJ single- lumen port. OTHER: No other finding. IMPRESSION: Increased patchy bilateral basilar predominant opacities. Correlate for worsening CHF. TECHNICAL DOCUMENTATION: JOB ID: [id number] 2010 [employer]- All Rights Reserved Reading location - IP/workstation name: [email or web address]
[2020-01-03] MEDS: ZINC SULFATE 220 MG CAPSULE PO SCH (10:39)
[2020-01-03] MEDS: ASCORBIC ACID 500 MG TABLET PO SCH ×2 (10:39→17:54)
[2020-01-03] MEDS: CHOLECALCIFEROL (D3) 400 UNIT TABLET PO SCH (10:39)
[2020-01-03] MEDS: POTASSIUM CHLORIDE 10 MEQ TABLET.ER PO SCH ×2 (10:39→17:54)
[2020-01-03] MEDS: APIXABAN 5 MG TABLET PO SCH ×2 (10:40→21:16)
[2020-01-03] MEDS: METOPROLOL TARTRATE 50 MG TABLET PO SCH ×2 (10:40→21:15)
[2020-01-03] MEDS: SERTRALINE HCL 50 MG TABLET PO SCH (10:40)
[2020-01-03] MEDS: LIDOCAINE 5% (700 MG) TRANSDERMAL ADH..PATCH TP SCH (10:41)
[2020-01-03] MEDS: METFORMIN HCL 500 MG TABLET PO SCH ×2 (10:41→17:54)
[2020-01-03] MEDS: DOCUSATE SODIUM 100 MG CAPSULE PO SCH (10:41)
[2020-01-03] MEDS: LEVOTHYROXINE SODIUM 0.088 MG TABLET PO SCH (10:41)
[2020-01-03] MEDS: FLUTICASONE NASAL SPRAY 50 MCG/SPRY 120 SPRAY/16 GM NASL SCH ×2 (10:42→21:16)
[2020-01-03] MEDS ORDERED: POLYETHYLENE GLYCOL 3350 POWDER 17 GM/1 PACKET PO PRN (12:19)
[2020-01-03] MEDS ORDERED: FUROSEMIDE INJ/PF 20 MG/2 ML SDV IV ONE (13:00)
[2020-01-03] MEDS: ONDANSETRON HCL INJ/PF 4 MG/2 ML SDV IV PRN (13:30)
[2020-01-03] MEDS ORDERED: FUROSEMIDE INJ/PF 20 MG/2 ML SDV ONE (16:11)
--- NOTE | 2020-01-03 16:39 | PDOC PROGRESS REPORT ---
Subjective Progress Note for:: 01/03/20 Subjective:: She is having SOB + MOLINA. She is back on 2L O2 via [place]. Reason For Visit: PNEUMONIA DUE TO COVID19 VIRUS Physical Exam Vital Signs: Temp Pulse Resp BP Pulse Ox 98.3 F 102 H 19 96/58 L 96 01/03/20 15:24 01/03/20 15:24 01/03/20 15:24 01/03/20 15:24 01/03/20 15:24 Intake & Output 01/02/20 01/03/20 01/04/20 06:59 06:59 06:59 Intake Total 1098 1160 2236 Output Total 800 400 Balance 368 100 0108 Weight 72.7 kg 72.7 kg General appearance: PRESENT: no acute distress Eye exam: ABSENT: scleral icterus Mouth exam: PRESENT: moist Throat exam: ABSENT: post pharyngeal erythema Neck exam: PRESENT: JVD Respiratory exam: PRESENT: crackles, tachypnea Cardiovascular exam: PRESENT: RRR GI/Abdominal exam: PRESENT: normal bowel sounds, soft. ABSENT: tenderness Extremities exam: PRESENT: +2 edema Neurological exam: PRESENT: alert, awake Psychiatric exam: PRESENT: appropriate affect Skin exam: ABSENT: rash Results Laboratory Results: 12/31/19 05:45 01/03/20 05:25 01/03/20 05:25 Sodium 141.6 Potassium 4.4 Chloride 105 Carbon Dioxide 31 H Anion Gap 6 BUN 31 H Creatinine 1.49 H Est GFR ( Amer) 42 L Glucose 120 H Calcium 8.8 Magnesium 1.6 12/06/19 12/06/19 12/06/19 06:48 06:48 16:12 Creatine Kinase 199 H 194 H Troponin I < 0.012 NT-Pro-B Natriuret Pep 12/06/19 12/07/19 12/23/19 20:20 05:25 17:29 Creatine Kinase 168 H Troponin I NT-Pro-B Natriuret Pep 253 H 388 H Impressions: Chest/Abdomen CTA 12/10/19 00:00 IMPRESSION: 1. NORMAL CTA OF THE CHEST. NO PULMONARY EMBOLI. 2. MILD CARDIOMEGALY AND SMALL PLEURAL EFFUSIONS. DIFFUSE GROUND-GLASS OPACIT IES THROUGHOUT BOTH LUNGS WHICH MAY BE DUE TO PULMONARY EDEMA, PNEUMONITIS, OR PNEUMONIA/ VIRAL INFECTION. Chest CT 12/25/19 00:00 IMPRESSION: 1. Pneumomediastinum. 2. Bilateral pneumonia. Chest X-Ray 01/03/20 00:00 IMPRESSION: Increased patchy bilateral basilar predominant opacities. Correlate for worsening CHF. Assessment and Plan - Diagnosis (1) Pneumonia due to COVID-19 virus Is this a current diagnosis for this admission?: Yes (2) Acute hypoxemic respiratory failure due to COVID-19 Is this a current diagnosis for this admission?: Yes (3) Healthcare-associated pneumonia Is this a current diagnosis for this admission?: Yes (4) Hyperglycemia due to type 2 diabetes mellitus Qualifiers: Diabetes mellitus mcfp insulin use: without mcfp use Qualified Code(s): E11.65 - Type 2 diabetes mellitus with hyperglycemia Is this a current diagnosis for this admission?: Yes (5) Hypokalemia Is this a current diagnosis for this admission?: Yes (6) Hypotension Qualifiers: Hypotension type: unspecified hypotension type Qualified Code(s): I95.9 - Hypotension, unspecified Is this a current diagnosis for this admission?: Yes (7) Paroxysmal atrial fibrillation with rapid ventricular response Is this a current diagnosis for this admission?: Yes (8) Pneumomediastinum Is this a current diagnosis for this admission?: Yes (9) LUIS (acute kidney injury) Is this a current diagnosis for this admission?: Yes (10) Hypovolemia Is this a current diagnosis for this admission?: Yes (11) Acute on chronic diastolic (congestive) heart failure Is this a current diagnosis for this admission?: Yes - Plan Summary Summary: COVID-19 Pneumonia: diagnosed on 12/07/2019 and now completely resolved. She is now >14 days out from initial diagnosis and no longer infectious. She is safe for discharge to SNF. She does not need a negative test for COVID. Healthcare-associated pneumonia: completed empiric treatment with vancomycin and cefepime on 01/01/2020. Acute on Chronic Diastolic CHF: TTE revealed grade 1 diastolic dysfunction within normal ejection fraction. CXR 01/02 notable for bilateral pleural effusions. She is having desaturations with exertion, +JVD, bibasilar crackles and BLE edema. Will start Lasix 20 mg IV daily for diuresis. LUIS: due to cardiorenal syndrome in the s/o CHF exacerbation. Treat with Lasix. Repeat BMP in AM. Acute hypoxemic respiratory failure: due to above diagnoses. She is now saturating well on room air at rest, but does have desaturations with minimal exertion. Anticipate improvement with diuresis. Hyperglycemia due pre-diabetes: hyperglycemia due to steroid usage during this hospitalization. HbA1c 6.2%. Based HbA1c, she does not need insulin therapy. Malignant neoplasm of right kidney: status post nephrectomy. Continue home regimen of fentanyl and oxycodone. She has a port in place and was on immunotherapy prior to this hospitalization. All treatment for this is currently on hold due to patient's acute illness. Paroxysmal atrial fibrillation with rapid ventricular response: CHADsVASC score 4. Continue metoprolol and Eliquis. Generalized Weakness: due to prolonged hospitalization. PT/OT have recommended discharge to SNF and patient is amenable. Discharge planning following. - Time Time Spent with patient: 35 or more minutes Anticipated Discharge Disposition: [facility] Facility Anticipated Discharge Timeframe: within 48 hours
[2020-01-03] MEDS: MAGNESIUM OXIDE 400 MG TABLET PO SCH (17:54)
[2020-01-03] MEDS: OXYCODONE-ACETAMINOPHEN 5-325 MG TABLET PO PRN (18:50)
[2020-01-03] MEDS: MELATONIN 3 MG TABLET PO SCH (21:15)
[2020-01-03] MEDS: PHARMACY COMMUNICATION ORDER MC SCH (21:27)
[2020-01-04] MEDS: PANTOPRAZOLE SODIUM 40 MG TABLET.DR PO SCH ×2 (05:35→18:31)
[2020-01-04 07:34] LABS: ANION GAP 9 (5-19); BLOOD UREA NITROGEN 28 mg/dL (7-20); CALCIUM 9.3 mg/dL (8.4-10.2); CARBON DIOXIDE 30 mmol/L (22-30); CHLORIDE 103 mmol/L (98-107); GLUCOSE 127 mg/dL (75-110); POTASSIUM 4.7 mmol/L (3.6-5.0)
[2020-01-04] MEDS: BUDESONIDE NEB 0.5 MG/2 ML AMPUL NEB SCH ×2 (07:47→21:07)
[2020-01-04] MEDS: IPRATROPIUM/ALBUTEROL 0.5-2.5 MG/3 ML AMPUL NEB SCH ×2 (07:47→21:07)
[2020-01-04] MEDS: METFORMIN HCL 500 MG TABLET PO SCH ×2 (09:26→18:31)
[2020-01-04] MEDS: MAGNESIUM SULFATE/D5W 1 GM/100 ML RTUPB IV SCH ×2 (09:26→10:58)
[2020-01-04] MEDS: ZINC SULFATE 220 MG CAPSULE PO SCH (09:26)
[2020-01-04] MEDS: LEVOTHYROXINE SODIUM 0.088 MG TABLET PO SCH (09:26)
[2020-01-04] MEDS: MAGNESIUM OXIDE 400 MG TABLET PO SCH ×2 (09:26→18:31)
[2020-01-04] MEDS: ASCORBIC ACID 500 MG TABLET PO SCH ×2 (09:26→18:31)
[2020-01-04] MEDS: CHOLECALCIFEROL (D3) 400 UNIT TABLET PO SCH (09:26)
[2020-01-04] MEDS: SERTRALINE HCL 50 MG TABLET PO SCH (09:29)
[2020-01-04] MEDS: APIXABAN 5 MG TABLET PO SCH ×2 (09:29→21:42)
[2020-01-04] MEDS: LIDOCAINE 5% (700 MG) TRANSDERMAL ADH..PATCH TP SCH (09:29)
[2020-01-04] MEDS: FLUTICASONE NASAL SPRAY 50 MCG/SPRY 120 SPRAY/16 GM NASL SCH ×2 (09:30→21:48)
[2020-01-04] MEDS ORDERED: METOPROLOL TARTRATE 25 MG TABLET PO SCH (10:00)
[2020-01-04] MEDS ORDERED: FUROSEMIDE INJ/PF 40 MG/4 ML SDV IV SCH (10:00)
[2020-01-04] MEDS ORDERED: FUROSEMIDE INJ/PF 20 MG/2 ML SDV IV SCH ×2 (10:00)
--- NOTE | 2020-01-04 16:14 | PDOC PROGRESS REPORT ---
Subjective Progress Note for:: 01/04/20 Subjective:: NAEO. She is feeling less SOB today. Oxygen needs are gradually decreasing. Reason For Visit: PNEUMONIA DUE TO COVID19 VIRUS Physical Exam Vital Signs: Temp Pulse Resp BP Pulse Ox 97.5 F 93 19 102/69 90 L 01/04/20 11:55 01/04/20 11:55 01/04/20 11:55 01/04/20 11:55 01/04/20 11:55 Intake & Output 01/03/20 01/04/20 01/05/20 06:59 06:59 06:59 Intake Total 1160 2952 440 Output Total 400 300 600 Balance 760 2652 -160 Weight 72.7 kg 72.3 kg General appearance: PRESENT: no acute distress Eye exam: ABSENT: scleral icterus Mouth exam: PRESENT: moist Throat exam: ABSENT: post pharyngeal erythema Neck exam: PRESENT: JVD Respiratory exam: PRESENT: crackles, unlabored. ABSENT: wheezes Cardiovascular exam: PRESENT: RRR GI/Abdominal exam: PRESENT: normal bowel sounds, soft. ABSENT: tenderness Extremities exam: PRESENT: +1 edema Neurological exam: PRESENT: alert, awake Psychiatric exam: PRESENT: appropriate affect Skin exam: ABSENT: rash Results Laboratory Results: 12/31/19 05:45 01/04/20 05:38 01/04/20 05:38 Sodium 142.1 Potassium 4.7 Chloride 103 Carbon Dioxide 30 Anion Gap 9 BUN 28 H Creatinine 1.52 H Est GFR ( Amer) 41 L Glucose 127 H Calcium 9.3 Magnesium 1.6 12/06/19 12/06/19 12/06/19 06:48 06:48 16:12 Creatine Kinase 199 H 194 H Troponin I < 0.012 NT-Pro-B Natriuret Pep 12/06/19 12/07/19 12/23/19 20:20 05:25 17:29 Creatine Kinase 168 H Troponin I NT-Pro-B Natriuret Pep 253 H 388 H Impressions: Chest/Abdomen CTA 12/10/19 00:00 IMPRESSION: 1. NORMAL CTA OF THE CHEST. NO PULMONARY EMBOLI. 2. MILD CARDIOMEGALY AND SMALL PLEURAL EFFUSIONS. DIFFUSE GROUND-GLASS OPACITIES THROUGHOUT BOTH LUNGS WHICH MAY BE DUE TO PULMONARY EDEMA, PNEUMONITIS, OR PNEUMONIA/ VIRAL INFECTION. Chest CT 12/25/19 00:00 IMPRESSION: 1. Pneumomediastinum. 2. Bilateral pneumonia. Chest X-Ray 01/03/20 00:00 IMPRESSION: Increased patchy bilateral basilar predominant opacities. Correlate for worsening CHF. Assessment and Plan - Diagnosis (1) Pneumonia due to COVID-19 virus Is this a current diagnosis for this admission?: Yes (2) Acute hypoxemic respiratory failure due to COVID-19 Is this a current diagnosis for this admission?: Yes (3) Healthcare-associated pneumonia Is this a current diagnosis for this admission?: Yes (4) Hyperglycemia due to type 2 diabetes mellitus Qualifiers: Diabetes mellitus rn long term care insulin use: without longterm use Qualified Code(s): E11.65 - Type 2 diabetes mellitus with hyperglycemia Is this a current diagnosis for this admission?: Yes (5) Hypokalemia Is this a current diagnosis for this admission?: Yes (6) Hypotension Qualifiers: Hypotension type: unspecified hypotension type Qualified Code(s): I95.9 - Hypotension, unspecified Is this a current diagnosis for this admission?: Yes (7) Paroxysmal atrial fibrillation with rapid ventricular response Is this a current diagnosis for this admission?: Yes (8) Pneumomediastinum Is this a current diagnosis for this admission?: Yes (9) LUIS (acute kidney injury) Is this a current diagnosis for this admission?: Yes (10) Hypovolemia Is this a current diagnosis for this admission?: Yes (11) Acute on chronic diastolic (congestive) heart failure Is this a current diagnosis for this admission?: Yes - Plan Summary Summary: COVID-19 Pneumonia: diagnosed on 12/07/2019 and now resolved. Healthcare-associated pneumonia: completed empiric treatment with vancomycin and cefepime on 01/01/2020. Acute on Chronic Diastolic CHF: TTE revealed grade 1 diastolic dysfunction within normal ejection fraction. CXR 01/02 notable for bilateral pleural effusions. She is having desaturations with exertion, +JVD, bibasilar crackles and BLE edema. Will start Lasix 40 mg IV daily for diuresis. LUIS: due to cardiorenal syndrome in the s/o CHF exacerbation. Treat with Lasix. Repeat BMP in AM. Acute hypoxemic respiratory failure: due to above diagnoses. She is now saturating well on room air at rest, but does have desaturations with minimal exertion. Anticipate improvement with diuresis. Hyperglycemia due pre-diabetes: hyperglycemia due to steroid usage during this hospitalization. HbA1c 6.2%. Based on HbA1c, she does not need insulin therapy. Continue metformin. Malignant neoplasm of right kidney: status post nephrectomy. Continue home regimen of fentanyl and oxycodone. She has a port in place and was on immunotherapy prior to this hospitalization. All treatment for this is currently on hold due to patient's acute illness. Paroxysmal atrial fibrillation with rapid ventricular response: CHADsVASC score 4. Currently rate controlled. Continue metoprolol and Eliquis. Generalized Weakness: due to prolonged hospitalization. PT/OT have recommended discharge to SNF and patient is amenable. Discharge planning following. - Time Time Spent with patient: 35 or more minutes Anticipated Discharge Disposition: Nursing Home Facility Anticipated Discharge Timeframe: within 48 hours
[2020-01-04] MEDS: OXYCODONE-ACETAMINOPHEN 5-325 MG TABLET PO PRN (18:34)
[2020-01-04] MEDS: MELATONIN 3 MG TABLET PO SCH (21:42)
[2020-01-04] MEDS: METOPROLOL TARTRATE 25 MG TABLET PO SCH (21:43)
[2020-01-04] MEDS: PHARMACY COMMUNICATION ORDER MC SCH (22:11)
[2020-01-05 06:05] LABS: HEMATOCRIT 35.5 % (36.0-47.0); HEMOGLOBIN 11.9 g/dL (12.0-15.5); MEAN CORPUSCULAR HEMOGLOBIN 30.9 pg (27.0-33.4); MEAN CORPUSCULAR HGB CONC 33.4 g/dL (32.0-36.0); MEAN CORPUSCULAR VOLUME 93 fl (80-97); PLATELET COUNT 230 10^3/uL (150-450); RED BLOOD COUNT 3.84 10^6/uL (3.72-5.28); RED CELL DISTRIBUTION WIDTH 15.6 % (11.5-14.0); WHITE BLOOD COUNT 7.7 10^3/uL (4.0-10.5)
[2020-01-05 06:28] LABS: ANION GAP 8 (5-19); BLOOD UREA NITROGEN 35 mg/dL (7-20); CALCIUM 9.3 mg/dL (8.4-10.2); CARBON DIOXIDE 32 mmol/L (22-30); CHLORIDE 99 mmol/L (98-107); GLUCOSE 138 mg/dL (75-110); POTASSIUM 4.5 mmol/L (3.6-5.0)
[2020-01-05] MEDS: PANTOPRAZOLE SODIUM 40 MG TABLET.DR PO SCH ×2 (07:14→17:09)
[2020-01-05] MEDS: IPRATROPIUM/ALBUTEROL 0.5-2.5 MG/3 ML AMPUL NEB SCH ×2 (08:02→19:34)
[2020-01-05] MEDS: BUDESONIDE NEB 0.5 MG/2 ML AMPUL NEB SCH ×2 (08:02→19:34)
--- NOTE | 2020-01-05 09:30 | PDOC PROGRESS REPORT ---
Subjective Progress Note for:: 01/05/20 Subjective:: 69 year old female with history of hypertension, diabetes mellitus, lung cancer, right kidney cancer with right nephrectomy on immunosuppression, recently positive for COVID-19 at PCPs office 1 week ago came to the emergency room with complaints of fever and shortness of breath the last couple of days. Chest x- ray indicated of left lower lobe pneumonia. WBC count within normal limits pulse ox is on room air is 92% with 2 L of oxygen is 100%. Patient wants to be a DNR/DNI. Agreed to stay in the hospital for further management. 12/07/2019-patient is doing much better. No acute events the last 24. COVID-19 test was done this morning. Alert awake communicating well. Not in distress. 12/08/2019-no acute events in the last 24 hours. Afebrile. Patient was positive for COVID-19 as an outpatient repeat test is pending. Patient became tachycardic last night heart rate went up to 170. Patient was given IV metoprolol as needed. Heart rate at this time is 120. Patient is on remdesivir and dexamethasone. Urine culture is positive for group B streptococcus. Cultures are negative. And is to discontinue IV fluids from today. 12/09/19-patient is in A. fib. Heart rate is around 150. Systolic blood pressure is 88. To give her 1 dose of digoxin and a started on IV fluids normal saline at 75 cc/h. Pulse ox is 91% on 5 L. To start her on convulsant plasma. Patient is receiving dexamethasone and remidisivir. 12/10/2019-patient looks anxious and mildly tachypneic. On examination lower extremities slightly edematous. Blood pressures are stable. To hold IV fluids at this time and give Lasix 20 mg IV 1 dose and to repeat the chest x-ray. As for family member request patient was started on lorazepam 1 mg p.o. twice daily. Plan is to repeat the labs tomorrow. To continue dexamethasone, remedesvir, convulsant plasma at this time. 01/05/2020-patient is comfortable in the bed communicating well. Not in distress. On 1 L of oxygen. COVID-19 test is pending. Plan is to repeat the chest x-ray today. Blood pressures on the softer side to hold the Lasix at this time. Reason For Visit: PNEUMONIA DUE TO COVID19 VIRUS Physical Exam Vital Signs: Temp Pulse Resp BP Pulse Ox 97.6 F 97 19 108/71 100 01/05/20 08:17 01/05/20 08:17 01/05/20 08:17 01/05/20 08:17 01/05/20 08:17 Intake & Output 01/04/20 01/05/20 01/06/20 06:59 06:59 06:59 Intake Total 2952 676 Output Total 300 1150 Balance 0262 -840 Weight 72.3 kg 71.9 kg General appearance: PRESENT: no acute distress, well-developed Head exam: PRESENT: atraumatic Eye exam: PRESENT: PERRLA Mouth exam: PRESENT: moist, tongue midline Teeth exam: PRESENT: poor dentation Neck exam: ABSENT: carotid bruit, JVD, lymphadenopathy, thyromegaly Respiratory exam: PRESENT: decreased breath sounds Cardiovascular exam: PRESENT: RRR. ABSENT: diastolic murmur, rubs, systolic murmur GI/Abdominal exam: PRESENT: normal bowel sounds, soft. ABSENT: distended, guarding, mass, organolmegaly, rebound, tenderness Rectal exam: PRESENT: deferred Extremities exam: PRESENT: full ROM. ABSENT: calf tenderness, clubbing, pedal edema Neurological exam: PRESENT: alert, awake, oriented to person, oriented to place, oriented to time, oriented to situation, CN II-XII grossly intact. ABSENT: motor sensory deficit Psychiatric exam: PRESENT: appropriate affect, normal mood. ABSENT: homicidal ideation, suicidal ideation Results Laboratory Results: 01/05/20 05:45 01/05/20 05:45 01/05/20 01/05/20 05:45 05:45 WBC 7.7 RBC 3.84 Hgb 11.9 L Hct 35.5 L MCV 93 MCH 30.9 MCHC 33.4 RDW 15.6 H Plt Count 230 Sodium 138.9 Potassium 4.5 Chloride 99 Carbon Dioxide 32 H Anion Gap 8 BUN 35 H Creatinine 1.87 H Est GFR ( Amer) 32 L Glucose 138 H Calcium 9.3 Magnesium 2.5 H 12/06/19 12/06/19 12/06/19 06:48 06:48 16:12 Creatine Kinase 199 H 194 H Troponin I < 0.012 NT-Pro-B Natriuret Pep 12/06/19 12/07/19 12/23/19 20:20 05:25 17:29 Creatine Kinase 168 H Troponin I NT-Pro-B Natriuret Pep 253 H 388 H Impressions: Chest/Abdomen CTA 12/10/19 00:00 IMPRESSION: 1. NORMAL CTA OF THE CHEST. NO PULMONARY EMBOLI. 2. MILD CARDIOMEGALY AND SMALL PLEURAL EFFUSIONS. DIFFUSE GROUND-GLASS OPACITIES THROUGHOUT BOTH LUNGS WHICH MAY BE DUE TO PULMONARY EDEMA, PNEUMONITIS, OR PNEUMONIA/ VIRAL INFECTION. Chest CT 12/25/19 00:00 IMPRESSION: 1. Pneumomediastinum. 2. Bilateral pneumonia. Chest X-Ray 01/03/20 00:00 IMPRESSION: Increased patchy bilateral basilar predominant opacities. Correlate for worsening CHF. Assessment and Plan - Diagnosis (1) Pneumonia due to COVID-19 virus Is this a current diagnosis for this admission?: Yes Plan: Plan as noted above. 12/26/2019-initial pneumonia was Covid-19. Patient subsequently experienced health care acquired pneumonia requiring broad-spectrum antibiotics. Complete antibiotics as ordered. 12/27/2019-patient completed therapy for Covid-19 pneumonia previously. Treating suspected healthcare acquired pneumonia as above. 12/28/2019-difficult to ascertain how much of her current status is due to the healthcare acquired pneumonia versus the Covid-19 pneumonia. It is most likely a combination of sequential illness. We will continue to attempt to wean from high oxygen requirements. 12/29/2019-completed dedicated therapy for Covid-19 pneumonia. Now on antibiotics for possible subsequent healthcare associated pneumonia. 12/30/2019-difficult to know how much of her current pulmonary status is related to her recent Covid-19 pneumonia versus care acquired pneumonia. Continue current treatment regimen. 12/31/2019-bilateral basal rales still present despite improvement. Possible for inflammatory changes to being more chronic if not permanent. Will monitor closely. 01/05/2020-repeat COVID-19 testing is pending. Patient is not on dexamethasone not on remdesivir not on convulsant plasma. Pulse ox is 96% on 1 L. To repeat the chest x-ray today. If the COVID-19 is negative plan is to discharge her to rehab facility in this county. (2) HTN (hypertension) Qualifiers: Hypertension type: essential hypertension Qualified Code(s): I10 - Essential (primary) hypertension Is this a current diagnosis for this admission?: Yes Plan: Continued hypotension today. Overall well controlled. Decrease metoprolol to 25 mg twice daily. 12/26/2019-medication changes as above. Hopefully this patient continues to recover blood pressure will respond. As noted above if heart rate is not adequately controlled we may need to implement digoxin therapy so as not to lower the blood pressure any further. 12/27/2019-blood pressures are holding steady even with the addition of metoprolol. Pulse rate is improved slightly. Reassess tomorrow consider increasing the metoprolol slightly while monitoring the patient on telemetry and monitoring vital signs. 12/28/2019-tolerating addition of furosemide. No significant hypotensive episodes. Continue to monitor vital signs and adjust medications accordingly. 12/29/2019-blood pressures are still marginal with systolic pressures typically between 100 -110. This does not appear to have significant clinical impact. We will continue to monitor closely. 12/30/2019-we will decrease furosemide to once daily. This should help blood pressure somewhat. 12/31/2019-no significant change from medication change. Continue to monitor closely and adjust medications accordingly. 01/01/2020-continue current medications. Systolic pressure is typically 100-115 over the last day or 2. 01/03/2020-blood pressure this morning is 97/74. Receiving Lasix 40 mg p.o. daily. Echocardiogram shows EF of 55 to 60%. Plan is to hold Lasix at this time and a repeat chest x-ray. (3) Diabetes Qualifiers: Diabetes mellitus type: type 2 Is this a current diagnosis for this admission?: No Plan: A1c 6.2%. Continue Metformin Continue sliding-scale insulin and accuchecks. Hypoglycemia protocol. Consistent carb diet. 01/05/20-latest blood sugar 136. To continue insulin sliding scale before meals and at bedtime. Patient is on diabetic diet. To hold metformin at this time. (4) Kidney carcinoma Qualifiers: Laterality: right Qualified Code(s): C64.1 - Malignant neoplasm of right kidney, except renal pelvis Is this a current diagnosis for this admission?: Yes Plan: Patient has history of right-sided kidney cancer status post nephrectomy. Continue home regimen of fentanyl and oxycodone All treatment for this at this time is on hold due to patient's acute illness. (5) Obesity (BMI 30.0-34.9) Is this a current diagnosis for this admission?: Yes - Plan Summary Summary: COVID-19 Pneumonia: diagnosed on 12/07/2019 and now resolved. Healthcare-associated pneumonia: completed empiric treatment with vancomycin and cefepime on 01/01/2020. Acute on Chronic Diastolic CHF: TTE revealed grade 1 diastolic dysfunction within normal ejection fraction. CXR 01/02 notable for bilateral pleural effusions. She is having desaturations with exertion, +JVD, bibasilar crackles and BLE edema. Will start Lasix 40 mg IV daily for diuresis. LUIS: due to cardiorenal syndrome in the s/o CHF exacerbation. Treat with Lasix. Repeat BMP in AM. Acute hypoxemic respiratory failure: due to above diagnoses. She is now saturating well on room air at rest, but does have desaturations with minimal exertion. Anticipate improvement with diuresis. Hyperglycemia due pre-diabetes: hyperglycemia due to steroid usage during this hospitalization. HbA1c 6.2%. Based on HbA1c, she does not need insulin therapy. Continue metformin. Malignant neoplasm of right kidney: status post nephrectomy. Continue home regimen of fentanyl and oxycodone. She has a port in place and was on immunotherapy prior to this hospitalization. All treatment for this is currently on hold due to patient's acute illness. Paroxysmal atrial fibrillation with rapid ventricular response: CHADsVASC score 4. Currently rate controlled. Continue metoprolol and Eliquis. Generalized Weakness: due to prolonged hospitalization. PT/OT have recommended discharge to SNF and patient is amenable. Discharge planning following. - Time Anticipated Discharge Disposition: Group Home Facility Anticipated Discharge Timeframe: within 48 hours
[2020-01-05] MEDS: METOPROLOL TARTRATE 25 MG TABLET PO SCH ×2 (09:52→21:36)
[2020-01-05] MEDS: APIXABAN 5 MG TABLET PO SCH ×2 (09:53→21:33)
[2020-01-05] MEDS: MAGNESIUM OXIDE 400 MG TABLET PO SCH ×2 (09:53→17:09)
[2020-01-05] MEDS: ZINC SULFATE 220 MG CAPSULE PO SCH (09:53)
[2020-01-05] MEDS: CHOLECALCIFEROL (D3) 400 UNIT TABLET PO SCH (09:53)
[2020-01-05] MEDS: SERTRALINE HCL 50 MG TABLET PO SCH (09:53)
[2020-01-05] MEDS: ASCORBIC ACID 500 MG TABLET PO SCH ×2 (09:53→17:09)
[2020-01-05] MEDS: LEVOTHYROXINE SODIUM 0.088 MG TABLET PO SCH (09:53)
[2020-01-05] MEDS: FLUTICASONE NASAL SPRAY 50 MCG/SPRY 120 SPRAY/16 GM NASL SCH ×2 (09:58→21:35)
--- NOTE | 2020-01-05 12:42 | RADIOLOGY REPORT (SQ) ---
EXAM DESCRIPTION: CHEST SINGLE VIEW IMAGES COMPLETED DATE/TIME: 01/05/2020 12:16 pm REASON FOR STUDY: chf COMPARISON: 01/03/2020 NUMBER OF VIEWS: One view. TECHNIQUE: Single frontal radiographic image of the chest acquired. LIMITATIONS: None. FINDINGS: LUNGS AND PLEURA: Stable appearance. MEDIASTINUM AND HILAR STRUCTURES: Stable heart size and mediastinal structures. HEART AND VASCULAR STRUCTURES: Stable appearance. BONES: No acute findings. HARDWARE: None in the chest. OTHER: No other significant finding. IMPRESSION: STABLE APPEARANCE OF THE CHEST. TECHNICAL DOCUMENTATION: JOB ID: [id number] [employer]- All Rights Reserved Reading location - IP/workstation name: [email or web address]
[2020-01-05] MEDS: LIDOCAINE 5% (700 MG) TRANSDERMAL ADH..PATCH TP SCH (16:59)
[2020-01-05] MEDS: ONDANSETRON HCL INJ/PF 4 MG/2 ML SDV IV PRN (17:09)
[2020-01-05] MEDS: OXYCODONE-ACETAMINOPHEN 5-325 MG TABLET PO PRN (17:19)
[2020-01-05] MEDS: MELATONIN 3 MG TABLET PO SCH (21:33)
[2020-01-05] MEDS: PHARMACY COMMUNICATION ORDER MC SCH (21:39)
[2020-01-06] MEDS: PANTOPRAZOLE SODIUM 40 MG TABLET.DR PO SCH ×2 (05:01→17:07)
[2020-01-06 06:08] LABS: ANION GAP 6 (5-19); BLOOD UREA NITROGEN 39 mg/dL (7-20); CALCIUM 9.2 mg/dL (8.4-10.2); CARBON DIOXIDE 33 mmol/L (22-30); CHLORIDE 99 mmol/L (98-107); GLUCOSE 140 mg/dL (75-110); POTASSIUM 4.2 mmol/L (3.6-5.0)
[2020-01-06] MEDS: IPRATROPIUM/ALBUTEROL 0.5-2.5 MG/3 ML AMPUL NEB SCH ×2 (07:41→20:59)
[2020-01-06] MEDS: BUDESONIDE NEB 0.5 MG/2 ML AMPUL NEB SCH ×2 (07:41→20:59)
[2020-01-06 08:37] LABS: ABSOLUTE BASOPHILS # (AUTO) 0.1 10^3/uL (0.0-0.2); ABSOLUTE EOSINOPHILS # (AUTO) 0.3 10^3/uL (0.0-0.6); ABSOLUTE LYMPHOCYTES (AUTO) 2.3 10^3/uL (0.5-4.7); ABSOLUTE MONOCYTES (AUTO) 0.7 10^3/uL (0.1-1.4); ABSOLUTE NEUT (AUTO) 4.9 10^3/uL (1.7-8.2); HEMATOCRIT 34.9 % (36.0-47.0); HEMOGLOBIN 11.6 g/dL (12.0-15.5); LYMPHOCYTES % (AUTO) 27.8 % (13-45); MEAN CORPUSCULAR HEMOGLOBIN 30.8 pg (27.0-33.4); MEAN CORPUSCULAR HGB CONC 33.2 g/dL (32.0-36.0); MEAN CORPUSCULAR VOLUME 93 fl (80-97); MONOCYTES % (AUTO) 8.7 % (3-13); PLATELET COUNT 212 10^3/uL (150-450); RED BLOOD COUNT 3.77 10^6/uL (3.72-5.28); RED CELL DISTRIBUTION WIDTH 15.6 % (11.5-14.0); SEGMENTED NEUTROPHILS % (AUTO) 59.5 % (42-78); TOTAL CELLS COUNTED % (AUTO) 100 %; WHITE BLOOD COUNT 8.3 10^3/uL (4.0-10.5)
[2020-01-06 08:56] LABS: ALBUMIN 3.4 g/dL (3.5-5.0); ALKALINE PHOSPHATASE 93 U/L (38-126); ANION GAP 8 (5-19); ASPARTATE AMINO TRANSFERASE 58 U/L (14-36); BILIRUBIN,DIRECT 0.4 mg/dL (0.0-0.4); BILIRUBIN,TOTAL 0.9 mg/dL (0.2-1.3); BLOOD UREA NITROGEN 37 mg/dL (7-20); CALCIUM 9.2 mg/dL (8.4-10.2); CARBON DIOXIDE 31 mmol/L (22-30); CHLORIDE 100 mmol/L (98-107); GLUCOSE 148 mg/dL (75-110); POTASSIUM 4.3 mmol/L (3.6-5.0); TOTAL PROTEIN 6.4 g/dL (6.3-8.2)
--- NOTE | 2020-01-06 09:09 | PDOC PROGRESS REPORT ---
Subjective Progress Note for:: 01/06/20 Subjective:: 69 year old female with history of hypertension, diabetes mellitus, lung cancer, right kidney cancer with right nephrectomy on immunosuppression, recently positive for COVID-19 at PCPs office 1 week ago came to the emergency room with complaints of fever and shortness of breath the last couple of days. Chest x- ray indicated of left lower lobe pneumonia. WBC count within normal limits pulse ox is on room air is 92% with 2 L of oxygen is 100%. Patient wants to be a DNR/DNI. Agreed to stay in the hospital for further management. 12/07/2019-patient is doing much better. No acute events the last 24. COVID-19 test was done this morning. Alert awake communicating well. Not in distress. 12/08/2019-no acute events in the last 24 hours. Afebrile. Patient was positive for COVID-19 as an outpatient repeat test is pending. Patient became tachycardic last night heart rate went up to 170. Patient was given IV metoprolol as needed. Heart rate at this time is 120. Patient is on remdesivir and dexamethasone. Urine culture is positive for group B streptococcus. Cultures are negative. And is to discontinue IV fluids from today. 12/09/19-patient is in A. fib. Heart rate is around 150. Systolic blood pressure is 88. To give her 1 dose of digoxin and a started on IV fluids normal saline at 75 cc/h. Pulse ox is 91% on 5 L. To start her on convulsant plasma. Patient is receiving dexamethasone and remidisivir. 12/10/2019-patient looks anxious and mildly tachypneic. On examination lower extremities slightly edematous. Blood pressures are stable. To hold IV fluids at this time and give Lasix 20 mg IV 1 dose and to repeat the chest x-ray. As for family member request patient was started on lorazepam 1 mg p.o. twice daily. Plan is to repeat the labs tomorrow. To continue dexamethasone, remedesvir, convulsant plasma at this time. 01/05/2020-patient is comfortable in the bed communicating well. Not in distress. On 1 L of oxygen. COVID-19 test is pending. Plan is to repeat the chest x-ray today. Blood pressures on the softer side to hold the Lasix at this time. 01/06/2020-patient is comfortably in the bed communicating well. On room air. Chest x-ray done yesterday stable. COVID-19 test results are pending. Plan is to continue the present management at this time. Reason For Visit: PNEUMONIA DUE TO COVID19 VIRUS Physical Exam Vital Signs: Temp Pulse Resp BP Pulse Ox 97.8 F 92 16 107/69 98 01/06/20 07:26 01/06/20 07:41 01/06/20 07:41 01/06/20 07:26 01/06/20 07:41 Intake & Output 01/05/20 01/06/20 01/07/20 06:59 06:59 06:59 Intake Total 676 Output Total 1150 Balance -474 Weight 71.9 kg 71.2 kg General appearance: PRESENT: no acute distress, cooperative Head exam: PRESENT: atraumatic Eye exam: PRESENT: PERRLA Ear exam: PRESENT: normal external ear exam Mouth exam: PRESENT: neck supple Teeth exam: PRESENT: poor dentation Neck exam: ABSENT: carotid bruit, JVD, lymphadenopathy, thyromegaly Respiratory exam: PRESENT: decreased breath sounds Cardiovascular exam: PRESENT: RRR. ABSENT: diastolic murmur, rubs, systolic murmur GI/Abdominal exam: PRESENT: normal bowel sounds, soft. ABSENT: distended, guarding, mass, organolmegaly, rebound, tenderness Rectal exam: PRESENT: deferred Extremities exam: PRESENT: full ROM. ABSENT: calf tenderness, clubbing, pedal edema Neurological exam: PRESENT: alert, awake, oriented to person, oriented to place, oriented to time, oriented to situation, CN II-XII grossly intact. ABSENT: motor sensory deficit Psychiatric exam: PRESENT: appropriate affect, normal mood. ABSENT: homicidal ideation, suicidal ideation Results Laboratory Results: 01/06/20 08:15 01/06/20 08:15 01/06/20 01/06/20 01/06/20 05:15 08:15 08:15 WBC 8.3 RBC 3.77 Hgb 11.6 L Hct 34.9 L MCV 93 MCH 30.8 MCHC 33.2 RDW 15.6 H Plt Count 212 Seg Neutrophils % 59.5 Sodium 137.5 139.2 Potassium 4.2 4.3 Chloride 99 100 Carbon Dioxide 33 H 31 H Anion Gap 6 8 BUN 39 H 37 H Creatinine 1.84 H 1.83 H Est GFR ( Amer) 33 L 33 L Glucose 140 H 148 H Calcium 9.2 9.2 Magnesium 2.4 H 2.3 Total Bilirubin 0.9 AST 58 H Alkaline Phosphatase 93 Total Protein 6.4 Albumin 3.4 L 12/06/19 12/06/19 12/06/19 06:48 06:48 16:12 Creatine Kinase 199 H 194 H Troponin I < 0.012 NT-Pro-B Natriuret Pep 12/06/19 12/07/19 12/23/19 20:20 05:25 17:29 Creatine Kinase 168 H Troponin I NT-Pro-B Natriuret Pep 253 H 388 H Impressions: Chest/Abdomen CTA 12/10/19 00:00 IMPRESSION: 1. NORMAL CTA OF THE CHEST. NO PULMONARY EMBOLI. 2. MILD CARDIOMEGALY AND SMALL PLEURAL EFFUSIONS. DIFFUSE GROUND-GLASS OPACITIES THROUGHOUT BOTH LUNGS WHICH MAY BE DUE TO PULMONARY EDEMA, PNEUMONITIS, OR PNEUMONIA/ VIRAL INFECTION. Chest CT 12/25/19 00:00 IMPRESSION: 1. Pneumomediastinum. 2. Bilateral pneumonia. Chest X-Ray 01/05/20 00:00 IMPRESSION: STABLE APPEARANCE OF THE CHEST. Assessment and Plan - Diagnosis (1) Pneumonia due to COVID-19 virus Is this a current diagnosis for this admission?: Yes Plan: Plan as noted above. 12/26/2019-initial pneumonia was Covid-19. Patient subsequently experienced health care acquired pneumonia requiring broad-spectrum antibiotics. Complete antibiotics as ordered. 12/27/2019-patient completed therapy for Covid-19 pneumonia previously. Treating suspected healthcare acquired pneumonia as above. 12/28/2019-difficult to ascertain how much of her current status is due to the healthcare acquired pneumonia versus the Covid-19 pneumonia. It is most likely a combination of sequential illness. We will continue to attempt to wean from high oxygen requirements. 12/29/2019-completed dedicated therapy for Covid-19 pneumonia. Now on antibiotics for possible subsequent healthcare associated pneumonia. 12/30/2019-difficult to know how much of her current pulmonary status is related to her recent Covid-19 pneumonia versus care acquired pneumonia. Continue current treatment regimen. 12/31/2019-bilateral basal rales still present despite improvement. Possible for inflammatory changes to being more chronic if not permanent. Will monitor closely. 01/05/2020-repeat COVID-19 testing is pending. Patient is not on dexamethasone not on remdesivir not on convulsant plasma. Pulse ox is 96% on 1 L. To repeat the chest x-ray today. If the COVID-19 is negative plan is to discharge her to rehab facility in this county. 01/06/2020-chest x-ray done yesterday stable. COVID-19 testing is pending. Patient is comfortably in the bed on room air. If the test is negative that is COVID-19 test is negative she may go home with home health. (2) HTN (hypertension) Qualifiers: Hypertension type: essential hypertension Qualified Code(s): I10 - Essential (primary) hypertension Is this a current diagnosis for this admission?: Yes Plan: Continued hypotension today. Overall well controlled. Decrease metoprolol to 25 mg twice daily. 12/26/2019-medication changes as above. Hopefully this patient continues to recover blood pressure will respond. As noted above if heart rate is not adequately controlled we may need to implement digoxin therapy so as not to lower the blood pressure any further. 12/27/2019-blood pressures are holding steady even with the addition of metoprolol. Pulse rate is improved slightly. Reassess tomorrow consider increasing the metoprolol slightly while monitoring the patient on telemetry and monitoring vital signs. 12/28/2019-tolerating addition of furosemide. No significant hypotensive episodes. Continue to monitor vital signs and adjust medications accordingly. 12/29/2019-blood pressures are still marginal with systolic pressures typically between 100 -110. This does not appear to have significant clinical impact. We will continue to monitor closely. 12/30/2019-we will decrease furosemide to once daily. This should help blood pressure somewhat. 12/31/2019-no significant change from medication change. Continue to monitor closely and adjust medications accordingly. 01/01/2020-continue current medications. Systolic pressure is typically 100-115 over the last day or 2. 01/03/2020-blood pressure this morning is 97/74. Receiving Lasix 40 mg p.o. daily. Echocardiogram shows EF of 55 to 60%. Plan is to hold Lasix at this time and a repeat chest x-ray. 01/06/2020-blood pressures on the softer side. Latest blood pressure is 107/70. Not on Lasix. Plan is to continue the present management at this time. (3) Diabetes Qualifiers: Diabetes mellitus type: type 2 Is this a current diagnosis for this admission?: No Plan: A1c 6.2%. Continue Metformin Continue sliding-scale insulin and accuchecks. Hypoglycemia protocol. Consistent carb diet. 01/05/20-latest blood sugar 136. To continue insulin sliding scale before meals and at bedtime. Patient is on diabetic diet. To hold metformin at this time. (4) Kidney carcinoma Qualifiers: Laterality: right Qualified Code(s): C64.1 - Malignant neoplasm of right kidney, except renal pelvis Is this a current diagnosis for this admission?: Yes Plan: Patient has history of right-sided kidney cancer status post nephrectomy. Continue home regimen of fentanyl and oxycodone All treatment for this at this time is on hold due to patient's acute illness. (5) Obesity (BMI 30.0-34.9) Is this a current diagnosis for this admission?: Yes Plan: BMI 29.7 ~14 kg weight loss this admission Diet exercise weight loss lifestyle modifications previously discussed with the patient. Consistent carb diet. 12/27/2019-continue consistent carbohydrate diet. Current weight seems to be holding steady. 12/28/2019-initial admission weight was 88 kg. Most recent weight is 77 kg. Weight loss is due to her critical illness. We will continue to encourage good oral intake. - Plan Summary Summary: COVID-19 Pneumonia: diagnosed on 12/07/2019 and now resolved. Healthcare-associated pneumonia: completed empiric treatment with vancomycin and cefepime on 01/01/2020. Acute on Chronic Diastolic CHF: TTE revealed grade 1 diastolic dysfunction w ithin normal ejection fraction. CXR 01/02 notable for bilateral pleural effusions. She is having desaturations with exertion, +JVD, bibasilar crackles and BLE edema. Will start Lasix 40 mg IV daily for diuresis. LUIS: due to cardiorenal syndrome in the s/o CHF exacerbation. Treat with Lasix. Repeat BMP in AM. Acute hypoxemic respiratory failure: due to above diagnoses. She is now saturating well on room air at rest, but does have desaturations with minimal exertion. Anticipate improvement with diuresis. Hyperglycemia due pre-diabetes: hyperglycemia due to steroid usage during this hospitalization. HbA1c 6.2%. Based on HbA1c, she does not need insulin therapy. Continue metformin. Malignant neoplasm of right kidney: status post nephrectomy. Continue home regimen of fentanyl and oxycodone. She has a port in place and was on immunotherapy prior to this hospitalization. All treatment for this is currently on hold due to patient's acute illness. Paroxysmal atrial fibrillation with rapid ventricular response: CHADsVASC score 4. Currently rate controlled. Continue metoprolol and Eliquis. Generalized Weakness: due to prolonged hospitalization. PT/OT have recommended discharge to SNF and patient is amenable. Discharge planning following. - Time Anticipated Discharge Disposition: [facility] Anticipated Discharge Timeframe: within 48 hours
[2020-01-06] MEDS: MAGNESIUM OXIDE 400 MG TABLET PO SCH ×2 (10:55→17:06)
[2020-01-06] MEDS: METOPROLOL TARTRATE 25 MG TABLET PO SCH ×2 (10:55→21:41)
[2020-01-06] MEDS: FLUTICASONE NASAL SPRAY 50 MCG/SPRY 120 SPRAY/16 GM NASL SCH ×2 (10:55→21:54)
[2020-01-06] MEDS: APIXABAN 5 MG TABLET PO SCH ×2 (10:55→21:41)
[2020-01-06] MEDS: CHOLECALCIFEROL (D3) 400 UNIT TABLET PO SCH (10:55)
[2020-01-06] MEDS: LIDOCAINE 5% (700 MG) TRANSDERMAL ADH..PATCH TP SCH (10:55)
[2020-01-06] MEDS: ZINC SULFATE 220 MG CAPSULE PO SCH (10:55)
[2020-01-06] MEDS: ASCORBIC ACID 500 MG TABLET PO SCH ×2 (10:55→17:06)
[2020-01-06] MEDS: MELATONIN 3 MG TABLET PO SCH (21:41)
[2020-01-06] MEDS: PHARMACY COMMUNICATION ORDER MC SCH (21:55)
[2020-01-07] MEDS: LEVOTHYROXINE SODIUM 0.088 MG TABLET PO SCH (05:23)
[2020-01-07] MEDS: PANTOPRAZOLE SODIUM 40 MG TABLET.DR PO SCH ×2 (05:23→18:16)
[2020-01-07 05:50] LABS: HEMATOCRIT 33.4 % (36.0-47.0); MEAN CORPUSCULAR HEMOGLOBIN 30.8 pg (27.0-33.4); MEAN CORPUSCULAR VOLUME 94 fl (80-97); PLATELET COUNT 194 10^3/uL (150-450); RED BLOOD COUNT 3.57 10^6/uL (3.72-5.28); RED CELL DISTRIBUTION WIDTH 15.8 % (11.5-14.0); WHITE BLOOD COUNT 7.3 10^3/uL (4.0-10.5)
[2020-01-07 06:13] LABS: ALBUMIN 3.3 g/dL (3.5-5.0); ALKALINE PHOSPHATASE 82 U/L (38-126); ANION GAP 7 (5-19); ASPARTATE AMINO TRANSFERASE 53 U/L (14-36); BILIRUBIN,DIRECT 0.4 mg/dL (0.0-0.4); BILIRUBIN,TOTAL 0.8 mg/dL (0.2-1.3); BLOOD UREA NITROGEN 35 mg/dL (7-20); CALCIUM 9.1 mg/dL (8.4-10.2); CARBON DIOXIDE 34 mmol/L (22-30); CHLORIDE 101 mmol/L (98-107); GLUCOSE 133 mg/dL (75-110); TOTAL PROTEIN 5.9 g/dL (6.3-8.2)
[2020-01-07 06:30] LABS: ABSOLUTE LYMPHOCYTES# (MANUAL) 2.1 10^3/uL (0.5-4.7); ABSOLUTE MONOCYTES # (MANUAL) 0.4 10^3/uL (0.1-1.4); BAND NEUTROPHILS % (MANUAL) 2 % (3-5); BASOPHILS % (MANUAL) 0 % (0-2); EOSINOPHILS % (MANUAL) 4 % (0-6); LYMPHOCYTES % (MANUAL) 29 % (13-45); MONOCYTES % (MANUAL) 6 % (3-13); SEGMENTED NEUTROPHILS % (MAN) 58 % (42-78); TOTAL CELLS COUNTED 100
[2020-01-07 06:31] LABS: TOXIC VACUOLATION PRESENT
[2020-01-07 06:34] LABS: ANISOCYTOSIS 1+; SCHISTOCYTES SLIGHT
[2020-01-07 06:35] LABS: OVALOCYTES SLIGHT; PLATELET COMMENT ADEQUATE
[2020-01-07 06:37] LABS: TEAR DROP CELLS SLIGHT
[2020-01-07 06:38] LABS: MYELOCYTES % (MANUAL) 1 % (0)
[2020-01-07] MEDS: IPRATROPIUM/ALBUTEROL 0.5-2.5 MG/3 ML AMPUL NEB SCH ×2 (07:35→20:22)
[2020-01-07] MEDS: BUDESONIDE NEB 0.5 MG/2 ML AMPUL NEB SCH ×2 (07:35→20:22)
[2020-01-07] MEDS: ZINC SULFATE 220 MG CAPSULE PO SCH (10:52)
[2020-01-07] MEDS: ASCORBIC ACID 500 MG TABLET PO SCH ×2 (10:52→18:16)
[2020-01-07] MEDS: METOPROLOL TARTRATE 25 MG TABLET PO SCH ×2 (10:53→22:00)
[2020-01-07] MEDS: DOCUSATE SODIUM 100 MG CAPSULE PO SCH (10:53)
[2020-01-07] MEDS: APIXABAN 5 MG TABLET PO SCH ×2 (10:53→21:15)
[2020-01-07] MEDS: CHOLECALCIFEROL (D3) 400 UNIT TABLET PO SCH (10:53)
[2020-01-07] MEDS: LIDOCAINE 5% (700 MG) TRANSDERMAL ADH..PATCH TP SCH (10:53)
[2020-01-07] MEDS: FLUTICASONE NASAL SPRAY 50 MCG/SPRY 120 SPRAY/16 GM NASL SCH ×2 (10:53→21:21)
[2020-01-07] MEDS: MAGNESIUM OXIDE 400 MG TABLET PO SCH ×2 (10:53→18:17)
--- NOTE | 2020-01-07 12:08 | PDOC PROGRESS REPORT ---
Subjective Progress Note for:: 01/07/20 Subjective:: 69 year old female with history of hypertension, diabetes mellitus, lung cancer, right kidney cancer with right nephrectomy on immunosuppression, recently positive for COVID-19 at PCPs office 1 week ago came to the emergency room with complaints of fever and shortness of breath the last couple of days. Chest x- ray indicated of left lower lobe pneumonia. WBC count within normal limits pulse ox is on room air is 92% with 2 L of oxygen is 100%. Patient wants to be a DNR/DNI. Agreed to stay in the hospital for further management. 12/07/2019-patient is doing much better. No acute events the last 24. COVID-19 test was done this morning. Alert awake communicating well. Not in distress. 12/08/2019-no acute events in the last 24 hours. Afebrile. Patient was positive for COVID-19 as an outpatient repeat test is pending. Patient became tachycardic last night heart rate went up to 170. Patient was given IV metoprolol as needed. Heart rate at this time is 120. Patient is on remdesivir and dexamethasone. Urine culture is positive for group B streptococcus. Cultures are negative. And is to discontinue IV fluids from today. 12/09/19-patient is in A. fib. Heart rate is around 150. Systolic blood pressure is 88. To give her 1 dose of digoxin and a started on IV fluids normal saline at 75 cc/h. Pulse ox is 91% on 5 L. To start her on convulsant plasma. Patient is receiving dexamethasone and remidisivir. 12/10/2019-patient looks anxious and mildly tachypneic. On examination lower extremities slightly edematous. Blood pressures are stable. To hold IV fluids at this time and give Lasix 20 mg IV 1 dose and to repeat the chest x-ray. As for family member request patient was started on lorazepam 1 mg p.o. twice daily. Plan is to repeat the labs tomorrow. To continue dexamethasone, remedesvir, convulsant plasma at this time. 01/05/2020-patient is comfortable in the bed communicating well. Not in distress. On 1 L of oxygen. COVID-19 test is pending. Plan is to repeat the chest x-ray today. Blood pressures on the softer side to hold the Lasix at this time. 01/06/2020-patient is comfortably in the bed communicating well. On room air. Chest x-ray done yesterday stable. COVID-19 test results are pending. Plan is to continue the present management at this time. 01/07/[id number] came back positive again. Patient agreed to go to long-term facility in [place]. Comfortably in the chair communicating well. Not in distress. Reason For Visit: PNEUMONIA DUE TO COVID19 VIRUS Physical Exam Vital Signs: Temp Pulse Resp BP Pulse Ox 97.8 F 111 H 19 108/72 94 01/07/20 08:41 01/07/20 08:41 01/07/20 08:41 01/07/20 08:41 01/07/20 08:41 Intake & Output 01/06/20 01/07/20 01/08/20 06:59 06:59 06:59 Intake Total 720 Balance 720 Weight 71.2 kg 71.4 kg General appearance: PRESENT: no acute distress, cooperative Head exam: PRESENT: atraumatic Eye exam: PRESENT: PERRLA Mouth exam: PRESENT: moist, tongue midline Teeth exam: PRESENT: poor dentation Neck exam: ABSENT: carotid bruit, JVD, lymphadenopathy, thyromegaly Respiratory exam: PRESENT: decreased breath sounds Cardiovascular exam: PRESENT: RRR. ABSENT: diastolic murmur, rubs, systolic murmur GI/Abdominal exam: PRESENT: normal bowel sounds, soft. ABSENT: distended, guarding, mass, organolmegaly, rebound, tenderness Rectal exam: PRESENT: deferred Extremities exam: PRESENT: full ROM. ABSENT: calf tenderness, clubbing, pedal edema Neurological exam: PRESENT: alert, awake, oriented to person, oriented to place, oriented to time, oriented to situation, CN II-XII grossly intact. ABSENT: motor sensory deficit Psychiatric exam: PRESENT: appropriate affect, normal mood. ABSENT: homicidal ideation, suicidal ideation Results Laboratory Results: 01/07/20 05:30 01/07/20 05:30 01/07/20 01/07/20 05:30 05:30 WBC 7.3 RBC 3.57 L Hgb 11.0 L Hct 33.4 L MCV 94 MCH 30.8 MCHC 33.0 RDW 15.8 H Plt Count 194 Seg Neutrophils % Not Reportable Sodium 141.7 Potassium 4.0 Chloride 101 Carbon Dioxide 34 H Anion Gap 7 BUN 35 H Creatinine 1.73 H Est GFR ( Amer) 35 L Glucose 133 H Calcium 9.1 Magnesium 2.4 H Total Bilirubin 0.8 AST 53 H Alkaline Phosphatase 82 Total Protein 5.9 L Albumin 3.3 L 12/06/19 12/06/19 12/06/19 06:48 06:48 16:12 Creatine Kinase 199 H 194 H Troponin I < 0.012 NT-Pro-B Natriuret Pep 12/06/19 12/07/19 12/23/19 20:20 05:25 17:29 Creatine Kinase 168 H Troponin I NT-Pro-B Natriuret Pep 253 H 388 H Impressions: Chest/Abdomen CTA 12/10/19 00:00 IMPRESSION: 1. NORMAL CTA OF THE CHEST. NO PULMONARY EMBOLI. 2. MILD CARDIOMEGALY AND SMALL PLEURAL EFFUSIONS. DIFFUSE GROUND-GLASS OPACITIES THROUGHOUT BOTH LUNGS WHICH MAY BE DUE TO PULMONARY EDEMA, PNEUMONITIS, OR PNEUMONIA/ VIRAL INFECTION. Chest CT 12/25/19 00:00 IMPRESSION: 1. Pneumomediastinum. 2. Bilateral pneumonia. Chest X-Ray 01/05/20 00:00 IMPRESSION: STABLE APPEARANCE OF THE CHEST. Assessment and Plan - Diagnosis (1) Pneumonia due to COVID-19 virus Is this a current diagnosis for this admission?: Yes Plan: Plan as noted above. 12/26/2019-initial pneumonia was Covid-19. Patient subsequently experienced health care acquired pneumonia requiring broad-spectrum antibiotics. Complete a ntibiotics as ordered. 12/27/2019-patient completed therapy for Covid-19 pneumonia previously. [facility] suspected healthcare acquired pneumonia as above. 12/28/2019-difficult to ascertain how much of her current status is due to the healthcare acquired pneumonia versus the Covid-19 pneumonia. It is most likely a combination of sequential illness. We will continue to attempt to wean from high oxygen requirements. 12/29/2019-completed dedicated therapy for Covid-19 pneumonia. Now on antibiotics for possible subsequent healthcare associated pneumonia. 12/30/2019-difficult to know how much of her current pulmonary status is related to her recent Covid-19 pneumonia versus care acquired pneumonia. Continue current treatment regimen. 12/31/2019-bilateral basal rales still present despite improvement. Possible for inflammatory changes to being more chronic if not permanent. Will monitor c losely. 01/05/2020-repeat COVID-19 testing is pending. Patient is not on dexamethasone not on remdesivir not on convulsant plasma. Pulse ox is 96% on 1 L. To repeat the chest x-ray today. If the COVID-19 is negative plan is to discharge her to rehab facility in [facility]. 01/06/2020-chest x-ray done yesterday stable. COVID-19 testing is pending. Patient is comfortably in the bed on room air. If the test is negative that is COVID-19 test is negative she may go home with home health. 01/[id number] test is positive. Patient agreed to go to long-term care facility in [place]. (2) HTN (hypertension) Qualifiers: Hypertension type: essential hypertension Qualified Code(s): I10 - Essential (primary) hypertension Is this a current diagnosis for this admission?: Yes Plan: Continued hypotension today. Overall well controlled. Decrease metoprolol to 25 mg twice daily. 12/26/2019-medication changes as above. Hopefully this patient continues to rec over blood pressure will respond. As noted above if heart rate is not adequately controlled we may need to implement digoxin therapy so as not to lower the blood pressure any further. 12/27/2019-blood pressures are holding steady even with the addition of metoprolol. Pulse rate is improved slightly. Reassess tomorrow consider increasing the metoprolol slightly while monitoring the patient on telemetry and monitoring vital signs. 12/28/2019-tolerating addition of furosemide. No significant hypotensive episodes. Continue to monitor vital signs and adjust medications accordingly. 12/29/2019-blood pressures are still marginal with systolic pressures typically between 100 -110. This does not appear to have significant clinical impact. We will continue to monitor closely. 12/30/2019-we will decrease furosemide to once daily. This should help blood pressure somewhat. 12/31/2019-no significant change from medication change. Continue to monitor closely and adjust medications accordingly. 01/01/2020-continue current medications. Systolic pressure is typically 100-115 over the last day or 2. 01/03/2020-blood pressure this morning is 97/74. Receiving Lasix 40 mg p.o. daily. Echocardiogram shows EF of 55 to 60%. Plan is to hold Lasix at this time and a repeat chest x-ray. 01/06/2020-blood pressures on the softer side. Latest blood pressure is 107/70. Not on Lasix. Plan is to continue the present management at this time. 01/07/2020-blood pressure is stable. Not on diuretics. Plan is to closely monitor the blood pressures on regular basis. (3) Diabetes Qualifiers: Diabetes mellitus type: type 2 Is this a current diagnosis for this admission?: No Plan: A1c 6.2%. Continue Metformin Continue sliding-scale insulin and accuchecks. Hypoglycemia protocol. Consistent carb diet. 01/05/20-latest blood sugar 136. To continue insulin sliding scale before meals and at bedtime. Patient is on diabetic diet. To hold metformin at this time. 01/07/2020-latest blood sugar is 113. Stable. Plan is to continue the present management at this time. (4) Kidney carcinoma Qualifiers: Laterality: right Qualified Code(s): C64.1 - Malignant neoplasm of right kidney, except renal pelvis Is this a current diagnosis for this admission?: Yes Plan: Patient has history of right-sided kidney cancer status post nephrectomy. Continue home regimen of fentanyl and oxycodone All treatment for this at this time is on hold due to patient's acute illness. (5) Obesity (BMI 30.0-34.9) Is this a current diagnosis for this admission?: Yes Plan: BMI 29.7 ~14 kg weight loss this admission Diet exercise weight loss lifestyle modifications previously discussed with the patient. Consistent carb diet. 12/27/2019-continue consistent carbohydrate diet. Current weight seems to be holding steady. 12/28/2019-initial admission weight was 88 kg. Most recent weight is 77 kg. Weight loss is due to her critical illness. We will continue to encourage good oral intake. - Plan Summary Summary: COVID-19 Pneumonia: diagnosed on 12/07/2019 and now resolved. Healthcare-associated pneumonia: completed empiric treatment with vancomycin and cefepime on 01/01/2020. Acute on Chronic Diastolic CHF: TTE revealed grade 1 diastolic dysfunction within normal ejection fraction. CXR 01/02 notable for bilateral pleural effusions. She is having desaturations with exertion, +JVD, bibasilar crackles and BLE edema. Will start Lasix 40 mg IV daily for diuresis. LUIS: due to cardiorenal syndrome in the s/o CHF exacerbation. Treat with Lasix. Repeat BMP in AM. Acute hypoxemic respiratory failure: due to above diagnoses. She is now satu rating well on room air at rest, but does have desaturations with minimal exertion. Anticipate improvement with diuresis. Hyperglycemia due pre-diabetes: hyperglycemia due to steroid usage during this hospitalization. HbA1c 6.2%. Based on HbA1c, she does not need insulin therapy. Continue metformin. Malignant neoplasm of right kidney: status post nephrectomy. Continue home regimen of fentanyl and oxycodone. She has a port in place and was on im munotherapy prior to this hospitalization. All treatment for this is currently on hold due to patient's acute illness. Paroxysmal atrial fibrillation with rapid ventricular response: CHADsVASC score 4. Currently rate controlled. Continue metoprolol and Eliquis. Generalized Weakness: due to prolonged hospitalization. PT/OT have recommended discharge to SNF and patient is amenable. Discharge planning following. - Time Anticipated Discharge Disposition: [facility] Facility Anticipated Discharge Timeframe: within 48 hours
[2020-01-07] MEDS: MELATONIN 3 MG TABLET PO SCH (21:15)
[2020-01-07] MEDS: OXYCODONE-ACETAMINOPHEN 5-325 MG TABLET PO PRN (21:16)
[2020-01-07] MEDS: PHARMACY COMMUNICATION ORDER MC SCH (21:22)
[2020-01-08] MEDS: PANTOPRAZOLE SODIUM 40 MG TABLET.DR PO SCH ×2 (06:12→17:48)
[2020-01-08] MEDS: LEVOTHYROXINE SODIUM 0.088 MG TABLET PO SCH (06:12)
[2020-01-08 06:50] LABS: HEMATOCRIT 32.5 % (36.0-47.0); HEMOGLOBIN 10.7 g/dL (12.0-15.5); MEAN CORPUSCULAR HEMOGLOBIN 30.9 pg (27.0-33.4); MEAN CORPUSCULAR HGB CONC 32.8 g/dL (32.0-36.0); MEAN CORPUSCULAR VOLUME 94 fl (80-97); PLATELET COUNT 173 10^3/uL (150-450); RED BLOOD COUNT 3.45 10^6/uL (3.72-5.28); RED CELL DISTRIBUTION WIDTH 15.5 % (11.5-14.0); WHITE BLOOD COUNT 6.9 10^3/uL (4.0-10.5)
[2020-01-08 07:09] LABS: ALBUMIN 3.2 g/dL (3.5-5.0); ALKALINE PHOSPHATASE 81 U/L (38-126); ANION GAP 7 (5-19); ASPARTATE AMINO TRANSFERASE 48 U/L (14-36); BILIRUBIN,DIRECT 0.3 mg/dL (0.0-0.4); BILIRUBIN,TOTAL 0.8 mg/dL (0.2-1.3); BLOOD UREA NITROGEN 28 mg/dL (7-20); CARBON DIOXIDE 31 mmol/L (22-30); CHLORIDE 103 mmol/L (98-107); GLUCOSE 153 mg/dL (75-110); POTASSIUM 3.8 mmol/L (3.6-5.0); TOTAL PROTEIN 5.8 g/dL (6.3-8.2)
[2020-01-08 07:33] LABS: ABSOLUTE LYMPHOCYTES# (MANUAL) 1.4 10^3/uL (0.5-4.7); ABSOLUTE MONOCYTES # (MANUAL) 0.4 10^3/uL (0.1-1.4); ANISOCYTOSIS SLIGHT; BASOPHILS % (MANUAL) 0 % (0-2); EOSINOPHILS % (MANUAL) 4 % (0-6); LYMPHOCYTES % (MANUAL) 20 % (13-45); MONOCYTES % (MANUAL) 6 % (3-13); SEGMENTED NEUTROPHILS % (MAN) 70 % (42-78); TOTAL CELLS COUNTED 100
[2020-01-08 07:34] LABS: POLYCHROMASIA SLIGHT
[2020-01-08 07:37] LABS: PLATELET COMMENT ADEQUATE; POIKILOCYTOSIS SLIGHT; TEAR DROP CELLS SLIGHT
[2020-01-08] MEDS: IPRATROPIUM/ALBUTEROL 0.5-2.5 MG/3 ML AMPUL NEB SCH ×2 (07:38→19:47)
[2020-01-08] MEDS: BUDESONIDE NEB 0.5 MG/2 ML AMPUL NEB SCH ×2 (07:38→19:47)
[2020-01-08] MEDS: DOCUSATE SODIUM 100 MG CAPSULE PO SCH (10:37)
[2020-01-08] MEDS: METOPROLOL TARTRATE 25 MG TABLET PO SCH ×2 (10:37→21:52)
[2020-01-08] MEDS: CHOLECALCIFEROL (D3) 400 UNIT TABLET PO SCH (10:37)
[2020-01-08] MEDS: ZINC SULFATE 220 MG CAPSULE PO SCH (10:37)
[2020-01-08] MEDS: ASCORBIC ACID 500 MG TABLET PO SCH ×2 (10:38→17:48)
[2020-01-08] MEDS: FLUTICASONE NASAL SPRAY 50 MCG/SPRY 120 SPRAY/16 GM NASL SCH ×2 (10:38→21:56)
[2020-01-08] MEDS: APIXABAN 5 MG TABLET PO SCH ×2 (10:38→21:52)
[2020-01-08] MEDS: MAGNESIUM OXIDE 400 MG TABLET PO SCH (10:38)
[2020-01-08] MEDS: LIDOCAINE 5% (700 MG) TRANSDERMAL ADH..PATCH TP SCH (10:38)
[2020-01-08 14:12] LABS: PATH REVIEW PATHOLOGIST REVIEWED
--- NOTE | 2020-01-08 15:39 | PDOC PROGRESS REPORT ---
Subjective Progress Note for:: 01/08/20 Subjective:: 69 year old female with history of hypertension, diabetes mellitus, lung cancer, right kidney cancer with right nephrectomy on immunosuppression, recently positive for COVID-19 at PCPs office 1 week ago came to the emergency room with complaints of fever and shortness of breath the last couple of days. Chest x- ray indicated of left lower lobe pneumonia. WBC count within normal limits pulse ox is on room air is 92% with 2 L of oxygen is 100%. Patient wants to be a DNR/DNI. Agreed to stay in the hospital for further management. 12/07/2019-patient is doing much better. No acute events the last 24. COVID-19 test was done this morning. Alert awake communicating well. Not in distress. 12/08/2019-no acute events in the last 24 hours. Afebrile. Patient was positive for COVID-19 as an outpatient repeat test is pending. Patient became tachycardic last night heart rate went up to 170. Patient was given IV metoprolol as needed. Heart rate at this time is 120. Patient is on remdesivir and dexamethasone. Urine culture is positive for group B streptococcus. Cultures are negative. And is to discontinue IV fluids from today. 12/09/19-patient is in A. fib. Heart rate is around 150. Systolic blood pressure is 88. To give her 1 dose of digoxin and a started on IV fluids normal saline at 75 cc/h. Pulse ox is 91% on 5 L. To start her on convulsant plasma. Patient is receiving dexamethasone and remidisivir. 12/10/2019-patient looks anxious and mildly tachypneic. On examination lower extremities slightly edematous. Blood pressures are stable. To hold IV fluids at this time and give Lasix 20 mg IV 1 dose and to repeat the chest x-ray. As for family member request patient was started on lorazepam 1 mg p.o. twice daily. Plan is to repeat the labs tomorrow. To continue dexamethasone, remedesvir, convulsant plasma at this time. 01/05/2020-patient is comfortable in the bed communicating well. Not in distress. On 1 L of oxygen. COVID-19 test is pending. Plan is to repeat the chest x-ray today. Blood pressures on the softer side to hold the Lasix at this time. 01/06/2020-patient is comfortably in the bed communicating well. On room air. Chest x-ray done yesterday stable. COVID-19 test results are pending. Plan is to continue the present management at this time. 01/07/[id number]-[id number] came back positive again. Patient agreed to go to long-term facility in [place]. Comfortably in the chair communicating well. Not in distress. 04/09/[id number] is positive. Pulse ox is 97% on 1 L of oxygen. No acute events in the last 24 hours. Waiting for placement in [place] Reason For Visit: PNEUMONIA DUE TO COVID19 VIRUS Physical Exam Vital Signs: Temp Pulse Resp BP Pulse Ox 97.7 F 102 H 20 122/78 98 01/08/20 12:17 01/08/20 12:17 01/08/20 12:17 01/08/20 12:17 01/08/20 12:17 Intake & Output 01/07/20 01/08/20 01/09/20 06:59 06:59 06:59 Intake Total 720 1220 240 Balance 720 1220 240 Weight 71.4 kg 71.4 kg General appearance: PRESENT: no acute distress, cooperative, well-developed Head exam: PRESENT: atraumatic Eye exam: PRESENT: PERRLA Mouth exam: PRESENT: moist, tongue midline Teeth exam: PRESENT: poor dentation Neck exam: ABSENT: carotid bruit, JVD, lymphadenopathy, thyromegaly Respiratory exam: PRESENT: decreased breath sounds Cardiovascular exam: PRESENT: RRR. ABSENT: diastolic murmur, rubs, systolic murmur GI/Abdominal exam: PRESENT: normal bowel sounds, soft. ABSENT: distended, guarding, mass, organolmegaly, rebound, tenderness Rectal exam: PRESENT: deferred Extremities exam: PRESENT: full ROM. ABSENT: calf tenderness, clubbing, pedal edema Neurological exam: PRESENT: alert, awake, oriented to person, oriented to place, oriented to time, oriented to situation, CN II-XII grossly intact. ABSENT: motor sensory deficit Psychiatric exam: PRESENT: appropriate affect, normal mood. ABSENT: homicidal ideation, suicidal ideation Results Laboratory Results: 01/08/20 06:20 01/08/20 06:20 01/08/20 01/08/20 06:20 06:20 WBC 6.9 RBC 3.45 L Hgb 10.7 L Hct 32.5 L MCV 94 MCH 30.9 MCHC 32.8 RDW 15.5 H Plt Count 173 Seg Neutrophils % Not Reportable Sodium 141.3 Potassium 3.8 Chloride 103 Carbon Dioxide 31 H Anion Gap 7 BUN 28 H Creatinine 1.57 H Est GFR ( Amer) 39 L Glucose 153 H Calcium 9.0 Magnesium 2.2 Total Bilirubin 0.8 AST 48 H Alkaline Phosphatase 81 Total Protein 5.8 L Albumin 3.2 L 12/06/19 12/06/19 12/06/19 06:48 06:48 16:12 Creatine Kinase 199 H 194 H Troponin I < 0.012 NT-Pro-B Natriuret Pep 12/06/19 12/07/19 12/23/19 20:20 05:25 17:29 Creatine Kinase 168 H Troponin I NT-Pro-B Natriuret Pep 253 H 388 H Impressions: Chest/Abdomen CTA 12/10/19 00:00 IMPRESSION: 1. NORMAL CTA OF THE CHEST. NO PULMONARY EMBOLI. 2. MILD CARDIOMEGALY AND SMALL PLEURAL EFFUSIONS. DIFFUSE GROUND-GLASS OPACITIES THROUGHOUT BOTH LUNGS WHICH MAY BE DUE TO PULMONARY EDEMA, PNEUMON ITIS, OR PNEUMONIA/ VIRAL INFECTION. Chest CT 12/25/19 00:00 IMPRESSION: 1. Pneumomediastinum. 2. Bilateral pneumonia. Chest X-Ray 01/05/20 00:00 IMPRESSION: STABLE APPEARANCE OF THE CHEST. Assessment and Plan - Diagnosis (1) Pneumonia due to COVID-19 virus Is this a current diagnosis for this admission?: Yes Plan: Plan as noted above. 12/26/2019-initial pneumonia was Covid-19. Patient subsequently experienced health care acquired pneumonia requiring broad-spectrum antibiotics. Complete antibiotics as ordered. 12/27/2019-patient completed therapy for Covid-19 pneumonia previously. Treating suspected healthcare acquired pneumonia as above. 12/28/2019-difficult to ascertain how much of her current status is due to the healthcare acquired pneumonia versus the Covid-19 pneumonia. It is most likely a combination of sequential illness. We will continue to attempt to wean from high oxygen requirements. 12/29/2019-completed dedicated therapy for Covid-19 pneumonia. Now on antibiotics for possible subsequent healthcare associated pneumonia. 12/30/2019-difficult to know how much of her current pulmonary status is related to her recent Covid-19 pneumonia versus care acquired pneumonia. Continue current treatment regimen. 12/31/2019-bilateral basal rales still present despite improvement. Possible for inflammatory changes to being more chronic if not permanent. Will monitor closely. 01/05/2020-repeat COVID-19 testing is pending. Patient is not on dexamethasone not on remdesivir not on convulsant plasma. Pulse ox is 96% on 1 L. To repeat the chest x-ray today. If the COVID-19 is negative plan is to discharge her to rehab facility in this critical access hospital. 01/06/2020-chest x-ray done yesterday stable. COVID-19 testing is pending. Patient is comfortably in the bed on room air. If the test is negative that is COVID-19 test is negative she may go home with home health. 01/07/[id number]-[id number]-40 test is positive. Patient agreed to go to long-term care facility in [place]. 01/08/2020-repeat Covid test on of this month came back positive. Waiting for placement. (2) HTN (hypertension) Qualifiers: Hypertension type: essential hypertension Qualified Code(s): I10 - Essential (primary) hypertension Is this a current diagnosis for this admission?: Yes Plan: Continued hypotension today. Overall well controlled. Decrease metoprolol to 25 mg twice daily. 12/26/2019-medication changes as above. Hopefully this patient continues to recover blood pressure will respond. As noted above if heart rate is not adequately controlled we may need to implement digoxin therapy so as not to lower the blood pressure any further. 12/27/2019-blood pressures are holding steady even with the addition of metoprolol. Pulse rate is improved slightly. Reassess tomorrow consider inc reasing the metoprolol slightly while monitoring the patient on telemetry and monitoring vital signs. 12/28/2019-tolerating addition of furosemide. No significant hypotensive episodes. Continue to monitor vital signs and adjust medications accordingly. 12/29/2019-blood pressures are still marginal with systolic pressures typically between 100 -110. This does not appear to have significant clinical impact. We will continue to monitor closely. 12/30/2019-we will decrease furosemide to once daily. This should help blood pressure somewhat. 12/31/2019-no significant change from medication change. Continue to monitor closely and adjust medications accordingly. 01/01/2020-continue current medications. Systolic pressure is typically 100-115 over the last day or 2. 01/03/2020-blood pressure this morning is 97/74. Receiving Lasix 40 mg p.o. daily. Echocardiogram shows EF of 55 to 60%. Plan is to hold Lasix at this time and a repeat chest x-ray. 01/06/2020-blood pressures on the softer side. Latest blood pressure is 107/70. Not on Lasix. Plan is to continue the present management at this time. 01/07/2020-blood pressure is stable. Not on diuretics. Plan is to closely monitor the blood pressures on regular basis. 01/08/2020-latest blood pressure is 120/70. Stable. (3) Diabetes Qualifiers: Diabetes mellitus type: type 2 Is this a current diagnosis for this admission?: No Plan: A1c 6.2%. Continue Metformin Continue sliding-scale insulin and accuchecks. Hypoglycemia protocol. Consistent carb diet. 01/05/20-latest blood sugar 136. To continue insulin sliding scale before meals and at bedtime. Patient is on diabetic diet. To hold metformin at this time. 01/07/2020-latest blood sugar is 113. Stable. Plan is to continue the present management at this time. (4) Kidney carcinoma Qualifiers: Laterality: right Qualified Code(s): C64.1 - Malignant neoplasm of right kidney, except renal pelvis Is this a current diagnosis for this admission?: Yes Plan: Patient has history of right-sided kidney cancer status post nephrectomy. Continue home regimen of fentanyl and oxycodone All treatment for this at this time is on hold due to patient's acute illness. (5) Obesity (BMI 30.0-34.9) Is this a current diagnosis for this admission?: Yes Plan: BMI 29.7 ~14 kg weight loss this admission Diet exercise weight loss lifestyle modifications previously discussed with the patient. Consistent carb diet. 12/27/2019-continue consistent carbohydrate diet. Current weight seems to be holding steady. 12/28/2019-initial admission weight was 88 kg. Most recent weight is 77 kg. Weight loss is due to her critical illness. We will continue to encourage good oral intake. - Plan Summary Summary: COVID-19 Pneumonia: diagnosed on 12/07/2019 and now resolved. Healthcare-associated pneumonia: completed empiric treatment with vancomycin and cefepime on 01/01/2020. Acute on Chronic Diastolic CHF: TTE revealed grade 1 diastolic dysfunction within normal ejection fraction. CXR 01/02 notable for bilateral pleural effusions. She is having desaturations with exertion, +JVD, bibasilar crackles and BLE edema. Will start Lasix 40 mg IV daily for diuresis. LUIS: due to cardiorenal syndrome in the s/o CHF exacerbation. Treat with Lasix. Repeat BMP in AM. Acute hypoxemic respiratory failure: due to above diagnoses. She is now saturating well on room air at rest, but does have desaturations with minimal exertion. Anticipate improvement with diuresis. Hyperglycemia due pre-diabetes: hyperglycemia due to steroid usage during this hospitalization. HbA1c 6.2%. Based on HbA1c, she does not need insulin therapy. Continue metformin. Malignant neoplasm of right kidney: status post nephrectomy. Continue home regimen of fentanyl and oxycodone. She has a port in place and was on immunotherapy prior to this hospitalization. All treatment for this is currently on hold due to patient's acute illness. Paroxysmal atrial fibrillation with rapid ventricular response: CHADsVASC score 4. Currently rate controlled. Continue metoprolol and Eliquis. Generalized Weakness: due to prolonged hospitalization. PT/OT have recommended discharge to SNF and patient is amenable. Discharge planning following. - Time Anticipated Discharge Disposition: Long Term Facility Anticipated Discharge Timeframe: within 48 hours
[2020-01-08] MEDS: OXYCODONE-ACETAMINOPHEN 5-325 MG TABLET PO PRN (18:48)
[2020-01-08] MEDS: MELATONIN 3 MG TABLET PO SCH (21:52)
[2020-01-08] MEDS: PHARMACY COMMUNICATION ORDER MC SCH (21:56)
[2020-01-09] MEDS: PANTOPRAZOLE SODIUM 40 MG TABLET.DR PO SCH ×2 (05:38→17:03)
[2020-01-09] MEDS: LEVOTHYROXINE SODIUM 0.088 MG TABLET PO SCH (05:38)
[2020-01-09] MEDS: IPRATROPIUM/ALBUTEROL 0.5-2.5 MG/3 ML AMPUL NEB SCH (09:00)
[2020-01-09] MEDS: BUDESONIDE NEB 0.5 MG/2 ML AMPUL NEB SCH (09:00)
[2020-01-09] MEDS: ASCORBIC ACID 500 MG TABLET PO SCH ×2 (09:31→17:03)
[2020-01-09] MEDS: ZINC SULFATE 220 MG CAPSULE PO SCH (09:31)
[2020-01-09] MEDS: MAGNESIUM OXIDE 400 MG TABLET PO SCH (09:31)
[2020-01-09] MEDS: CHOLECALCIFEROL (D3) 400 UNIT TABLET PO SCH (09:31)
[2020-01-09] MEDS: FLUTICASONE NASAL SPRAY 50 MCG/SPRY 120 SPRAY/16 GM NASL SCH (09:32)
[2020-01-09] MEDS: DOCUSATE SODIUM 100 MG CAPSULE PO SCH (09:32)
[2020-01-09] MEDS: LIDOCAINE 5% (700 MG) TRANSDERMAL ADH..PATCH TP SCH (09:32)
[2020-01-09] MEDS: APIXABAN 5 MG TABLET PO SCH (09:32)
[2020-01-09] MEDS: METOPROLOL TARTRATE 25 MG TABLET PO SCH (09:32)
[2020-01-09 18:42] VITALS: BP 103/68
--- NOTE | 2020-01-11 06:42 | PDOC DISCHARGE SUMMARY ---
Impression - Admit/DC Date/PCP Admission Date/Primary Care Provider: 12/06/19 07:57 PRANEETH MAYERS NP Discharge Date: 01/09/20 - Discharge Diagnosis (1) Acute hypoxemic respiratory failure due to COVID-19 Is this a current diagnosis for this admission?: Yes - Assessment Summary: COVID-19 Pneumonia: diagnosed on 12/07/2019 and now resolved. Healthcare-associated pneumonia: completed empiric treatment with vancomycin and cefepime on 01/01/2020. Acute on Chronic Diastolic CHF: TTE revealed grade 1 diastolic dysfunction within normal ejection fraction. CXR 01/02 notable for bilateral pleural effusions. She is having desaturations with exertion, +JVD, bibasilar crackles and BLE edema. Will start Lasix 40 mg IV daily for diuresis. LUIS: due to cardiorenal syndrome in the s/o CHF exacerbation. Treat with Lasix. Repeat BMP in AM. Acute hypoxemic respiratory failure: due to above diagnoses. She is now saturating well on room air at rest, but does have desaturations with minimal exertion. - Additional Information Resuscitation Status: Do Not Resuscitate Discharge Diet: As Tolerated Discharge Activity: Activity As Tolerated Referrals: [facility] [Outside] [facility] [Outside] PRANEETH MAYERS, CÉSAR [Primary Care Provider] - Follow up as needed Prescriptions: Apixaban [Eliquis 5 mg Tablet] 5 mg PO Q12 30 Days #120 tablet Fluticasone Propionate [Flonase Nasal [place] 50 Mcg/[place] 16 gm] 1 spray NASL Q12 14 Days #2 spray.pump Guaifenesin 200 mg PO QIDP PRN 7 Days #28 tablet PRN Reason: Metoprolol Tartrate [Lopressor 25 mg Tablet] 37.5 mg PO Q12 30 Days #120 tablet Budesonide [Pulmicort 90 mcg Flexhaler] 1 inh IH DAILY 30 Days #1 aer.pow.ba Docusate Sodium [Stool Softener] 100 mg PO BID 7 Days #14 capsule Ascorbic Acid [Vitamin C 500 mg Tablet] 500 mg PO BID 30 Days #60 tablet Zinc Sulfate [Zinc-220 Capsule] 220 mg PO DAILY 30 Days #30 capsule Home Medications: Levothyroxine Sodium [Synthroid 0.088 mg Tablet] 1 tab PO DAILY 04/01/15 Metformin HCl [Glucophage 500 mg Tablet] 500 mg PO DAILY 04/01/15 Fentanyl [Duragesic 25 mcg/hr Transdermal Patch] 1 each TD Q3D 12/06/19 Furosemide [Lasix 20 mg Tablet] 20 mg PO DAILYP PRN 12/06/19 Ondansetron HCl [Zofran] 4 mg PO Q8HP PRN 12/06/19 Oxycodone HCl/Acetaminophen [Percocet 10-325 mg Tablet] 1 each PO Q4HP PRN 12/06/19 Sertraline HCl [Zoloft 50 mg Tablet] 50 mg PO DAILY 12/06/19 Apixaban [Eliquis 5 mg Tablet] 5 mg PO Q12 30 Days #120 tablet 01/09/20 Ascorbic Acid [Vitamin C 500 mg Tablet] 500 mg PO BID 30 Days #60 tablet 01/09/20 Budesonide [Pulmicort 90 mcg Flexhaler] 1 inh IH DAILY 30 Days #1 aer.pow.ba 01/09/20 Docusate Sodium [Stool Softener] 100 mg PO BID 7 Days #14 capsule 01/09/20 Fluticasone Propionate [Flonase Nasal [place] 50 Mcg/[place] 16 gm] 1 spray NASL Q12 14 Days #2 spray.pump 01/09/20 Guaifenesin 200 mg PO QIDP PRN 7 Days #28 tablet 01/09/20 Metoprolol Tartrate [Lopressor 25 mg Tablet] 37.5 mg PO Q12 30 Days #120 tablet 01/09/20 Zinc Sulfate [Zinc-220 Capsule] 220 mg PO DAILY 30 Days #30 capsule 01/09/20 History of Present Illiness History of Present Illness: CUCO CASIANO is a 69 year old female, 69 year old female with history of hypertension, diabetes mellitus, lung cancer, right kidney cancer with right nephrectomy on immunosuppression, recently positive for COVID-19 at PCPs office 1 week ago came to the emergency room with complaints of fever and shortness of breath the last couple of days. Chest x-ray indicated of left lower lobe pneumonia. WBC count within normal limits pulse ox is on room air is 92% with 2 L of oxygen is 100%. Patient wants to be a DNR/DNI. Agreed to stay in the hospital for further management. Hospital Course Hospital Course: 12/07/2019-patient is doing much better. No acute events the last 24. COVID-19 test was done this morning. Alert awake communicating well. Not in distress. 12/08/2019-no acute events in the last 24 hours. Afebrile. Patient was positive for COVID-19 as an outpatient repeat test is pending. Patient became tachycardic last night heart rate went up to 170. Patient was given IV metoprolol as needed. Heart rate at this time is 120. Patient is on remdesivir and dexamethasone. Urine culture is positive for group B streptococcus. Cultures are negative. And is to discontinue IV fluids from today. 12/09/19-patient is in A. fib. Heart rate is around 150. Systolic blood pressure is 88. To give her 1 dose of digoxin and a started on IV fluids normal saline at 75 cc/h. Pulse ox is 91% on 5 L. To start her on convulsant plasma. Patient is receiving dexamethasone and remidisivir. 12/10/2019-patient looks anxious and mildly tachypneic. On examination lower extremities slightly edematous. Blood pressures are stable. To hold IV fluids at this time and give Lasix 20 mg IV 1 dose and to repeat the chest x-ray. As for family member request patient was started on lorazepam 1 mg p.o. twice daily. Plan is to repeat the labs tomorrow. To continue dexamethasone, remedesvir, convulsant plasma at this time. She would have episodes of desaturation and tachypnea between that required titration of oxygen needs. She was restarted on Cefepime adn vanc due to HCAP. Antibiotic treatments were completed. She continued to improve the succeeding days and was weaned off oxymizer. However she continued to require O2 support via nasal cannula especially with ambulation. She was eventually discharged on the 08 of January to her home with O2. Physical Exam Vital Signs: Temp Pulse Resp BP Pulse Ox 97.9 F 110 H 21 H 103/68 96 01/09/20 18:40 01/09/20 19:00 01/09/20 18:40 01/09/20 18:40 01/09/20 18:40 Intake & Output 01/09/20 01/10/20 01/11/20 06:59 06:59 06:59 Intake Total 967 960 Output Total 400 Balance 567 960 Weight 73.6 kg General appearance: PRESENT: cooperative, mild distress Head exam: PRESENT: atraumatic Eye exam: PRESENT: EOMI, PERRLA Mouth exam: PRESENT: moist Neck exam: PRESENT: full ROM Respiratory exam: PRESENT: clear to auscultation donte, symmetrical, unlabored, other - on 2L of nasal cannula Cardiovascular exam: PRESENT: RRR, +S1, +S2 Pulses: PRESENT: +2 pedal pulses bilateral GI/Abdominal exam: PRESENT: normal bowel sounds, soft. ABSENT: rebound, tenderness Extremities exam: PRESENT: full ROM, +1 edema Musculoskeletal exam: PRESENT: full ROM Neurological exam: PRESENT: alert, awake, oriented to person, oriented to place, oriented to time, oriented to situation Psychiatric exam: PRESENT: normal mood Skin exam: PRESENT: normal color Results Laboratory Results: WBC 6.9 10^3/uL (4.0-10.5) 01/08/20 06:20 RBC 3.45 10^6/uL (3.72-5.28) L 01/08/20 06:20 Hgb 10.7 g/dL (12.0-15.5) L 01/08/20 06:20 Hct 32.5 % (36.0-47.0) L 01/08/20 06:20 MCV 94 fl (80-97) 01/08/20 06:20 MCH 30.9 pg (27.0-33.4) 01/08/20 06:20 MCHC 32.8 g/dL (32.0-36.0) 01/08/20 06:20 RDW 15.5 % (11.5-14.0) H 01/08/20 06:20 Plt Count 173 10^3/uL (150-450) 01/08/20 06:20 Lymph % (Auto) Not Reportable 01/08/20 06:20 [place] % (Auto) Not Reportable 01/08/20 06:20 Eos % (Auto) Not Reportable 01/08/20 06:20 Baso % (Auto) Not Reportable 01/08/20 06:20 Absolute Neuts (auto) Not Reportable 01/08/20 06:20 Absolute Lymphs (auto) Not Reportable 01/08/20 06:20 Absolute Monos (auto) Not Reportable 01/08/20 06:20 Absolute Eos (auto) Not Reportable 01/08/20 06:20 Absolute Basos (auto) Not Reportable 01/08/20 06:20 Total Counted 100 01/08/20 06:20 Seg Neutrophils % Not Reportable 01/08/20 06:20 Seg Neuts % (Manual) 70 % (42-78) 01/08/20 06:20 Band Neutrophils % 2 % (3-5) L 01/07/20 05:30 Lymphocytes % (Manual) 20 % (13-45) 01/08/20 06:20 Monocytes % (Manual) 6 % (3-13) 01/08/20 06:20 Eosinophils % (Manual) 4 % (0-6) 01/08/20 06:20 Basophils % (Manual) 0 % (0-2) 01/08/20 06:20 Metamyelocytes % 2 % (0-1) H 12/10/19 07:30 Myelocytes % 1 % (0) H 01/07/20 05:30 Abs Neuts (Manual) 4.8 10^3/uL (1.7-8.2) 01/08/20 06:20 Abs Lymphs (Manual) 1.4 10^3/uL (0.5-4.7) 01/08/20 06:20 Abs Monocytes (Manual) 0.4 10^3/uL (0.1-1.4) 01/08/20 06:20 Absolute Eos (Manual) 0.3 10^3/uL (0.0-0.6) 01/08/20 06:20 Abs Basophils (Manual) 0.0 10^3/uL (0.0-0.2) 01/08/20 06:20 Nucleated RBCs 1 /100 WBC (0) 12/11/19 06:13 Toxic Granulation SLIGHT 12/28/19 05:15 Toxic Vacuolation PRESENT 01/07/20 05:30 Clumped Platelets PRESENT 12/28/19 05:15 Giant Platelets PRESENT 12/10/19 07:30 Large Platelets PRESENT 12/31/19 05:45 Platelet Comment ADEQUATE 01/08/20 06:20 Polychromasia SLIGHT 01/08/20 06:20 Poikilocytosis SLIGHT 01/08/20 06:20 Basophilic Stippling PRESENT 01/08/20 06:20 Anisocytosis SLIGHT 01/08/20 06:20 Target Cells Not Reportable 01/07/20 05:30 Tear Drop Cells SLIGHT 01/08/20 06:20 Ovalocytes SLIGHT 01/07/20 05:30 Eric Cells 2+ 12/11/19 06:13 Schistocytes SLIGHT 01/07/20 05:30 ESR 55 mm/hr (0-30) H 12/06/19 06:48 PT 13.9 SEC (11.4-15.4) 12/06/19 06:48 INR 1.05 12/06/19 06:48 D-Dimer 0.68 ug/mL (0.00-0.50) H 12/28/19 05:15 Carbonic Acid 1.11 mmol/L (1.05-1.35) 12/12/19 12:28 HCO3/H2CO3 Ratio 23:1 12/12/19 12:28 ABG pH 7.47 (7.35-7.45) H 12/12/19 12:28 ABG pCO2 36.9 mmHg (35-45) 12/12/19 12:28 ABG pO2 64.5 mmHg (80-100) L 12/12/19 12:28 ABG HCO3 26.3 mmol/L (20-24) H 12/12/19 12:28 ABG Total CO2 27.4 mmol/L (21-25) H 12/12/19 12:28 ABG O2 Saturation 93.9 % (94-98) L 12/12/19 12:28 ABG Base Excess 2.8 mmol/L 12/12/19 12:28 VBG pH 7.41 (7.30-7.42) 12/06/19 08:00 VBG pCO2 43.2 mmHg (35-63) 12/06/19 08:00 VBG HCO3 27.0 mmol/L (20-32) 12/06/19 08:00 VBG Base Excess 2.1 mmol/L 12/06/19 08:00 FiO2 50% 12/12/19 12:28 Sodium 141.3 mmol/L (137-145) 01/08/20 06:20 Potassium 3.8 mmol/L (3.6-5.0) 01/08/20 06:20 Chloride 103 mmol/L (98-107) 01/08/20 06:20 Carbon Dioxide 31 mmol/L (22-30) H 01/08/20 06:20 Anion Gap 7 (5-19) 01/08/20 06:20 BUN 28 mg/dL (7-20) H 01/08/20 06:20 Creatinine 1.57 mg/dL (0.52-1.25) H 01/08/20 06:20 Est GFR ( Amer) 39 (>60) L 01/08/20 06:20 Est GFR (MDRD) Non-Af 32 (>60) L 01/08/20 06:20 Glucose 153 mg/dL (75-110) H 01/08/20 06:20 POC Glucose 118 mg/dL (70-110) H 01/03/20 12:21 Hemoglobin A1c % 6.2 % (4.7-6.0) H 12/07/19 05:25 Lactic Acid 0.8 mmol/L (0.7-2.1) 12/06/19 16:12 Uric Acid 5.1 mg/dL (2.5-7.5) 12/06/19 06:48 Calcium 9.0 mg/dL (8.4-10.2) 01/08/20 06:20 Magnesium 2.2 mg/dL (1.6-2.3) 01/08/20 06:20 Ferritin 469.00 ng/mL (11.1-264.0) H 12/20/19 04:00 Total Bilirubin 0.8 mg/dL (0.2-1.3) 01/08/20 06:20 Direct Bilirubin 0.3 mg/dL (0.0-0.4) 01/08/20 06:20 Neonat Total Bilirubin Not Reportable 01/08/20 06:20 Neonat Direct Bilirubin Not Reportable 01/08/20 06:20 Neonat Indirect Bili Not Reportable 01/08/20 06:20 AST 48 U/L (14-36) H 01/08/20 06:20 ALT 114 U/L (<35) H 01/08/20 06:20 Alkaline Phosphatase 81 U/L (38-126) 01/08/20 06:20 Lactate Dehydrogenase 348 U/L (120-246) H 12/19/19 19:29 Creatine Kinase 168 U/L (30-135) H 12/06/19 20:20 Troponin I < 0.012 ng/mL 12/06/19 06:48 C-Reactive Protein 80.1 mg/L (<10.0) H 12/20/19 04:00 NT-Pro-B Natriuret Pep 388 pg/mL (<125) H 12/23/19 17:29 Total Protein 5.8 g/dL (6.3-8.2) L 01/08/20 06:20 Albumin 3.2 g/dL (3.5-5.0) L 01/08/20 06:20 Triglycerides 66 mg/dL (<150) 12/07/19 05:25 Cholesterol 128.08 mg/dL (0-200) 12/07/19 05:25 LDL Cholesterol Direct 47 mg/dL (<100) 12/07/19 05:25 VLDL Cholesterol 13.0 mg/dL (10-31) 12/07/19 05:25 HDL Cholesterol 63 mg/dL (>40) 12/07/19 05:25 TSH 0.18 uIU/mL (0.47-4.68) L 12/07/19 05:25 Urine Color YELLOW 12/22/19 07:57 Urine Appearance TURBID 12/22/19 07:57 Urine pH 5.0 (5.0-9.0) 12/22/19 07:57 Ur Specific [place] 1.028 12/22/19 07:57 Urine Protein NEGATIVE mg/dL (NEGATIVE) 12/22/19 07:57 Urine Glucose (UA) NEGATIVE mg/dL (NEGATIVE) 12/22/19 07:57 Urine Ketones NEGATIVE mg/dL (NEGATIVE) 12/22/19 07:57 Urine Blood NEGATIVE (NEGATIVE) 12/22/19 07:57 Urine Nitrite NEGATIVE (NEGATIVE) 12/22/19 07:57 Urine Nitrite (Reflex) NEGATIVE (NEGATIVE) 12/06/19 05:47 Urine Bilirubin NEGATIVE (NEGATIVE) 12/22/19 07:57 Urine Urobilinogen 4.0 mg/dL (<2.0) H 12/22/19 07:57 Ur Leukocyte Esterase NEGATIVE (NEGATIVE) 12/22/19 07:57 Leukocyte Esterase Rfl NEGATIVE (NEGATIVE) 12/06/19 05:47 Urine WBC (Auto) 1 /HPF 12/11/19 11:13 Urine RBC (Auto) 7 /HPF 12/22/19 07:57 Urine Bacteria (Auto) 1+ /HPF 12/22/19 07:57 Urine WBC (Reflex) 1 /HPF 12/06/19 05:47 Squamous Epi Cells Auto 5 /HPF 12/22/19 07:57 Amorphous Sediment Auto 1+ /HPF 12/22/19 07:57 Urine Mucus (Auto) MOD /LPF 12/22/19 07:57 Urine Ascorbic Acid 40 (NEGATIVE) H 12/22/19 07:57 Time Trough Drawn 2228 12/31/19 22:28 Vancomycin Trough 26.3 ug/mL (5.0-20.0) H 12/31/19 22:28 COVID-19 Source See comment 01/04/20 18:40 COVID-19 ([facility]) DETECTED (Not Detect) A 01/04/20 18:40 Slides for Path Review PATHOLOGIST REVIEWED 01/07/20 05:30 Blood Type A POSITIVE 12/09/19 10:40 12/06/19 12/07/19 12/23/19 06:48 05:25 17:29 Troponin I < 0.012 NT-Pro-B Natriuret Pep 253 H 388 H Impressions: Chest X-Ray 12/06/19 06:46 IMPRESSION: Bilateral lower lung opacities consistent with atelectasis and/or pneumonia and may represent a COVID 19 pneumonia. Chest X-Ray 12/08/19 00:00 IMPRESSION: Improving pneumonia. Chest X-Ray 12/10/19 00:00 IMPRESSION: Stable left basilar atelectasis or scarring. No acute findings. Chest/Abdomen CTA 12/10/19 00:00 IMPRESSION: 1. NORMAL CTA OF THE CHEST. NO PULMONARY EMBOLI. 2. MILD CARDIOMEGALY AND SMALL PLEURAL EFFUSIONS. DIFFUSE GROUND-GLASS OPACITIES THROUGHOUT BOTH LUNGS WHICH MAY BE DUE TO PULMONARY EDEMA, PNEUMONITIS, OR PNEUMONIA/ VIRAL INFECTION. Chest X-Ray 12/24/19 00:00 IMPRESSION: Increasing left basilar consolidation. Similar interstitial prominence. Small bilateral pleural effusions. Chest CT 12/25/19 00:00 IMPRESSION: 1. Pneumomediastinum. 2. Bilateral pneumonia. Chest X-Ray 12/26/19 07:00 IMPRESSION: Improved aeration with persistent ill-defined patchy opacities in both lungs. Small pneumo mediastinum is stable from prior. Chest X-Ray 01/03/20 00:00 IMPRESSION: Increased patchy bilateral basilar predominant opacities. Correlate for worsening CHF. Chest X-Ray 01/05/20 00:00 IMPRESSION: STABLE APPEARANCE OF THE CHEST. Plan Health Concerns: Continued O2 need - she will go home with O2 and be weaned off as tolerated by home health Health Care Associated Pneumonia - completed treatment COVID pneumonia - a certain degree of pulmonary decompensation is expected Plan of Treatment: continue O2 support at home to be weaned off as tolerated Time Spent: Greater than 30 Minutes Stroke Is this a Stroke Patient?: No Acute Heart Failure Is this a Heart Failure Patient?: No
== END 2020-01-09 19:30 | disposition home health service (06) | DRG 177 ==
LOC: ER 05:22 → EH 07:57 → 3N 14:10
PROVIDERS: ADMIT Internal Medicine; ATTEND Internal Medicine
PROC: XW13325 Transfusion of Convalescent Plasma (Nonautologous) into Peripheral Vein, Percutaneous Approach, New Technology Group 5 (ICD-10-PCS; principal; 2019-12-06)
PROC: XW033E5 Introduction of Remdesivir Anti-infective into Peripheral Vein, Percutaneous Approach, New Technology Group 5 (ICD-10-PCS; 2019-12-09)
PROC: 3E02340 Introduction of Influenza Vaccine into Muscle, Percutaneous Approach (ICD-10-PCS; 2019-12-14)
PROC: B24BZZ4 Ultrasonography of Heart with Aorta, Transesophageal (ICD-10-PCS; 2019-12-29)
DX: U07.1 COVID-19 (principal); J12.89 Other viral pneumonia; J96.01 Acute respiratory failure with hypoxia; I50.33 Acute on chronic diastolic (congestive) heart failure; N17.9 Acute kidney failure, unspecified; C64.1 Malignant neoplasm of right kidney, except renal pelvis; I11.0 Hypertensive heart disease with heart failure; B95.1 Streptococcus, group B, as the cause of diseases classified elsewhere; Z66 Do not resuscitate; Z68.34 Body mass index [BMI] 34.0-34.9, adult; E66.9 Obesity, unspecified; I48.0 Paroxysmal atrial fibrillation; J98.2 Interstitial emphysema; I95.9 Hypotension, unspecified; E11.65 Type 2 diabetes mellitus with hyperglycemia; E87.6 Hypokalemia; Z23 Encounter for immunization; Z79.899 Other long term (current) drug therapy; Z79.84 Long term (current) use of oral hypoglycemic drugs; Z79.890 Hormone replacement therapy; Z79.01 Long term (current) use of anticoagulants; Z79.51 Long term (current) use of inhaled steroids; Z90.5 Acquired absence of kidney; Z88.3 Allergy status to other anti-infective agents; Z88.0 Allergy status to penicillin; Z85.118 Personal history of other malignant neoplasm of bronchus and lung; Z83.3 Family history of diabetes mellitus
CPT/HCPCS: 36415; 36430; 71045; 71260; 71275; 80048; 80053; 80061; 80202; 81001; 82550; 82728; 82803; 82962; 83036; 83605; 83615; 83735; 83880; 84443; 84484; 84550; 85025; 85027; 85379; 85610; 85652; 86140; 86900; 86901; 87040; 87070; 87635; 90471; 90686; 93005; 93010; 93306; 94640; 94667; 94668; 94799; 96365; 96368; 99285; C9803; G0008; J0456; J0692; J1100; J1160; J1642; J1650; J1815; J1940; J1956; J2060; J2405; J3370; J3475; J3490; J7030; J7050; J7060; J7120; J7512; J8540

== ENCOUNTER → 2020-03-31 | Outpatient (CLI) | payer MEDICARE ==
--- NOTE | 2020-03-31 18:45 | RADIOLOGY REPORT (SQ) ---
EXAM DESCRIPTION: CHEST 2 VIEWS IMAGES COMPLETED DATE/TIME: 03/31/2020 11:50 am REASON FOR STUDY: INFILTRATE COMPARISON: CT chest 12/25/2019 AP chest 01/03/2020, 01/05/2020 EXAM PARAMETERS: NUMBER OF VIEWS: two views TECHNIQUE: Digital Frontal and Lateral radiographic views of the chest acquired. RADIATION DOSE: NA LIMITATIONS: none FINDINGS: LUNGS AND PLEURA: No opacities, masses or pneumothorax. No pleural effusion. MEDIASTINUM AND HILAR STRUCTURES: No masses or contour abnormalities. HEART AND VASCULAR STRUCTURES: Moderate cardiomegaly BONES: No acute findings. HARDWARE: Right permanent central line tip superior vena cava. Surgical clips left axilla and mid ep igastrium. Surgical clips in the sub- carinal region. OTHER: No other significant finding. IMPRESSION: NO ACUTE RADIOGRAPHIC FINDING IN THE CHEST. TECHNICAL DOCUMENTATION: JOB ID: [id number] 2010 [employer] [place]- All Rights Reserved Reading location - IP/workstation name: [id number]
== END ==
LOC: RAD 11:31
PROVIDERS: ATTEND Family Medicine
DX: R91.8 Other nonspecific abnormal finding of lung field (principal)
CPT/HCPCS: 71046